=== PATIENT | male | born 1945 | race American Indian/Alaskan Native ===

== ENCOUNTER 2016-09-25 18:08 | Inpatient (IN) | payer MEDICARE, OTHER ==
[2016-09-25] MEDS ORDERED: SODIUM BICARBONATE IV ONE (18:19)
[2016-09-25 22:41] LABS: Hematocrit 42.5 % (35.5-45.6); Hemoglobin 14.2 gm/dl (11.8-15.2); Mean Corpuscular HGB Conc 34 % (32-34); Mean Corpuscular Hemoglobin 28 pg (28-32); Mean Corpuscular Volume 85 fl (84-94); Platelet Count 517 K/mm3 (140-440); Red Cell Distribution Width 17.4 % (13.2-15.2); White Blood Count 19.8 K/mm3 (4.5-11.0)
[2016-09-25 23:01] LABS: Anion Gap 25 mmol/L; BUN/Creatinine Ratio 11.11; Blood Urea Nitrogen 10 mg/dL (9-20); Calcium 9.6 mg/dL (8.4-10.2); Carbon Dioxide 21 mmol/L (22-30); Chloride 91.1 mmol/L (98-107); Glucose 113 mg/dL (75-100); Sodium 133 mmol/L (137-145); Uric Acid 5.4 mg/dL (3.5-7.6)
[2016-09-26 00:20] LABS: Bacteria,Urine 1+ /HPF (Negative); Bilirubin,Urine NEG (Negative); Blood,Urine SM (Negative); Ketones,Urine 20 mg/dL (Negative); Leukocyte Esterase,Urine LG (Negative); Mucus,Urine FEW /HPF; Nitrite,Urine NEG (Negative); Protein,Urine <15 mg/dL mg/dL (Negative)
[2016-09-26] MEDS ORDERED: ZOSYN/NS 4.5GM/100ML 100 ML IV ONE (06:16)
[2016-09-26] MEDS ORDERED: NACL 0.9% 500 ML IV ONE (06:16)
[2016-09-26] MEDS ORDERED: ZOFRAN IV ONE (06:20)
[2016-09-26] MEDS ORDERED: MORPHINE IV ONE (06:20)
--- NOTE | 2016-09-26 06:25 | Emergency Department Report ---
HPI - General Chief Complaint: Extremity Injury, Lower Time Seen by Provider: 09/26/16 06:08 - HPI HPI: Chief complaint: Right foot pain, cold, blistered, smelling HPI: Patient is a 71-year-old male denies hypertension or diabetes states for days ago he had acute onset of right foot pain is severe and has since worsened and now has discoloration, sloughing and malodorous. Patient denies any other symptoms. Mode of arrival: private car Source: Patient Began: 4-5 days ago Duration: Continuous Context: Patient denies prior medical history Quality: Sharp Severity: 10 out of 10 Improved with: Nothing Worsened with: Nothing Associated signs and symptoms: no fever, nausea, vomiting or diarrhea. ED Past Medical Hx - Past Medical History Additional medical history: gout - Surgical History Past Surgical History?: Yes Additional Surgical History: GI blockage - Social History Smoking Status: Current Every Day Smoker Substance Use Type: Alcohol ED Review of Systems ROS: Stated complaint: RT FOOT SWOLLEN/PAIN Other details as noted in HPI ROS Constitutional: No fever ENT: No uri symptoms Cardiovascular: No chest pain Respiratory: No sob or cough GI: No nausea vomiting or diarrhea : No dysuria frequency or urgency, Skin: See HPI Neuro: No focal weakness or numbness Psych: No depression Haresh/lymph: No edema Physical Exam - Physical Exam Vital Signs: Vital Signs 09/25/16 09/26/16 20:44 05:50 Temperature 98 F 98.2 F Pulse Rate 109 H 111 H Respiratory 18 16 Rate Blood Pressure 131/93 134/85 [Left] O2 Sat by Pulse 100 100 Oximetry Physical Exam: GENERAL: The patient is well-developed well-nourished . HEENT: Normocephalic. Atraumatic. Extraocular motions are intact. Patient has moist mucous membranes. NECK: Supple. No meningitic signs are noted. There is no adenopathy noted. CHEST/LUNGS: Clear to auscultation. There is no respiratory distress noted. HEART/CARDIOVASCULAR: Regular. There is no tachycardia. There is no gallop rub or murmur. ABDOMEN: Abdomen is soft, nontender. Patient has normal bowel sounds. There is no abdominal distention. SKIN: There is no edema. There is no diaphoresis. NEURO: The patient is awake, alert, and oriented. The patient is cooperative. The patient has normal speech. MUSCULOSKELETAL: Right foot and ankle cold to touch. Hyperpigmented, sloughing skin and malodorous. No palpable pulses. ED Course Vital Signs 09/25/16 09/26/16 20:44 05:50 Temperature 98 F 98.2 F Pulse Rate 109 H 111 H Respiratory 18 16 Rate Blood Pressure 131/93 134/85 [Left] O2 Sat by Pulse 100 100 Oximetry - Reevaluation(s) Reevaluation #1: 09/26/16 06:[address] Mccall. Requested CTA with lower extremity runoff and asked that the hospitalist admit the patient. Patient was cultured and given vancomycin and Zosyn and pain medication. ED Medical Decision Making - Lab Data Result diagrams: 09/25/16 22:29 09/25/16 22:29 Laboratory Tests 09/26/16 00:03 Ur Leukocyte Esterase Lg Urine WBC (Auto) 11.0 H Urine RBC (Auto) 2.0 U Epithel Cells (Auto) 4.0 Urine Bacteria (Auto) 1+ - Radiology Data Radiology results: report reviewed (radiology states swelling to the right foot but no subcutaneous gas.) Critical care attestation.: If time is entered above; I have spent that time in minutes in the direct care of this critically ill patient, excluding procedure time. ED Disposition Clinical Impression: Arterial occlusion Disposition: OP ADMITTED IP TO THIS HOSP Is pt being admited?: Yes Does the pt Need Aspirin: Yes Condition: Fair Time of Disposition: 06:27 (admit to the hospitalist)
[2016-09-26] MEDS ORDERED: NACL 0.9% 1000 ML 1,000 ML ONE (06:31)
[2016-09-26] MEDS ORDERED: NACL 0.9% 50 ML ONE ×2 (06:44→07:10)
--- NOTE | 2016-09-26 07:52 | History and Physical Report ---
History of Present Illness Chief complaint: My foot hurts History of present illness: 71 YO Male with HTN, gout, NIcotine Dependence presents to ED for evaluation. Pt states that he began having foot pain 4 days ago. Pain has worsened in past 8 hours. Pt foot is now malodorous, ischemic, cold, blistered, and foul smelling. Pt skin is sloughing off his foot. PT denies fever, chills, CP, Palpitations, Syncope, Trauma, Prolonged travel/immobility, malignancy, individual/family history of DVT/PE, or PAD. Pt states that pain in currently 10 /10 and localized to his foot. Past History Past Medical History: hypertension Past Surgical History: No surgical history, Other (reviewed) Social history: single, Lives alone, smoking. denies: alcohol abuse, prescription drug abuse Family history: no significant family history, other (reviewed) Medications and Allergies Allergies Allergy/AdvReac Type Severity Reaction Status Date / Time No Known Allergies Allergy Unverified 09/25/16 20:45 Home Medications Medication Instructions Recorded Confirmed Last Taken Type Unobtainable 09/26/16 09/26/16 Unknown History Review of Systems All systems: negative Musculoskeletal: other (foot pain) Exam - Constitutional Vitals: Temp Pulse Resp BP Pulse Ox 98.2 F 111 H 16 134/85 100 09/26/16 05:50 09/26/16 05:50 09/26/16 05:50 09/26/16 05:50 09/26/16 05:50 General appearance: Present: no acute distress, well-nourished - EENT Eyes: Present: PERRL ENT: hearing intact, clear oral mucosa - Neck Neck: Present: supple, normal ROM - Respiratory Respiratory effort: normal Respiratory: bilateral: CTA - Cardiovascular Heart Sounds: Present: S1 & S2. Absent: rub, click - Extremities Extremities: No edema Extremity abnormal: cyanosis, ulceration, black, cold, pulses diminished, tenderness Peripheral Pulses: abnormal - Abdominal General gastrointestinal: Present: soft, non-tender, non-distended, normal bowel sounds Male genitourinary: Present: normal - Integumentary Integumentary: Present: clear, warm, dry - Musculoskeletal Musculoskeletal: gait normal, strength equal bilaterally - Psychiatric Psychiatric: appropriate mood/affect, intact judgment & insight - Neurologic Neurologic: CNII-XII intact, moves all extremities Results - Labs CBC & Chem 7: 09/27/16 04:25 09/25/16 22:29 Labs: Abnormal lab results 09/25/16 09/25/16 09/26/16 Range/Units 22:29 22:29 00:03 WBC 19.8 H (4.5-11.0) K/mm3 RDW 17.4 H (13.2-15.2) % Plt Count 517 H (140-440) K/mm3 Sodium 133 L (137-145) mmol/L Chloride 91.1 L (98-107) mmol/L Carbon Dioxide 21 L (22-30) mmol/L Glucose 113 H (75-100) mg/dL Urine WBC (Auto) 11.0 H (0.0-6.0) /HPF Assessment and Plan - Patient Problems (1) Sepsis Current Visit: Yes Status: Acute Plan to address problem: Sepsis protocol: IV abx, ivf, supportive care, serial lactate levels, blood culture, wound culture (2) Arterial occlusion Current Visit: Yes Status: Acute Plan to address problem: Vascular service consulted, Angiogram with runoffs, supportive care. pain control (3) Gangrene of foot Current Visit: Yes Status: Removed Plan to address problem: wound care, (4) HTN (hypertension) Current Visit: Yes Status: Acute (5) Cellulitis and abscess of foot Current Visit: Yes Status: Acute Plan to address problem: IV abx, supportive care, vascular consult for possible amputation. (6) DVT prophylaxis Current Visit: Yes Status: Acute
[2016-09-26] MEDS ORDERED: DUONEB 0.5 MG-3 MG/3 ML SOLN IH PRN (07:53)
--- NOTE | 2016-09-26 08:02 | XRay Report ---
CHEST ONE VIEW INDICATION: Right foot gangrene. COMPARISON: None similar. FINDINGS: Portable, single, frontal chest radiograph demonstrates normal cardiomediastinal silhouette. Clear lungs. Advanced bilateral shoulder/rotator cuff degenerative changes. Demineralized bones. CONCLUSION: No acute disease in the chest. Thank you for the opportunity to participate in this patient's care.
--- NOTE | 2016-09-26 08:22 | Admit Criteria Form ---
Admission Criteria Documentation: VASCULAR DISEASE GRG Clinical Indications for Admission to Inpatient Care (Place 'X' for any and all applicable criteria): Hospital admission is needed for appropriate care of the patient because of ANY ONE of the following (1)(2)(3)(4): [ ]I. Life-threatening or limb-threatening skin ulcer as indicated by ANY ONE of the following(5): [ ]a) Surrounding cellulitis unresponsive to outpatient treatment [ ]b) Wet gangrene [ ]c) Lymphangitis [ ]d) Bacteremia [ ]II. Gangrene requiring intensity and frequency of care not manageable to outpatient, emergency, or observation level of care(5) [X ]III. Severe pain requiring acute inpatient management [ ]IV. Interventional revascularization (eg, surgery, thrombolysis) needed (eg , critical limb ischemia)(21) [ ]V. Urgent inpatient IV anticoagulation needed due to ALL of the following: [ ]a) Temporary subtherapeutic anticoagulation unacceptable because of high risk of short-term venous or arterial thromboembolism due to ANY ONE of the following(7)(8)(9): [ ]i) Venous thromboembolism within the past 12 months [ ]ii) Underlying malignancy [ ]iii) Patient with mechanical cardiac valve(10)(11) [ ]iv) Underlying hypercoagulable state (eg, protein C or protein S deficiency, antithrombin deficiency, antiphospholipid antibodies) [ ]v) Patient at high risk of thromboembolism (eg, status post orthopedic surgery, history of recurrent venous thromboembolism) [ ]vi) Atrial fibrillation with rheumatic valvular heart disease [ ]vii) Atrial fibrillation with 3 or MORE of the following : [ ]1) Congestive heart failure [ ]2) Hypertension [ ]3) Age 65 years or older [ ]4) Diabetes mellitus [ ]5) History of thromboembolism (eg, stroke, TIA , or systemic embolization) more than 3 months ago [ ]6) Female gender [ ]b) Contraindications to outpatient use of "bridging" agent or alternative oral anticoagulant as indicated by ALL of the following: [ ]i) Contraindication to outpatient use of low-molecular -weight heparin as "bridging" agent as indicated by ANY ONE of the following(8) : [ ]1) Documented current or history of heparin- induced thrombocytopenia(12) [ ]2) Severe thrombocytopenia (eg, platelet count less than 50,000/mm3 (50 x109/L)) [ ]3) Documented allergy to heparin, low- molecular-weight heparin, or pork products [ ]4) Renal failure (creatinine clearance < 30 mL /min/1.73m2 (0.50 mL/sec/1.73m2) or on dialysis) [ ]5) Inability to manage self-injection (eg, by patient, caregiver, or visiting nurse) [ ]ii) Contraindication to outpatient use of fondaparinux as "bridging" agent as indicated by ANY ONE of the following(13)(14)(15)(16): [ ]1) Severe thrombocytopenia (eg, platelet count less than 50,000/mm3 (50 x109/L)) [ ]2) Hypersensitivity to fondaparinux, related drugs, or product components [ ]3) Renal failure (creatinine clearance less than 30 mL/min/1.73m2 (0.50 mL/sec/1.73m2) or on dialysis) [ ]4) Inability to manage self-injection (eg, by patient, caregiver, or visiting nurse) [ ]iii) Oral direct thrombin inhibitor (eg, dabigatran) or oral coagulation factor Xa inhibitor (eg, rivaroxaban) not appropriate as oral anticoagulation (eg, indication not appropriate) or contraindicated (eg, hypersensitivity, renal failure)(13)(16)(17)(18)(19)(20) [ ]. Suspected severe acute ischemia due to peripheral vascular disease as indicated by ANY ONE of the following(5)(6): [ ]a) Tissue necrosis [ ]b) Severe pain [ ]c) Acute pulselessness [ ]d) Other evidence of acute severe ischemia (eg, lactic acidosis , motor dysfunction) [ ]VII. Acute or newly diagnosed major vessel (eg, aorta) dissection, rupture, or leakage(5)(6)(22)(23) [ ]VIII.Vascular Disease and ALL of the following: [ ]a) Symptom or finding for which emergency and observation care have failed or are not considered appropriate (Use General Criteria: Observation Care as appropriate) [ ]b) Presence of ANY ONE of the following: [ ]i) A General Admission Criteria [ ]ii) A Pediatric General Admission Criteria The original [facility] content created by John Olvera has been revised. The portions of the content which have been revised are identified through the use of italic text or in bold, and [facility] has neither reviewed nor approved the modified material. All other unmodified content is copyright [facility]. Please see references footnoted in the original [facility] edition 2016 Admission Criteria Met: Yes
--- NOTE | 2016-09-26 08:24 | XRay Report ---
RIGHT FOOT THREE VIEWS: 09/25/16 CLINICAL: Soft tissue swelling and no pulse in the right foot. FINDINGS: Moderate diffuse osteopenia. Hallux valgus deformity and arthritis at the first MTP joint. Small erosions of the first metatarsal head. No fracture or dislocation. Moderate diffuse soft tissue edema. No soft tissue air or foreign body. IMPRESSION: Soft tissue edema but no soft tissue air. Arthritis at the first MTP joint.
--- NOTE | 2016-09-26 10:57 | Cat Scan Report ---
CTA OF THE ABDOMEN, PELVIS, LOWER EXTREMITIES: HISTORY: Ischemic right leg. Transverse images are obtained from the low chest to the ischium with coronal and sagittal 2-D reformatted images as well as 3-D images. The visualized lungs are clear. There are a few gallstones. The abdominal and retroperitoneal solid organs appear generally unremarkable. The unopacified bowel and mesentery is grossly normal. The supra-renal aorta is unremarkable. The celiac and mesenteric arteries are patent. There may be a duplicated right renal supply. There is a single left renal artery. The infrarenal abdominal aorta is unremarkable and there is a patent aortic bifurcation. The iliofemoral arteries are unremarkable. There is a normal common femoral bifurcation. LEFT LOWER EXTREMITY: The SFA is patent as is the popliteal artery although the popliteal may be slightly narrowed. The common peroneal is patent. There appears to be blockage at the trifurcation with reconstitution of the peroneal artery as well as the posterior tibial artery which is the main supply of the foot. RIGHT LOWER EXTREMITY: The proximal and mid SFA are patent; however, there is an abrupt occlusion in the distal third. There are a few small collateral vessels distally with interrupted reconstitution of the mid and distal anterior tibial artery. No other significant supply identified below the knee. The soft tissues of the right leg demonstrate a right knee effusion. The circumference of the right calf and distal leg is generally larger than the left and there appears to be soft tissue edema in various compartments of the right foot. There is no identified gas; however, there is evidence of ulcerations in both medial and lateral aspects of the foot. IMPRESSIONS: 1. Right SFA occlusion with poor distal runoff. 2. Soft tissue changes of edema, fluid accumulations, and ulcerations at various locations in the right leg as detailed above. 3. Significant compromise of distal left leg runoff below the knee. 4. Cholelithiasis.
[2016-09-26] MEDS ORDERED: NACL 0.45% 1000 ML 1,000 ML IV SCH (11:00)
[2016-09-26] MEDS ORDERED: NACL 0.9% 1000 ML 1,000 ML IV ONE (11:00)
[2016-09-26] MEDS ORDERED: VANCOMYCIN VIAL 2,000 MG in NACL 0.9% 500 ML 500 ML IV ONE (12:00)
[2016-09-26] MEDS ORDERED: VANCOMYCIN PHARMACY TO DOSE IV SCH (12:00)
[2016-09-26] MEDS ORDERED: PROVENTIL IH PRN (12:00)
[2016-09-26] MEDS: LEVAQUIN 750MG/150ML 150 ML IV SCH (12:33)
--- NOTE | 2016-09-26 15:33 | Consultation ---
History of Present Illness - Reason for Consult Consult date: 09/26/16 gangrenous foot - History of Present Illness This patient is a 71-year-old gentleman who presented with an acutely ischemic right foot. Patient started having severe foot pain about 4 days ago. Since then it became discolored, started to smell with increased pain. Patient presented to the ER for evaluation. Patient has walked with cane in the past. Patient denies any previous history of claudication or rest pain. Past History Past Medical History: other (gout). denies: diabetes, DVT, hypertension Past Surgical History: bowel surgery Social history: denies: smoking (quit many years ago), alcohol abuse, IV drug use Family history: other (noncontributory) Medications and Allergies Allergies Allergy/AdvReac Type Severity Reaction Status Date / Time No Known Allergies Allergy Unverified 09/25/16 20:45 Home Medications Medication Instructions Recorded Confirmed Last Taken Type Unobtainable 09/26/16 09/26/16 Unknown History Active Meds: Active Medications Acetaminophen (Tylenol) 650 mg PO Q4H PRN PRN Reason: Pain MILD(1-3)/Fever >100.5/CAZARES Albuterol (Proventil) 2.5 mg IH Q4HRT PRN PRN Reason: wheezing Sodium Chloride (Nacl 0.45% 1000 Ml) 1,000 mls @ 125 mls/hr IV DIRECT [facility] Last Admin: 09/26/16 14:07 Dose: 125 mls/hr Levofloxacin/Dextrose (Levaquin 750mg/150ml) 150 mls @ 100 mls/hr IV Q24HR SUPRIYA PRN Reason: Protocol Last Admin: 09/26/16 12:33 Dose: 100 mls/hr Piperacillin Sod/Tazobactam Sod (Zosyn/Ns 4.5gm/100ml) 100 mls @ 100 mls/30 min IV Q8H SUPRIYA PRN Reason: Protocol Vancomycin HCl 1,500 mg/ (Sodium Chloride) 500 mls @ 333.333 mls/hr IV Q12H SUPRIYA Morphine Sulfate (Morphine) 2 mg IV Q4H PRN PRN Reason: Pain , Severe (7-10) Vancomycin HCl (Vancomycin Pharmacy To Dose) 1 each IV PKCONSULT SUPRIYA PRN Reason: Protocol Review of Systems Constitutional: no weight loss, no weight gain Ears, nose, mouth and throat: deferred Cardiovascular: no chest pain, no orthopnea, no palpitations Respiratory: no cough, no cough with sputum, no excessive sputum Gastrointestinal: no abdominal pain, no nausea, no vomiting Genitourinary Male: no dysuria, no hematuria Rectal: no pain Musculoskeletal: gait dysfunction (walks with cane), no neck stiffness, no neck pain Integumentary: blisters (right foot) Neurological: no paralysis, no weakness Psychiatric: no anxiety, no memory loss Endocrine: no cold intolerance, no heat intolerance Hematologic/Lymphatic: no easy bruising Exam - Constitutional Vitals: Temp Pulse Resp BP Pulse Ox 98.2 F 98 H 18 163/94 98 09/26/16 08:34 09/26/16 08:34 09/26/16 08:34 09/26/16 08:34 09/26/16 08:34 General appearance: Present: no acute distress, well-nourished - EENT Eyes: Present: PERRL ENT: hearing intact - Neck Neck: Present: supple - Respiratory Respiratory effort: normal Respiratory: bilateral: CTA - Cardiovascular Rhythm: regular - Extremities Extremity abnormal: black (right foot gangrenous with blisters up to ankle. Nonpalpable pulses. Nonpalpable right popliteal pulse) Peripheral Pulses: abnormal (nonpalpable popliteal or pedal pulses on the right) - Abdominal General gastrointestinal: Present: deferred Male genitourinary: Present: deferred - Rectal Rectal Exam: deferred - Psychiatric Psychiatric: appropriate mood/affect - Neurologic Neurologic: CNII-XII intact, no focal deficits Results - Labs CBC & Chem 7: 09/25/16 22:29 09/25/16 22:29 Labs: Abnormal lab results 09/26/16 09/26/16 Range/Units 08:05 10:48 Lactic Acid 2.8 H* 2.6 H* (0.7-2.0) mmol/L - Imaging and Cardiology EKG: image reviewed (CT angiogram shows right popliteal artery occlusion) Assessment and Plan Severe peripheral vascular disease with gangrenous nonsalvageable, possibly infected right foot. Patient is stable and not diabetic. Therefore no urgent intervention is necessary. However, patient will require at least a below-knee amputation in order to create a functional extremity with the possibility of prosthesis. Plan: For guillotine amputation in a.m. The next day patient will undergo an arteriogram of the right lower extremity was an attempt to revascularize it well enough to heal below-knee amputation. After couple of days of drainage patient will undergo a completion of right below-knee amputation. This plan has been discussed with the patient and his daughter and they all agree. Patient signed consent for all the procedures
[2016-09-26] MEDS: ZOSYN/NS 4.5GM/100ML 100 ML IV SCH (17:30)
[2016-09-26] MEDS: MORPHINE IV PRN (20:35)
[2016-09-26] MEDS: NYSTOP TP SCH (22:30)
[2016-09-27] MEDS: MORPHINE IV PRN ×2 (00:30→06:15)
[2016-09-27] MEDS ORDERED: VANCOMYCIN VIAL 1,500 MG in NACL 0.9% 500 ML 500 ML IV SCH (01:00)
[2016-09-27] MEDS: ZOSYN/NS 4.5GM/100ML 100 ML IV SCH ×3 (02:00→20:16)
[2016-09-27 04:59] LABS: Hematocrit 41.5 % (35.5-45.6); Hemoglobin 13.7 gm/dl (11.8-15.2); Mean Corpuscular HGB Conc 33 % (32-34); Mean Corpuscular Hemoglobin 28 pg (28-32); Mean Corpuscular Volume 86 fl (84-94); Red Blood Count 4.81 M/mm3 (3.65-5.03); Red Cell Distribution Width 17.2 % (13.2-15.2)
[2016-09-27 05:02] LABS: Platelet Count 430 K/mm3 (140-440); White Blood Count 18.7 K/mm3 (4.5-11.0)
[2016-09-27 05:46] LABS: Anisocytosis 1+; Basophils % (Manual) 0 % (0.0-1.8); Blastocytes % (Manual) 0 %; Eosinophils % (Manual) 0 % (0.0-4.3)
[2016-09-27 05:47] LABS: Diff Status Complete; Giant Platelets Few
--- NOTE | 2016-09-27 09:23 | Anesthesia Day of Surgery ---
Anesthesia Day of Surgery - Day of Surgery Patient Examined: Yes Patient H&P Reviewed: Yes Patient is NPO: Yes
--- NOTE | 2016-09-27 09:23 | Anesthesia Consultation ---
Anesthesia Consult and Med Hx Date of service: 09/27/16 - Airway Anesthetic Teeth Evaluation: Poor ROM Head & Neck: Adequate Mental/Hyoid Distance: Adequate Mallampati Class: Class II Intubation Access Assessment: Probably Good - Pulmonary Exam CTA: Yes - Cardiac Exam Cardiac Exam: RRR - Pre-Operative Health Status ASA Pre-Surgery Classification: ASA3 Proposed Anesthetic Plan: General - Pulmonary Hx Smoking: Yes - Cardiovascular System Hx Hypertension: Yes Hx Peripheral Vascular Disease: Yes
[2016-09-27] MEDS ORDERED: LEVAQUIN 750MG/150ML 150 ML IV ONE (09:25)
[2016-09-27] MEDS ORDERED: NACL 0.9% 1000 ML 1,000 ML ONE (09:28)
[2016-09-27] MEDS: NACL 0.9% 1000 ML 1,000 ML IV SCH (09:45)
[2016-09-27] MEDS ORDERED: MORPHINE IV ONE (10:00)
[2016-09-27] MEDS: LEVAQUIN 750MG/150ML 150 ML IV SCH (10:01)
[2016-09-27] MEDS ORDERED: DIPRIVAN 10 MG/ML IV ONE (10:06)
[2016-09-27] MEDS ORDERED: DILAUDID ONE (10:06)
[2016-09-27] MEDS ORDERED: XYLOCAINE MPF 2% ONE (10:10)
[2016-09-27] MEDS ORDERED: DECADRON ONE (10:10)
[2016-09-27] MEDS ORDERED: ZOFRAN ONE (10:10)
--- NOTE | 2016-09-27 11:06 | Anesthesia Day of Surgery ---
Anesthesia Day of Surgery - Day of Surgery Patient Examined: Yes Patient H&P Reviewed: Yes Patient is NPO: Yes
[2016-09-27] MEDS ORDERED: NACL 0.9% IR ONE (11:39)
[2016-09-27] MEDS ORDERED: NACL 0.9% 100 ML ONE (11:42)
[2016-09-27] MEDS ORDERED: NEO SYNEPHRINE ONE (11:42)
--- NOTE | 2016-09-27 12:15 | Operative Report ---
Operative Report Operative Report: Date of Procedure: 09/27/2016 Pre-operative Diagnosis: Peripheral Vascular Disease with Right Foot Wet Gangrene Post-operative Diagnosis: Same Procedure(s): 1. Right above the Ankle Open Guillotine Amputation Surgeon: Jesus Stacy M.D. Snack Bar Cashier: None Anesthesia: Gen. endotracheal anesthesia EBL: Minimal Counts: Correct Complications: None Condition: Stable Findings: Leg amputated above the ankle all tissue appeared viable without any signs of infection. Specimen: Right foot sent to pathology Indication: The patient is a 71-year-old male with a history of peripheral vascular disease and wet gangrene of his right foot. He is in need of open amputation to clear his infection with the plan to close the amputation formerly once his infection is clear. He was given the risks, benefits, and alternatives using a symmetry procedure. Description of Procedure: The patient was brought to the operating room and laid in supine position. After general endotracheal anesthesia was achieved his right foot and leg were prepped and draped in normal sterile fashion. After inflating the tourniquet to 350 mmHg a circumferential incision was created just above the ankle and carried down to the bone using a template. Cautery was used to divide the remaining muscle and soft tissue. An oscillating saw was then used to transect the tibia slightly above the incision and a double action bone cutter was used to transect the fibula approximately a centimeter above the tibia. Cautery was used to achieve hemostasis. The tourniquet was released and additional cautery was used to achieve hemostasis. The wound was copiously irrigated and then dressed using Xeroform gauze, Betadine soaked fluffs, Kerlix, and a 4 inch Wilian bandage. The patient tolerated the procedure well. All sponge, needle, and instrument counts were correct. The patient was taken to the recovery area stable condition.
--- NOTE | 2016-09-27 12:35 | Post Anesthesia Evaluation ---
- Post Anesthesia Evaluation Patient Participated: Yes Airway Patent: Yes Stable Respiratory Function: Yes Nausea/Vomiting: No Temp > 96.8F: Yes Pain Manageable: Yes Adequeate Hydration: Yes Anesthesia Complications: No Block Receding Appropriately: Not Applicable Patient on Ventilator: No
[2016-09-27] MEDS: VANCOMYCIN VIAL 1,500 MG in NACL 0.9% 500 ML 500 ML IV SCH (16:00)
[2016-09-27] MEDS: NYSTOP TP SCH ×2 (22:49→23:00)
[2016-09-28] MEDS: NACL 0.9% 1000 ML 1,000 ML IV SCH ×2 (00:22→15:30)
[2016-09-28] MEDS: ZOSYN/NS 4.5GM/100ML 100 ML IV SCH ×3 (03:00→10:00)
[2016-09-28] MEDS: MORPHINE IV PRN ×2 (04:39→10:45)
[2016-09-28] MEDS: VANCOMYCIN VIAL 1,500 MG in NACL 0.9% 500 ML 500 ML IV SCH ×2 (04:40→20:00)
--- NOTE | 2016-09-28 06:11 | Progress Note ---
Assessment and Plan - Patient Problems (1) Sepsis Current Visit: Yes Status: Resolved Plan to address problem: Sepsis protocol: IV abx, ivf, supportive care, serial lactate levels, blood culture, wound culture (2) Arterial occlusion Current Visit: Yes Status: Acute Plan to address problem: s/p rle bka (3) Gangrene of foot Current Visit: Yes Status: Removed Plan to address problem: s/p rle bka (4) HTN (hypertension) Current Visit: Yes Status: Acute Plan to address problem: monitor bp q shift, cont current care (5) Cellulitis and abscess of foot Current Visit: Yes Status: Acute Plan to address problem: IV abx, supportive care, vascular consult for possible amputation. (6) DVT prophylaxis Current Visit: Yes Status: Acute History Interval history: Pt resting, sitting on side of bed. No reported nursing events. Pt denies pain. Hospitalist Physical - Constitutional Vitals: Temp Pulse Resp BP Pulse Ox 98.3 F 100 H 22 133/76 99 09/28/16 05:04 09/28/16 05:04 09/28/16 05:04 09/28/16 05:04 09/28/16 05:04 General appearance: Present: no acute distress, well-nourished - EENT Eyes: Present: PERRL ENT: hearing intact - Neck Neck: Present: supple - Respiratory Respiratory effort: normal Respiratory: bilateral: CTA - Cardiovascular Rhythm: regular Heart Sounds: Present: S1 & S2 Peripheral Pulses: within normal limits - Abdominal General gastrointestinal: soft, non-tender, non-distended - Integumentary Integumentary: Present: clear, dry - Psychiatric Psychiatric: appropriate mood/affect, cooperative - Neurologic Neurologic: CNII-XII intact Results - Labs CBC & Chem 7: 09/27/16 04:25 09/25/16 22:29 Labs: Laboratory Last Values WBC 18.7 K/mm3 (4.5-11.0) H 09/27/16 04:25 RBC 4.81 M/mm3 (3.65-5.03) 09/27/16 04:25 Hgb 13.7 gm/dl (11.8-15.2) 09/27/16 04:25 Hct 41.5 % (35.5-45.6) 09/27/16 04:25 MCV 86 fl (84-94) 09/27/16 04:25 MCH 28 pg (28-32) 09/27/16 04:25 MCHC 33 % (32-34) 09/27/16 04:25 RDW 17.2 % (13.2-15.2) H 09/27/16 04:25 Plt Count 430 K/mm3 (140-440) 09/27/16 04:25 Add Manual Diff Complete 09/27/16 04:25 Total Counted 100 09/27/16 04:25 Seg Neuts % (Manual) 82.0 % (40.0-70.0) H 09/27/16 04:25 Band Neutrophils % 6.0 % 09/27/16 04:25 Lymphocytes % (Manual) 8.0 % (13.4-35.0) L 09/27/16 04:25 Reactive Lymphs % (Man) 0 % 09/27/16 04:25 Monocytes % (Manual) 3.0 % (0.0-7.3) 09/27/16 04:25 Eosinophils % (Manual) 0 % (0.0-4.3) 09/27/16 04:25 Basophils % (Manual) 0 % (0.0-1.8) 09/27/16 04:25 Metamyelocytes % 1.0 % 09/27/16 04:25 Myelocytes % 0 % 09/27/16 04:25 Promyelocytes % 0 % 09/27/16 04:25 Blast Cells % 0 % 09/27/16 04:25 Nucleated RBC % Not Reportable 09/27/16 04:25 Seg Neutrophils # Man 15.3 K/mm3 (1.8-7.7) H 09/27/16 04:25 Band Neutrophils # 1.1 K/mm3 09/27/16 04:25 Lymphocytes # (Manual) 1.5 K/mm3 (1.2-5.4) 09/27/16 04:25 Abs React Lymphs (Man) 0.0 K/mm3 09/27/16 04:25 Monocytes # (Manual) 0.6 K/mm3 (0.0-0.8) 09/27/16 04:25 Eosinophils # (Manual) 0.0 K/mm3 (0.0-0.4) 09/27/16 04:25 Basophils # (Manual) 0.0 K/mm3 (0.0-0.1) 09/27/16 04:25 Metamyelocytes # 0.2 K/mm3 09/27/16 04:25 Myelocytes # 0.0 K/mm3 09/27/16 04:25 Promyelocytes # 0.0 K/mm3 09/27/16 04:25 Blast Cells # 0.0 K/mm3 09/27/16 04:25 WBC Morphology Not Reportable 09/27/16 04:25 Hypersegmented Neuts Not Reportable 09/27/16 04:25 Hyposegmented Neuts Not Reportable 09/27/16 04:25 Hypogranular Neuts Not Reportable 09/27/16 04:25 Smudge Cells Not Reportable 09/27/16 04:25 Toxic Granulation Not Reportable 09/27/16 04:25 Toxic Vacuolation Not Reportable 09/27/16 04:25 Dohle Bodies Not Reportable 09/27/16 04:25 Pelger-Huet Anomaly Not Reportable 09/27/16 04:25 Renita Rods Not Reportable 09/27/16 04:25 Platelet Estimate Not Reportable 09/27/16 04:25 Clumped Platelets Not Reportable 09/27/16 04:25 Plt Clumps, EDTA Not Reportable 09/27/16 04:25 Large Platelets Not Reportable 09/27/16 04:25 Giant Platelets Few 09/27/16 04:25 Platelet Satelliting Not Reportable 09/27/16 04:25 Plt Morphology Comment Not Reportable 09/27/16 04:25 RBC Morphology Not Reportable 09/27/16 04:25 Dimorphic RBCs Not Reportable 09/27/16 04:25 Polychromasia Not Reportable 09/27/16 04:25 Hypochromasia Not Reportable 09/27/16 04:25 Poikilocytosis Not Reportable 09/27/16 04:25 Anisocytosis 1+ 09/27/16 04:25 Microcytosis Not Reportable 09/27/16 04:25 Macrocytosis Not Reportable 09/27/16 04:25 Spherocytes Not Reportable 09/27/16 04:25 Pappenheimer Bodies Not Reportable 09/27/16 04:25 Sickle Cells Not Reportable 09/27/16 04:25 Target Cells Not Reportable 09/27/16 04:25 Tear Drop Cells Not Reportable 09/27/16 04:25 Ovalocytes Not Reportable 09/27/16 04:25 Helmet Cells Not Reportable 09/27/16 04:25 Iraheta-Dyess Bodies Not Reportable 09/27/16 04:25 [place] Rings Not Reportable 09/27/16 04:25 Abhilash Cells Not Reportable 09/27/16 04:25 Bite Cells Not Reportable 09/27/16 04:25 Crenated Cell Not Reportable 09/27/16 04:25 Elliptocytes Not Reportable 09/27/16 04:25 Acanthocytes (Spur) Not Reportable 09/27/16 04:25 Rouleaux Not Reportable 09/27/16 04:25 Hemoglobin C Crystals Not Reportable 09/27/16 04:25 Schistocytes Not Reportable 09/27/16 04:25 Malaria parasites Not Reportable 09/27/16 04:25 Azael Bodies Not Reportable 09/27/16 04:25 Hem Pathologist Commnt No 09/27/16 04:25 Sodium 133 mmol/L (137-145) L 09/25/16 22:29 Potassium 4.0 mmol/L (3.6-5.0) 09/25/16 22:29 Chloride 91.1 mmol/L (98-107) L 09/25/16 22:29 Carbon Dioxide 21 mmol/L (22-30) L 09/25/16 22:29 Anion Gap 25 mmol/L 09/25/16 22:29 BUN 10 mg/dL (9-20) 09/25/16 22:29 Creatinine 0.9 mg/dL (0.8-1.5) 09/25/16 22:29 Estimated GFR > 60 ml/min 09/25/16 22:29 BUN/Creatinine Ratio 11.11 % 09/25/16 22:29 Glucose 113 mg/dL (75-100) H 09/25/16 22:29 Lactic Acid 2.6 mmol/L (0.7-2.0) H* 09/26/16 10:48 Uric Acid 5.4 mg/dL (3.5-7.6) 09/25/16 22:29 Calcium 9.6 mg/dL (8.4-10.2) 09/25/16 22:29 Urine Color Yellow (Yellow) 09/26/16 00:03 Urine Turbidity Clear (Clear) 09/26/16 00:03 Urine pH 5.0 (5.0-7.0) 09/26/16 00:03 Ur Specific [place] 1.011 (1.003-1.030) 09/26/16 00:03 Urine Protein <15 mg/dl mg/dL (Negative) 09/26/16 00:03 Urine Glucose (UA) Neg mg/dL (Negative) 09/26/16 00:03 Urine Ketones 20 mg/dL (Negative) 09/26/16 00:03 Urine Blood Sm (Negative) 09/26/16 00:03 Urine Nitrite Neg (Negative) 09/26/16 00:03 Urine Bilirubin Neg (Negative) 09/26/16 00:03 Urine Urobilinogen 2.0 mg/dL (<2.0) 09/26/16 00:03 Ur Leukocyte Esterase Lg (Negative) 09/26/16 00:03 Urine WBC (Auto) 11.0 /HPF (0.0-6.0) H 09/26/16 00:03 Urine RBC (Auto) 2.0 /HPF (0.0-6.0) 09/26/16 00:03 U Epithel Cells (Auto) 4.0 /HPF (0-13.0) 09/26/16 00:03 Urine Bacteria (Auto) 1+ /HPF (Negative) 09/26/16 00:03 Urine Mucus Few /HPF 09/26/16 00:03
[2016-09-28] MEDS ORDERED: ANCEF/STERILE WATER 2 GM/20 ML IV NR (08:00)
[2016-09-28] MEDS: LEVAQUIN 750MG/150ML 150 ML IV SCH (11:00)
[2016-09-28] MEDS: PERCOCET 5/325 PO PRN (12:00)
[2016-09-28] MEDS ORDERED: HEPARIN/NS 5000 UNIT/500ML(CATH LAB) 1,000 ML IR ONE (13:58)
[2016-09-28] MEDS ORDERED: DILAUDID ONE (13:58)
[2016-09-28] MEDS ORDERED: SUBLIMAZE ONE ×3 (13:58→16:02)
[2016-09-28] MEDS: SUBLIMAZE ONE ×3 (14:19→15:30)
[2016-09-28] MEDS: XYLOCAINE 1%/ EPI 1:100,000 INFILTRATI ONE (14:20)
[2016-09-28] MEDS: VERSED ONE ×5 (14:20→16:05)
[2016-09-28] MEDS: HEPARIN 10,000 UNITS/10 ML ONE ×2 (14:46→16:05)
[2016-09-28] MEDS ORDERED: NACL 0.9% 1000 ML 1,000 ML ONE (14:47)
[2016-09-28] MEDS ORDERED: CATHFLO ONE (14:50)
[2016-09-28] MEDS ORDERED: NACL 0.9% 100 ML ONE (14:50)
[2016-09-28] MEDS ORDERED: HEPARIN/NS 5000 UNIT/500ML(CATH LAB) 500 ML IR ONE (14:50)
[2016-09-28] MEDS ORDERED: WATER FOR INJ (PF) 10 ML ONE (14:51)
[2016-09-28] MEDS ORDERED: BENADRYL ONE (15:20)
[2016-09-28] MEDS ORDERED: VERSED ONE ×2 (15:29→16:01)
--- NOTE | 2016-09-28 17:31 | Operative Report ---
Operative Report Operative Report: EXAM: 1. Ultrasound-guided access of the left common femoral artery 2. Angiography of the left lower extremity 3. Selection of the abdominal aorta and angiography 4. Selection of the right external iliac artery, popliteal artery, and posterior tibial artery with angiography of the right lower extremity 5. 10 mg TPA pulse spray infusion throughout the right distal superficial femoral artery, popliteal artery, tibioperoneal trunk, and posterior tibial artery 6. Mechanical thrombectomy with 6 [place] AngioJet device of the right distal superficial femoral artery, popliteal artery, tibioperoneal trunk, and posterior tibial artery 7. 5 Malian penumbra mechanical thrombectomy of the right distal superficial femoral artery, popliteal artery, tibioperoneal trunk, and posterior tibial artery 8. Angioplasty of the right posterior tibial artery and tibioperoneal trunk with a 2.5 mm angioplasty balloon 9. Angioplasty of the right tibioperoneal trunk and popliteal artery with a 4 mm angioplasty balloon 10. Angioplasty of the popliteal artery, and distal superficial femoral artery at the 5 mm angioplasty balloon 11. Balloon occlusion of the posterior tibial artery with a 2.5 mm angioplasty balloon with ligation of the posterior tibial artery (assistance by Dr. Stacy) 12. Angio-Seal 6 Malian closure of the left common femoral artery with near immediate hemostasis DATE: 09/28/16 DERRICK BARGE OPERATOR: ANGEL HWANG MD TOOL REPAIRER: ALIREZA STACY MD INDICATION: Right lower extremity infection and gangrene requiring open below- knee amputation with popliteal and distal SFA occlusion requiring revascularization prior to definitive below-knee amputation. MEDICATIONS: Please see nursing report for full details. DEVICES: 6 [place] AngioJet 2.5 mm angioplasty balloon 4 mm angioplasty balloon 5 mm angioplasty balloon CONTRAST: Please see geotechnical laboratory technician report for full details. PROCEDURE: The risks, benefits, and alternatives were discussed with the patient; written informed consent was obtained. Groins were prepped and draped in a sterile fashion. The left common femoral artery was assessed with ultrasound was patent. Under direct ultrasound guidance, the left common femoral artery was accessed with a 21-gauge micropuncture needle. 0.018 inch wire was passed into the aorta. Needle was exchanged for transitional dilator. 0.035 inch wire was passed into the aorta. Transitional dilator was changed for 5 Malian sheath. Digital subtraction angiography was performed to the sheath demonstrating an appropriate puncture, above the bifurcation below the inferior epigastric artery. The left common femoral artery, external iliac artery, proximal superficial femoral artery and proximal profunda femoral artery were patent. Catheter was positioned in infrarenal Mj aorta and digital subtraction angiography was performed demonstrating a patent distal abdominal aorta, patent bilateral common iliac arteries, patent bilateral external iliac arteries and patent right common femoral artery. 0.035 inch Glidewire advantage and catheter were advanced into the right external iliac artery. Digital subtraction angiography was performed demonstrating a patent right common femoral artery, profunda femoral artery, proximal superficial femoral artery. The midportion of the right superficial femoral artery was patent. Digital subtraction angiography was repeated demonstrating occlusion of the right distal superficial femoral artery. Due to the tortuosity of the right iliac artery, I decided to exchange my sheath and passed the sheath into the right mid superficial femoral artery. Patient was heparinized. Sheath was exchanged for a 6 cm Malian 90 cm [place] destination which was passed into the right mid superficial femoral artery. Digital subtraction angiography was repeated demonstrating that there was an occlusion in the right popliteal artery, right distal superficial femoral artery , with delayed reconstitution of the posterior tibial artery. There was also thrombus in the posterior tibial artery. Multiple different wires were used in combination with a vertebral catheter and were used to cannulate the right posterior tibial artery. The right posterior tibial artery was selected. Digital subtraction angiography was performed demonstrating thrombus in the right posterior tibial artery. V18 was passed into the right posterior tibial artery. 6 [place] AngioJet was advanced over the wire and 10 mg TPA pulse spray was infused in the right distal superficial femoral artery, popliteal artery, tibioperoneal trunk, and proximal posterior tibial artery. 25 minute dwell time was allowed. Mechanical thrombectomy was then performed in the right distal superficial femoral artery, popliteal artery, tibioperoneal trunk, and proximal posterior tibial artery. Digital subtraction angiography was repeated demonstrating residual thrombus. Mechanical thrombectomy with the AngioJet was repeated. Digital subtraction angiography was performed demonstrating residual thrombus. 5 Malian penumbra was advanced over the wire into the posterior tibial artery and with the use of the separator, mechanical thrombectomy was performed in the posterior tibial artery, tibioperoneal trunk, popliteal artery, and distal superficial femoral artery. After thrombectomy, V18 was passed back into the posterior tibial artery. Digital subtraction angiography demonstrated minimal residual thrombus. 2.5 mm angioplasty balloon was passed into the posterior tibial artery angioplasty was performed throughout the length of the posterior tibial artery through the tibioperoneal trunk and distal popliteal artery. 4 mm angioplasty balloon was then used to perform angioplasty of the tibioperoneal trunk into the popliteal artery and distal superficial femoral artery. 5 mm angioplasty balloon was used to perform angioplasty in the popliteal artery and distal superficial femoral artery. Digital subtraction angiography was performed demonstrating brisk flow into the distal superficial femoral artery and popliteal artery. There is a mild residual narrowing in the tibioperoneal trunk. There was brisk flow into the posterior tibial artery which then extravasated at the open below-knee amputation site. 2.5 mm angioplasty balloon was advanced over the wire was used to balloon occluded the distal posterior tibial artery. I contacted Dr. Stacy, one of the vascular surgeons in [facility]. He prepped the below-knee amputation site and I passed the wire out of the artery through the occlusion balloon. He passed multiple 3-0 Vicryl stitches at the exit site and used a [id number] stitch to occlude the vessel. The balloon was deflated and no further bleeding was noted. At this point, I determine that the intervention was complete. Wires and catheters were removed. Sheath was retracted into the left external iliac artery. Amplatz wire was passed centrally. The sheath and groin was reprepped with ChloraPrep. Gloves were changed. Sheath was exchanged for a new 6 Malian sheath. Area was cleaned again with ChloraPrep. Sheath was removed and 6 Malian Angio-Seal was advanced over the wire and successfully deployed with near immediate hemostasis. Site was closed with 4-0 Vicryl and Dermabond. Patient tolerated procedure well. No immediate postprocedural complication. The below the knee amputation site was then dressed appropriately. FINDINGS: Please see procedure note above. IMPRESSION: 1. Successful mechanical thrombectomy of the right distal superficial femoral artery, popliteal artery, tibioperoneal trunk, and posterior tibial artery with 6 Malian AngioJet and 5 Malian indigo penumbra device. 2. Successful revascularization of the right distal superficial femoral artery , popliteal artery, tibioperoneal trunk, and posterior tibial artery. 3. Successful distal ligation of the posterior tibial artery as it exited the right below knee open amputation by Dr. Stacy.
--- NOTE | 2016-09-28 18:41 | Post Operative Note ---
Date of procedure: 09/28/16 Pre-op diagnosis: PVD with open BKA Post-op diagnosis: same Findings: Estimated blood loss approximately 300 mL's in aspiration devices Procedure: 1. Ultrasound-guided access of the left common femoral artery 2. Angiography of the left lower extremity 3. Selection of the abdominal aorta and angiography 4. Selection of the right external iliac artery, popliteal artery, and posterior tibial artery with angiography of the right lower extremity 5. 10 mg TPA pulse spray infusion throughout the right distal superficial femoral artery, popliteal artery, tibioperoneal trunk, and posterior tibial artery 6. Mechanical thrombectomy with 6 Wallisian AngioJet device of the right distal superficial femoral artery, popliteal artery, tibioperoneal trunk, and posterior tibial artery 7. 5 Wallisian penumbra mechanical thrombectomy of the right distal superficial femoral artery, popliteal artery, tibioperoneal trunk, and posterior tibial artery 8. Angioplasty of the right posterior tibial artery and tibioperoneal trunk with a 2.5 mm angioplasty balloon 9. Angioplasty of the right tibioperoneal trunk and popliteal artery with a 4 mm angioplasty balloon 10. Angioplasty of the popliteal artery, and distal superficial femoral artery at the 5 mm angioplasty balloon 11. Balloon occlusion of the posterior tibial artery with a 2.5 mm angioplasty balloon with ligation of the posterior tibial artery (assistance by Dr. Verde) 12. Angio-Seal 6 Wallisian closure of the left common femoral artery with near immediate hemostasis Anesthesia: local Surgeon: ANGEL HWANG Estimated blood loss: other (300 mL) Condition: stable Disposition: floor
--- NOTE | 2016-09-28 18:54 | Consultation ---
History of Present Illness - Reason for Consult Consult date: 09/28/16 Evaluate for Acute IRU - History of Present Illness 71 y.o. male who reports worsening foot pain with foul smell. After Vascular surgery consult, pt was recommended for amputation. Guillotine amputation was completed on 09/27; arteriogram completed on today. Pt will require formal BKA in a few days per Vascular. On today, pt reports intermittent phantom pain, rated 4-5/10. PT consulted, however, unable to be completed due to procedure. Consult placed for post-acute placement recommendations. Past History Past Medical History: hypertension Past Surgical History: Other (ex lap) Social history: single, lives with family, smoking, alcohol abuse Family history: hypertension Medications and Allergies Allergies Allergy/AdvReac Type Severity Reaction Status Date / Time No Known Allergies Allergy Unverified 09/25/16 20:45 Home Medications Medication Instructions Recorded Confirmed Last Taken Type Unobtainable 09/26/16 09/26/16 Unknown History Active Meds: Active Medications Acetaminophen (Tylenol) 650 mg PO Q4H PRN PRN Reason: Pain MILD(1-3)/Fever >100.5/CAZARES Albuterol (Proventil) 2.5 mg IH Q4HRT PRN PRN Reason: wheezing Cefazolin Sodium (Ancef/Sterile Water 2 Gm/20 Ml) 2 gm IV PREOP NR Stop: 09/30/16 07:59 Levofloxacin/Dextrose (Levaquin 750mg/150ml) 150 mls @ 100 mls/hr IV Q24HR SUPRIYA PRN Reason: Protocol Last Admin: 09/28/16 11:00 Dose: 100 mls/hr Vancomycin HCl 1,500 mg/ (Sodium Chloride) 500 mls @ 333.333 mls/hr IV Q12H [facility] Last Admin: 09/28/16 04:40 Dose: 333.333 mls/hr Piperacillin Sod/Tazobactam Sod (Zosyn/Ns 4.5gm/100ml) 100 mls @ 100 mls/30 min IV Q8H SUPRIYA PRN Reason: Protocol Last Admin: 09/28/16 10:00 Dose: 100 mls/30 min Sodium Chloride (Nacl 0.9% 1000 Ml) 1,000 mls @ 100 mls/hr IV DIRECT [facility] Last Admin: 09/28/16 15:30 Dose: 1,000 mls Morphine Sulfate (Morphine) 2 mg IV Q4H PRN PRN Reason: Pain , Severe (7-10) Last Admin: 09/28/16 10:45 Dose: 2 mg Nystatin (Nystop) 1 applic TP BID [facility] Last Admin: 09/27/16 23:00 Dose: 1 applic Oxycodone/Acetaminophen (Percocet 5/325) 2 tab PO Q6H PRN PRN Reason: Pain, Moderate (4-6) Last Admin: 09/28/16 12:00 Dose: 2 tab Vancomycin HCl (Vancomycin Pharmacy To Dose) 1 each IV PKCONSULT SUPRIYA PRN Reason: Protocol Review of Systems All systems: negative Ears, nose, mouth and throat: no headache Cardiovascular: no chest pain, no lightheadedness Respiratory: no cough, no shortness of breath Gastrointestinal: no nausea, no vomiting, no constipation Genitourinary Male: no dysuria Neurological: parathesias (phantom pain at Right residual limb) Exam - Constitutional Vitals: Vital Signs - 12hr 09/28/16 09/28/16 09/28/16 07:00 10:00 18:00 Temperature 97.5 F L 98.4 F Pulse Rate [ 94 H 87 Left Brachial] Respiratory 18 Rate Blood Pressure 141/76 170/96 [Left Arm] O2 Sat by Pulse 98 Oximetry General appearance: no acute distress, obese - EENT Eyes: EOM intact ENT: hearing intact - Neck Neck: supple, normal ROM - Respiratory Respiratory effort: normal Respiratory: bilateral: CTA - Cardiovascular Rhythm: regular Heart Sounds: Present: S1 & S2 - Extremities Extremity abnormal: other (post-op dressing to RLE ) - Gastrointestinal General gastrointestinal: Present: soft, non-tender, non-distended, normal bowel sounds - Neurologic Neurologic: CNII-XII intact, moves all extremities (good ROM at RLE at knee and hip ) - Psychiatric Psychiatric: appropriate mood/affect, intact judgment & insight, memory intact, cooperative - Labs CBC & Chem 7: 09/28/16 19:04 09/25/16 22:29 Labs: Laboratory Results - last 72 hr 09/26/16 09/26/16 09/27/16 08:05 10:48 04:25 WBC 18.7 H RBC 4.81 Hgb 13.7 Hct 41.5 MCV 86 MCH 28 MCHC 33 RDW 17.2 H Plt Count 430 Add Manual Diff Complete Total Counted 100 Seg Neuts % (Manual) 82.0 H Band Neutrophils % 6.0 Lymphocytes % (Manual) 8.0 L Reactive Lymphs % (Man) 0 Monocytes % (Manual) 3.0 Eosinophils % (Manual) 0 Basophils % (Manual) 0 Metamyelocytes % 1.0 Myelocytes % 0 Promyelocytes % 0 Blast Cells % 0 Nucleated RBC % Not Reportable Seg Neutrophils # Man 15.3 H Band Neutrophils # 1.1 Lymphocytes # (Manual) 1.5 Abs React Lymphs (Man) 0.0 Monocytes # (Manual) 0.6 Eosinophils # (Manual) 0.0 Basophils # (Manual) 0.0 Metamyelocytes # 0.2 Myelocytes # 0.0 Promyelocytes # 0.0 Blast Cells # 0.0 WBC Morphology Not Reportable Hypersegmented Neuts Not Reportable Hyposegmented Neuts Not Reportable Hypogranular Neuts Not Reportable Smudge Cells Not Reportable Toxic Granulation Not Reportable Toxic Vacuolation Not Reportable Dohle Bodies Not Reportable Pelger-Huet Anomaly Not Reportable Renita Rods Not Reportable Platelet Estimate Not Reportable Clumped Platelets Not Reportable Plt Clumps, EDTA Not Reportable Large Platelets Not Reportable Giant Platelets Few Platelet Satelliting Not Reportable Plt Morphology Comment Not Reportable RBC Morphology Not Reportable Dimorphic RBCs Not Reportable Polychromasia Not Reportable Hypochromasia Not Reportable Poikilocytosis Not Reportable Anisocytosis 1+ Microcytosis Not Reportable Macrocytosis Not Reportable Spherocytes Not Reportable Pappenheimer Bodies Not Reportable Sickle Cells Not Reportable Target Cells Not Reportable Tear Drop Cells Not Reportable Ovalocytes Not Reportable Helmet Cells Not Reportable [place] Bodies Not Reportable [place] Rings Not Reportable [place] Cells Not Reportable Bite Cells Not Reportable Crenated Cell Not Reportable Elliptocytes Not Reportable Acanthocytes (Spur) Not Reportable Rouleaux Not Reportable Hemoglobin C Crystals Not Reportable Schistocytes Not Reportable Malaria parasites Not Reportable Azael Bodies Not Reportable Hem Pathologist Commnt No Lactic Acid 2.8 H* 2.6 H* Assessment and Plan Patient was assessed and evaluated for Acute Inpatient Rehab Unit. 71 y.o. male s/p right LE amputation secondary to PVD with wet gangrene; pending RT residual limb revision. Rehab options discussed with patient. PT evaluation is pending. Post-acute care recommendations to follow after therapy evaluation had been completed. Pt is motivation to get stronger and become independent post-operatively; expressed desire to obtain prosthetic when appropriate. Ongoing medical management per IM and Vascular; pain control; ABX ; HTN. Will continue to follow. Thank you for consultation. - Patient Problems (1) Gangrene of foot Current Visit: Yes Status: Acute (2) Amputation of right lower extremity below knee Current Visit: Yes Status: Acute (3) HTN (hypertension) Current Visit: Yes Status: Acute Qualifiers: Hypertension type: essential hypertension Qualified Code(s): I10 - Essential (primary) hypertension
[2016-09-28 19:41] LABS: Basophils % (Auto) 0.3 % (0.0-1.8); Eosinophils % (Auto) 0.2 % (0.0-4.3); Hematocrit 35.8 % (35.5-45.6); Hemoglobin 11.8 gm/dl (11.8-15.2); Mean Corpuscular HGB Conc 33 % (32-34); Mean Corpuscular Hemoglobin 29 pg (28-32); Mean Corpuscular Volume 87 fl (84-94); Platelet Count 436 K/mm3 (140-440); Red Blood Count 4.12 M/mm3 (3.65-5.03); Red Cell Distribution Width 17.5 % (13.2-15.2); White Blood Count 15.8 K/mm3 (4.5-11.0)
[2016-09-28] MEDS: NYSTOP TP SCH (23:00)
[2016-09-29] MEDS: ZOSYN/NS 4.5GM/100ML 100 ML IV SCH ×4 (02:00→18:31)
[2016-09-29] MEDS: MORPHINE IV PRN ×2 (02:10→06:15)
[2016-09-29] MEDS: NYSTOP TP SCH ×3 (04:59→22:21)
[2016-09-29] MEDS: VANCOMYCIN VIAL 1,500 MG in NACL 0.9% 500 ML 500 ML IV SCH ×3 (05:02→23:23)
[2016-09-29] MEDS: VERSED ONE (05:06)
[2016-09-29] MEDS: XYLOCAINE 1%/ EPI 1:100,000 INFILTRATI ONE (05:08)
--- NOTE | 2016-09-29 07:10 | Progress Note ---
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 (6) DVT prophylaxis Current Visit: Yes Status: Acute History Interval history: Pt resting, sitting on side of bed. No reported nursing events. Pt denies pain. Hospitalist Physical - Constitutional Vitals: Temp Pulse Resp BP Pulse Ox 97.5 F L 91 H 20 144/71 100 09/29/16 04:00 09/29/16 04:00 09/29/16 06:15 09/29/16 04:00 09/29/16 04:00 General appearance: Present: no acute distress, obese - EENT Eyes: Present: PERRL, EOM intact ENT: hearing intact - Neck Neck: Present: supple - Respiratory Respiratory effort: normal Respiratory: bilateral: CTA - Cardiovascular Rhythm: regular Heart Sounds: Present: S1 & S2 - Extremities Extremities: no ischemia Peripheral Pulses: within normal limits - Abdominal General gastrointestinal: soft, non-tender, non-distended - Integumentary Integumentary: Present: clear, dry, erythema (erythematous rash to pannus) - Psychiatric Psychiatric: appropriate mood/affect, cooperative - Neurologic Neurologic: CNII-XII intact Results - Labs CBC & Chem 7: 09/28/16 19:04 09/25/16 22:29 Labs: Laboratory Last Values WBC 15.8 K/mm3 (4.5-11.0) H 09/28/16 19:04 RBC 4.12 M/mm3 (3.65-5.03) 09/28/16 19:04 Hgb 11.8 gm/dl (11.8-15.2) 09/28/16 19:04 Hct 35.8 % (35.5-45.6) 09/28/16 19:04 MCV 87 fl (84-94) 09/28/16 19:04 MCH 29 pg (28-32) 09/28/16 19:04 MCHC 33 % (32-34) 09/28/16 19:04 RDW 17.5 % (13.2-15.2) H 09/28/16 19:04 Plt Count 436 K/mm3 (140-440) 09/28/16 19:04 Lymph % (Auto) 8.9 % (13.4-35.0) L 09/28/16 19:04 [place] % (Auto) 7.6 % (0.0-7.3) H 09/28/16 19:04 Eos % (Auto) 0.2 % (0.0-4.3) 09/28/16 19:04 Baso % (Auto) 0.3 % (0.0-1.8) 09/28/16 19:04 Lymph # 1.4 K/mm3 (1.2-5.4) 09/28/16 19:04 [place] # 1.2 K/mm3 (0.0-0.8) H 09/28/16 19:04 Eos # 0.0 K/mm3 (0.0-0.4) 09/28/16 19:04 Baso # 0.0 K/mm3 (0.0-0.1) 09/28/16 19:04 Add Manual Diff Complete 09/27/16 04:25 Total Counted 100 09/27/16 04:25 Seg Neutrophils % 83.0 % (40.0-70.0) H 09/28/16 19:04 Seg Neuts % (Manual) 82.0 % (40.0-70.0) H 09/27/16 04:25 Band Neutrophils % 6.0 % 09/27/16 04:25 Lymphocytes % (Manual) 8.0 % (13.4-35.0) L 09/27/16 04:25 Reactive Lymphs % (Man) 0 % 09/27/16 04:25 Monocytes % (Manual) 3.0 % (0.0-7.3) 09/27/16 04:25 Eosinophils % (Manual) 0 % (0.0-4.3) 09/27/16 04:25 Basophils % (Manual) 0 % (0.0-1.8) 09/27/16 04:25 Metamyelocytes % 1.0 % 09/27/16 04:25 Myelocytes % 0 % 09/27/16 04:25 Promyelocytes % 0 % 09/27/16 04:25 Blast Cells % 0 % 09/27/16 04:25 Nucleated RBC % Not Reportable 09/27/16 04:25 Seg Neutrophils # 13.1 K/mm3 (1.8-7.7) H 09/28/16 19:04 Seg Neutrophils # Man 15.3 K/mm3 (1.8-7.7) H 09/27/16 04:25 Band Neutrophils # 1.1 K/mm3 09/27/16 04:25 Lymphocytes # (Manual) 1.5 K/mm3 (1.2-5.4) 09/27/16 04:25 Abs React Lymphs (Man) 0.0 K/mm3 09/27/16 04:25 Monocytes # (Manual) 0.6 K/mm3 (0.0-0.8) 09/27/16 04:25 Eosinophils # (Manual) 0.0 K/mm3 (0.0-0.4) 09/27/16 04:25 Basophils # (Manual) 0.0 K/mm3 (0.0-0.1) 09/27/16 04:25 Metamyelocytes # 0.2 K/mm3 09/27/16 04:25 Myelocytes # 0.0 K/mm3 09/27/16 04:25 Promyelocytes # 0.0 K/mm3 09/27/16 04:25 Blast Cells # 0.0 K/mm3 09/27/16 04:25 WBC Morphology Not Reportable 09/27/16 04:25 Hypersegmented Neuts Not Reportable 09/27/16 04:25 Hyposegmented Neuts Not Reportable 09/27/16 04:25 Hypogranular Neuts Not Reportable 09/27/16 04:25 Smudge Cells Not Reportable 09/27/16 04:25 Toxic Granulation Not Reportable 09/27/16 04:25 Toxic Vacuolation Not Reportable 09/27/16 04:25 Dohle Bodies Not Reportable 09/27/16 04:25 Pelger-Huet Anomaly Not Reportable 09/27/16 04:25 Renita Rods Not Reportable 09/27/16 04:25 Platelet Estimate Not Reportable 09/27/16 04:25 Clumped Platelets Not Reportable 09/27/16 04:25 Plt Clumps, EDTA Not Reportable 09/27/16 04:25 Large Platelets Not Reportable 09/27/16 04:25 Giant Platelets Few 09/27/16 04:25 Platelet Satelliting Not Reportable 09/27/16 04:25 Plt Morphology Comment Not Reportable 09/27/16 04:25 RBC Morphology Not Reportable 09/27/16 04:25 Dimorphic RBCs Not Reportable 09/27/16 04:25 Polychromasia Not Reportable 09/27/16 04:25 Hypochromasia Not Reportable 09/27/16 04:25 Poikilocytosis Not Reportable 09/27/16 04:25 Anisocytosis 1+ 09/27/16 04:25 Microcytosis Not Reportable 09/27/16 04:25 Macrocytosis Not Reportable 09/27/16 04:25 Spherocytes Not Reportable 09/27/16 04:25 Pappenheimer Bodies Not Reportable 09/27/16 04:25 Sickle Cells Not Reportable 09/27/16 04:25 Target Cells Not Reportable 09/27/16 04:25 Tear Drop Cells Not Reportable 09/27/16 04:25 Ovalocytes Not Reportable 09/27/16 04:25 Helmet Cells Not Reportable 09/27/16 04:25 Iraheta-Sargent Bodies Not Reportable 09/27/16 04:25 [place] Rings Not Reportable 09/27/16 04:25 Abhilash Cells Not Reportable 09/27/16 04:25 Bite Cells Not Reportable 09/27/16 04:25 Crenated Cell Not Reportable 09/27/16 04:25 Elliptocytes Not Reportable 09/27/16 04:25 Acanthocytes (Spur) Not Reportable 09/27/16 04:25 Rouleaux Not Reportable 09/27/16 04:25 Hemoglobin C Crystals Not Reportable 09/27/16 04:25 Schistocytes Not Reportable 09/27/16 04:25 Malaria parasites Not Reportable 09/27/16 04:25 Azael Bodies Not Reportable 09/27/16 04:25 Hem Pathologist Commnt No 09/27/16 04:25 Sodium 133 mmol/L (137-145) L 09/25/16 22:29 Potassium 4.0 mmol/L (3.6-5.0) 09/25/16 22:29 Chloride 91.1 mmol/L (98-107) L 09/25/16 22:29 Carbon Dioxide 21 mmol/L (22-30) L 09/25/16 22:29 Anion Gap 25 mmol/L 09/25/16 22:29 BUN 10 mg/dL (9-20) 09/25/16 22:29 Creatinine 0.9 mg/dL (0.8-1.5) 09/25/16 22:29 Estimated GFR > 60 ml/min 09/25/16 22:29 BUN/Creatinine Ratio 11.11 % 09/25/16 22:29 Glucose 113 mg/dL (75-100) H 09/25/16 22:29 Lactic Acid 2.6 mmol/L (0.7-2.0) H* 09/26/16 10:48 Uric Acid 5.4 mg/dL (3.5-7.6) 09/25/16 22:29 Calcium 9.6 mg/dL (8.4-10.2) 09/25/16 22:29 Urine Color Yellow (Yellow) 09/26/16 00:03 Urine Turbidity Clear (Clear) 09/26/16 00:03 Urine pH 5.0 (5.0-7.0) 09/26/16 00:03 Ur Specific [place] 1.011 (1.003-1.030) 09/26/16 00:03 Urine Protein <15 mg/dl mg/dL (Negative) 09/26/16 00:03 Urine Glucose (UA) Neg mg/dL (Negative) 09/26/16 00:03 Urine Ketones 20 mg/dL (Negative) 09/26/16 00:03 Urine Blood Sm (Negative) 09/26/16 00:03 Urine Nitrite Neg (Negative) 09/26/16 00:03 Urine Bilirubin Neg (Negative) 09/26/16 00:03 Urine Urobilinogen 2.0 mg/dL (<2.0) 09/26/16 00:03 Ur Leukocyte Esterase Lg (Negative) 09/26/16 00:03 Urine WBC (Auto) 11.0 /HPF (0.0-6.0) H 09/26/16 00:03 Urine RBC (Auto) 2.0 /HPF (0.0-6.0) 09/26/16 00:03 U Epithel Cells (Auto) 4.0 /HPF (0-13.0) 09/26/16 00:03 Urine Bacteria (Auto) 1+ /HPF (Negative) 09/26/16 00:03 Urine Mucus Few /HPF 09/26/16 00:03 Vancomycin Trough 28.8 ug/mL (5.0-20.0) H 09/29/16 03:22
[2016-09-29] MEDS: PERCOCET 5/325 PO PRN ×2 (08:13→15:03)
[2016-09-29] MEDS ORDERED: HEPARIN 10,000 UNITS/10 ML IV ONE (09:00)
[2016-09-29 09:51] LABS: Hemoglobin 11.5 gm/dl (11.8-15.2)
[2016-09-29 10:05] LABS: INR 1.07 (0.87-1.13)
[2016-09-29 10:06] LABS: Partial Thromboplastin Time 34.6 Sec. (24.2-36.6)
[2016-09-29] MEDS: LEVAQUIN 750MG/150ML 150 ML IV SCH (11:24)
--- NOTE | 2016-09-29 13:18 | Progress Note ---
Assessment and Plan Patient's white count has trended down. We'll plan to formally close the BKA once all signs of infection are clear. Subjective Date of service: 09/29/16 Interval history: The patient is without complaints at this time. His pain is well-controlled. Objective - Constitutional Vitals: Vital Signs - 12hr 09/29/16 09/29/16 09/29/16 02:10 02:40 04:00 Temperature 97.5 F L Pulse Rate [ From Monitor] Pulse Rate [ 91 H Left Brachial] Respiratory 20 20 20 Rate Blood Pressure 144/71 [Left Arm] O2 Sat by Pulse 100 Oximetry 09/29/16 09/29/16 06:15 07:25 Temperature 97.6 F Pulse Rate [ 94 H From Monitor] Pulse Rate [ Left Brachial] Respiratory 20 20 Rate Blood Pressure 129/61 [Left Arm] O2 Sat by Pulse 100 Oximetry General appearance: Present: no acute distress - Cardiovascular Rhythm: regular Extremities: abnormal (right stump dressing is clean dry and intact without any evidence of bleeding) - Labs CBC & Chem 7: 09/29/16 09:17 09/25/16 22:29 Labs: Abnormal lab results 09/28/16 09/29/16 09/29/16 Range/Units 19:04 03:22 09:17 WBC 15.8 H (4.5-11.0) K/mm3 Hgb 11.5 L (11.8-15.2) gm/dl Hct 33.0 L (35.5-45.6) % RDW 17.5 H (13.2-15.2) % Lymph % (Auto) 8.9 L (13.4-35.0) % [place] % (Auto) 7.6 H (0.0-7.3) % [place] # 1.2 H (0.0-0.8) K/mm3 Seg Neutrophils % 83.0 H (40.0-70.0) % Seg Neutrophils # 13.1 H (1.8-7.7) K/mm3 Vancomycin Trough 28.8 H (5.0-20.0) ug/mL
[2016-09-29] MEDS: HALFPRIN EC PO SCH (13:55)
[2016-09-30] MEDS: PERCOCET 5/325 PO PRN ×3 (01:22→23:38)
[2016-09-30] MEDS: ZOSYN/NS 4.5GM/100ML 100 ML IV SCH ×3 (06:21→17:47)
--- NOTE | 2016-09-30 09:03 | Progress Note ---
Assessment and Plan The patient has had no fevers for the past 24 hours. We will check his CBC for evidence of leukocytosis. If he has had normalization of his white count proceeded with closure of his below-knee amputation tomorrow. I have discussed this plan with the patient and he agrees. Subjective Date of service: 09/30/16 Interval history: The patient has no complaints. Objective - Constitutional Vitals: Vital Signs - 12hr 09/29/16 09/29/16 09/30/16 21:40 22:00 08:00 Temperature 98.7 F 98.7 F Pulse Rate [ 88 Apical] Pulse Rate [ 97 H Left Brachial] Respiratory 20 20 20 Rate Blood Pressure 161/68 [Left Arm] O2 Sat by Pulse 98 98 Oximetry General appearance: Present: no acute distress - Respiratory Respiratory effort: normal Extremities: abnormal (right stump dressing clean dry and intact without evidence of bleeding) - Labs CBC & Chem 7: 09/29/16 09:17 09/25/16 22:29 Labs: Abnormal lab results 09/29/16 Range/Units 09:17 Hgb 11.5 L (11.8-15.2) gm/dl Hct 33.0 L (35.5-45.6) %
[2016-09-30] MEDS: HALFPRIN EC PO SCH (09:35)
[2016-09-30] MEDS: LEVAQUIN 750MG/150ML 150 ML IV SCH (09:35)
[2016-09-30] MEDS: NYSTOP TP SCH ×2 (09:37→21:21)
[2016-09-30 09:47] LABS: Basophils % (Auto) 1.4 % (0.0-1.8); Eosinophils % (Auto) 4.3 % (0.0-4.3); Hematocrit 31.4 % (35.5-45.6); Hemoglobin 10.3 gm/dl (11.8-15.2); Mean Corpuscular HGB Conc 33 % (32-34); Mean Corpuscular Hemoglobin 28 pg (28-32); Mean Corpuscular Volume 86 fl (84-94); Platelet Count 410 K/mm3 (140-440); Red Blood Count 3.67 M/mm3 (3.65-5.03); Red Cell Distribution Width 17.4 % (13.2-15.2); White Blood Count 12.1 K/mm3 (4.5-11.0)
[2016-09-30] MEDS: VANCOMYCIN VIAL 1,500 MG in NACL 0.9% 500 ML 500 ML IV SCH ×2 (09:50→23:42)
--- NOTE | 2016-09-30 10:30 | Progress Note ---
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 (6) DVT prophylaxis Current Visit: Yes Status: Acute History Interval history: Pt resting, sitting on side of bed. No reported nursing events. Pt denies pain. Pt eating lunch. Pt participating with therapy. Pending Rehab placement Hospitalist Physical - Constitutional Vitals: Temp Pulse Resp BP Pulse Ox 98.7 F 88 20 161/68 98 09/30/16 08:00 09/30/16 08:00 09/30/16 08:00 09/30/16 08:00 09/30/16 08:00 General appearance: Present: no acute distress - EENT Eyes: Present: PERRL, EOM intact ENT: hearing intact - Neck Neck: Present: supple - Respiratory Respiratory: bilateral: CTA - Cardiovascular Rhythm: regular Heart Sounds: Present: S1 & S2 - Extremities Extremities: no ischemia Peripheral Pulses: within normal limits - Abdominal General gastrointestinal: soft, non-tender, non-distended - Integumentary Integumentary: Present: clear, dry - Psychiatric Psychiatric: appropriate mood/affect, cooperative - Neurologic Neurologic: CNII-XII intact Results - Labs CBC & Chem 7: 09/30/16 09:09 09/25/16 22:29 Labs: Laboratory Last Values WBC 12.1 K/mm3 (4.5-11.0) H 09/30/16 09:09 RBC 3.67 M/mm3 (3.65-5.03) 09/30/16 09:09 Hgb 10.3 gm/dl (11.8-15.2) L 09/30/16 09:09 Hct 31.4 % (35.5-45.6) L 09/30/16 09:09 MCV 86 fl (84-94) 09/30/16 09:09 MCH 28 pg (28-32) 09/30/16 09:09 MCHC 33 % (32-34) 09/30/16 09:09 RDW 17.4 % (13.2-15.2) H 09/30/16 09:09 Plt Count 410 K/mm3 (140-440) 09/30/16 09:09 Lymph % (Auto) 18.1 % (13.4-35.0) 09/30/16 09:09 [place] % (Auto) 9.4 % (0.0-7.3) H 09/30/16 09:09 Eos % (Auto) 4.3 % (0.0-4.3) 09/30/16 09:09 Baso % (Auto) 1.4 % (0.0-1.8) 09/30/16 09:09 Lymph # 2.2 K/mm3 (1.2-5.4) 09/30/16 09:09 [place] # 1.1 K/mm3 (0.0-0.8) H 09/30/16 09:09 Eos # 0.5 K/mm3 (0.0-0.4) H 09/30/16 09:09 Baso # 0.2 K/mm3 (0.0-0.1) H 09/30/16 09:09 Add Manual Diff Complete 09/27/16 04:25 Total Counted 100 09/27/16 04:25 Seg Neutrophils % 66.8 % (40.0-70.0) 09/30/16 09:09 Seg Neuts % (Manual) 82.0 % (40.0-70.0) H 09/27/16 04:25 Band Neutrophils % 6.0 % 09/27/16 04:25 Lymphocytes % (Manual) 8.0 % (13.4-35.0) L 09/27/16 04:25 Reactive Lymphs % (Man) 0 % 09/27/16 04:25 Monocytes % (Manual) 3.0 % (0.0-7.3) 09/27/16 04:25 Eosinophils % (Manual) 0 % (0.0-4.3) 09/27/16 04:25 Basophils % (Manual) 0 % (0.0-1.8) 09/27/16 04:25 Metamyelocytes % 1.0 % 09/27/16 04:25 Myelocytes % 0 % 09/27/16 04:25 Promyelocytes % 0 % 09/27/16 04:25 Blast Cells % 0 % 09/27/16 04:25 Nucleated RBC % Not Reportable 09/27/16 04:25 Seg Neutrophils # 8.1 K/mm3 (1.8-7.7) H 09/30/16 09:09 Seg Neutrophils # Man 15.3 K/mm3 (1.8-7.7) H 09/27/16 04:25 Band Neutrophils # 1.1 K/mm3 09/27/16 04:25 Lymphocytes # (Manual) 1.5 K/mm3 (1.2-5.4) 09/27/16 04:25 Abs React Lymphs (Man) 0.0 K/mm3 09/27/16 04:25 Monocytes # (Manual) 0.6 K/mm3 (0.0-0.8) 09/27/16 04:25 Eosinophils # (Manual) 0.0 K/mm3 (0.0-0.4) 09/27/16 04:25 Basophils # (Manual) 0.0 K/mm3 (0.0-0.1) 09/27/16 04:25 Metamyelocytes # 0.2 K/mm3 09/27/16 04:25 Myelocytes # 0.0 K/mm3 09/27/16 04:25 Promyelocytes # 0.0 K/mm3 09/27/16 04:25 Blast Cells # 0.0 K/mm3 09/27/16 04:25 WBC Morphology Not Reportable 09/27/16 04:25 Hypersegmented Neuts Not Reportable 09/27/16 04:25 Hyposegmented Neuts Not Reportable 09/27/16 04:25 Hypogranular Neuts Not Reportable 09/27/16 04:25 Smudge Cells Not Reportable 09/27/16 04:25 Toxic Granulation Not Reportable 09/27/16 04:25 Toxic Vacuolation Not Reportable 09/27/16 04:25 Dohle Bodies Not Reportable 09/27/16 04:25 Pelger-Huet Anomaly Not Reportable 09/27/16 04:25 Renita Rods Not Reportable 09/27/16 04:25 Platelet Estimate Not Reportable 09/27/16 04:25 Clumped Platelets Not Reportable 09/27/16 04:25 Plt Clumps, EDTA Not Reportable 09/27/16 04:25 Large Platelets Not Reportable 09/27/16 04:25 Giant Platelets Few 09/27/16 04:25 Platelet Satelliting Not Reportable 09/27/16 04:25 Plt Morphology Comment Not Reportable 09/27/16 04:25 RBC Morphology Not Reportable 09/27/16 04:25 Dimorphic RBCs Not Reportable 09/27/16 04:25 Polychromasia Not Reportable 09/27/16 04:25 Hypochromasia Not Reportable 09/27/16 04:25 Poikilocytosis Not Reportable 09/27/16 04:25 Anisocytosis 1+ 09/27/16 04:25 Microcytosis Not Reportable 09/27/16 04:25 Macrocytosis Not Reportable 09/27/16 04:25 Spherocytes Not Reportable 09/27/16 04:25 Pappenheimer Bodies Not Reportable 09/27/16 04:25 Sickle Cells Not Reportable 09/27/16 04:25 Target Cells Not Reportable 09/27/16 04:25 Tear Drop Cells Not Reportable 09/27/16 04:25 Ovalocytes Not Reportable 09/27/16 04:25 Helmet Cells Not Reportable 09/27/16 04:25 Iraheta-Sever[place] Bodies Not Reportable 09/27/16 04:25 [place] Rings Not Reportable 09/27/16 04:25 [place] Cells Not Reportable 09/27/16 04:25 Bite Cells Not Reportable 09/27/16 04:25 Crenated Cell Not Reportable 09/27/16 04:25 Elliptocytes Not Reportable 09/27/16 04:25 Acanthocytes (Spur) Not Reportable 09/27/16 04:25 Rouleaux Not Reportable 09/27/16 04:25 Hemoglobin C Crystals Not Reportable 09/27/16 04:25 Schistocytes Not Reportable 09/27/16 04:25 Malaria parasites Not Reportable 09/27/16 04:25 Azael Bodies Not Reportable 09/27/16 04:25 Hem Pathologist Commnt No 09/27/16 04:25 PT 13.8 Sec. (12.2-14.9) 09/29/16 09:17 INR 1.07 (0.87-1.13) 09/29/16 09:17 APTT 34.6 Sec. (24.2-36.6) 09/29/16 09:17 Heparin Anti-Xa Level 0.45 U.I./ml (0.3-0.7) 09/29/16 18:28 Sodium 133 mmol/L (137-145) L 09/25/16 22:29 Potassium 4.0 mmol/L (3.6-5.0) 09/25/16 22:29 Chloride 91.1 mmol/L (98-107) L 09/25/16 22:29 Carbon Dioxide 21 mmol/L (22-30) L 09/25/16 22:29 Anion Gap 25 mmol/L 09/25/16 22:29 BUN 10 mg/dL (9-20) 09/25/16 22:29 Creatinine 0.9 mg/dL (0.8-1.5) 09/25/16 22:29 Estimated GFR > 60 ml/min 09/25/16 22:29 BUN/Creatinine Ratio 11.11 % 09/25/16 22:29 Glucose 113 mg/dL (75-100) H 09/25/16 22:29 Lactic Acid 2.6 mmol/L (0.7-2.0) H* 09/26/16 10:48 Uric Acid 5.4 mg/dL (3.5-7.6) 09/25/16 22:29 Calcium 9.6 mg/dL (8.4-10.2) 09/25/16 22:29 Urine Color Yellow (Yellow) 09/26/16 00:03 Urine Turbidity Clear (Clear) 09/26/16 00:03 Urine pH 5.0 (5.0-7.0) 09/26/16 00:03 Ur Specific [place] 1.011 (1.003-1.030) 09/26/16 00:03 Urine Protein <15 mg/dl mg/dL (Negative) 09/26/16 00:03 Urine Glucose (UA) Neg mg/dL (Negative) 09/26/16 00:03 Urine Ketones 20 mg/dL (Negative) 09/26/16 00:03 Urine Blood Sm (Negative) 09/26/16 00:03 Urine Nitrite Neg (Negative) 09/26/16 00:03 Urine Bilirubin Neg (Negative) 09/26/16 00:03 Urine Urobilinogen 2.0 mg/dL (<2.0) 09/26/16 00:03 Ur Leukocyte Esterase Lg (Negative) 09/26/16 00:03 Urine WBC (Auto) 11.0 /HPF (0.0-6.0) H 09/26/16 00:03 Urine RBC (Auto) 2.0 /HPF (0.0-6.0) 09/26/16 00:03 U Epithel Cells (Auto) 4.0 /HPF (0-13.0) 09/26/16 00:03 Urine Bacteria (Auto) 1+ /HPF (Negative) 09/26/16 00:03 Urine Mucus Few /HPF 09/26/16 00:03 Vancomycin Trough 28.8 ug/mL (5.0-20.0) H 09/29/16 03:22
[2016-10-01] MEDS: HEPARIN/ 0.45% NACL-25,000 UNIT/500 ML 500 ML IV SCH ×2 (01:32→21:29)
[2016-10-01] MEDS: ZOSYN/NS 4.5GM/100ML 100 ML IV SCH ×3 (02:00→17:42)
[2016-10-01 05:19] LABS: Hematocrit 28.9 % (35.5-45.6); Hemoglobin 9.7 gm/dl (11.8-15.2); Mean Corpuscular HGB Conc 34 % (32-34); Mean Corpuscular Hemoglobin 29 pg (28-32); Mean Corpuscular Volume 85 fl (84-94); Platelet Count 400 K/mm3 (140-440); White Blood Count 11.5 K/mm3 (4.5-11.0)
--- NOTE | 2016-10-01 05:30 | Progress Note ---
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 (6) Debility Current Visit: Yes Status: Acute Plan to address problem: PT consulted, pending rehab placement (7) DVT prophylaxis Current Visit: Yes Status: Acute History Interval history: Pt resting, sitting on side of bed. No reported nursing events. Pt denies pain. Pt eating lunch. Pt participating with therapy. Pending Rehab placement Hospitalist Physical - Constitutional Vitals: Temp Pulse Resp BP Pulse Ox 98.8 F 91 H 18 152/81 98 10/01/16 00:00 10/01/16 00:00 10/01/16 00:00 10/01/16 00:00 10/01/16 00:00 General appearance: Present: no acute distress - EENT Eyes: Present: PERRL, EOM intact ENT: hearing intact - Neck Neck: Present: supple - Respiratory Respiratory effort: normal Respiratory: bilateral: CTA - Cardiovascular Rhythm: regular Heart Sounds: Present: S1 & S2 Peripheral Pulses: abnormal - Abdominal General gastrointestinal: soft, non-tender, non-distended - Integumentary Integumentary: Present: clear, dry - Psychiatric Psychiatric: appropriate mood/affect, cooperative - Neurologic Neurologic: CNII-XII intact Results - Labs CBC & Chem 7: 10/01/16 04:08 09/25/16 22:29 Labs: Laboratory Last Values WBC 11.5 K/mm3 (4.5-11.0) H 10/01/16 04:08 RBC 3.40 M/mm3 (3.65-5.03) L 10/01/16 04:08 Hgb 9.7 gm/dl (11.8-15.2) L 10/01/16 04:08 Hct 28.9 % (35.5-45.6) L 10/01/16 04:08 MCV 85 fl (84-94) 10/01/16 04:08 MCH 29 pg (28-32) 10/01/16 04:08 MCHC 34 % (32-34) 10/01/16 04:08 RDW 17.0 % (13.2-15.2) H 10/01/16 04:08 Plt Count 400 K/mm3 (140-440) 10/01/16 04:08 Lymph % (Auto) 18.1 % (13.4-35.0) 09/30/16 09:09 [place] % (Auto) 9.4 % (0.0-7.3) H 09/30/16 09:09 Eos % (Auto) 4.3 % (0.0-4.3) 09/30/16 09:09 Baso % (Auto) 1.4 % (0.0-1.8) 09/30/16 09:09 Lymph # 2.2 K/mm3 (1.2-5.4) 09/30/16 09:09 [place] # 1.1 K/mm3 (0.0-0.8) H 09/30/16 09:09 Eos # 0.5 K/mm3 (0.0-0.4) H 09/30/16 09:09 Baso # 0.2 K/mm3 (0.0-0.1) H 09/30/16 09:09 Add Manual Diff Complete 09/27/16 04:25 Total Counted 100 09/27/16 04:25 Seg Neutrophils % 66.8 % (40.0-70.0) 09/30/16 09:09 Seg Neuts % (Manual) 82.0 % (40.0-70.0) H 09/27/16 04:25 Band Neutrophils % 6.0 % 09/27/16 04:25 Lymphocytes % (Manual) 8.0 % (13.4-35.0) L 09/27/16 04:25 Reactive Lymphs % (Man) 0 % 09/27/16 04:25 Monocytes % (Manual) 3.0 % (0.0-7.3) 09/27/16 04:25 Eosinophils % (Manual) 0 % (0.0-4.3) 09/27/16 04:25 Basophils % (Manual) 0 % (0.0-1.8) 09/27/16 04:25 Metamyelocytes % 1.0 % 09/27/16 04:25 Myelocytes % 0 % 09/27/16 04:25 Promyelocytes % 0 % 09/27/16 04:25 Blast Cells % 0 % 09/27/16 04:25 Nucleated RBC % Not Reportable 09/27/16 04:25 Seg Neutrophils # 8.1 K/mm3 (1.8-7.7) H 09/30/16 09:09 Seg Neutrophils # Man 15.3 K/mm3 (1.8-7.7) H 09/27/16 04:25 Band Neutrophils # 1.1 K/mm3 09/27/16 04:25 Lymphocytes # (Manual) 1.5 K/mm3 (1.2-5.4) 09/27/16 04:25 Abs React Lymphs (Man) 0.0 K/mm3 09/27/16 04:25 Monocytes # (Manual) 0.6 K/mm3 (0.0-0.8) 09/27/16 04:25 Eosinophils # (Manual) 0.0 K/mm3 (0.0-0.4) 09/27/16 04:25 Basophils # (Manual) 0.0 K/mm3 (0.0-0.1) 09/27/16 04:25 Metamyelocytes # 0.2 K/mm3 09/27/16 04:25 Myelocytes # 0.0 K/mm3 09/27/16 04:25 Promyelocytes # 0.0 K/mm3 09/27/16 04:25 Blast Cells # 0.0 K/mm3 09/27/16 04:25 WBC Morphology Not Reportable 09/27/16 04:25 Hypersegmented Neuts Not Reportable 09/27/16 04:25 Hyposegmented Neuts Not Reportable 09/27/16 04:25 Hypogranular Neuts Not Reportable 09/27/16 04:25 Smudge Cells Not Reportable 09/27/16 04:25 Toxic Granulation Not Reportable 09/27/16 04:25 Toxic Vacuolation Not Reportable 09/27/16 04:25 Dohle Bodies Not Reportable 09/27/16 04:25 Pelger-Huet Anomaly Not Reportable 09/27/16 04:25 Renita Rods Not Reportable 09/27/16 04:25 Platelet Estimate Not Reportable 09/27/16 04:25 Clumped Platelets Not Reportable 09/27/16 04:25 Plt Clumps, EDTA Not Reportable 09/27/16 04:25 Large Platelets Not Reportable 09/27/16 04:25 Giant Platelets Few 09/27/16 04:25 Platelet Satelliting Not Reportable 09/27/16 04:25 Plt Morphology Comment Not Reportable 09/27/16 04:25 RBC Morphology Not Reportable 09/27/16 04:25 Dimorphic RBCs Not Reportable 09/27/16 04:25 Polychromasia Not Reportable 09/27/16 04:25 Hypochromasia Not Reportable 09/27/16 04:25 Poikilocytosis Not Reportable 09/27/16 04:25 Anisocytosis 1+ 09/27/16 04:25 Microcytosis Not Reportable 09/27/16 04:25 Macrocytosis Not Reportable 09/27/16 04:25 Spherocytes Not Reportable 09/27/16 04:25 Pappenheimer Bodies Not Reportable 09/27/16 04:25 Sickle Cells Not Reportable 09/27/16 04:25 Target Cells Not Reportable 09/27/16 04:25 Tear Drop Cells Not Reportable 09/27/16 04:25 Ovalocytes Not Reportable 09/27/16 04:25 Helmet Cells Not Reportable 09/27/16 04:25 Iraheta-Millry Bodies Not Reportable 09/27/16 04:25 [place] Rings Not Reportable 09/27/16 04:25 Abhilash Cells Not Reportable 09/27/16 04:25 Bite Cells Not Reportable 09/27/16 04:25 Crenated Cell Not Reportable 09/27/16 04:25 Elliptocytes Not Reportable 09/27/16 04:25 Acanthocytes (Spur) Not Reportable 09/27/16 04:25 Rouleaux Not Reportable 09/27/16 04:25 Hemoglobin C Crystals Not Reportable 09/27/16 04:25 Schistocytes Not Reportable 09/27/16 04:25 Malaria parasites Not Reportable 09/27/16 04:25 Azael Bodies Not Reportable 09/27/16 04:25 Hem Pathologist Commnt No 09/27/16 04:25 PT 13.8 Sec. (12.2-14.9) 09/29/16 09:17 INR 1.07 (0.87-1.13) 09/29/16 09:17 APTT 34.6 Sec. (24.2-36.6) 09/29/16 09:17 Heparin Anti-Xa Level 0.56 U.I./ml (0.3-0.7) 09/30/16 19:10 Sodium 133 mmol/L (137-145) L 09/25/16 22:29 Potassium 4.0 mmol/L (3.6-5.0) 09/25/16 22:29 Chloride 91.1 mmol/L (98-107) L 09/25/16 22:29 Carbon Dioxide 21 mmol/L (22-30) L 09/25/16 22:29 Anion Gap 25 mmol/L 09/25/16 22:29 BUN 10 mg/dL (9-20) 09/25/16 22:29 Creatinine 0.9 mg/dL (0.8-1.5) 09/25/16 22:29 Estimated GFR > 60 ml/min 09/25/16 22:29 BUN/Creatinine Ratio 11.11 % 09/25/16 22:29 Glucose 113 mg/dL (75-100) H 09/25/16 22:29 Lactic Acid 2.6 mmol/L (0.7-2.0) H* 09/26/16 10:48 Uric Acid 5.4 mg/dL (3.5-7.6) 09/25/16 22:29 Calcium 9.6 mg/dL (8.4-10.2) 09/25/16 22:29 Urine Color Yellow (Yellow) 09/26/16 00:03 Urine Turbidity Clear (Clear) 09/26/16 00:03 Urine pH 5.0 (5.0-7.0) 09/26/16 00:03 Ur Specific [place] 1.011 (1.003-1.030) 09/26/16 00:03 Urine Protein <15 mg/dl mg/dL (Negative) 09/26/16 00:03 Urine Glucose (UA) Neg mg/dL (Negative) 09/26/16 00:03 Urine Ketones 20 mg/dL (Negative) 09/26/16 00:03 Urine Blood Sm (Negative) 09/26/16 00:03 Urine Nitrite Neg (Negative) 09/26/16 00:03 Urine Bilirubin Neg (Negative) 09/26/16 00:03 Urine Urobilinogen 2.0 mg/dL (<2.0) 09/26/16 00:03 Ur Leukocyte Esterase Lg (Negative) 09/26/16 00:03 Urine WBC (Auto) 11.0 /HPF (0.0-6.0) H 09/26/16 00:03 Urine RBC (Auto) 2.0 /HPF (0.0-6.0) 09/26/16 00:03 U Epithel Cells (Auto) 4.0 /HPF (0-13.0) 09/26/16 00:03 Urine Bacteria (Auto) 1+ /HPF (Negative) 09/26/16 00:03 Urine Mucus Few /HPF 09/26/16 00:03 Vancomycin Trough 28.8 ug/mL (5.0-20.0) H 09/29/16 03:22
--- NOTE | 2016-10-01 08:25 | Vascular Lab Report ---
MISCELLANEOUS VESSEL IDENTIFICATION: COMMENTS ON THE SCAN: The left common femoral artery was identified and under real-time ultrasound guidance was cannulated. IMPRESSION: Successful ultrasound guided arterial cannulation.
[2016-10-01] MEDS ORDERED: SODIUM BICARBONATE ONE (08:45)
[2016-10-01] MEDS: HALFPRIN EC PO SCH (09:09)
[2016-10-01] MEDS: PERCOCET 5/325 PO PRN (09:10)
[2016-10-01] MEDS: LEVAQUIN 750MG/150ML 150 ML IV SCH (09:10)
--- NOTE | 2016-10-01 09:47 | Progress Note ---
Assessment and Plan - Patient Problems (1) Sepsis Current Visit: Yes Status: Resolved (2) Arterial occlusion Current Visit: Yes Status: Resolved (3) Gangrene of foot Current Visit: Yes Status: Acute (4) HTN (hypertension) Current Visit: Yes Status: Acute Qualifiers: Hypertension type: essential hypertension Qualified Code(s): I10 - Essential (primary) hypertension (5) Cellulitis and abscess of foot Current Visit: Yes Status: Acute (6) Debility Current Visit: Yes Status: Acute (7) DVT prophylaxis Current Visit: Yes Status: Acute History Interval history: 71 YO male admitted for RLE Gangrene/Cellulitis. Pt S/P BKA pending closure today. Pt resting, sitting on side of bed. No reported nursing events. Pt denies pain. Pending Rehab placement. Hospitalist Physical - Constitutional Vitals: Temp Pulse Resp BP Pulse Ox 97.5 F L 86 18 133/73 100 10/01/16 08:00 10/01/16 08:00 10/01/16 09:10 10/01/16 08:00 10/01/16 08:00 General appearance: Present: no acute distress - EENT Eyes: Present: PERRL, EOM intact ENT: hearing intact - Neck Neck: Present: supple - Respiratory Respiratory: bilateral: CTA - Cardiovascular Rhythm: regular Heart Sounds: Present: S1 & S2 Peripheral Pulses: within normal limits - Abdominal General gastrointestinal: soft, non-tender, non-distended - Integumentary Integumentary: Present: clear, dry - Psychiatric Psychiatric: appropriate mood/affect, cooperative - Neurologic Neurologic: CNII-XII intact Results - Labs CBC & Chem 7: 10/01/16 04:08 09/25/16 22:29 Labs: Laboratory Last Values WBC 11.5 K/mm3 (4.5-11.0) H 10/01/16 04:08 RBC 3.40 M/mm3 (3.65-5.03) L 10/01/16 04:08 Hgb 9.7 gm/dl (11.8-15.2) L 10/01/16 04:08 Hct 28.9 % (35.5-45.6) L 10/01/16 04:08 MCV 85 fl (84-94) 10/01/16 04:08 MCH 29 pg (28-32) 10/01/16 04:08 MCHC 34 % (32-34) 10/01/16 04:08 RDW 17.0 % (13.2-15.2) H 10/01/16 04:08 Plt Count 400 K/mm3 (140-440) 10/01/16 04:08 Lymph % (Auto) 18.1 % (13.4-35.0) 09/30/16 09:09 [place] % (Auto) 9.4 % (0.0-7.3) H 09/30/16 09:09 Eos % (Auto) 4.3 % (0.0-4.3) 09/30/16 09:09 Baso % (Auto) 1.4 % (0.0-1.8) 09/30/16 09:09 Lymph # 2.2 K/mm3 (1.2-5.4) 09/30/16 09:09 [place] # 1.1 K/mm3 (0.0-0.8) H 09/30/16 09:09 Eos # 0.5 K/mm3 (0.0-0.4) H 09/30/16 09:09 Baso # 0.2 K/mm3 (0.0-0.1) H 09/30/16 09:09 Add Manual Diff Complete 09/27/16 04:25 Total Counted 100 09/27/16 04:25 Seg Neutrophils % 66.8 % (40.0-70.0) 09/30/16 09:09 Seg Neuts % (Manual) 82.0 % (40.0-70.0) H 09/27/16 04:25 Band Neutrophils % 6.0 % 09/27/16 04:25 Lymphocytes % (Manual) 8.0 % (13.4-35.0) L 09/27/16 04:25 Reactive Lymphs % (Man) 0 % 09/27/16 04:25 Monocytes % (Manual) 3.0 % (0.0-7.3) 09/27/16 04:25 Eosinophils % (Manual) 0 % (0.0-4.3) 09/27/16 04:25 Basophils % (Manual) 0 % (0.0-1.8) 09/27/16 04:25 Metamyelocytes % 1.0 % 09/27/16 04:25 Myelocytes % 0 % 09/27/16 04:25 Promyelocytes % 0 % 09/27/16 04:25 Blast Cells % 0 % 09/27/16 04:25 Nucleated RBC % Not Reportable 09/27/16 04:25 Seg Neutrophils # 8.1 K/mm3 (1.8-7.7) H 09/30/16 09:09 Seg Neutrophils # Man 15.3 K/mm3 (1.8-7.7) H 09/27/16 04:25 Band Neutrophils # 1.1 K/mm3 09/27/16 04:25 Lymphocytes # (Manual) 1.5 K/mm3 (1.2-5.4) 09/27/16 04:25 Abs React Lymphs (Man) 0.0 K/mm3 09/27/16 04:25 Monocytes # (Manual) 0.6 K/mm3 (0.0-0.8) 09/27/16 04:25 Eosinophils # (Manual) 0.0 K/mm3 (0.0-0.4) 09/27/16 04:25 Basophils # (Manual) 0.0 K/mm3 (0.0-0.1) 09/27/16 04:25 Metamyelocytes # 0.2 K/mm3 09/27/16 04:25 Myelocytes # 0.0 K/mm3 09/27/16 04:25 Promyelocytes # 0.0 K/mm3 09/27/16 04:25 Blast Cells # 0.0 K/mm3 09/27/16 04:25 WBC Morphology Not Reportable 09/27/16 04:25 Hypersegmented Neuts Not Reportable 09/27/16 04:25 Hyposegmented Neuts Not Reportable 09/27/16 04:25 Hypogranular Neuts Not Reportable 09/27/16 04:25 Smudge Cells Not Reportable 09/27/16 04:25 Toxic Granulation Not Reportable 09/27/16 04:25 Toxic Vacuolation Not Reportable 09/27/16 04:25 Dohle Bodies Not Reportable 09/27/16 04:25 Pelger-Huet Anomaly Not Reportable 09/27/16 04:25 Renita Rods Not Reportable 09/27/16 04:25 Platelet Estimate Not Reportable 09/27/16 04:25 Clumped Platelets Not Reportable 09/27/16 04:25 Plt Clumps, EDTA Not Reportable 09/27/16 04:25 Large Platelets Not Reportable 09/27/16 04:25 Giant Platelets Few 09/27/16 04:25 Platelet Satelliting Not Reportable 09/27/16 04:25 Plt Morphology Comment Not Reportable 09/27/16 04:25 RBC Morphology Not Reportable 09/27/16 04:25 Dimorphic RBCs Not Reportable 09/27/16 04:25 Polychromasia Not Reportable 09/27/16 04:25 Hypochromasia Not Reportable 09/27/16 04:25 Poikilocytosis Not Reportable 09/27/16 04:25 Anisocytosis 1+ 09/27/16 04:25 Microcytosis Not Reportable 09/27/16 04:25 Macrocytosis Not Reportable 09/27/16 04:25 Spherocytes Not Reportable 09/27/16 04:25 Pappenheimer Bodies Not Reportable 09/27/16 04:25 Sickle Cells Not Reportable 09/27/16 04:25 Target Cells Not Reportable 09/27/16 04:25 Tear Drop Cells Not Reportable 09/27/16 04:25 Ovalocytes Not Reportable 09/27/16 04:25 Helmet Cells Not Reportable 09/27/16 04:25 Iraheta-Wynne Bodies Not Reportable 09/27/16 04:25 [place] Rings Not Reportable 09/27/16 04:25 Abhilash Cells Not Reportable 09/27/16 04:25 Bite Cells Not Reportable 09/27/16 04:25 Crenated Cell Not Reportable 09/27/16 04:25 Elliptocytes Not Reportable 09/27/16 04:25 Acanthocytes (Spur) Not Reportable 09/27/16 04:25 Rouleaux Not Reportable 09/27/16 04:25 Hemoglobin C Crystals Not Reportable 09/27/16 04:25 Schistocytes Not Reportable 09/27/16 04:25 Malaria parasites Not Reportable 09/27/16 04:25 Azael Bodies Not Reportable 09/27/16 04:25 Hem Pathologist Commnt No 09/27/16 04:25 PT 13.8 Sec. (12.2-14.9) 09/29/16 09:17 INR 1.07 (0.87-1.13) 09/29/16 09:17 APTT 34.6 Sec. (24.2-36.6) 09/29/16 09:17 Heparin Anti-Xa Level 0.56 U.I./ml (0.3-0.7) 09/30/16 19:10 Sodium 133 mmol/L (137-145) L 09/25/16 22:29 Potassium 4.0 mmol/L (3.6-5.0) 09/25/16 22:29 Chloride 91.1 mmol/L (98-107) L 09/25/16 22:29 Carbon Dioxide 21 mmol/L (22-30) L 09/25/16 22:29 Anion Gap 25 mmol/L 09/25/16 22:29 BUN 10 mg/dL (9-20) 09/25/16 22:29 Creatinine 0.9 mg/dL (0.8-1.5) 09/25/16 22:29 Estimated GFR > 60 ml/min 09/25/16 22:29 BUN/Creatinine Ratio 11.11 % 09/25/16 22:29 Glucose 113 mg/dL (75-100) H 09/25/16 22:29 Lactic Acid 2.6 mmol/L (0.7-2.0) H* 09/26/16 10:48 Uric Acid 5.4 mg/dL (3.5-7.6) 09/25/16 22:29 Calcium 9.6 mg/dL (8.4-10.2) 09/25/16 22:29 Urine Color Yellow (Yellow) 09/26/16 00:03 Urine Turbidity Clear (Clear) 09/26/16 00:03 Urine pH 5.0 (5.0-7.0) 09/26/16 00:03 Ur Specific [place] 1.011 (1.003-1.030) 09/26/16 00:03 Urine Protein <15 mg/dl mg/dL (Negative) 09/26/16 00:03 Urine Glucose (UA) Neg mg/dL (Negative) 09/26/16 00:03 Urine Ketones 20 mg/dL (Negative) 09/26/16 00:03 Urine Blood Sm (Negative) 09/26/16 00:03 Urine Nitrite Neg (Negative) 09/26/16 00:03 Urine Bilirubin Neg (Negative) 09/26/16 00:03 Urine Urobilinogen 2.0 mg/dL (<2.0) 09/26/16 00:03 Ur Leukocyte Esterase Lg (Negative) 09/26/16 00:03 Urine WBC (Auto) 11.0 /HPF (0.0-6.0) H 09/26/16 00:03 Urine RBC (Auto) 2.0 /HPF (0.0-6.0) 09/26/16 00:03 U Epithel Cells (Auto) 4.0 /HPF (0-13.0) 09/26/16 00:03 Urine Bacteria (Auto) 1+ /HPF (Negative) 09/26/16 00:03 Urine Mucus Few /HPF 09/26/16 00:03 Vancomycin Trough 28.8 ug/mL (5.0-20.0) H 09/29/16 03:22
[2016-10-01] MEDS: NYSTOP TP SCH ×2 (10:00→22:53)
[2016-10-01] MEDS ORDERED: DIPRIVAN 10 MG/ML IV ONE (10:44)
[2016-10-01] MEDS ORDERED: DILAUDID ONE ×2 (10:44→11:58)
--- NOTE | 2016-10-01 10:45 | Anesthesia Consultation ---
Anesthesia Consult and Med Hx Date of service: 10/01/16 - Airway Anesthetic Teeth Evaluation: Poor ROM Head & Neck: Adequate Mental/Hyoid Distance: Adequate Mallampati Class: Class II Intubation Access Assessment: Probably Good - Pulmonary Exam CTA: Yes - Cardiac Exam Cardiac Exam: RRR - Pre-Operative Health Status ASA Pre-Surgery Classification: ASA3 Proposed Anesthetic Plan: General - Pulmonary Hx Smoking: Yes - Cardiovascular System Hx Hypertension: Yes Hx Peripheral Vascular Disease: Yes
[2016-10-01] MEDS ORDERED: NACL 0.9% 1000 ML 1,000 ML ONE (10:46)
[2016-10-01] MEDS: VANCOMYCIN VIAL 1,500 MG in NACL 0.9% 500 ML 500 ML IV SCH (11:13)
[2016-10-01] MEDS ORDERED: NEO SYNEPHRINE ONE (11:16)
[2016-10-01] MEDS ORDERED: DECADRON ONE (11:43)
[2016-10-01] MEDS ORDERED: XYLOCAINE MPF 2% ONE (11:43)
[2016-10-01] MEDS ORDERED: ZOFRAN ONE (11:43)
[2016-10-01] MEDS ORDERED: DILAUDID IV PRN (12:01)
--- NOTE | 2016-10-01 12:03 | Operative Report ---
Operative Report Operative Report: Date of procedure: 10/01/2016 Pre-operative diagnosis: PVD with Gangrene Status Post Open Amputation Post-operative diagnosis: Same Procedure(s): Right Below Knee Amputation Surgeon: Jesus Stacy MD Clerk Of Scales: Venkatesh Castro PA-C Anesthesia: Gen. endotracheal anesthesia EBL: 200 mL Counts: Correct Complications: None Condition: Stable Findings: All muscle was viable with healthy bleeding tissue and no evidence of infection. Specimen: Right Leg Sent to Pathology Indication: The patient is a 71-year-old male who presented to the emergency department with complaints of fever and wet gangrene of his right foot. He was taken to the operating room for guillotine amputation and treated with antibiotics for several days. He has been afebrile and has resolution of his leukocytosis and is now in need of closure of his amputation site. He was given the risk, benefits, and alternative procedures and consented to the procedure. Description of Procedure: The patient was brought to the operating room and laid in supine position after general endotracheal anesthesia the patient's right leg was prepped and draped in normal sterile fashion. A transverse incision was then created approximately 3 fingerbreadths below the tibial tuberosity and carried the incision down distally to create a posterior flap, using a 10 blade. Electrocautery was then used to divide the muscle down to the tibia and then down to the fibula. I then used a periosteal elevator to elevate the periosteum on the tibia approximately 2 cm above the incision and then I used an oscillating saw to divide the tibia. I then used a double-action bone cutter to divide the fibula approximately 2 cm above the tibia. I divided the remainder of the soft tissue using electrocautery and passed the specimen off. I identified the neurovascular bundle and ligated both the vein and artery using 0 silk stick ties. I then used 0 silk to perform high ligation of the nerve. I achieved hemostasis using electrocautery and direct pressure. Once hemostasis was achieved I used a rasps to smooth the tibia and then copiously irrigated the wound with saline. I anesthetized the wound using Exparel. I then closed the wound in 2 layers using 0 Vicryl to reapproximate the fascia and anastasia to close the skin. I dressed the wound with Xeroform gauze, fluffs , ABDs, Kerlix, and an Wilian bandage. I placed an appropriately sized knee immobilizer. The patient tolerated the procedure well all sponge needle and instrument counts were the patient was taken to recovery in stable condition.
[2016-10-01] MEDS: DILAUDID IV PRN ×4 (12:25→13:00)
[2016-10-01] MEDS: TORADOL IV SCH ×2 (12:30→22:50)
--- NOTE | 2016-10-01 13:32 | Anesthesia Day of Surgery ---
Anesthesia Day of Surgery - Day of Surgery Patient Examined: Yes Patient H&P Reviewed: Yes Patient is NPO: Yes
--- NOTE | 2016-10-01 13:34 | Post Anesthesia Evaluation ---
- Post Anesthesia Evaluation Patient Participated: Yes Airway Patent: Yes Stable Respiratory Function: Yes Temp > 96.8F: Yes Pain Manageable: Yes Adequeate Hydration: Yes Anesthesia Complications: No Block Receding Appropriately: Not Applicable
[2016-10-01] MEDS: MORPHINE IV PRN (22:51)
[2016-10-02] MEDS: TORADOL IV SCH ×4 (01:17→20:14)
[2016-10-02] MEDS: PERCOCET 5/325 PO PRN ×3 (01:18→21:48)
[2016-10-02] MEDS: ZOSYN/NS 4.5GM/100ML 100 ML IV SCH (01:35)
[2016-10-02 06:02] LABS: BUN/Creatinine Ratio 5.92; Chloride 104.5 mmol/L (98-107); Potassium 4.1 mmol/L (3.6-5.0)
[2016-10-02] MEDS: HEPARIN/ 0.45% NACL-25,000 UNIT/500 ML 500 ML IV SCH (07:16)
[2016-10-02] MEDS: HALFPRIN EC PO SCH (10:30)
--- NOTE | 2016-10-02 11:08 | Progress Note ---
Assessment and Plan Patient appears to be doing well from a surgical standpoint. We'll check his wounds in the next 24-48 hours. His postoperative lab work showed that his creatinine has increased with a decrease in his estimated GFR. Consider repeating BMP (to evaluate for possible lab error) vs. nephrology consult. We'll defer to hospitalist. Rehabilitation evaluation in progress. - Patient Problems (1) Atherosclerosis of [place] arteries of the extremities with gangrene Current Visit: Yes Status: Acute (2) Acute renal failure (ARF) Current Visit: Yes Status: Acute Subjective Date of service: 10/02/16 Interval history: It is awake and alert. Pain is manageable with oral analgesics. Patient is without other specific complaint at present. Objective - Constitutional Vitals: Vital Signs - 12hr 10/02/16 10/02/16 10/02/16 00:00 04:00 07:00 Temperature 97.8 F 98.5 F 98.2 F Pulse Rate [ 89 From Monitor] Pulse Rate [ 86 74 Left Brachial] Respiratory 20 20 18 Rate Blood Pressure 122/76 120/69 121/64 [Left Arm] O2 Sat by Pulse 100 100 100 Oximetry 10/02/16 09:25 Temperature Pulse Rate [ From Monitor] Pulse Rate [ Left Brachial] Respiratory Rate Blood Pressure [Left Arm] O2 Sat by Pulse 99 Oximetry General appearance: Present: no acute distress - EENT Eyes: EOM intact ENT: hearing intact - Neck Neck: supple - Respiratory Respiratory effort: normal Extremities: abnormal (BKA: Knee immobilizer bandages intact) - Neurologic Neurologic: no focal deficits - Psychiatric Psychiatric: appropriate mood/affect, intact judgment & insight, cooperative - Labs CBC & Chem 7: 10/01/16 04:08 10/02/16 05:00 Labs: Abnormal lab results 10/01/16 10/02/16 10/02/16 Range/Units 09:07 05:00 05:00 Creatinine 2.7 H (0.8-1.5) mg/dL Glucose 116 H (75-100) mg/dL Calcium 8.0 L (8.4-10.2) mg/dL Vancomycin Trough 39.5 H (5.0-20.0) ug/mL Random Vancomycin 43.7 H (0-40.0) ug/mL
[2016-10-02] MEDS: ZOSYN/NS 2.25 GM/50ML 50 ML IV SCH ×2 (13:12→20:13)
[2016-10-02] MEDS: NYSTOP TP SCH ×2 (13:16→21:47)
--- NOTE | 2016-10-02 15:22 | Progress Note ---
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 Pt S/P BKA on 10/01/16. Pt resting, sitting on side of bed. No reported nursing events. Pt denies pain. Pending Rehab placement. Creatinine level increased today. Hospitalist Physical - Constitutional Vitals: Temp Pulse Resp BP Pulse Ox 98.3 F 66 18 122/64 99 10/02/16 11:10 10/02/16 11:30 10/02/16 11:30 10/02/16 11:10 10/02/16 11:30 General appearance: Present: no acute distress - EENT Eyes: Present: PERRL, EOM intact ENT: hearing intact, clear oral mucosa - Neck Neck: Present: supple, normal ROM - Respiratory Respiratory: bilateral: CTA - Cardiovascular Rhythm: regular Heart Sounds: Present: S1 & S2 - Extremities Extremity abnormal: other (s/p right BKA with surgical dressing) - Abdominal General gastrointestinal: soft, non-tender - Integumentary Integumentary: Present: warm - Psychiatric Psychiatric: appropriate mood/affect - Neurologic Neurologic: no focal deficits, moves all extremities Results - Labs CBC & Chem 7: 10/03/16 05:03 10/02/16 15:39 Labs: Laboratory Last Values WBC 11.5 K/mm3 (4.5-11.0) H 10/01/16 04:08 RBC 3.40 M/mm3 (3.65-5.03) L 10/01/16 04:08 Hgb 9.7 gm/dl (11.8-15.2) L 10/01/16 04:08 Hct 28.9 % (35.5-45.6) L 10/01/16 04:08 MCV 85 fl (84-94) 10/01/16 04:08 MCH 29 pg (28-32) 10/01/16 04:08 MCHC 34 % (32-34) 10/01/16 04:08 RDW 17.0 % (13.2-15.2) H 10/01/16 04:08 Plt Count 400 K/mm3 (140-440) 10/01/16 04:08 Lymph % (Auto) 18.1 % (13.4-35.0) 09/30/16 09:09 [place] % (Auto) 9.4 % (0.0-7.3) H 09/30/16 09:09 Eos % (Auto) 4.3 % (0.0-4.3) 09/30/16 09:09 Baso % (Auto) 1.4 % (0.0-1.8) 09/30/16 09:09 Lymph # 2.2 K/mm3 (1.2-5.4) 09/30/16 09:09 [place] # 1.1 K/mm3 (0.0-0.8) H 09/30/16 09:09 Eos # 0.5 K/mm3 (0.0-0.4) H 09/30/16 09:09 Baso # 0.2 K/mm3 (0.0-0.1) H 09/30/16 09:09 Add Manual Diff Complete 09/27/16 04:25 Total Counted 100 09/27/16 04:25 Seg Neutrophils % 66.8 % (40.0-70.0) 09/30/16 09:09 Seg Neuts % (Manual) 82.0 % (40.0-70.0) H 09/27/16 04:25 Band Neutrophils % 6.0 % 09/27/16 04:25 Lymphocytes % (Manual) 8.0 % (13.4-35.0) L 09/27/16 04:25 Reactive Lymphs % (Man) 0 % 09/27/16 04:25 Monocytes % (Manual) 3.0 % (0.0-7.3) 09/27/16 04:25 Eosinophils % (Manual) 0 % (0.0-4.3) 09/27/16 04:25 Basophils % (Manual) 0 % (0.0-1.8) 09/27/16 04:25 Metamyelocytes % 1.0 % 09/27/16 04:25 Myelocytes % 0 % 09/27/16 04:25 Promyelocytes % 0 % 09/27/16 04:25 Blast Cells % 0 % 09/27/16 04:25 Nucleated RBC % Not Reportable 09/27/16 04:25 Seg Neutrophils # 8.1 K/mm3 (1.8-7.7) H 09/30/16 09:09 Seg Neutrophils # Man 15.3 K/mm3 (1.8-7.7) H 09/27/16 04:25 Band Neutrophils # 1.1 K/mm3 09/27/16 04:25 Lymphocytes # (Manual) 1.5 K/mm3 (1.2-5.4) 09/27/16 04:25 Abs React Lymphs (Man) 0.0 K/mm3 09/27/16 04:25 Monocytes # (Manual) 0.6 K/mm3 (0.0-0.8) 09/27/16 04:25 Eosinophils # (Manual) 0.0 K/mm3 (0.0-0.4) 09/27/16 04:25 Basophils # (Manual) 0.0 K/mm3 (0.0-0.1) 09/27/16 04:25 Metamyelocytes # 0.2 K/mm3 09/27/16 04:25 Myelocytes # 0.0 K/mm3 09/27/16 04:25 Promyelocytes # 0.0 K/mm3 09/27/16 04:25 Blast Cells # 0.0 K/mm3 09/27/16 04:25 WBC Morphology Not Reportable 09/27/16 04:25 Hypersegmented Neuts Not Reportable 09/27/16 04:25 Hyposegmented Neuts Not Reportable 09/27/16 04:25 Hypogranular Neuts Not Reportable 09/27/16 04:25 Smudge Cells Not Reportable 09/27/16 04:25 Toxic Granulation Not Reportable 09/27/16 04:25 Toxic Vacuolation Not Reportable 09/27/16 04:25 Dohle Bodies Not Reportable 09/27/16 04:25 Pelger-Huet Anomaly Not Reportable 09/27/16 04:25 Renita Rods Not Reportable 09/27/16 04:25 Platelet Estimate Not Reportable 09/27/16 04:25 Clumped Platelets Not Reportable 09/27/16 04:25 Plt Clumps, EDTA Not Reportable 09/27/16 04:25 Large Platelets Not Reportable 09/27/16 04:25 Giant Platelets Few 09/27/16 04:25 Platelet Satelliting Not Reportable 09/27/16 04:25 Plt Morphology Comment Not Reportable 09/27/16 04:25 RBC Morphology Not Reportable 09/27/16 04:25 Dimorphic RBCs Not Reportable 09/27/16 04:25 Polychromasia Not Reportable 09/27/16 04:25 Hypochromasia Not Reportable 09/27/16 04:25 Poikilocytosis Not Reportable 09/27/16 04:25 Anisocytosis 1+ 09/27/16 04:25 Microcytosis Not Reportable 09/27/16 04:25 Macrocytosis Not Reportable 09/27/16 04:25 Spherocytes Not Reportable 09/27/16 04:25 Pappenheimer Bodies Not Reportable 09/27/16 04:25 Sickle Cells Not Reportable 09/27/16 04:25 Target Cells Not Reportable 09/27/16 04:25 Tear Drop Cells Not Reportable 09/27/16 04:25 Ovalocytes Not Reportable 09/27/16 04:25 Helmet Cells Not Reportable 09/27/16 04:25 [place] Bodies Not Reportable 09/27/16 04:25 [place] Rings Not Reportable 09/27/16 04:25 [place] Cells Not Reportable 09/27/16 04:25 Bite Cells Not Reportable 09/27/16 04:25 Crenated Cell Not Reportable 09/27/16 04:25 Elliptocytes Not Reportable 09/27/16 04:25 Acanthocytes (Spur) Not Reportable 09/27/16 04:25 Rouleaux Not Reportable 09/27/16 04:25 Hemoglobin C Crystals Not Reportable 09/27/16 04:25 Schistocytes Not Reportable 09/27/16 04:25 Malaria parasites Not Reportable 09/27/16 04:25 Azael Bodies Not Reportable 09/27/16 04:25 Hem Pathologist Commnt No 09/27/16 04:25 PT 13.8 Sec. (12.2-14.9) 09/29/16 09:17 INR 1.07 (0.87-1.13) 09/29/16 09:17 APTT 34.6 Sec. (24.2-36.6) 09/29/16 09:17 Heparin Anti-Xa Level 0.43 U.I./ml (0.3-0.7) 10/01/16 17:50 Sodium 138 mmol/L (137-145) 10/02/16 05:00 Potassium 4.1 mmol/L (3.6-5.0) 10/02/16 05:00 Chloride 104.5 mmol/L (98-107) 10/02/16 05:00 Carbon Dioxide 21 mmol/L (22-30) L 09/25/16 22:29 Anion Gap 25 mmol/L 09/25/16 22:29 BUN 10 mg/dL (9-20) 09/25/16 22:29 Creatinine 2.7 mg/dL (0.8-1.5) H 10/02/16 05:00 Estimated GFR 28 ml/min 10/02/16 05:00 BUN/Creatinine Ratio 5.92 % 10/02/16 05:00 Glucose 116 mg/dL (75-100) H 10/02/16 05:00 Lactic Acid 2.6 mmol/L (0.7-2.0) H* 09/26/16 10:48 Uric Acid 5.4 mg/dL (3.5-7.6) 09/25/16 22:29 Calcium 8.0 mg/dL (8.4-10.2) L 10/02/16 05:00 Urine Color Yellow (Yellow) 09/26/16 00:03 Urine Turbidity Clear (Clear) 09/26/16 00:03 Urine pH 5.0 (5.0-7.0) 09/26/16 00:03 Ur Specific [place] 1.011 (1.003-1.030) 09/26/16 00:03 Urine Protein <15 mg/dl mg/dL (Negative) 09/26/16 00:03 Urine Glucose (UA) Neg mg/dL (Negative) 09/26/16 00:03 Urine Ketones 20 mg/dL (Negative) 09/26/16 00:03 Urine Blood Sm (Negative) 09/26/16 00:03 Urine Nitrite Neg (Negative) 09/26/16 00:03 Urine Bilirubin Neg (Negative) 09/26/16 00:03 Urine Urobilinogen 2.0 mg/dL (<2.0) 09/26/16 00:03 Ur Leukocyte Esterase Lg (Negative) 09/26/16 00:03 Urine WBC (Auto) 11.0 /HPF (0.0-6.0) H 09/26/16 00:03 Urine RBC (Auto) 2.0 /HPF (0.0-6.0) 09/26/16 00:03 U Epithel Cells (Auto) 4.0 /HPF (0-13.0) 09/26/16 00:03 Urine Bacteria (Auto) 1+ /HPF (Negative) 09/26/16 00:03 Urine Mucus Few /HPF 09/26/16 00:03 Vancomycin Trough 39.5 ug/mL (5.0-20.0) H 10/01/16 09:07 Random Vancomycin 43.7 ug/mL (0-40.0) H 10/02/16 05:00
[2016-10-02 16:14] LABS: BUN/Creatinine Ratio 5.62; Calcium 7.9 mg/dL (8.4-10.2); Chloride 104.5 mmol/L (98-107); Potassium 3.6 mmol/L (3.6-5.0)
--- NOTE | 2016-10-02 16:54 | Event Note ---
Date: 10/02/16 [facility] F/U, s/p right BKA. Pt is POD#1 from formal closure of right BKA. Pt is pending post- op PT F/U and OT evaluation. Pt has been denied IRU admission, however, will complete [id number] when updated evaluations are available.
[2016-10-02] MEDS: NACL 0.9% 1000 ML 1,000 ML IV SCH (21:49)
[2016-10-03] MEDS: ZOSYN/NS 2.25 GM/50ML 50 ML IV SCH ×2 (00:20→05:04)
[2016-10-03] MEDS: TORADOL IV SCH ×2 (00:55→07:09)
[2016-10-03] MEDS: HEPARIN/ 0.45% NACL-25,000 UNIT/500 ML 500 ML IV SCH ×2 (04:29→23:13)
[2016-10-03 05:43] LABS: Hemoglobin 8.6 gm/dl (11.8-15.2)
[2016-10-03] MEDS: NACL 0.9% 1000 ML 1,000 ML IV SCH (07:10)
[2016-10-03] MEDS ORDERED: LEVAQUIN PO SCH (10:00)
[2016-10-03] MEDS ORDERED: LEVAQUIN 750MG/150ML 150 ML IV SCH (10:00)
--- NOTE | 2016-10-03 10:33 | Ultrasound Report ---
Renal ultrasound: The right renal length is 11.5 cm and the left renal length is 10.6 cm. Both kidneys are echogenically unremarkable with normal echo pattern. No hydronephrosis or renal mass identified. Imaging of the urinary bladder is grossly unremarkable. Impression: No abnormality identified.
[2016-10-03 11:05] LABS: BUN/Creatinine Ratio 5.4; Calcium 7.7 mg/dL (8.4-10.2); Chloride 105.5 mmol/L (98-107); Potassium 3.9 mmol/L (3.6-5.0)
[2016-10-03] MEDS: HALFPRIN EC PO SCH (12:04)
[2016-10-03] MEDS: NYSTOP TP SCH ×2 (12:08→23:16)
--- NOTE | 2016-10-03 12:51 | Consultation ---
History of Present Illness - History of Present Illness Thank you for the consultation,stefanie was evaluated around 1:45 in the afternoon Patient was evaluated today Currently established with Dr. Joel Baker who is his primary care physician According to patient he does not have any prior history of chronic kidney disease Patient in my opinion however has multiple risk factors for underlying chronic kidney disease Assessment and plan Acute kidney injury in a patient was admitted with relatively normal creatinine currently. From amputation. Etiology of renal failure appears to unclear to me at this time patient will need labs as well as renal imaging currently he has been nonoliguric by history has been started on IV fluid No acute emergent indication for renal replacement therapy avoid any form of nephrotoxic medication TOSHA inhibitor's angiotensin receptor lissette or nonsteroidal drugs Metabolic acidosis patient will benefit from bicarbonate containing fluid Worsening anemia in the setting of postop state from 11.5 currently 8.6 no obvious blood loss noted of that surgery Hypertension edema appears to be well controlled We'll continue to follow and make recommendations from renal standpoint Past History Past Medical History: hypertension Past Surgical History: Other (ex lap) Social history: single, lives with family, smoking, alcohol abuse Family history: hypertension Medications and Allergies Allergies Allergy/AdvReac Type Severity Reaction Status Date / Time No Known Allergies Allergy Unverified 09/25/16 20:45 Home Medications Medication Instructions Recorded Confirmed Last Taken Type Clindamycin [Clindamycin CAP] 600 mg PO BID #10 capsule 10/19/16 Unknown Rx Nystatin [Nystop Powder] 1 applic TP BID 5 Days 10/19/16 Unknown Rx Pantoprazole [Protonix TAB] 40 mg PO QDAY #30 tablet 10/19/16 Unknown Rx Sucralfate [Carafate] 1 gm PO Q6HR 10 Days 10/19/16 Unknown Rx oxyCODONE /ACETAMINOPHEN [Percocet 2 tab PO Q6H PRN 10 Days 10/19/16 Unknown Rx 5/325 mg] Apixaban [Eliquis] 2.5 mg PO Q12HR #60 tablet 10/23/16 Unknown Rx Active Meds: Active Medications Acetaminophen (Tylenol) 650 mg PO Q4H PRN PRN Reason: Pain MILD(1-3)/Fever >100.5/CAZARES Albuterol (Proventil) 2.5 mg IH Q4HRT PRN PRN Reason: wheezing Aspirin (Halfprin Ec) 81 mg PO QDAY SUPRIYA Last Admin: 10/03/16 12:04 Dose: 81 mg Heparin Sodium (Porcine) (Heparin) 5,000 unit SUB-Q Q8HR SUPRIYA Hydromorphone HCl (Dilaudid) 0.5 mg IV Q3H PRN PRN Reason: Pain , Severe (7-10) Hydromorphone HCl (Dilaudid) 0.5 mg IV Q5MIN PRN PRN Reason: Chest Pain Last Admin: 10/01/16 13:00 Dose: 0.5 mg Sodium Chloride (Nacl 0.9% 1000 Ml) 1,000 mls @ 100 mls/hr IV DIRECT SUPRIYA Last Admin: 10/03/16 07:10 Dose: 100 mls/hr Heparin Sodium/Sodium Chloride (Heparin/ 0.45% Nacl-25,000 Unit/500 Ml) 500 mls @ 30 mls/hr IV TITR SUPRIYA; 1,500 UNITS/HR PRN Reason: Protocol Last Admin: 10/03/16 04:29 Dose: 26 mls/hr Morphine Sulfate (Morphine) 2 mg IV Q4H PRN PRN Reason: Pain , Severe (7-10) Last Admin: 10/01/16 22:51 Dose: 2 mg Nystatin (Nystop) 1 applic TP BID [facility] Last Admin: 10/03/16 12:08 Dose: 1 applic Oxycodone/Acetaminophen (Percocet 5/325) 2 tab PO Q6H PRN PRN Reason: Pain, Moderate (4-6) Last Admin: 10/02/16 21:48 Dose: 2 tab Exam - Vital Signs Vital signs: Vital Signs Temp Pulse Resp BP Pulse Ox 98 F 109 H 18 131/93 100 09/25/16 20:44 09/25/16 20:44 09/25/16 20:44 09/25/16 20:44 09/25/16 20:44 Results - Lab Results 10/24/16 05:07 10/24/16 05:07 Most recent lab results Calcium 7.7 mg/dL (8.4-10.2) L 10/03/16 09:16
[2016-10-03] MEDS ORDERED: HEPARIN SUB-Q SCH (14:00)
[2016-10-03 15:10] LABS: Uric Acid 5.4 mg/dL (3.5-7.6)
--- NOTE | 2016-10-03 15:16 | Event Note ---
Date: 10/03/16 [facility] F/U. [id number] completed with [facility] Pastry Assistant; Insurance willing to approve once renal function has stabilized; Nephrology is following and recommendations are pending. Will update insurance in AM as requested.
--- NOTE | 2016-10-03 15:37 | Progress Note ---
Assessment and Plan Pt appears to be doing well from a surgical stand point. However, his kidney function appears to have continued to deteriorate. Nephrology consulted. Rehab eval in progress. Change bandages daily. Keep knee immobilizer in place except during pt or bandage changes. - Patient Problems (1) Atherosclerosis of [place] arteries of the extremities with gangrene Current Visit: Yes Status: Acute (2) Acute renal failure (ARF) Current Visit: Yes Status: Acute Subjective Date of service: 10/03/16 Interval history: Pt awake without specific complaint at present. His pain appears to be adequately controlled. Objective - Constitutional Vitals: Vital Signs - 12hr 10/03/16 10/03/16 10/03/16 04:53 08:00 10:00 Temperature 98.0 F 97.7 F Pulse Rate [ 75 82 Apical] Respiratory 20 18 Rate Respiratory 18 Rate [Right Leg ] Blood Pressure 135/69 132/74 [Left Arm] O2 Sat by Pulse 97 98 Oximetry General appearance: Present: no acute distress - EENT Eyes: EOM intact ENT: hearing intact - Neck Neck: supple - Respiratory Respiratory effort: normal Extremities: normal temperature, abnormal (Bandages removed. Incision intact without erythema or active drainage.) Extremity abnormal: other (Knee without apparent contracture.) - Neurologic Neurologic: no focal deficits - Psychiatric Psychiatric: appropriate mood/affect, intact judgment & insight, cooperative - Labs CBC & Chem 7: 10/03/16 05:03 10/03/16 09:16 Labs: Abnormal lab results 10/02/16 10/02/16 10/03/16 Range/Units 15:39 17:18 05:03 Hgb 8.6 L (11.8-15.2) gm/dl Hct 26.0 L (35.5-45.6) % Heparin Anti-Xa Level 1.21 H (0.3-0.7) U.I./ml Carbon Dioxide 15 L (22-30) mmol/L Creatinine 3.2 H (0.8-1.5) mg/dL Glucose 118 H (75-100) mg/dL Calcium 7.9 L (8.4-10.2) mg/dL Total Creatine Kinase (55-170) units/L 10/03/16 10/03/16 Range/Units 09:16 09:16 Hgb (11.8-15.2) gm/dl Hct (35.5-45.6) % Heparin Anti-Xa Level (0.3-0.7) U.I./ml Carbon Dioxide 15 L (22-30) mmol/L Creatinine 3.7 H (0.8-1.5) mg/dL Glucose 71 L (75-100) mg/dL Calcium 7.7 L (8.4-10.2) mg/dL Total Creatine Kinase 288 H (55-170) units/L
[2016-10-03] MEDS: SODIUM BICARBONATE 150 MEQ in STERILE WATER 1,000 ML IV SCH (17:05)
[2016-10-03 17:42] LABS: Bilirubin,Urine NEG (Negative); Blood,Urine NEG (Negative); Ketones,Urine NEG (Negative); Leukocyte Esterase,Urine NEG (Negative); Mucus,Urine FEW /HPF; Nitrite,Urine NEG (Negative); Protein,Urine <15 mg/dL mg/dL (Negative); Urobilinogen,Urine < 2.0 mg/dL (<2.0)
--- NOTE | 2016-10-03 20:48 | Progress Note ---
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 Pt S/P BKA on 10/01/16. Pt is resting on bed. No reported nursing events. Pt denies pain. Pending Rehab placement. Creatinine level continue to increase. Hospitalist Physical - Physical exam Narrative exam: General appearance: Present: no acute distress - EENT Eyes: Present: PERRL, EOM intact ENT: hearing intact, clear oral mucosa - Neck Neck: Present: supple, normal ROM - Respiratory Respiratory: bilateral: CTA - Cardiovascular Rhythm: regular Heart Sounds: Present: S1 & S2 - Extremities Extremity abnormal: other (s/p right BKA with surgical dressing) - Abdominal General gastrointestinal: soft, non-tender - Integumentary Integumentary: Present: warm - Psychiatric Psychiatric: appropriate mood/affect - Neurologic Neurologic: no focal deficits, moves all extremities - Constitutional Vitals: Temp Pulse Resp BP Pulse Ox 97.6 F 90 18 127/60 98 10/03/16 16:00 10/03/16 16:00 10/03/16 16:00 10/03/16 16:00 10/03/16 08:00 General appearance: Present: no acute distress Results - Labs CBC & Chem 7: 10/03/16 05:03 10/03/16 09:16 Labs: Laboratory Last Values WBC 11.5 K/mm3 (4.5-11.0) H 10/01/16 04:08 RBC 3.40 M/mm3 (3.65-5.03) L 10/01/16 04:08 Hgb 8.6 gm/dl (11.8-15.2) L 10/03/16 05:03 Hct 26.0 % (35.5-45.6) L 10/03/16 05:03 MCV 85 fl (84-94) 10/01/16 04:08 MCH 29 pg (28-32) 10/01/16 04:08 MCHC 34 % (32-34) 10/01/16 04:08 RDW 17.0 % (13.2-15.2) H 10/01/16 04:08 Plt Count 388 K/mm3 (140-440) 10/03/16 05:03 Lymph % (Auto) 18.1 % (13.4-35.0) 09/30/16 09:09 [place] % (Auto) 9.4 % (0.0-7.3) H 09/30/16 09:09 Eos % (Auto) 4.3 % (0.0-4.3) 09/30/16 09:09 Baso % (Auto) 1.4 % (0.0-1.8) 09/30/16 09:09 Lymph # 2.2 K/mm3 (1.2-5.4) 09/30/16 09:09 [place] # 1.1 K/mm3 (0.0-0.8) H 09/30/16 09:09 Eos # 0.5 K/mm3 (0.0-0.4) H 09/30/16 09:09 Baso # 0.2 K/mm3 (0.0-0.1) H 09/30/16 09:09 Add Manual Diff Complete 09/27/16 04:25 Total Counted 100 09/27/16 04:25 Seg Neutrophils % 66.8 % (40.0-70.0) 09/30/16 09:09 Seg Neuts % (Manual) 82.0 % (40.0-70.0) H 09/27/16 04:25 Band Neutrophils % 6.0 % 09/27/16 04:25 Lymphocytes % (Manual) 8.0 % (13.4-35.0) L 09/27/16 04:25 Reactive Lymphs % (Man) 0 % 09/27/16 04:25 Monocytes % (Manual) 3.0 % (0.0-7.3) 09/27/16 04:25 Eosinophils % (Manual) 0 % (0.0-4.3) 09/27/16 04:25 Basophils % (Manual) 0 % (0.0-1.8) 09/27/16 04:25 Metamyelocytes % 1.0 % 09/27/16 04:25 Myelocytes % 0 % 09/27/16 04:25 Promyelocytes % 0 % 09/27/16 04:25 Blast Cells % 0 % 09/27/16 04:25 Nucleated RBC % Not Reportable 09/27/16 04:25 Seg Neutrophils # 8.1 K/mm3 (1.8-7.7) H 09/30/16 09:09 Seg Neutrophils # Man 15.3 K/mm3 (1.8-7.7) H 09/27/16 04:25 Band Neutrophils # 1.1 K/mm3 09/27/16 04:25 Lymphocytes # (Manual) 1.5 K/mm3 (1.2-5.4) 09/27/16 04:25 Abs React Lymphs (Man) 0.0 K/mm3 09/27/16 04:25 Monocytes # (Manual) 0.6 K/mm3 (0.0-0.8) 09/27/16 04:25 Eosinophils # (Manual) 0.0 K/mm3 (0.0-0.4) 09/27/16 04:25 Basophils # (Manual) 0.0 K/mm3 (0.0-0.1) 09/27/16 04:25 Metamyelocytes # 0.2 K/mm3 09/27/16 04:25 Myelocytes # 0.0 K/mm3 09/27/16 04:25 Promyelocytes # 0.0 K/mm3 09/27/16 04:25 Blast Cells # 0.0 K/mm3 09/27/16 04:25 WBC Morphology Not Reportable 09/27/16 04:25 Hypersegmented Neuts Not Reportable 09/27/16 04:25 Hyposegmented Neuts Not Reportable 09/27/16 04:25 Hypogranular Neuts Not Reportable 09/27/16 04:25 Smudge Cells Not Reportable 09/27/16 04:25 Toxic Granulation Not Reportable 09/27/16 04:25 Toxic Vacuolation Not Reportable 09/27/16 04:25 Dohle Bodies Not Reportable 09/27/16 04:25 Pelger-[place]uet Anomaly Not Reportable 09/27/16 04:25 Renita Rods Not Reportable 09/27/16 04:25 Platelet Estimate Not Reportable 09/27/16 04:25 Clumped Platelets Not Reportable 09/27/16 04:25 Plt Clumps, EDTA Not Reportable 09/27/16 04:25 Large Platelets Not Reportable 09/27/16 04:25 Giant Platelets Few 09/27/16 04:25 Platelet Satelliting Not Reportable 09/27/16 04:25 Plt Morphology Comment Not Reportable 09/27/16 04:25 RBC Morphology Not Reportable 09/27/16 04:25 Dimorphic RBCs Not Reportable 09/27/16 04:25 Polychromasia Not Reportable 09/27/16 04:25 Hypochromasia Not Reportable 09/27/16 04:25 Poikilocytosis Not Reportable 09/27/16 04:25 Anisocytosis 1+ 09/27/16 04:25 Microcytosis Not Reportable 09/27/16 04:25 Macrocytosis Not Reportable 09/27/16 04:25 Spherocytes Not Reportable 09/27/16 04:25 Pappenheimer Bodies Not Reportable 09/27/16 04:25 Sickle Cells Not Reportable 09/27/16 04:25 Target Cells Not Reportable 09/27/16 04:25 Tear Drop Cells Not Reportable 09/27/16 04:25 Ovalocytes Not Reportable 09/27/16 04:25 Helmet Cells Not Reportable 09/27/16 04:25 [place] Bodies Not Reportable 09/27/16 04:25 [place] Rings Not Reportable 09/27/16 04:25 [place] Cells Not Reportable 09/27/16 04:25 Bite Cells Not Reportable 09/27/16 04:25 Crenated Cell Not Reportable 09/27/16 04:25 Elliptocytes Not Reportable 09/27/16 04:25 Acanthocytes (Spur) Not Reportable 09/27/16 04:25 Rouleaux Not Reportable 09/27/16 04:25 Hemoglobin C Crystals Not Reportable 09/27/16 04:25 Schistocytes Not Reportable 09/27/16 04:25 Malaria parasites Not Reportable 09/27/16 04:25 Azael Bodies Not Reportable 09/27/16 04:25 Hem Pathologist Commnt No 09/27/16 04:25 PT 13.8 Sec. (12.2-14.9) 09/29/16 09:17 INR 1.07 (0.87-1.13) 09/29/16 09:17 APTT 34.6 Sec. (24.2-36.6) 09/29/16 09:17 Heparin Anti-Xa Level 0.56 U.I./ml (0.3-0.7) 10/03/16 07:05 Sodium 138 mmol/L (137-145) 10/03/16 09:16 Potassium 3.9 mmol/L (3.6-5.0) 10/03/16 09:16 Chloride 105.5 mmol/L (98-107) 10/03/16 09:16 Carbon Dioxide 15 mmol/L (22-30) L 10/03/16 09:16 Anion Gap 21 mmol/L 10/03/16 09:16 BUN 20 mg/dL (9-20) 10/03/16 09:16 Creatinine 3.7 mg/dL (0.8-1.5) H 10/03/16 09:16 Estimated GFR 20 ml/min 10/03/16 09:16 BUN/Creatinine Ratio 5.40 % 10/03/16 09:16 Glucose 71 mg/dL (75-100) L 10/03/16 09:16 Osmolality 293 Mosm/kg 10/03/16 14:03 Lactic Acid 2.6 mmol/L (0.7-2.0) H* 09/26/16 10:48 Uric Acid 5.4 mg/dL (3.5-7.6) 10/03/16 09:16 Calcium 7.7 mg/dL (8.4-10.2) L 10/03/16 09:16 Total Creatine Kinase 288 units/L (55-170) H 10/03/16 09:16 Urine Color Yellow (Yellow) 10/03/16 17:00 Urine Turbidity Clear (Clear) 10/03/16 17:00 Urine pH 5.0 (5.0-7.0) 10/03/16 17:00 Ur Specific [place] 1.011 (1.003-1.030) 10/03/16 17:00 Urine Protein <15 mg/dl mg/dL (Negative) 10/03/16 17:00 Urine Glucose (UA) Neg mg/dL (Negative) 10/03/16 17:00 Urine Ketones Neg mg/dL (Negative) 10/03/16 17:00 Urine Blood Neg (Negative) 10/03/16 17:00 Urine Nitrite Neg (Negative) 10/03/16 17:00 Urine Bilirubin Neg (Negative) 10/03/16 17:00 Urine Urobilinogen < 2.0 mg/dL (<2.0) 10/03/16 17:00 Ur Leukocyte Esterase Neg (Negative) 10/03/16 17:00 Urine WBC (Auto) 1.0 /HPF (0.0-6.0) 10/03/16 17:00 Urine RBC (Auto) 1.0 /HPF (0.0-6.0) 10/03/16 17:00 U Epithel Cells (Auto) 5.0 /HPF (0-13.0) 10/03/16 17:00 Urine Bacteria (Auto) 1+ /HPF (Negative) 09/26/16 00:03 Urine Mucus Few /HPF 10/03/16 17:00 Urine Creatinine 100.1 mg/dL (0.1-20.0) H 10/03/16 17:00 Urine Sodium 33 mEq/L 10/03/16 17:00 Urine Total Protein 23 mg/dL (5-11.8) H 10/03/16 17:00 Vancomycin Trough 39.5 ug/mL (5.0-20.0) H 10/01/16 09:07 Random Vancomycin 43.7 ug/mL (0-40.0) H 10/02/16 05:00
[2016-10-04 05:45] LABS: BUN/Creatinine Ratio 5.22; Calcium 7.6 mg/dL (8.4-10.2); Chloride 105.2 mmol/L (98-107); Potassium 3.6 mmol/L (3.6-5.0)
[2016-10-04] MEDS: NYSTOP TP SCH ×2 (10:15→21:00)
[2016-10-04] MEDS: HALFPRIN EC PO SCH (10:15)
[2016-10-04] MEDS: HEPARIN/ 0.45% NACL-25,000 UNIT/500 ML 500 ML IV SCH (10:50)
--- NOTE | 2016-10-04 10:59 | Progress Note ---
Assessment and Plan Patient status post right below the knee amputation. He appears to be doing well from a surgical standpoint. His bandages should be changed daily. Occupational and physical therapies are in progress, patient has been tentatively accepted to rehabilitation once his kidney issues have resolved. Nephrology following the pt. Pt was noted to have a DVT intra-operatively. He is currently on a heparin gtt. Discussed with the Hospitalist about conversion to an oral agent. - Patient Problems (1) Atherosclerosis of [place] arteries of the extremities with gangrene Current Visit: Yes Status: Acute (2) Acute renal failure (ARF) Current Visit: Yes Status: Acute Subjective Date of service: 10/04/16 Interval history: Patient is awake and alert without specific complaint at present. Objective - Constitutional Vitals: Vital Signs - 12hr 10/04/16 07:59 Temperature 98 F Pulse Rate [ 89 Apical] Respiratory 18 Rate Blood Pressure 151/70 [Left Arm] O2 Sat by Pulse 100 Oximetry General appearance: Present: no acute distress - EENT Eyes: EOM intact ENT: hearing intact - Respiratory Respiratory effort: normal Extremities: abnormal (right BKA, his knee immobilizer was not in place when I entered the room. His bandages were clean dry and intact. I replaced the immobilizer in proper position.) - Neurologic Neurologic: no focal deficits - Psychiatric Psychiatric: appropriate mood/affect, intact judgment & insight, cooperative - Labs CBC & Chem 7: 10/03/16 05:03 10/04/16 05:10 Labs: Abnormal lab results 10/03/16 10/03/16 10/03/16 Range/Units 09:16 09:16 17:00 Carbon Dioxide 15 L (22-30) mmol/L BUN (9-20) mg/dL Creatinine 3.7 H (0.8-1.5) mg/dL Glucose 71 L (75-100) mg/dL Calcium 7.7 L (8.4-10.2) mg/dL Total Creatine Kinase 288 H (55-170) units/L Urine Creatinine 100.1 H (0.1-20.0) mg/dL Urine Total Protein 23 H (5-11.8) mg/dL 10/04/16 Range/Units 05:10 Carbon Dioxide 17 L (22-30) mmol/L BUN 23 H (9-20) mg/dL Creatinine 4.4 H (0.8-1.5) mg/dL Glucose (75-100) mg/dL Calcium 7.6 L (8.4-10.2) mg/dL Total Creatine Kinase (55-170) units/L Urine Creatinine (0.1-20.0) mg/dL Urine Total Protein (5-11.8) mg/dL
--- NOTE | 2016-10-04 11:34 | Progress Note ---
Assessment and Plan Acute kidney injury multifactorial in his case patient also did receive Toradol has also been on antibiotic high suspicion for drug-induced renal failure and his case currently nonoliguric at this time continue to monitor renal function patiently. Even single dose of Toradol can cause acute renal failure at times . Follow pending labs His kidney ultrasound appears to be unremarkable with non-distended bladder No acute emergent indication for renal placement therapy at this time Patient's baseline creatinine is 0.9 as of 09/25/2016 Patient's vitals have been currently stable Hemoglobin has dropped down to 8.6 please consider further workup Metabolic acidosis currently better We'll continue to follow and make recommendation from renal standpoint Subjective Interval history: Patient was seen today for follow-up events of 24 hours noted Is currently nonoliguric denies a complaints of nausea vomiting Interdisciplinary Notes were also reviewed Objective - Vital Signs Vital signs: Vital Signs - 12hr 10/04/16 07:59 Temperature 98 F Pulse Rate [ 89 Apical] Respiratory 18 Rate Blood Pressure 151/70 [Left Arm] O2 Sat by Pulse 100 Oximetry - General Appearance General appearance: appears stated age EENT: mucous membranes moist Neck: no JVD Respiratory: Present: Clear to Ascultation Cardiology: regular Gastrointestinal: normal Integumentary: no rash - Lab 10/05/16 05:16 10/06/16 04:49 Most recent lab results Calcium 7.6 mg/dL (8.4-10.2) L 10/04/16 05:10 Urine Creatinine 100.1 mg/dL (0.1-20.0) H 10/03/16 17:00 Urine Sodium 33 mEq/L 10/03/16 17:00 Urine Total Protein 23 mg/dL (5-11.8) H 10/03/16 17:00
--- NOTE | 2016-10-04 14:55 | Progress Note ---
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 Pt S/P BKA on 10/01/16. Pt is resting on bed. No reported nursing events. Pt denies pain. Pending Rehab placement. Creatinine level continue to increase. Cr level 4.4 today. discussed with vascular patient will be placed on eliquis for DVT. Hospitalist Physical - Physical exam Narrative exam: General appearance: Present: no acute distress - EENT Eyes: Present: PERRL, EOM intact ENT: hearing intact, clear oral mucosa - Neck Neck: Present: supple, normal ROM - Respiratory Respiratory: bilateral: CTA - Cardiovascular Rhythm: regular Heart Sounds: Present: S1 & S2 - Extremities Extremity abnormal: other (s/p right BKA with surgical dressing) - Abdominal General gastrointestinal: soft, non-tender - Integumentary Integumentary: Present: warm - Psychiatric Psychiatric: appropriate mood/affect - Neurologic Neurologic: no focal deficits, moves all extremities - Constitutional Vitals: Temp Pulse Resp BP Pulse Ox 97.6 F 98 H 18 153/73 98 10/04/16 12:35 10/04/16 12:35 10/04/16 12:35 10/04/16 12:35 10/04/16 12:35 General appearance: Present: no acute distress Results - Labs CBC & Chem 7: 10/05/16 05:16 10/05/16 05:16 Labs: Laboratory Last Values WBC 11.5 K/mm3 (4.5-11.0) H 10/01/16 04:08 RBC 3.40 M/mm3 (3.65-5.03) L 10/01/16 04:08 Hgb 8.6 gm/dl (11.8-15.2) L 10/03/16 05:03 Hct 26.0 % (35.5-45.6) L 10/03/16 05:03 MCV 85 fl (84-94) 10/01/16 04:08 MCH 29 pg (28-32) 10/01/16 04:08 MCHC 34 % (32-34) 10/01/16 04:08 RDW 17.0 % (13.2-15.2) H 10/01/16 04:08 Plt Count 388 K/mm3 (140-440) 10/03/16 05:03 Lymph % (Auto) 18.1 % (13.4-35.0) 09/30/16 09:09 [place] % (Auto) 9.4 % (0.0-7.3) H 09/30/16 09:09 Eos % (Auto) 4.3 % (0.0-4.3) 09/30/16 09:09 Baso % (Auto) 1.4 % (0.0-1.8) 09/30/16 09:09 Lymph # 2.2 K/mm3 (1.2-5.4) 09/30/16 09:09 [place] # 1.1 K/mm3 (0.0-0.8) H 09/30/16 09:09 Eos # 0.5 K/mm3 (0.0-0.4) H 09/30/16 09:09 Baso # 0.2 K/mm3 (0.0-0.1) H 09/30/16 09:09 Add Manual Diff Complete 09/27/16 04:25 Total Counted 100 09/27/16 04:25 Seg Neutrophils % 66.8 % (40.0-70.0) 09/30/16 09:09 Seg Neuts % (Manual) 82.0 % (40.0-70.0) H 09/27/16 04:25 Band Neutrophils % 6.0 % 09/27/16 04:25 Lymphocytes % (Manual) 8.0 % (13.4-35.0) L 09/27/16 04:25 Reactive Lymphs % (Man) 0 % 09/27/16 04:25 Monocytes % (Manual) 3.0 % (0.0-7.3) 09/27/16 04:25 Eosinophils % (Manual) 0 % (0.0-4.3) 09/27/16 04:25 Basophils % (Manual) 0 % (0.0-1.8) 09/27/16 04:25 Metamyelocytes % 1.0 % 09/27/16 04:25 Myelocytes % 0 % 09/27/16 04:25 Promyelocytes % 0 % 09/27/16 04:25 Blast Cells % 0 % 09/27/16 04:25 Nucleated RBC % Not Reportable 09/27/16 04:25 Seg Neutrophils # 8.1 K/mm3 (1.8-7.7) H 09/30/16 09:09 Seg Neutrophils # Man 15.3 K/mm3 (1.8-7.7) H 09/27/16 04:25 Band Neutrophils # 1.1 K/mm3 09/27/16 04:25 Lymphocytes # (Manual) 1.5 K/mm3 (1.2-5.4) 09/27/16 04:25 Abs React Lymphs (Man) 0.0 K/mm3 09/27/16 04:25 Monocytes # (Manual) 0.6 K/mm3 (0.0-0.8) 09/27/16 04:25 Eosinophils # (Manual) 0.0 K/mm3 (0.0-0.4) 09/27/16 04:25 Basophils # (Manual) 0.0 K/mm3 (0.0-0.1) 09/27/16 04:25 Metamyelocytes # 0.2 K/mm3 09/27/16 04:25 Myelocytes # 0.0 K/mm3 09/27/16 04:25 Promyelocytes # 0.0 K/mm3 09/27/16 04:25 Blast Cells # 0.0 K/mm3 09/27/16 04:25 WBC Morphology Not Reportable 09/27/16 04:25 Hypersegmented Neuts Not Reportable 09/27/16 04:25 Hyposegmented Neuts Not Reportable 09/27/16 04:25 Hypogranular Neuts Not Reportable 09/27/16 04:25 Smudge Cells Not Reportable 09/27/16 04:25 Toxic Granulation Not Reportable 09/27/16 04:25 Toxic Vacuolation Not Reportable 09/27/16 04:25 Dohle Bodies Not Reportable 09/27/16 04:25 Pelger-Huet Anomaly Not Reportable 09/27/16 04:25 Renita Rods Not Reportable 09/27/16 04:25 Platelet Estimate Not Reportable 09/27/16 04:25 Clumped Platelets Not Reportable 09/27/16 04:25 Plt Clumps, EDTA Not Reportable 09/27/16 04:25 Large Platelets Not Reportable 09/27/16 04:25 Giant Platelets Few 09/27/16 04:25 Platelet Satelliting Not Reportable 09/27/16 04:25 Plt Morphology Comment Not Reportable 09/27/16 04:25 RBC Morphology Not Reportable 09/27/16 04:25 Dimorphic RBCs Not Reportable 09/27/16 04:25 Polychromasia Not Reportable 09/27/16 04:25 Hypochromasia Not Reportable 09/27/16 04:25 Poikilocytosis Not Reportable 09/27/16 04:25 Anisocytosis 1+ 09/27/16 04:25 Microcytosis Not Reportable 09/27/16 04:25 Macrocytosis Not Reportable 09/27/16 04:25 Spherocytes Not Reportable 09/27/16 04:25 Pappenheimer Bodies Not Reportable 09/27/16 04:25 Sickle Cells Not Reportable 09/27/16 04:25 Target Cells Not Reportable 09/27/16 04:25 Tear Drop Cells Not Reportable 09/27/16 04:25 Ovalocytes Not Reportable 09/27/16 04:25 Helmet Cells Not Reportable 09/27/16 04:25 [place] Bodies Not Reportable 09/27/16 04:25 [place] Rings Not Reportable 09/27/16 04:25 Abhilash Cells Not Reportable 09/27/16 04:25 Bite Cells Not Reportable 09/27/16 04:25 Crenated Cell Not Reportable 09/27/16 04:25 Elliptocytes Not Reportable 09/27/16 04:25 Acanthocytes (Spur) Not Reportable 09/27/16 04:25 Rouleaux Not Reportable 09/27/16 04:25 Hemoglobin C Crystals Not Reportable 09/27/16 04:25 Schistocytes Not Reportable 09/27/16 04:25 Malaria parasites Not Reportable 09/27/16 04:25 Azael Bodies Not Reportable 09/27/16 04:25 Hem Pathologist Commnt No 09/27/16 04:25 PT 13.8 Sec. (12.2-14.9) 09/29/16 09:17 INR 1.07 (0.87-1.13) 09/29/16 09:17 APTT 34.6 Sec. (24.2-36.6) 09/29/16 09:17 Heparin Anti-Xa Level 0.33 U.I./ml (0.3-0.7) 10/04/16 07:51 Sodium 139 mmol/L (137-145) 10/04/16 05:10 Potassium 3.6 mmol/L (3.6-5.0) 10/04/16 05:10 Chloride 105.2 mmol/L (98-107) 10/04/16 05:10 Carbon Dioxide 17 mmol/L (22-30) L 10/04/16 05:10 Anion Gap 20 mmol/L 10/04/16 05:10 BUN 23 mg/dL (9-20) H 10/04/16 05:10 Creatinine 4.4 mg/dL (0.8-1.5) H 10/04/16 05:10 Estimated GFR 16 ml/min 10/04/16 05:10 BUN/Creatinine Ratio 5.22 % 10/04/16 05:10 Glucose 80 mg/dL (75-100) 10/04/16 05:10 Osmolality 293 Mosm/kg 10/03/16 14:03 Lactic Acid 2.6 mmol/L (0.7-2.0) H* 09/26/16 10:48 Uric Acid 5.4 mg/dL (3.5-7.6) 10/03/16 09:16 Calcium 7.6 mg/dL (8.4-10.2) L 10/04/16 05:10 Total Creatine Kinase 288 units/L (55-170) H 10/03/16 09:16 Urine Color Yellow (Yellow) 10/03/16 17:00 Urine Turbidity Clear (Clear) 10/03/16 17:00 Urine pH 5.0 (5.0-7.0) 10/03/16 17:00 Ur Specific [place] 1.011 (1.003-1.030) 10/03/16 17:00 Urine Protein <15 mg/dl mg/dL (Negative) 10/03/16 17:00 Urine Glucose (UA) Neg mg/dL (Negative) 10/03/16 17:00 Urine Ketones Neg mg/dL (Negative) 10/03/16 17:00 Urine Blood Neg (Negative) 10/03/16 17:00 Urine Nitrite Neg (Negative) 10/03/16 17:00 Urine Bilirubin Neg (Negative) 10/03/16 17:00 Urine Urobilinogen < 2.0 mg/dL (<2.0) 10/03/16 17:00 Ur Leukocyte Esterase Neg (Negative) 10/03/16 17:00 Urine WBC (Auto) 1.0 /HPF (0.0-6.0) 10/03/16 17:00 Urine RBC (Auto) 1.0 /HPF (0.0-6.0) 10/03/16 17:00 U Epithel Cells (Auto) 5.0 /HPF (0-13.0) 10/03/16 17:00 Urine Bacteria (Auto) 1+ /HPF (Negative) 09/26/16 00:03 Urine Mucus Few /HPF 10/03/16 17:00 Urine Creatinine 100.1 mg/dL (0.1-20.0) H 10/03/16 17:00 Urine Sodium 33 mEq/L 10/03/16 17:00 Urine Total Protein 23 mg/dL (5-11.8) H 10/03/16 17:00 Vancomycin Trough 39.5 ug/mL (5.0-20.0) H 10/01/16 09:07 Random Vancomycin 43.7 ug/mL (0-40.0) H 10/02/16 05:00
[2016-10-04] MEDS: SODIUM BICARBONATE 150 MEQ in STERILE WATER 1,000 ML IV SCH (15:00)
--- NOTE | 2016-10-04 16:29 | Event Note ---
Date: 10/04/16 IPR F/U, s/p right BKA. Pt seen in room on today. Updated on pre- certification process; renal function noted to be worsening. Pt initiated on heparin drip for DVT; transitioning to Eliquis. Will plan for transfer to IRU once renal function has stabilized. Will continue to follow.
[2016-10-04] MEDS: ELIQUIS PO SCH ×2 (17:30→22:37)
[2016-10-05 05:52] LABS: Basophils % (Auto) 0.8 % (0.0-1.8); Eosinophils % (Auto) 6.1 % (0.0-4.3); Hematocrit 21.1 % (35.5-45.6); Hemoglobin 7.1 gm/dl (11.8-15.2); Mean Corpuscular HGB Conc 34 % (32-34); Mean Corpuscular Hemoglobin 28 pg (28-32); Mean Corpuscular Volume 82 fl (84-94); Platelet Count 372 K/mm3 (140-440); Red Blood Count 2.57 M/mm3 (3.65-5.03); Red Cell Distribution Width 17.6 % (13.2-15.2); White Blood Count 12.4 K/mm3 (4.5-11.0)
[2016-10-05 05:57] LABS: BUN/Creatinine Ratio 5.18; Calcium 7.4 mg/dL (8.4-10.2); Chloride 101.9 mmol/L (98-107); Potassium 3.3 mmol/L (3.6-5.0)
[2016-10-05] MEDS: ELIQUIS PO SCH ×2 (10:30→23:13)
[2016-10-05] MEDS: HALFPRIN EC PO SCH (10:30)
[2016-10-05] MEDS: NYSTOP TP SCH ×2 (10:30→23:13)
--- NOTE | 2016-10-05 13:06 | Progress Note ---
Assessment and Plan Acute kidney injury in a patient who has had a normal creatinine upon admission patient's renal function appears to be getting worse he is somewhat symptomatic with renal failure will consider early initiation of renal placement therapy in his case, patient however is very hesitant to start renal replacement therapy at this time Patient has been adequately counseled and educated about the nature and severity of her renal issues in need for renal replacement therapy today, he does not want to start dialysis today and wants to wait till tomorrow Patient may require packed red blood cell transfusion to keep his hemoglobin over 8-1/2 at this time Anemia declining hemoglobin needs further workup please consider GI evaluation Hypokalemia replace and follow to keep it over 4 Monitor for renal function recovery she needs daily labs Renal ultrasonogram essentially unremarkabable We'll continue to follow and make recommendation from renal standpoint Subjective Interval history: Patient was seen today for follow-up he seems to be doing about the same no compressive any chest pain pressure or shortness of breath Drinking enough fluid nonoliguric by history records were reviewed Intake output vitals medications were reviewed events of 24 hours were noted Creatinine continues to worsen patient's appetite is somewhat poor Objective - Vital Signs Vital signs: Vital Signs - 12hr 10/05/16 10/05/16 08:00 11:55 Temperature 98.2 F 97.9 F Pulse Rate [ 86 89 Apical] Respiratory 20 18 Rate Blood Pressure 145/70 158/74 [Left Arm] O2 Sat by Pulse 100 Oximetry - General Appearance General appearance: well-developed EENT: mucous membranes moist Neck: no JVD Respiratory: Present: Clear to Ascultation Cardiology: regular Gastrointestinal: normal Integumentary: no rash - Lab 10/05/16 05:16 10/06/16 04:49 Most recent lab results Calcium 7.4 mg/dL (8.4-10.2) L 10/05/16 05:16 Urine Creatinine 100.1 mg/dL (0.1-20.0) H 10/03/16 17:00 Urine Sodium 33 mEq/L 10/03/16 17:00 Urine Total Protein 23 mg/dL (5-11.8) H 10/03/16 17:00
--- NOTE | 2016-10-05 15:06 | Progress Note ---
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 Pt S/P BKA on 10/01/16. Pt is resting on bed. No reported nursing events. Pt denies pain. Pending Rehab placement. Creatinine level continue to increase. Cr level 5.2 today. H and H dropping. Hospitalist Physical - Physical exam Narrative exam: General appearance: Present: no acute distress - EENT Eyes: Present: PERRL, EOM intact ENT: hearing intact, clear oral mucosa - Neck Neck: Present: supple, normal ROM - Respiratory Respiratory: bilateral: CTA - Cardiovascular Rhythm: regular Heart Sounds: Present: S1 & S2 - Extremities Extremity abnormal: other (s/p right BKA with surgical dressing) - Abdominal General gastrointestinal: soft, non-tender - Integumentary Integumentary: Present: warm - Psychiatric Psychiatric: appropriate mood/affect - Neurologic Neurologic: no focal deficits, moves all extremities - Constitutional Vitals: Temp Pulse Resp BP Pulse Ox 97.9 F 89 18 158/74 100 10/05/16 11:55 10/05/16 11:55 10/05/16 11:55 10/05/16 11:55 10/05/16 08:00 General appearance: Present: no acute distress Results - Labs CBC & Chem 7: 10/05/16 05:16 10/06/16 04:49 Labs: Laboratory Last Values WBC 12.4 K/mm3 (4.5-11.0) H 10/05/16 05:16 RBC 2.57 M/mm3 (3.65-5.03) L 10/05/16 05:16 Hgb 7.1 gm/dl (11.8-15.2) L 10/05/16 05:16 Hct 21.1 % (35.5-45.6) L 10/05/16 05:16 MCV 82 fl (84-94) L 10/05/16 05:16 MCH 28 pg (28-32) 10/05/16 05:16 MCHC 34 % (32-34) 10/05/16 05:16 RDW 17.6 % (13.2-15.2) H 10/05/16 05:16 Plt Count 372 K/mm3 (140-440) 10/05/16 05:16 Lymph % (Auto) 11.6 % (13.4-35.0) L 10/05/16 05:16 [place] % (Auto) 8.9 % (0.0-7.3) H 10/05/16 05:16 Eos % (Auto) 6.1 % (0.0-4.3) H 10/05/16 05:16 Baso % (Auto) 0.8 % (0.0-1.8) 10/05/16 05:16 Lymph # 1.4 K/mm3 (1.2-5.4) 10/05/16 05:16 [place] # 1.1 K/mm3 (0.0-0.8) H 10/05/16 05:16 Eos # 0.8 K/mm3 (0.0-0.4) H 10/05/16 05:16 Baso # 0.1 K/mm3 (0.0-0.1) 10/05/16 05:16 Add Manual Diff Complete 09/27/16 04:25 Total Counted 100 09/27/16 04:25 Seg Neutrophils % 72.6 % (40.0-70.0) H 10/05/16 05:16 Seg Neuts % (Manual) 82.0 % (40.0-70.0) H 09/27/16 04:25 Band Neutrophils % 6.0 % 09/27/16 04:25 Lymphocytes % (Manual) 8.0 % (13.4-35.0) L 09/27/16 04:25 Reactive Lymphs % (Man) 0 % 09/27/16 04:25 Monocytes % (Manual) 3.0 % (0.0-7.3) 09/27/16 04:25 Eosinophils % (Manual) 0 % (0.0-4.3) 09/27/16 04:25 Basophils % (Manual) 0 % (0.0-1.8) 09/27/16 04:25 Metamyelocytes % 1.0 % 09/27/16 04:25 Myelocytes % 0 % 09/27/16 04:25 Promyelocytes % 0 % 09/27/16 04:25 Blast Cells % 0 % 09/27/16 04:25 Nucleated RBC % Not Reportable 09/27/16 04:25 Seg Neutrophils # 9.0 K/mm3 (1.8-7.7) H 10/05/16 05:16 Seg Neutrophils # Man 15.3 K/mm3 (1.8-7.7) H 09/27/16 04:25 Band Neutrophils # 1.1 K/mm3 09/27/16 04:25 Lymphocytes # (Manual) 1.5 K/mm3 (1.2-5.4) 09/27/16 04:25 Abs React Lymphs (Man) 0.0 K/mm3 09/27/16 04:25 Monocytes # (Manual) 0.6 K/mm3 (0.0-0.8) 09/27/16 04:25 Eosinophils # (Manual) 0.0 K/mm3 (0.0-0.4) 09/27/16 04:25 Basophils # (Manual) 0.0 K/mm3 (0.0-0.1) 09/27/16 04:25 Metamyelocytes # 0.2 K/mm3 09/27/16 04:25 Myelocytes # 0.0 K/mm3 09/27/16 04:25 Promyelocytes # 0.0 K/mm3 09/27/16 04:25 Blast Cells # 0.0 K/mm3 09/27/16 04:25 WBC Morphology Not Reportable 09/27/16 04:25 Hypersegmented Neuts Not Reportable 09/27/16 04:25 Hyposegmented Neuts Not Reportable 09/27/16 04:25 Hypogranular Neuts Not Reportable 09/27/16 04:25 Smudge Cells Not Reportable 09/27/16 04:25 Toxic Granulation Not Reportable 09/27/16 04:25 Toxic Vacuolation Not Reportable 09/27/16 04:25 Dohle Bodies Not Reportable 09/27/16 04:25 Pelger-Huet Anomaly Not Reportable 09/27/16 04:25 Renita Rods Not Reportable 09/27/16 04:25 Platelet Estimate Not Reportable 09/27/16 04:25 Clumped Platelets Not Reportable 09/27/16 04:25 Plt Clumps, EDTA Not Reportable 09/27/16 04:25 Large Platelets Not Reportable 09/27/16 04:25 Giant Platelets Few 09/27/16 04:25 Platelet Satelliting Not Reportable 09/27/16 04:25 Plt Morphology Comment Not Reportable 09/27/16 04:25 RBC Morphology Not Reportable 09/27/16 04:25 Dimorphic RBCs Not Reportable 09/27/16 04:25 Polychromasia Not Reportable 09/27/16 04:25 Hypochromasia Not Reportable 09/27/16 04:25 Poikilocytosis Not Reportable 09/27/16 04:25 Anisocytosis 1+ 09/27/16 04:25 Microcytosis Not Reportable 09/27/16 04:25 Macrocytosis Not Reportable 09/27/16 04:25 Spherocytes Not Reportable 09/27/16 04:25 Pappenheimer Bodies Not Reportable 09/27/16 04:25 Sickle Cells Not Reportable 09/27/16 04:25 Target Cells Not Reportable 09/27/16 04:25 Tear Drop Cells Not Reportable 09/27/16 04:25 Ovalocytes Not Reportable 09/27/16 04:25 Helmet Cells Not Reportable 09/27/16 04:25 [place] Bodies Not Reportable 09/27/16 04:25 [place] Rings Not Reportable 09/27/16 04:25 Abhilash Cells Not Reportable 09/27/16 04:25 Bite Cells Not Reportable 09/27/16 04:25 Crenated Cell Not Reportable 09/27/16 04:25 Elliptocytes Not Reportable 09/27/16 04:25 Acanthocytes (Spur) Not Reportable 09/27/16 04:25 Rouleaux Not Reportable 09/27/16 04:25 Hemoglobin C Crystals Not Reportable 09/27/16 04:25 Schistocytes Not Reportable 09/27/16 04:25 Malaria parasites Not Reportable 09/27/16 04:25 Azael Bodies Not Reportable 09/27/16 04:25 Hem Pathologist Commnt No 09/27/16 04:25 PT 13.8 Sec. (12.2-14.9) 09/29/16 09:17 INR 1.07 (0.87-1.13) 09/29/16 09:17 APTT 34.6 Sec. (24.2-36.6) 09/29/16 09:17 Heparin Anti-Xa Level 0.33 U.I./ml (0.3-0.7) 10/04/16 07:51 Sodium 138 mmol/L (137-145) 10/05/16 05:16 Potassium 3.3 mmol/L (3.6-5.0) L 10/05/16 05:16 Chloride 101.9 mmol/L (98-107) 10/05/16 05:16 Carbon Dioxide 22 mmol/L (22-30) 10/05/16 05:16 Anion Gap 17 mmol/L 10/05/16 05:16 BUN 28 mg/dL (9-20) H 10/05/16 05:16 Creatinine 5.4 mg/dL (0.8-1.5) H 10/05/16 05:16 Estimated GFR 13 ml/min 10/05/16 05:16 BUN/Creatinine Ratio 5.18 % 10/05/16 05:16 Glucose 85 mg/dL (75-100) 10/05/16 05:16 Osmolality 293 Mosm/kg 10/03/16 14:03 Lactic Acid 2.6 mmol/L (0.7-2.0) H* 09/26/16 10:48 Uric Acid 5.4 mg/dL (3.5-7.6) 10/03/16 09:16 Calcium 7.4 mg/dL (8.4-10.2) L 10/05/16 05:16 Total Creatine Kinase 288 units/L (55-170) H 10/03/16 09:16 Urine Color Yellow (Yellow) 10/03/16 17:00 Urine Turbidity Clear (Clear) 10/03/16 17:00 Urine pH 5.0 (5.0-7.0) 10/03/16 17:00 Ur Specific [place] 1.011 (1.003-1.030) 10/03/16 17:00 Urine Protein <15 mg/dl mg/dL (Negative) 10/03/16 17:00 Urine Glucose (UA) Neg mg/dL (Negative) 10/03/16 17:00 Urine Ketones Neg mg/dL (Negative) 10/03/16 17:00 Urine Blood Neg (Negative) 10/03/16 17:00 Urine Nitrite Neg (Negative) 10/03/16 17:00 Urine Bilirubin Neg (Negative) 10/03/16 17:00 Urine Urobilinogen < 2.0 mg/dL (<2.0) 10/03/16 17:00 Ur Leukocyte Esterase Neg (Negative) 10/03/16 17:00 Urine WBC (Auto) 1.0 /HPF (0.0-6.0) 10/03/16 17:00 Urine RBC (Auto) 1.0 /HPF (0.0-6.0) 10/03/16 17:00 U Epithel Cells (Auto) 5.0 /HPF (0-13.0) 10/03/16 17:00 Urine Bacteria (Auto) 1+ /HPF (Negative) 09/26/16 00:03 Urine Mucus Few /HPF 10/03/16 17:00 Urine Creatinine 100.1 mg/dL (0.1-20.0) H 10/03/16 17:00 Urine Sodium 33 mEq/L 10/03/16 17:00 Urine Total Protein 23 mg/dL (5-11.8) H 10/03/16 17:00 Vancomycin Trough 39.5 ug/mL (5.0-20.0) H 10/01/16 09:07 Random Vancomycin 43.7 ug/mL (0-40.0) H 10/02/16 05:00
[2016-10-05] MEDS: PERCOCET 5/325 PO PRN (23:11)
[2016-10-06 05:55] LABS: BUN/Creatinine Ratio 5.55; Calcium 7.6 mg/dL (8.4-10.2); Chloride 99.8 mmol/L (98-107); Potassium 3.3 mmol/L (3.6-5.0)
--- NOTE | 2016-10-06 09:33 | Progress Note ---
Assessment and Plan Acute kidney injury in a patient who has had a normal creatinine upon admission Patient renal function appears to have stabilized at this time we'll continue to monitor his renal function Maintain oral as well as IV hydration Patient does complain of mild nausea today Likely he will not require renal replacement therapy He is very hesitant to start renal replacement therapy and in fact is very afraid Will keep dialysis as a backup plan He needs monitoring of his daily labs As far as his anemia is concerned please keep his hemoglobin around 8.5 or over Renal ultrasonogram essentially unremarkabable We'll continue to follow and make recommendation from renal standpoint Subjective Interval history: Patient was seen today for follow-up he seems to be doing about the same No complaints of any nausea vomiting essentially nonoliguric at this time creatinine currently holding at 5.4 Events of 24 hours vitals labs intake output medications were reviewed Objective - Vital Signs Vital signs: Vital Signs - 12hr 10/06/16 10/06/16 10/06/16 00:48 04:00 07:30 Temperature 97.9 F 98.1 F 98.9 F Pulse Rate [ 86 84 85 Left Brachial] Respiratory 20 20 18 Rate Blood Pressure 143/68 125/73 127/65 [Left Arm] O2 Sat by Pulse 100 99 100 Oximetry - General Appearance General appearance: well-developed EENT: mucous membranes moist Neck: no JVD Respiratory: Present: Clear to Ascultation Cardiology: regular Gastrointestinal: normal - Lab 10/05/16 05:16 10/06/16 04:49 Most recent lab results Calcium 7.6 mg/dL (8.4-10.2) L 10/06/16 04:49 Urine Creatinine 100.1 mg/dL (0.1-20.0) H 10/03/16 17:00 Urine Sodium 33 mEq/L 10/03/16 17:00 Urine Total Protein 23 mg/dL (5-11.8) H 10/03/16 17:00
[2016-10-06] MEDS ORDERED: NACL 0.9% 1000 ML 1,000 ML IV SCH (11:00)
[2016-10-06] MEDS ORDERED: NACL 0.9% 500 ML 500 ML IV SCH (14:49)
[2016-10-06 17:44] LABS: Basophils % (Auto) 0.9 % (0.0-1.8); Eosinophils % (Auto) 4.1 % (0.0-4.3); Hematocrit 21.5 % (35.5-45.6); Hemoglobin 7.2 gm/dl (11.8-15.2); Mean Corpuscular HGB Conc 34 % (32-34); Mean Corpuscular Hemoglobin 28 pg (28-32); Mean Corpuscular Volume 83 fl (84-94); Platelet Count 406 K/mm3 (140-440); Red Blood Count 2.58 M/mm3 (3.65-5.03); Red Cell Distribution Width 17.7 % (13.2-15.2); White Blood Count 15.1 K/mm3 (4.5-11.0)
--- NOTE | 2016-10-06 17:48 | Progress Note ---
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 Pt S/P BKA on 10/01/16. Pt is resting on bed. No reported nursing events. Pt denies pain. Pending Rehab placement. Creatinine level continue to increase. Cr level 5.4 today. H and H dropping but did not drop further than yesterday . Hospitalist Physical - Physical exam Narrative exam: General appearance: Present: no acute distress - EENT Eyes: Present: PERRL, EOM intact ENT: hearing intact, clear oral mucosa - Neck Neck: Present: supple, normal ROM - Respiratory Respiratory: bilateral: CTA - Cardiovascular Rhythm: regular Heart Sounds: Present: S1 & S2 - Extremities Extremity abnormal: other (s/p right BKA with surgical dressing) - Abdominal General gastrointestinal: soft, non-tender - Integumentary Integumentary: Present: warm - Psychiatric Psychiatric: appropriate mood/affect - Neurologic Neurologic: no focal deficits, moves all extremities - Constitutional Vitals: Temp Pulse Resp BP Pulse Ox 97.6 F 85 16 140/78 100 10/06/16 15:00 10/06/16 15:00 10/06/16 15:00 10/06/16 15:00 10/06/16 07:30 General appearance: Present: no acute distress Results - Labs CBC & Chem 7: 10/06/16 17:16 10/06/16 04:49 Labs: Laboratory Last Values WBC 15.1 K/mm3 (4.5-11.0) H 10/06/16 17:16 RBC 2.58 M/mm3 (3.65-5.03) L 10/06/16 17:16 Hgb 7.2 gm/dl (11.8-15.2) L 16 17:16 Hct 21.5 % (35.5-45.6) L 16 17:16 MCV 83 fl (84-94) L 16 17:16 MCH 28 pg (28-32) 16 17:16 MCHC 34 % (32-34) 16 17:16 RDW 17.7 % (13.2-15.2) H 16 17:16 Plt Count 406 K/mm3 (140-440) 16 17:16 Lymph % (Auto) 7.7 % (13.4-35.0) L 16 17:16 [place] % (Auto) 5.5 % (0.0-7.3) 10/06/16 17:16 Eos % (Auto) 4.1 % (0.0-4.3) 10/06/16 17:16 Baso % (Auto) 0.9 % (0.0-1.8) 16 17:16 Lymph # 1.2 K/mm3 (1.2-5.4) 10/06/16 17:16 [place] # 0.8 K/mm3 (0.0-0.8) 16 17:16 Eos # 0.6 K/mm3 (0.0-0.4) H 16 17:16 Baso # 0.1 K/mm3 (0.0-0.1) 16 17:16 Add Manual Diff Complete 09/27/16 04:25 Total Counted 100 09/27/16 04:25 Seg Neutrophils % 81.8 % (40.0-70.0) H 16 17:16 Seg Neuts % (Manual) 82.0 % (40.0-70.0) H 09/27/16 04:25 Band Neutrophils % 6.0 % 09/27/16 04:25 Lymphocytes % (Manual) 8.0 % (13.4-35.0) L 09/27/16 04:25 Reactive Lymphs % (Man) 0 % 09/27/16 04:25 Monocytes % (Manual) 3.0 % (0.0-7.3) 09/27/16 04:25 Eosinophils % (Manual) 0 % (0.0-4.3) 09/27/16 04:25 Basophils % (Manual) 0 % (0.0-1.8) 09/27/16 04:25 Metamyelocytes % 1.0 % 09/27/16 04:25 Myelocytes % 0 % 09/27/16 04:25 Promyelocytes % 0 % 09/27/16 04:25 Blast Cells % 0 % 09/27/16 04:25 Nucleated RBC % Not Reportable 09/27/16 04:25 Seg Neutrophils # 12.3 K/mm3 (1.8-7.7) H 10/06/16 17:16 Seg Neutrophils # Man 15.3 K/mm3 (1.8-7.7) H 09/27/16 04:25 Band Neutrophils # 1.1 K/mm3 09/27/16 04:25 Lymphocytes # (Manual) 1.5 K/mm3 (1.2-5.4) 09/27/16 04:25 Abs React Lymphs (Man) 0.0 K/mm3 09/27/16 04:25 Monocytes # (Manual) 0.6 K/mm3 (0.0-0.8) 09/27/16 04:25 Eosinophils # (Manual) 0.0 K/mm3 (0.0-0.4) 09/27/16 04:25 Basophils # (Manual) 0.0 K/mm3 (0.0-0.1) 09/27/16 04:25 Metamyelocytes # 0.2 K/mm3 09/27/16 04:25 Myelocytes # 0.0 K/mm3 09/27/16 04:25 Promyelocytes # 0.0 K/mm3 09/27/16 04:25 Blast Cells # 0.0 K/mm3 09/27/16 04:25 WBC Morphology Not Reportable 09/27/16 04:25 Hypersegmented Neuts Not Reportable 09/27/16 04:25 Hyposegmented Neuts Not Reportable 09/27/16 04:25 Hypogranular Neuts Not Reportable 09/27/16 04:25 Smudge Cells Not Reportable 09/27/16 04:25 Toxic Granulation Not Reportable 09/27/16 04:25 Toxic Vacuolation Not Reportable 09/27/16 04:25 Dohle Bodies Not Reportable 09/27/16 04:25 Pelger-Huet Anomaly Not Reportable 09/27/16 04:25 Renita Rods Not Reportable 09/27/16 04:25 Platelet Estimate Not Reportable 09/27/16 04:25 Clumped Platelets Not Reportable 09/27/16 04:25 Plt Clumps, EDTA Not Reportable 09/27/16 04:25 Large Platelets Not Reportable 09/27/16 04:25 Giant Platelets Few 09/27/16 04:25 Platelet Satelliting Not Reportable 09/27/16 04:25 Plt Morphology Comment Not Reportable 09/27/16 04:25 RBC Morphology Not Reportable 09/27/16 04:25 Dimorphic RBCs Not Reportable 09/27/16 04:25 Polychromasia Not Reportable 09/27/16 04:25 Hypochromasia Not Reportable 09/27/16 04:25 Poikilocytosis Not Reportable 09/27/16 04:25 Anisocytosis 1+ 09/27/16 04:25 Microcytosis Not Reportable 09/27/16 04:25 Macrocytosis Not Reportable 09/27/16 04:25 Spherocytes Not Reportable 09/27/16 04:25 Pappenheimer Bodies Not Reportable 09/27/16 04:25 Sickle Cells Not Reportable 09/27/16 04:25 Target Cells Not Reportable 09/27/16 04:25 Tear Drop Cells Not Reportable 09/27/16 04:25 Ovalocytes Not Reportable 09/27/16 04:25 Helmet Cells Not Reportable 09/27/16 04:25 Iraheta-Zebulon Bodies Not Reportable 09/27/16 04:25 [place] Rings Not Reportable 09/27/16 04:25 [place] Cells Not Reportable 09/27/16 04:25 Bite Cells Not Reportable 09/27/16 04:25 Crenated Cell Not Reportable 09/27/16 04:25 Elliptocytes Not Reportable 09/27/16 04:25 Acanthocytes (Spur) Not Reportable 09/27/16 04:25 Rouleaux Not Reportable 09/27/16 04:25 Hemoglobin C Crystals Not Reportable 09/27/16 04:25 Schistocytes Not Reportable 09/27/16 04:25 Malaria parasites Not Reportable 09/27/16 04:25 Azael Bodies Not Reportable 09/27/16 04:25 Hem Pathologist Commnt No 09/27/16 04:25 PT 13.8 Sec. (12.2-14.9) 09/29/16 09:17 INR 1.07 (0.87-1.13) 09/29/16 09:17 APTT 34.6 Sec. (24.2-36.6) 09/29/16 09:17 Heparin Anti-Xa Level 0.33 U.I./ml (0.3-0.7) 10/04/16 07:51 Sodium 135 mmol/L (137-145) L 10/06/16 04:49 Potassium 3.3 mmol/L (3.6-5.0) L 10/06/16 04:49 Chloride 99.8 mmol/L (98-107) 10/06/16 04:49 Carbon Dioxide 22 mmol/L (22-30) 10/06/16 04:49 Anion Gap 17 mmol/L 10/06/16 04:49 BUN 30 mg/dL (9-20) H 10/06/16 04:49 Creatinine 5.4 mg/dL (0.8-1.5) H 10/06/16 04:49 Estimated GFR 13 ml/min 10/06/16 04:49 BUN/Creatinine Ratio 5.55 % 10/06/16 04:49 Glucose 100 mg/dL (75-100) 10/06/16 04:49 Osmolality 293 Mosm/kg 10/03/16 14:03 Lactic Acid 2.6 mmol/L (0.7-2.0) H* 09/26/16 10:48 Uric Acid 5.4 mg/dL (3.5-7.6) 10/03/16 09:16 Calcium 7.6 mg/dL (8.4-10.2) L 10/06/16 04:49 Total Creatine Kinase 288 units/L (55-170) H 10/03/16 09:16 Urine Color Yellow (Yellow) 10/03/16 17:00 Urine Turbidity Clear (Clear) 10/03/16 17:00 Urine pH 5.0 (5.0-7.0) 10/03/16 17:00 Ur Specific [place] 1.011 (1.003-1.030) 10/03/16 17:00 Urine Protein <15 mg/dl mg/dL (Negative) 10/03/16 17:00 Urine Glucose (UA) Neg mg/dL (Negative) 10/03/16 17:00 Urine Ketones Neg mg/dL (Negative) 10/03/16 17:00 Urine Blood Neg (Negative) 10/03/16 17:00 Urine Nitrite Neg (Negative) 10/03/16 17:00 Urine Bilirubin Neg (Negative) 10/03/16 17:00 Urine Urobilinogen < 2.0 mg/dL (<2.0) 10/03/16 17:00 Ur Leukocyte Esterase Neg (Negative) 10/03/16 17:00 Urine WBC (Auto) 1.0 /HPF (0.0-6.0) 10/03/16 17:00 Urine RBC (Auto) 1.0 /HPF (0.0-6.0) 10/03/16 17:00 U Epithel Cells (Auto) 5.0 /HPF (0-13.0) 10/03/16 17:00 Urine Bacteria (Auto) 1+ /HPF (Negative) 09/26/16 00:03 Urine Mucus Few /HPF 10/03/16 17:00 Urine Creatinine 100.1 mg/dL (0.1-20.0) H 10/03/16 17:00 Urine Sodium 33 mEq/L 10/03/16 17:00 Urine Total Protein 23 mg/dL (5-11.8) H 10/03/16 17:00 Vancomycin Trough 39.5 ug/mL (5.0-20.0) H 10/01/16 09:07 Random Vancomycin 43.7 ug/mL (0-40.0) H 10/02/16 05:00
[2016-10-06] MEDS ORDERED: HEPARIN/ 0.45% NACL-25,000 UNIT/500 ML 500 ML IV SCH (19:00)
[2016-10-06 21:52] LABS: Hemoglobin 6.5 gm/dl (11.8-15.2)
[2016-10-06] MEDS: PROTONIX IV SCH (22:00)
[2016-10-06] MEDS: NYSTOP TP SCH (22:00)
[2016-10-06 22:03] LABS: INR 1.41 (0.87-1.13)
[2016-10-06 22:04] LABS: Partial Thromboplastin Time 49.7 Sec. (24.2-36.6)
[2016-10-06] MEDS ORDERED: NACL 0.9% 250ML 250 ML ONE (23:17)
[2016-10-06] MEDS: TYLENOL PO PRN (23:30)
[2016-10-06] MEDS ORDERED: NACL 0.9% 250ML 250 ML IV ONE (23:38)
[2016-10-07 04:53] LABS: BUN/Creatinine Ratio 5.24; Calcium 7.7 mg/dL (8.4-10.2); Chloride 98.7 mmol/L (98-107); Potassium 3.4 mmol/L (3.6-5.0)
[2016-10-07 04:54] LABS: Basophils % (Auto) 1.2 % (0.0-1.8); Eosinophils % (Auto) 5.1 % (0.0-4.3); Hematocrit 21.7 % (35.5-45.6); Hemoglobin 7.4 gm/dl (11.8-15.2); Mean Corpuscular HGB Conc 34 % (32-34); Mean Corpuscular Hemoglobin 28 pg (28-32); Mean Corpuscular Volume 83 fl (84-94); Platelet Count 355 K/mm3 (140-440); Red Blood Count 2.61 M/mm3 (3.65-5.03); Red Cell Distribution Width 17.6 % (13.2-15.2)
--- NOTE | 2016-10-07 09:27 | Progress Note ---
Assessment and Plan Acute kidney injury multifactorial in his case Patient is symptomatic with renal failure and related initiation of renal replacement therapy has been already educated about central venous catheter placement as well as hemodialysis process Monitor for renal function recovery Likely etiology of renal failure appears to be due to drug-induced mostly Monitor labs on a daily basis Potassium needs to be replaced Given the degree and severity of anemia I would recommend a GI as well as a hematology consultation currently is being managed by the primary team Patient will need to units of packed red blood cell transfusion with hemodialysis today please order We'll continue to follow and make recommendation from renal standpoint Subjective Interval history: Patient was seen today for follow-up multiple renal related issues Currently his creatinine has gone up to 6.1 with potassium of 3.4 patient has been having complaints of nausea, his hemoglobin has dropped to as low as 6.5 current hemoglobin around 7.4 Events of 24 hours vitals labs intake output medications were reviewed Objective - Vital Signs Vital signs: Vital Signs - 12hr 10/06/16 10/06/16 10/07/16 22:00 23:30 00:00 Temperature 98.7 F Pulse Rate [ Apical] Pulse Rate [ 85 Left Brachial] Respiratory 18 18 20 Rate Blood Pressure 140/78 [Left Arm] O2 Sat by Pulse 100 Oximetry 10/07/16 10/07/16 04:00 07:30 Temperature 98.1 F 98.2 F Pulse Rate [ 84 Apical] Pulse Rate [ 82 Left Brachial] Respiratory 20 20 Rate Blood Pressure 133/64 154/85 [Left Arm] O2 Sat by Pulse 100 98 Oximetry - General Appearance General appearance: appears stated age EENT: mucous membranes moist (uremic odor noted) Neck: no JVD Respiratory: Present: Rales (few crackles posteriorly) Cardiology: regular (S1-S2 heard no S3-S4) Gastrointestinal: normal (soft nontender) Neurologic: other (mild asterixis) - Lab 10/07/16 04:07 10/07/16 04:07 Most recent lab results Calcium 7.7 mg/dL (8.4-10.2) L 10/07/16 04:07 Urine Creatinine 100.1 mg/dL (0.1-20.0) H 10/03/16 17:00 Urine Sodium 33 mEq/L 10/03/16 17:00 Urine Total Protein 23 mg/dL (5-11.8) H 10/03/16 17:00
[2016-10-07] MEDS: PROTONIX IV SCH ×2 (10:00→22:00)
[2016-10-07] MEDS ORDERED: K-DUR PO ONE (10:30)
[2016-10-07] MEDS ORDERED: HEPARIN/NS 5000 UNIT/500ML(CATH LAB) 500 ML IR ONE (10:53)
[2016-10-07] MEDS ORDERED: SUBLIMAZE ONE (10:54)
[2016-10-07] MEDS ORDERED: XYLOCAINE 1%/ EPI 1:100,000 INFILTRATI ONE (10:54)
[2016-10-07] MEDS ORDERED: ANCEF/STERILE WATER 2 GM/20 ML 20 ML IV ONE (11:04)
[2016-10-07] MEDS ORDERED: NACL 0.9% 250ML 250 ML ONE (11:09)
[2016-10-07] MEDS: HEPARIN 10,000 UNITS/10 ML ONE ×2 (11:27→11:28)
--- NOTE | 2016-10-07 11:57 | Operative Report ---
Operative Report Operative Report: EXAM: ULTRASOUND AND FLUOROSCOPIC GUIDED PLACEMENT OF VAS-CATH CLINICAL INDICATION: PATIENT WITH ACUTE RENAL FAILURE REQUIRING DIALYSIS ACCESS DATE: 10/07/2016 PROCEDURE: Following an explanation of the risks, benefits and alternatives; written informed consent was obtained. The patient was brought to the angiographic suite and placed in supine position on the examination table. Initial ultrasound evaluation of his right neck demonstrated a patent right internal jugular vein. The right neck was prepped and draped in the usual sterile fashion. 1% lidocaine was used for anesthesia. Under ultrasound guidance, the right internal jugular vein was cannulated with a 7 cm 18-gauge needle. A 0.035 guidewire was advanced centrally under fluoroscopy. The guidewire was advanced into the IVC to document intravenous positioning. The needle was removed. Following serial dilation, a 16 cm 11.5 [place] Vas-Cath was placed over the guidewire and positioned with the tip in the proximal right atrium. The guidewire was removed. Both ports flushed and aspirated easily and were then locked with appropriate volumes of heparin. The catheter was securely fastened of the skin surface using 2-0 Ethilon suture and a sterile dressing applied. The patient tolerated the procedure well. There were no immediate post procedure complications. Fentanyl was used for analgesia, no conscious sedation was utilized secondary to patient's non-nothing by mouth status. Continuous cardiopulmonary monitoring was utilized. IMPRESSION: 1) Ultrasound and fluoroscopic guided placement of Vas-Cath.
[2016-10-07] MEDS ORDERED: NACL 0.9% 500 ML 500 ML IV ONE (12:21)
[2016-10-07] MEDS: NYSTOP TP SCH (13:00)
[2016-10-07] MEDS ORDERED: NACL 0.9% 500 ML 500 ML IV SCH (15:50)
[2016-10-07] MEDS ORDERED: NACL 0.9% 1000 ML 100 ML IV PRN (16:20)
[2016-10-07] MEDS: TYLENOL PO PRN (17:50)
--- NOTE | 2016-10-07 18:07 | Progress Note ---
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 Pt S/P BKA on 10/01/16. Pt is resting on bed. No reported nursing events. Pt denies pain. Pending Rehab placement. Creatinine level continue to increase. Cr level 6.1 today. H and H still low despite of 1 unit of PRBC. Discussed with Dr. Grimm today and plan for her to start hemodialysis. He'll be transfused additional 2 units of packed RBC. Vascular surgeon notified for Vas-Cath/PermCath placement. We'll continue to hold aspirin and follow up with vascular surgeon for possible IVC filter placement. Hospitalist Physical - Physical exam Narrative exam: General appearance: Present: no acute distress - EENT Eyes: Present: PERRL, EOM intact ENT: hearing intact, clear oral mucosa - Neck Neck: Present: supple, normal ROM - Respiratory Respiratory: bilateral: CTA - Cardiovascular Rhythm: regular Heart Sounds: Present: S1 & S2 - Extremities Extremity abnormal: other (s/p right BKA with surgical dressing) - Abdominal General gastrointestinal: soft, non-tender - Integumentary Integumentary: Present: warm - Psychiatric Psychiatric: appropriate mood/affect - Neurologic Neurologic: no focal deficits, moves all extremities - Constitutional Vitals: Temp Pulse Resp BP Pulse Ox 98.7 F 77 16 141/73 100 10/07/16 16:30 10/07/16 16:30 10/07/16 16:30 10/07/16 16:30 10/07/16 16:30 General appearance: Present: no acute distress Results - Labs CBC & Chem 7: 10/08/16 05:14 10/08/16 05:14 Labs: Laboratory Last Values WBC 13.0 K/mm3 (4.5-11.0) H 10/07/16 04:07 RBC 2.61 M/mm3 (3.65-5.03) L 10/07/16 04:07 Hgb 7.4 gm/dl (11.8-15.2) L 10/07/16 04:07 Hct 21.7 % (35.5-45.6) L 10/07/16 04:07 MCV 83 fl (84-94) L 10/07/16 04:07 MCH 28 pg (28-32) 10/07/16 04:07 MCHC 34 % (32-34) 10/07/16 04:07 RDW 17.6 % (13.2-15.2) H 10/07/16 04:07 Plt Count 355 K/mm3 (140-440) 10/07/16 04:07 Lymph % (Auto) 10.2 % (13.4-35.0) L 10/07/16 04:07 [place] % (Auto) 8.5 % (0.0-7.3) H 10/07/16 04:07 Eos % (Auto) 5.1 % (0.0-4.3) H 10/07/16 04:07 Baso % (Auto) 1.2 % (0.0-1.8) 10/07/16 04:07 Lymph # 1.3 K/mm3 (1.2-5.4) 10/07/16 04:07 [place] # 1.1 K/mm3 (0.0-0.8) H 10/07/16 04:07 Eos # 0.7 K/mm3 (0.0-0.4) H 10/07/16 04:07 Baso # 0.2 K/mm3 (0.0-0.1) H 10/07/16 04:07 Add Manual Diff Complete 09/27/16 04:25 Total Counted 100 09/27/16 04:25 Seg Neutrophils % 75.0 % (40.0-70.0) H 10/07/16 04:07 Seg Neuts % (Manual) 82.0 % (40.0-70.0) H 09/27/16 04:25 Band Neutrophils % 6.0 % 09/27/16 04:25 Lymphocytes % (Manual) 8.0 % (13.4-35.0) L 09/27/16 04:25 Reactive Lymphs % (Man) 0 % 09/27/16 04:25 Monocytes % (Manual) 3.0 % (0.0-7.3) 09/27/16 04:25 Eosinophils % (Manual) 0 % (0.0-4.3) 09/27/16 04:25 Basophils % (Manual) 0 % (0.0-1.8) 09/27/16 04:25 Metamyelocytes % 1.0 % 09/27/16 04:25 Myelocytes % 0 % 09/27/16 04:25 Promyelocytes % 0 % 09/27/16 04:25 Blast Cells % 0 % 09/27/16 04:25 Nucleated RBC % Not Reportable 09/27/16 04:25 Seg Neutrophils # 9.8 K/mm3 (1.8-7.7) H 10/07/16 04:07 Seg Neutrophils # Man 15.3 K/mm3 (1.8-7.7) H 09/27/16 04:25 Band Neutrophils # 1.1 K/mm3 09/27/16 04:25 Lymphocytes # (Manual) 1.5 K/mm3 (1.2-5.4) 09/27/16 04:25 Abs React Lymphs (Man) 0.0 K/mm3 09/27/16 04:25 Monocytes # (Manual) 0.6 K/mm3 (0.0-0.8) 09/27/16 04:25 Eosinophils # (Manual) 0.0 K/mm3 (0.0-0.4) 09/27/16 04:25 Basophils # (Manual) 0.0 K/mm3 (0.0-0.1) 09/27/16 04:25 Metamyelocytes # 0.2 K/mm3 09/27/16 04:25 Myelocytes # 0.0 K/mm3 09/27/16 04:25 Promyelocytes # 0.0 K/mm3 09/27/16 04:25 Blast Cells # 0.0 K/mm3 09/27/16 04:25 WBC Morphology Not Reportable 09/27/16 04:25 Hypersegmented Neuts Not Reportable 09/27/16 04:25 Hyposegmented Neuts Not Reportable 09/27/16 04:25 Hypogranular Neuts Not Reportable 09/27/16 04:25 Smudge Cells Not Reportable 09/27/16 04:25 Toxic Granulation Not Reportable 09/27/16 04:25 Toxic Vacuolation Not Reportable 09/27/16 04:25 Dohle Bodies Not Reportable 09/27/16 04:25 Pelger-Huet Anomaly Not Reportable 09/27/16 04:25 Renita Rods Not Reportable 09/27/16 04:25 Platelet Estimate Not Reportable 09/27/16 04:25 Clumped Platelets Not Reportable 09/27/16 04:25 Plt Clumps, EDTA Not Reportable 09/27/16 04:25 Large Platelets Not Reportable 09/27/16 04:25 Giant Platelets Few 09/27/16 04:25 Platelet Satelliting Not Reportable 09/27/16 04:25 Plt Morphology Comment Not Reportable 09/27/16 04:25 RBC Morphology Not Reportable 09/27/16 04:25 Dimorphic RBCs Not Reportable 09/27/16 04:25 Polychromasia Not Reportable 09/27/16 04:25 Hypochromasia Not Reportable 09/27/16 04:25 Poikilocytosis Not Reportable 09/27/16 04:25 Anisocytosis 1+ 09/27/16 04:25 Microcytosis Not Reportable 09/27/16 04:25 Macrocytosis Not Reportable 09/27/16 04:25 Spherocytes Not Reportable 09/27/16 04:25 Pappenheimer Bodies Not Reportable 09/27/16 04:25 Sickle Cells Not Reportable 09/27/16 04:25 Target Cells Not Reportable 09/27/16 04:25 Tear Drop Cells Not Reportable 09/27/16 04:25 Ovalocytes Not Reportable 09/27/16 04:25 Helmet Cells Not Reportable 09/27/16 04:25 Iraheta-[place] Bodies Not Reportable 09/27/16 04:25 [place] Rings Not Reportable 09/27/16 04:25 [place] Cells Not Reportable 09/27/16 04:25 Bite Cells Not Reportable 09/27/16 04:25 Crenated Cell Not Reportable 09/27/16 04:25 Elliptocytes Not Reportable 09/27/16 04:25 Acanthocytes (Spur) Not Reportable 09/27/16 04:25 Rouleaux Not Reportable 09/27/16 04:25 Hemoglobin C Crystals Not Reportable 09/27/16 04:25 Schistocytes Not Reportable 09/27/16 04:25 Malaria parasites Not Reportable 09/27/16 04:25 Azael Bodies Not Reportable 09/27/16 04:25 Hem Pathologist Commnt No 09/27/16 04:25 PT 17.2 Sec. (12.2-14.9) H 10/06/16 20:41 INR 1.41 (0.87-1.13) H 10/06/16 20:41 APTT 49.7 Sec. (24.2-36.6) H 10/06/16 20:41 Heparin Anti-Xa Level 0.33 U.I./ml (0.3-0.7) 10/04/16 07:51 Sodium 136 mmol/L (137-145) L 10/07/16 04:07 Potassium 3.4 mmol/L (3.6-5.0) L 10/07/16 04:07 Chloride 98.7 mmol/L (98-107) 10/07/16 04:07 Carbon Dioxide 21 mmol/L (22-30) L 10/07/16 04:07 Anion Gap 20 mmol/L 10/07/16 04:07 BUN 32 mg/dL (9-20) H 10/07/16 04:07 Creatinine 6.1 mg/dL (0.8-1.5) H 10/07/16 04:07 Estimated GFR 11 ml/min 10/07/16 04:07 BUN/Creatinine Ratio 5.24 % 10/07/16 04:07 Glucose 88 mg/dL (75-100) 10/07/16 04:07 Osmolality 293 Mosm/kg 10/03/16 14:03 Lactic Acid 2.6 mmol/L (0.7-2.0) H* 09/26/16 10:48 Uric Acid 5.4 mg/dL (3.5-7.6) 10/03/16 09:16 Calcium 7.7 mg/dL (8.4-10.2) L 10/07/16 04:07 Iron 31 ug/dL (49-181) L 10/06/16 17:16 TIBC 168.00 mcg/dL (250-450) L 10/06/16 17:16 Transferrin 120 mg/dl (180-329) L 10/06/16 17:16 Ferritin 488.6 ng/mL (13.0-400.0) H 10/06/16 17:16 Total Creatine Kinase 288 units/L (55-170) H 10/03/16 09:16 Vitamin B12 1268 pg/mL (211-911) H 10/06/16 17:16 Folate 11.86 ng/mL (7.3-26.0) 10/06/16 17:16 Urine Color Yellow (Yellow) 10/03/16 17:00 Urine Turbidity Clear (Clear) 10/03/16 17:00 Urine pH 5.0 (5.0-7.0) 10/03/16 17:00 Ur Specific [place] 1.011 (1.003-1.030) 10/03/16 17:00 Urine Protein <15 mg/dl mg/dL (Negative) 10/03/16 17:00 Urine Glucose (UA) Neg mg/dL (Negative) 10/03/16 17:00 Urine Ketones Neg mg/dL (Negative) 10/03/16 17:00 Urine Blood Neg (Negative) 10/03/16 17:00 Urine Nitrite Neg (Negative) 10/03/16 17:00 Urine Bilirubin Neg (Negative) 10/03/16 17:00 Urine Urobilinogen < 2.0 mg/dL (<2.0) 10/03/16 17:00 Ur Leukocyte Esterase Neg (Negative) 10/03/16 17:00 Urine WBC (Auto) 1.0 /HPF (0.0-6.0) 10/03/16 17:00 Urine RBC (Auto) 1.0 /HPF (0.0-6.0) 10/03/16 17:00 U Epithel Cells (Auto) 5.0 /HPF (0-13.0) 10/03/16 17:00 Urine Bacteria (Auto) 1+ /HPF (Negative) 09/26/16 00:03 Urine Mucus Few /HPF 10/03/16 17:00 Urine Creatinine 100.1 mg/dL (0.1-20.0) H 10/03/16 17:00 Urine Sodium 33 mEq/L 10/03/16 17:00 Urine Total Protein 23 mg/dL (5-11.8) H 10/03/16 17:00 Vancomycin Trough 39.5 ug/mL (5.0-20.0) H 10/01/16 09:07 Random Vancomycin 43.7 ug/mL (0-40.0) H 10/02/16 05:00 Blood Type O NEGATIVE 10/06/16 17:16 Antibody Screen Negative 10/06/16 17:16 Crossmatch See Detail 10/06/16 17:16
[2016-10-07] MEDS: HEPARIN IV PRN (21:35)
[2016-10-08] MEDS: NYSTOP TP SCH ×4 (01:00→21:42)
[2016-10-08 06:15] LABS: Basophils % (Auto) 0.8 % (0.0-1.8); Eosinophils % (Auto) 3.8 % (0.0-4.3); Hemoglobin 10.1 gm/dl (11.8-15.2); Mean Corpuscular HGB Conc 35 % (32-34); Mean Corpuscular Hemoglobin 29 pg (28-32); Mean Corpuscular Volume 83 fl (84-94); Platelet Count 341 K/mm3 (140-440); Red Blood Count 3.48 M/mm3 (3.65-5.03); Red Cell Distribution Width 16.3 % (13.2-15.2); White Blood Count 15.8 K/mm3 (4.5-11.0)
[2016-10-08] MEDS: PERCOCET 5/325 PO PRN ×2 (06:45→21:45)
[2016-10-08 07:15] LABS: BUN/Creatinine Ratio 4.61; Calcium 7.7 mg/dL (8.4-10.2); Potassium 3.8 mmol/L (3.6-5.0)
--- NOTE | 2016-10-08 09:25 | Progress Note ---
Assessment and Plan Impression: * MARIA C/ATN * Recent vanco toxicity * S/p amputation * HTN * Anemia Plan: * maria c may be due to ATN from vancotoxicity * will check ck level following amputation * monitor for renal recovery * strict i/os * dialysis prn only * avoid nephrotoxins Subjective Date of service: 10/08/16 Principal diagnosis: maria c Interval history: resting in bed today Objective - Exam Narrative Exam: General appearance: appears stated age EENT: mucous membranes moist (uremic odor noted) Neck: no JVD Respiratory: Present: Rales (few crackles posteriorly) Cardiology: regular (S1-S2 heard no S3-S4) Gastrointestinal: normal (soft nontender) Neurologic: other (mild asterixis) - Vital Signs Vital signs: Vital Signs - 12hr 10/07/16 10/07/16 10/07/16 21:30 21:45 22:00 Temperature Pulse Rate 64 66 70 Pulse Rate [ Left Brachial] Respiratory Rate Blood Pressure 175/94 178/84 163/91 Blood Pressure [Left Arm] O2 Sat by Pulse Oximetry 10/07/16 10/07/16 10/07/16 22:15 22:32 22:45 Temperature Pulse Rate 74 73 78 Pulse Rate [ Left Brachial] Respiratory Rate Blood Pressure 178/93 179/92 182/98 Blood Pressure [Left Arm] O2 Sat by Pulse Oximetry 10/07/16 10/07/16 10/07/16 23:00 23:15 23:30 Temperature Pulse Rate 77 79 90 Pulse Rate [ Left Brachial] Respiratory Rate Blood Pressure 179/92 176/87 176/62 Blood Pressure [Left Arm] O2 Sat by Pulse Oximetry 10/07/16 10/08/16 10/08/16 23:46 00:30 01:00 Temperature 97.2 F L 97.8 F Pulse Rate 90 Pulse Rate [ 80 Left Brachial] Respiratory 16 20 20 Rate Blood Pressure 176/62 Blood Pressure 144/67 [Left Arm] O2 Sat by Pulse Oximetry 10/08/16 10/08/16 06:45 07:53 Temperature 98.1 F Pulse Rate Pulse Rate [ 84 Left Brachial] Respiratory 20 16 Rate Blood Pressure Blood Pressure 139/71 [Left Arm] O2 Sat by Pulse 97 Oximetry - Lab 10/08/16 05:14 10/08/16 05:14 Most recent lab results Calcium 7.7 mg/dL (8.4-10.2) L 10/08/16 05:14 Urine Creatinine 100.1 mg/dL (0.1-20.0) H 10/03/16 17:00 Urine Sodium 33 mEq/L 10/03/16 17:00 Urine Total Protein 23 mg/dL (5-11.8) H 10/03/16 17:00
[2016-10-08] MEDS: PROTONIX IV SCH (09:59)
--- NOTE | 2016-10-08 15:06 | Progress Note ---
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 Pt S/P BKA on 10/01/16. Pt is resting on bed. No reported nursing events. Pt denies pain. Pending Rehab placement due to worsening renal function. Patient was started on hemodialysis since yesterday due to deterioration of renal function. His creatinine level improved today postdialysis. His H&H also dropped and received so far 3 units of packed RBC. His stool is positive for occult blood. GI consult initiated. Following the amputation patient was placed on IV heparin followed by eliquis for right lower extremity DVT, which is now hold due to acute anemia. Hospitalist Physical - Physical exam Narrative exam: General appearance: Present: no acute distress - EENT Eyes: Present: PERRL, EOM intact ENT: hearing intact, clear oral mucosa - Neck Neck: Present: supple, normal ROM - Respiratory Respiratory: bilateral: CTA - Cardiovascular Rhythm: regular Heart Sounds: Present: S1 & S2 - Extremities Extremity abnormal: other (s/p right BKA with surgical dressing) - Abdominal General gastrointestinal: soft, non-tender - Integumentary Integumentary: Present: warm - Psychiatric Psychiatric: appropriate mood/affect - Neurologic Neurologic: no focal deficits, moves all extremities - Constitutional Vitals: Temp Pulse Resp BP Pulse Ox 97.4 F L 76 20 137/76 97 10/08/16 12:50 10/08/16 12:50 10/08/16 12:50 10/08/16 12:50 10/08/16 07:53 General appearance: Present: no acute distress Results - Labs CBC & Chem 7: 10/08/16 05:14 10/08/16 05:14 Labs: Laboratory Last Values WBC 15.8 K/mm3 (4.5-11.0) H 10/08/16 05:14 RBC 3.48 M/mm3 (3.65-5.03) L 10/08/16 05:14 Hgb 10.1 gm/dl (11.8-15.2) L 10/08/16 05:14 Hct 29.0 % (35.5-45.6) L D 10/08/16 05:14 MCV 83 fl (84-94) L 10/08/16 05:14 MCH 29 pg (28-32) 10/08/16 05:14 MCHC 35 % (32-34) H 10/08/16 05:14 RDW 16.3 % (13.2-15.2) H 10/08/16 05:14 Plt Count 341 K/mm3 (140-440) 10/08/16 05:14 Lymph % (Auto) 6.4 % (13.4-35.0) L 10/08/16 05:14 [place] % (Auto) 6.9 % (0.0-7.3) 10/08/16 05:14 Eos % (Auto) 3.8 % (0.0-4.3) 10/08/16 05:14 Baso % (Auto) 0.8 % (0.0-1.8) 10/08/16 05:14 Lymph # 1.0 K/mm3 (1.2-5.4) L 10/08/16 05:14 [place] # 1.1 K/mm3 (0.0-0.8) H 10/08/16 05:14 Eos # 0.6 K/mm3 (0.0-0.4) H 10/08/16 05:14 Baso # 0.1 K/mm3 (0.0-0.1) 10/08/16 05:14 Add Manual Diff Complete 09/27/16 04:25 Total Counted 100 09/27/16 04:25 Seg Neutrophils % 82.1 % (40.0-70.0) H 10/08/16 05:14 Seg Neuts % (Manual) 82.0 % (40.0-70.0) H 09/27/16 04:25 Band Neutrophils % 6.0 % 09/27/16 04:25 Lymphocytes % (Manual) 8.0 % (13.4-35.0) L 09/27/16 04:25 Reactive Lymphs % (Man) 0 % 09/27/16 04:25 Monocytes % (Manual) 3.0 % (0.0-7.3) 09/27/16 04:25 Eosinophils % (Manual) 0 % (0.0-4.3) 09/27/16 04:25 Basophils % (Manual) 0 % (0.0-1.8) 09/27/16 04:25 Metamyelocytes % 1.0 % 09/27/16 04:25 Myelocytes % 0 % 09/27/16 04:25 Promyelocytes % 0 % 09/27/16 04:25 Blast Cells % 0 % 09/27/16 04:25 Nucleated RBC % Not Reportable 09/27/16 04:25 Seg Neutrophils # 13.0 K/mm3 (1.8-7.7) H 10/08/16 05:14 Seg Neutrophils # Man 15.3 K/mm3 (1.8-7.7) H 09/27/16 04:25 Band Neutrophils # 1.1 K/mm3 09/27/16 04:25 Lymphocytes # (Manual) 1.5 K/mm3 (1.2-5.4) 09/27/16 04:25 Abs React Lymphs (Man) 0.0 K/mm3 09/27/16 04:25 Monocytes # (Manual) 0.6 K/mm3 (0.0-0.8) 09/27/16 04:25 Eosinophils # (Manual) 0.0 K/mm3 (0.0-0.4) 09/27/16 04:25 Basophils # (Manual) 0.0 K/mm3 (0.0-0.1) 09/27/16 04:25 Metamyelocytes # 0.2 K/mm3 09/27/16 04:25 Myelocytes # 0.0 K/mm3 09/27/16 04:25 Promyelocytes # 0.0 K/mm3 09/27/16 04:25 Blast Cells # 0.0 K/mm3 09/27/16 04:25 WBC Morphology Not Reportable 09/27/16 04:25 Hypersegmented Neuts Not Reportable 09/27/16 04:25 Hyposegmented Neuts Not Reportable 09/27/16 04:25 Hypogranular Neuts Not Reportable 09/27/16 04:25 Smudge Cells Not Reportable 09/27/16 04:25 Toxic Granulation Not Reportable 09/27/16 04:25 Toxic Vacuolation Not Reportable 09/27/16 04:25 Dohle Bodies Not Reportable 09/27/16 04:25 Pelger-Huet Anomaly Not Reportable 09/27/16 04:25 Renita Rods Not Reportable 09/27/16 04:25 Platelet Estimate Not Reportable 09/27/16 04:25 Clumped Platelets Not Reportable 09/27/16 04:25 Plt Clumps, EDTA Not Reportable 09/27/16 04:25 Large Platelets Not Reportable 09/27/16 04:25 Giant Platelets Few 09/27/16 04:25 Platelet Satelliting Not Reportable 09/27/16 04:25 Plt Morphology Comment Not Reportable 09/27/16 04:25 RBC Morphology Not Reportable 09/27/16 04:25 Dimorphic RBCs Not Reportable 09/27/16 04:25 Polychromasia Not Reportable 09/27/16 04:25 Hypochromasia Not Reportable 09/27/16 04:25 Poikilocytosis Not Reportable 09/27/16 04:25 Anisocytosis 1+ 09/27/16 04:25 Microcytosis Not Reportable 09/27/16 04:25 Macrocytosis Not Reportable 09/27/16 04:25 Spherocytes Not Reportable 09/27/16 04:25 Pappenheimer Bodies Not Reportable 09/27/16 04:25 Sickle Cells Not Reportable 09/27/16 04:25 Target Cells Not Reportable 09/27/16 04:25 Tear Drop Cells Not Reportable 09/27/16 04:25 Ovalocytes Not Reportable 09/27/16 04:25 Helmet Cells Not Reportable 09/27/16 04:25 Iraheta-[place] Bodies Not Reportable 09/27/16 04:25 [place] Rings Not Reportable 09/27/16 04:25 [place] Cells Not Reportable 09/27/16 04:25 Bite Cells Not Reportable 09/27/16 04:25 Crenated Cell Not Reportable 09/27/16 04:25 Elliptocytes Not Reportable 09/27/16 04:25 Acanthocytes (Spur) Not Reportable 09/27/16 04:25 Rouleaux Not Reportable 09/27/16 04:25 Hemoglobin C Crystals Not Reportable 09/27/16 04:25 Schistocytes Not Reportable 09/27/16 04:25 Malaria parasites Not Reportable 09/27/16 04:25 Azael Bodies Not Reportable 09/27/16 04:25 Hem Pathologist Commnt No 09/27/16 04:25 PT 17.2 Sec. (12.2-14.9) H 10/06/16 20:41 INR 1.41 (0.87-1.13) H 10/06/16 20:41 APTT 49.7 Sec. (24.2-36.6) H 10/06/16 20:41 Heparin Anti-Xa Level 0.33 U.I./ml (0.3-0.7) 10/04/16 07:51 Sodium 140 mmol/L (137-145) 10/08/16 05:14 Potassium 3.8 mmol/L (3.6-5.0) 10/08/16 05:14 Chloride 102.0 mmol/L (98-107) 10/08/16 05:14 Carbon Dioxide 27 mmol/L (22-30) 10/08/16 05:14 Anion Gap 15 mmol/L 10/08/16 05:14 BUN 18 mg/dL (9-20) 10/08/16 05:14 Creatinine 3.9 mg/dL (0.8-1.5) H 10/08/16 05:14 Estimated GFR 19 ml/min 10/08/16 05:14 BUN/Creatinine Ratio 4.61 % 10/08/16 05:14 Glucose 91 mg/dL (75-100) 10/08/16 05:14 Osmolality 293 Mosm/kg 10/03/16 14:03 Lactic Acid 2.6 mmol/L (0.7-2.0) H* 09/26/16 10:48 Uric Acid 5.4 mg/dL (3.5-7.6) 10/03/16 09:16 Calcium 7.7 mg/dL (8.4-10.2) L 10/08/16 05:14 Iron 31 ug/dL (49-181) L 10/06/16 17:16 TIBC 168.00 mcg/dL (250-450) L 10/06/16 17:16 Transferrin 120 mg/dl (180-329) L 10/06/16 17:16 Ferritin 488.6 ng/mL (13.0-400.0) H 10/06/16 17:16 Total Creatine Kinase 186 units/L (55-170) H 10/08/16 09:27 Vitamin B12 1268 pg/mL (211-911) H 10/06/16 17:16 Folate 11.86 ng/mL (7.3-26.0) 10/06/16 17:16 Urine Color Yellow (Yellow) 10/03/16 17:00 Urine Turbidity Clear (Clear) 10/03/16 17:00 Urine pH 5.0 (5.0-7.0) 10/03/16 17:00 Ur Specific [place] 1.011 (1.003-1.030) 10/03/16 17:00 Urine Protein <15 mg/dl mg/dL (Negative) 10/03/16 17:00 Urine Glucose (UA) Neg mg/dL (Negative) 10/03/16 17:00 Urine Ketones Neg mg/dL (Negative) 10/03/16 17:00 Urine Blood Neg (Negative) 10/03/16 17:00 Urine Nitrite Neg (Negative) 10/03/16 17:00 Urine Bilirubin Neg (Negative) 10/03/16 17:00 Urine Urobilinogen < 2.0 mg/dL (<2.0) 10/03/16 17:00 Ur Leukocyte Esterase Neg (Negative) 10/03/16 17:00 Urine WBC (Auto) 1.0 /HPF (0.0-6.0) 10/03/16 17:00 Urine RBC (Auto) 1.0 /HPF (0.0-6.0) 10/03/16 17:00 U Epithel Cells (Auto) 5.0 /HPF (0-13.0) 10/03/16 17:00 Urine Bacteria (Auto) 1+ /HPF (Negative) 09/26/16 00:03 Urine Mucus Few /HPF 10/03/16 17:00 Urine Creatinine 100.1 mg/dL (0.1-20.0) H 10/03/16 17:00 Urine Sodium 33 mEq/L 10/03/16 17:00 Urine Total Protein 23 mg/dL (5-11.8) H 10/03/16 17:00 Vancomycin Trough 39.5 ug/mL (5.0-20.0) H 10/01/16 09:07 Random Vancomycin 23 ug/mL (0-40.0) 10/08/16 09:27 Blood Type O NEGATIVE 10/06/16 17:16 Antibody Screen Negative 10/06/16 17:16 Crossmatch See Detail 10/06/16 17:16
--- NOTE | 2016-10-08 15:20 | Progress Note ---
Assessment and Plan The patient is status post right below-knee amputation. There was concern of bleeding however his drop in hemoglobin is most likely due to his previous vascular procedures as well as below-knee amputation. Review of the labs demonstrates that his hemoglobin dropped from 8-73 days after his operation however there was a significant amount of oozing from the stump after the operation. His hemoglobin remained stable at 7 after the bleeding ceased and his hemoglobin increased appropriately to 10 after 3 units of packed red blood cells were transfused. The patient was started on anticoagulation for thrombosis of his artery and secondarily noted to have a DVT during his below- knee amputation. The patient needs anticoagulation to prevent rethrombosis of his artery. If his artery were 2 thrombosed he will require an above-knee amputation was put the patient at risk of an additional operation as well as decrease the chances of the patient ambulating with a prosthesis. Would recommend restarting his anticoagulation at this time. Will discuss with the primary team. Subjective Date of service: 10/08/16 Principal diagnosis: rhonda Interval history: The patient has no complete this time. He states that his pain is well- controlled. There was concern of bleeding so his anticoagulation was held. No other concerns at this time. Objective - Constitutional Vitals: Vital Signs - 12hr 10/08/16 10/08/16 10/08/16 06:45 07:53 12:50 Temperature 98.1 F 97.4 F L Pulse Rate [ 84 76 Left Brachial] Respiratory 20 16 20 Rate Blood Pressure 139/71 137/76 [Left Arm] O2 Sat by Pulse 97 Oximetry General appearance: Present: no acute distress Extremities: no ischemia, abnormal (BKA stump is clean and dry and intact without evidence of bleeding or infection) - Labs CBC & Chem 7: 10/08/16 05:14 10/08/16 05:14 Labs: Abnormal lab results 10/06/16 10/08/16 10/08/16 Range/Units 17:16 05:14 05:14 WBC 15.8 H (4.5-11.0) K/mm3 RBC 3.48 L (3.65-5.03) M/mm3 Hgb 10.1 L (11.8-15.2) gm/dl Hct 29.0 L D (35.5-45.6) % MCV 83 L (84-94) fl MCHC 35 H (32-34) % RDW 16.3 H (13.2-15.2) % Lymph % (Auto) 6.4 L (13.4-35.0) % Lymph # 1.0 L (1.2-5.4) K/mm3 [place] # 1.1 H (0.0-0.8) K/mm3 Eos # 0.6 H (0.0-0.4) K/mm3 Seg Neutrophils % 82.1 H (40.0-70.0) % Seg Neutrophils # 13.0 H (1.8-7.7) K/mm3 Creatinine 3.9 H (0.8-1.5) mg/dL Calcium 7.7 L (8.4-10.2) mg/dL Total Creatine Kinase (55-170) units/L Crossmatch See Detail 10/08/16 Range/Units 09:27 WBC (4.5-11.0) K/mm3 RBC (3.65-5.03) M/mm3 Hgb (11.8-15.2) gm/dl Hct (35.5-45.6) % MCV (84-94) fl MCHC (32-34) % RDW (13.2-15.2) % Lymph % (Auto) (13.4-35.0) % Lymph # (1.2-5.4) K/mm3 [place] # (0.0-0.8) K/mm3 Eos # (0.0-0.4) K/mm3 Seg Neutrophils % (40.0-70.0) % Seg Neutrophils # (1.8-7.7) K/mm3 Creatinine (0.8-1.5) mg/dL Calcium (8.4-10.2) mg/dL Total Creatine Kinase 186 H (55-170) units/L Crossmatch
--- NOTE | 2016-10-08 16:29 | Event Note ---
Date: 10/08/16 IPR F/U, s/p right BKA. Pt seen in room on today. Renal function improved on today; s/p 3U pRBCs over weekend. PT notes reviewed; pt requires maxA x2 for sit to stand transfer, mod-maxA for sliding board transfer, supervision for wheelchair mobility. Pt remains an appropriate candidate for IPR course; will need to resubmit for pre-certification once determination made on need for HD. Will continue to follow.
[2016-10-08 19:36] LABS: INR 1.3 (0.87-1.13)
[2016-10-08 19:37] LABS: Partial Thromboplastin Time 31.2 Sec. (24.2-36.6)
[2016-10-08] MEDS: PROTONIX PO SCH (21:42)
[2016-10-08] MEDS: HEPARIN/ 0.45% NACL-25,000 UNIT/500 ML 500 ML IV SCH (23:02)
[2016-10-09 05:23] LABS: Basophils % (Auto) 1.3 % (0.0-1.8); Eosinophils % (Auto) 5.9 % (0.0-4.3); Hematocrit 27.4 % (35.5-45.6); Hemoglobin 9.3 gm/dl (11.8-15.2); Mean Corpuscular HGB Conc 34 % (32-34); Mean Corpuscular Hemoglobin 29 pg (28-32); Mean Corpuscular Volume 85 fl (84-94); Platelet Count 312 K/mm3 (140-440); Red Blood Count 3.23 M/mm3 (3.65-5.03); Red Cell Distribution Width 16.9 % (13.2-15.2); White Blood Count 13.9 K/mm3 (4.5-11.0)
[2016-10-09 05:44] LABS: BUN/Creatinine Ratio 4.66; Calcium 7.7 mg/dL (8.4-10.2); Chloride 101.8 mmol/L (98-107); Potassium 4.3 mmol/L (3.6-5.0)
--- NOTE | 2016-10-09 07:25 | Progress Note ---
Assessment and Plan Impression: * MARIA C/ATN * Recent vanco toxicity * S/p amputation * HTN * Anemia Plan: * maria c may be due to ATN from vancotoxicity * random vanco level 23 despite being off, follow up daily * monitor for renal recovery * renal diet * follow up crcl * strict i/os * dialysis prn only * avoid nephrotoxins Subjective Date of service: 10/09/16 Principal diagnosis: maria c Interval history: resting in bed today Objective - Exam Narrative Exam: General appearance: appears stated age EENT: mucous membranes moist (uremic odor noted) Neck: no JVD Respiratory: Present: Rales (few crackles posteriorly) Cardiology: regular (S1-S2 heard no S3-S4) Gastrointestinal: normal (soft nontender) Neurologic: other (mild asterixis) - Vital Signs Vital signs: Vital Signs - 12hr 10/08/16 10/08/16 20:23 22:00 Temperature 97.7 F Pulse Rate [ 79 Left Brachial] Respiratory 18 18 Rate Blood Pressure 152/79 [Left Arm] - Lab 10/09/16 04:54 10/09/16 04:54 Most recent lab results Calcium 7.7 mg/dL (8.4-10.2) L 10/09/16 04:54 Urine Creatinine 100.1 mg/dL (0.1-20.0) H 10/03/16 17:00 Urine Sodium 33 mEq/L 10/03/16 17:00 Urine Total Protein 23 mg/dL (5-11.8) H 10/03/16 17:00
[2016-10-09] MEDS: PROTONIX PO SCH ×2 (09:00→22:20)
[2016-10-09] MEDS: NYSTOP TP SCH (10:00)
--- NOTE | 2016-10-09 12:03 | Progress Note ---
Assessment and Plan Assessment and plan: 1. Acute renal failure - most likely due to ATN from vancomycin toxicity- creatinine improving today. Follow-up with nephrology for further recommendations. Vancomycin level remains elevated although patient has been off of it. We'll continue to monitor levels 2. Gangrene to the right foot status post amputation due to arterial occlusion- status post right below-knee amputation, vascular follow-up appreciated. Patient was started on anticoagulation with heparin. Follow-up with wound care as per vascular 3.-Benign hypertension-currently not on any medications, continue to monitor. Stable 4. HTN (hypertension) 5. LE DVT-continue heparin. Patient was initially started on Elocon but this was discontinued due to falling hemoglobin and hematocrit. The fall was however thought to be related to his previous amputation procedure 6. Acute blood loss anemia from amputation -status post transfusion, hemoglobin and hematocrit improved. We'll continue to monitor, patient was restarted on heparin so will continue to monitor hemoglobin and hematocrit, in view of fecal occult blood positivity will follow up with GI for further evaluation 7. DVT prophylaxis DVT prophylaxis-at bedtime on heparin History Interval history: f/u acute renal failure; gangrene of RT lower extremity post amputation Patient seen at the bedside; no complaints today Hospitalist Physical - Constitutional Vitals: Temp Pulse Resp BP Pulse Ox 98.2 F 80 20 159/87 99 10/09/16 07:28 10/09/16 07:28 10/09/16 07:28 10/09/16 07:28 10/09/16 07:28 General appearance: Present: no acute distress - EENT Eyes: Present: PERRL, EOM intact. Absent: scleral icterus, conjunctival injection ENT: hearing intact, clear oral mucosa, no oropharyngeal erythema, no poor dentition - Neck Neck: Present: supple, normal ROM. Absent: enlarged thyroid, masses or JVD - Respiratory Respiratory effort: normal Respiratory: negative: diminished, rales, rhonchi, wheezing - Cardiovascular Rhythm: regular Heart Sounds: Present: S1 & S2. Absent: gallop - Extremities Extremities: abnormal (RT LT amputation; dressing in place) Peripheral Pulses: within normal limits - Abdominal General gastrointestinal: soft, non-tender, non-distended - Integumentary Integumentary: Present: clear - Psychiatric Psychiatric: appropriate mood/affect, intact judgment & insight - Neurologic Neurologic: CNII-XII intact Results - Labs CBC & Chem 7: 10/09/16 04:54 10/09/16 04:54 Labs: Laboratory Last Values WBC 13.9 K/mm3 (4.5-11.0) H 10/09/16 04:54 RBC 3.23 M/mm3 (3.65-5.03) L 10/09/16 04:54 Hgb 9.3 gm/dl (11.8-15.2) L 10/09/16 04:54 Hct 27.4 % (35.5-45.6) L 10/09/16 04:54 MCV 85 fl (84-94) 10/09/16 04:54 MCH 29 pg (28-32) 10/09/16 04:54 MCHC 34 % (32-34) 10/09/16 04:54 RDW 16.9 % (13.2-15.2) H 10/09/16 04:54 Plt Count 312 K/mm3 (140-440) 10/09/16 04:54 Lymph % (Auto) 10.3 % (13.4-35.0) L 10/09/16 04:54 [place] % (Auto) 10.2 % (0.0-7.3) H 10/09/16 04:54 Eos % (Auto) 5.9 % (0.0-4.3) H 10/09/16 04:54 Baso % (Auto) 1.3 % (0.0-1.8) 10/09/16 04:54 Lymph # 1.4 K/mm3 (1.2-5.4) 10/09/16 04:54 [place] # 1.4 K/mm3 (0.0-0.8) H 10/09/16 04:54 Eos # 0.8 K/mm3 (0.0-0.4) H 10/09/16 04:54 Baso # 0.2 K/mm3 (0.0-0.1) H 10/09/16 04:54 Add Manual Diff Complete 09/27/16 04:25 Total Counted 100 09/27/16 04:25 Seg Neutrophils % 72.3 % (40.0-70.0) H 10/09/16 04:54 Seg Neuts % (Manual) 82.0 % (40.0-70.0) H 09/27/16 04:25 Band Neutrophils % 6.0 % 09/27/16 04:25 Lymphocytes % (Manual) 8.0 % (13.4-35.0) L 09/27/16 04:25 Reactive Lymphs % (Man) 0 % 09/27/16 04:25 Monocytes % (Manual) 3.0 % (0.0-7.3) 09/27/16 04:25 Eosinophils % (Manual) 0 % (0.0-4.3) 09/27/16 04:25 Basophils % (Manual) 0 % (0.0-1.8) 09/27/16 04:25 Metamyelocytes % 1.0 % 09/27/16 04:25 Myelocytes % 0 % 09/27/16 04:25 Promyelocytes % 0 % 09/27/16 04:25 Blast Cells % 0 % 09/27/16 04:25 Nucleated RBC % Not Reportable 09/27/16 04:25 Seg Neutrophils # 10.0 K/mm3 (1.8-7.7) H 10/09/16 04:54 Seg Neutrophils # Man 15.3 K/mm3 (1.8-7.7) H 09/27/16 04:25 Band Neutrophils # 1.1 K/mm3 09/27/16 04:25 Lymphocytes # (Manual) 1.5 K/mm3 (1.2-5.4) 09/27/16 04:25 Abs React Lymphs (Man) 0.0 K/mm3 09/27/16 04:25 Monocytes # (Manual) 0.6 K/mm3 (0.0-0.8) 09/27/16 04:25 Eosinophils # (Manual) 0.0 K/mm3 (0.0-0.4) 09/27/16 04:25 Basophils # (Manual) 0.0 K/mm3 (0.0-0.1) 09/27/16 04:25 Metamyelocytes # 0.2 K/mm3 09/27/16 04:25 Myelocytes # 0.0 K/mm3 09/27/16 04:25 Promyelocytes # 0.0 K/mm3 09/27/16 04:25 Blast Cells # 0.0 K/mm3 09/27/16 04:25 WBC Morphology Not Reportable 09/27/16 04:25 Hypersegmented Neuts Not Reportable 09/27/16 04:25 Hyposegmented Neuts Not Reportable 09/27/16 04:25 Hypogranular Neuts Not Reportable 09/27/16 04:25 Smudge Cells Not Reportable 09/27/16 04:25 Toxic Granulation Not Reportable 09/27/16 04:25 Toxic Vacuolation Not Reportable 09/27/16 04:25 Dohle Bodies Not Reportable 09/27/16 04:25 Pelger-Huet Anomaly Not Reportable 09/27/16 04:25 Renita Rods Not Reportable 09/27/16 04:25 Platelet Estimate Not Reportable 09/27/16 04:25 Clumped Platelets Not Reportable 09/27/16 04:25 Plt Clumps, EDTA Not Reportable 09/27/16 04:25 Large Platelets Not Reportable 09/27/16 04:25 Giant Platelets Few 09/27/16 04:25 Platelet Satelliting Not Reportable 09/27/16 04:25 Plt Morphology Comment Not Reportable 09/27/16 04:25 RBC Morphology Not Reportable 09/27/16 04:25 Dimorphic RBCs Not Reportable 09/27/16 04:25 Polychromasia Not Reportable 09/27/16 04:25 Hypochromasia Not Reportable 09/27/16 04:25 Poikilocytosis Not Reportable 09/27/16 04:25 Anisocytosis 1+ 09/27/16 04:25 Microcytosis Not Reportable 09/27/16 04:25 Macrocytosis Not Reportable 09/27/16 04:25 Spherocytes Not Reportable 09/27/16 04:25 Pappenheimer Bodies Not Reportable 09/27/16 04:25 Sickle Cells Not Reportable 09/27/16 04:25 Target Cells Not Reportable 09/27/16 04:25 Tear Drop Cells Not Reportable 09/27/16 04:25 Ovalocytes Not Reportable 09/27/16 04:25 Helmet Cells Not Reportable 09/27/16 04:25 [place] Bodies Not Reportable 09/27/16 04:25 [place] Rings Not Reportable 09/27/16 04:25 [place] Cells Not Reportable 09/27/16 04:25 Bite Cells Not Reportable 09/27/16 04:25 Crenated Cell Not Reportable 09/27/16 04:25 Elliptocytes Not Reportable 09/27/16 04:25 Acanthocytes (Spur) Not Reportable 09/27/16 04:25 Rouleaux Not Reportable 09/27/16 04:25 Hemoglobin C Crystals Not Reportable 09/27/16 04:25 Schistocytes Not Reportable 09/27/16 04:25 Malaria parasites Not Reportable 09/27/16 04:25 Azael Bodies Not Reportable 09/27/16 04:25 Hem Pathologist Commnt No 09/27/16 04:25 PT 16.1 Sec. (12.2-14.9) H 10/08/16 Unknown INR 1.30 (0.87-1.13) H 10/08/16 Unknown APTT 31.2 Sec. (24.2-36.6) 10/08/16 Unknown Heparin Anti-Xa Level 1.12 U.I./ml (0.3-0.7) H 10/09/16 04:54 Sodium 139 mmol/L (137-145) 10/09/16 04:54 Potassium 4.3 mmol/L (3.6-5.0) 10/09/16 04:54 Chloride 101.8 mmol/L (98-107) 10/09/16 04:54 Carbon Dioxide 23 mmol/L (22-30) 10/09/16 04:54 Anion Gap 19 mmol/L 10/09/16 04:54 BUN 21 mg/dL (9-20) H 10/09/16 04:54 Creatinine 4.5 mg/dL (0.8-1.5) H 10/09/16 04:54 Estimated GFR 16 ml/min 10/09/16 04:54 BUN/Creatinine Ratio 4.66 % 10/09/16 04:54 Glucose 84 mg/dL (75-100) 10/09/16 04:54 Osmolality 293 Mosm/kg 10/03/16 14:03 Lactic Acid 2.6 mmol/L (0.7-2.0) H* 09/26/16 10:48 Uric Acid 5.4 mg/dL (3.5-7.6) 10/03/16 09:16 Calcium 7.7 mg/dL (8.4-10.2) L 10/09/16 04:54 Iron 31 ug/dL (49-181) L 10/06/16 17:16 TIBC 168.00 mcg/dL (250-450) L 10/06/16 17:16 Transferrin 120 mg/dl (180-329) L 10/06/16 17:16 Ferritin 488.6 ng/mL (13.0-400.0) H 10/06/16 17:16 Total Creatine Kinase 186 units/L (55-170) H 10/08/16 09:27 Vitamin B12 1268 pg/mL (211-911) H 10/06/16 17:16 Folate 11.86 ng/mL (7.3-26.0) 10/06/16 17:16 Urine Color Yellow (Yellow) 10/03/16 17:00 Urine Turbidity Clear (Clear) 10/03/16 17:00 Urine pH 5.0 (5.0-7.0) 10/03/16 17:00 Ur Specific [place] 1.011 (1.003-1.030) 10/03/16 17:00 Urine Protein <15 mg/dl mg/dL (Negative) 10/03/16 17:00 Urine Glucose (UA) Neg mg/dL (Negative) 10/03/16 17:00 Urine Ketones Neg mg/dL (Negative) 10/03/16 17:00 Urine Blood Neg (Negative) 10/03/16 17:00 Urine Nitrite Neg (Negative) 10/03/16 17:00 Urine Bilirubin Neg (Negative) 10/03/16 17:00 Urine Urobilinogen < 2.0 mg/dL (<2.0) 10/03/16 17:00 Ur Leukocyte Esterase Neg (Negative) 10/03/16 17:00 Urine WBC (Auto) 1.0 /HPF (0.0-6.0) 10/03/16 17:00 Urine RBC (Auto) 1.0 /HPF (0.0-6.0) 10/03/16 17:00 U Epithel Cells (Auto) 5.0 /HPF (0-13.0) 10/03/16 17:00 Urine Bacteria (Auto) 1+ /HPF (Negative) 09/26/16 00:03 Urine Mucus Few /HPF 10/03/16 17:00 Urine Creatinine 100.1 mg/dL (0.1-20.0) H 10/03/16 17:00 Urine Sodium 33 mEq/L 10/03/16 17:00 Urine Total Protein 23 mg/dL (5-11.8) H 10/03/16 17:00 Vancomycin Trough 39.5 ug/mL (5.0-20.0) H 10/01/16 09:07 Random Vancomycin 21.2 ug/mL (0-40.0) 10/09/16 10:19 Blood Type O NEGATIVE 10/06/16 17:16 Antibody Screen Negative 10/06/16 17:16 Crossmatch See Detail 10/06/16 17:16 Microbiology 10/08/16 11:37 Stool Stool Occult Blood (JAMES) - Final 10/06/16 Unknown Stool Stool Occult Blood (JAMES) - Final 09/26/16 06:40 Peripheral/Venous Blood Culture - Final NO GROWTH AFTER 5 DAYS 09/26/16 06:29 Peripheral/Venous Blood Culture - Final NO GROWTH AFTER 5 DAYS
--- NOTE | 2016-10-09 15:39 | Gastroenterology Consultation ---
Addendum entered and electronically signed by TRIXIE KERR MD 10/09/16 22:12: pt seen and examined, chart reviewed, consult above reviewed - pt w/ anemia ans signs possible GI bleed vss p.e.: nad abd: benign - plan egd in am - other rec as below Original Note: History of Present Illness - Reason for Consult Consult date: 10/09/16 anemia Requesting physician: SILVANA FLORENCE - History of Present Illness Mr. Ojeda is a 71 y/o male admitted with foot pain that was noted to be pale and ischemic. He was found to have gangrene in the right foot and went for amputation and was found to have arterial occlusion and underwent Right BKA. Of note, he was also found to have left lower ext DVT and is now on a Heparin gtt. His H/H has declined and he has received one unit of PRBC. He notes "some " bleeding from operative site but also notes he has had intermittent black stools. Prior to admission he was taking Aleve and Ibuprofen routinely. He denies blood per rectum or N/V. Last colonoscopy 3-4 years ago. We have been asked to see the patient in regards to decline in H/H with Heme positive stool. Past History Past Medical History: hypertension Past Surgical History: Other (ex lap) Social history: single, lives with family, smoking, alcohol abuse Family history: hypertension Medications and Allergies Allergies Allergy/AdvReac Type Severity Reaction Status Date / Time No Known Allergies Allergy Unverified 09/25/16 20:45 Home Medications Medication Instructions Recorded Confirmed Last Taken Type Unobtainable 09/26/16 09/26/16 Unknown History Active Meds: Active Medications Acetaminophen (Tylenol) 650 mg PO Q4H PRN PRN Reason: Pain MILD(1-3)/Fever >100.5/CAZARES Last Admin: 10/07/16 17:50 Dose: 650 mg Albuterol (Proventil) 2.5 mg IH Q4HRT PRN PRN Reason: wheezing Heparin Sodium (Porcine) (Heparin) 5,000 unit IV NOE PRN; Protocol PRN Reason: hemodialysis Last Admin: 10/07/16 21:35 Dose: 5,000 unit Hydromorphone HCl (Dilaudid) 0.5 mg IV Q3H PRN PRN Reason: Pain , Severe (7-10) Hydromorphone HCl (Dilaudid) 0.5 mg IV Q5MIN PRN PRN Reason: Chest Pain Last Admin: 10/01/16 13:00 Dose: 0.5 mg Sodium Chloride (Nacl 0.9% 1000 Ml) 100 mls @ 999 mls/hr IV NOE PRN PRN Reason: Hypotension Heparin Sodium/Sodium Chloride (Heparin/ 0.45% Nacl-25,000 Unit/500 Ml) 500 mls @ 30 mls/hr IV TITR SUPRIYA; 1,500 UNITS/HR PRN Reason: Protocol Last Titration: 10/09/16 07:26 Dose: 1,300 units/hr Morphine Sulfate (Morphine) 2 mg IV Q4H PRN PRN Reason: Pain , Severe (7-10) Last Admin: 10/01/16 22:51 Dose: 2 mg Nystatin (Nystop) 1 applic TP BID [facility] Last Admin: 10/09/16 10:00 Dose: 1 applic Oxycodone/Acetaminophen (Percocet 5/325) 2 tab PO Q6H PRN PRN Reason: Pain, Moderate (4-6) Last Admin: 10/08/16 21:45 Dose: 2 tab Pantoprazole Sodium (Protonix) 40 mg PO BID [facility] Last Admin: 10/09/16 09:00 Dose: 40 mg Review of Systems - Review of Systems All systems: negative Constitutional: fatigue, weakness Gastrointestinal: melena Exam - Constitutional Vital Signs: Temp Pulse Resp BP Pulse Ox 98.2 F 80 20 159/87 99 10/09/16 07:28 10/09/16 07:28 10/09/16 07:28 10/09/16 07:28 10/09/16 07:28 General appearance: no acute distress - EENT Eyes: EOM intact ENT: hearing intact - Neck Neck: supple - Respiratory Respiratory: bilateral: CTA - Cardiovascular Rhythm: regular Heart Sounds: Present: S1 & S2 Extremities: abnormal (right BKA) - Gastrointestinal General gastrointestinal: Present: soft, non-tender, non-distended, normal bowel sounds - Integumentary Integumentary: Present: warm, dry - Neurologic Neurological: alert and oriented x3 - Labs CBC & Chem 7: 10/09/16 04:54 10/09/16 04:54 Lab Results: Laboratory Results - last 24 hr 10/08/16 10/08/1610/09/16 19:00 Unknown 04:54 WBC 13.9 H RBC 3.23 L Hgb 9.3 L Hct 27.4 L MCV 85 MCH 29 MCHC 34 RDW 16.9 H Plt Count 308 312 Lymph % (Auto) 10.3 L Dunn % (Auto) 10.2 H Eos % (Auto) 5.9 H Baso % (Auto) 1.3 Lymph # 1.4 Dunn # 1.4 H Eos # 0.8 H Baso # 0.2 H Seg Neutrophils % 72.3 H Seg Neutrophils # 10.0 H PT 16.1 H INR 1.30 H APTT 31.2 Heparin Anti-Xa Level Sodium Potassium Chloride Carbon Dioxide Anion Gap BUN Creatinine Estimated GFR BUN/Creatinine Ratio Glucose Calcium Random Vancomycin 10/09/16 10/09/16 10/09/16 04:54 04:54 10:19 WBC RBC Hgb Hct MCV MCH MCHC RDW Plt Count Lymph % (Auto) Dunn % (Auto) Eos % (Auto) Baso % (Auto) Lymph # Dunn # Eos # Baso # Seg Neutrophils % Seg Neutrophils # PT INR APTT Heparin Anti-Xa Level 1.12 H Sodium 139 Potassium 4.3 Chloride 101.8 Carbon Dioxide 23 Anion Gap 19 BUN 21 H Creatinine 4.5 H Estimated GFR 16 BUN/Creatinine Ratio 4.66 Glucose 84 Calcium 7.7 L Random Vancomycin 21.2 Assessment and Plan 1. Anemia requiring transfusion -H/H now stable. ? 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 -NPO after MN. -Heparin gtt will need to be stopped 3 hours prior to procedure. -Continue protonix PO for now.
--- NOTE | 2016-10-09 17:47 | Progress Note ---
Assessment and Plan The patient is awake alert. He presented with significant right foot wounds which ultimately led to a below the knee amputation. When the patient was evaluated his bandages were not in place, and his knee immobilizer was off. He's currently on anticoagulation due to arterial thrombosis and formation of right lower extremity DVT. An anemia workup is in progress. Certainly some component of this will be acute blood loss from surgical interventions. A GI consultation was placed. The patient is for EGD tomorrow. His acute on chronic kidney disease. He is presently being followed by nephrology. He is being evaluated for acute rehabilitation once he is medically stabilized. 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 Complains of occasional discomfort , complaints of phantom limb sensation. Objective - Constitutional Vitals: Vital Signs - 12hr 10/09/16 10/09/16 07:28 16:30 Temperature 98.2 F 98 F Pulse Rate [ 80 86 Left Brachial] Respiratory 20 18 Rate Blood Pressure 159/87 156/81 [Left Arm] O2 Sat by Pulse 99 Oximetry General appearance: Present: no acute distress - EENT Eyes: EOM intact ENT: hearing intact - Respiratory Respiratory effort: normal Extremities: abnormal (right AKA) - Psychiatric Psychiatric: appropriate mood/affect, intact judgment & insight, cooperative - Labs CBC & Chem 7: 10/09/16 04:54 10/09/16 04:54 Labs: Abnormal lab results 10/08/16 10/09/16 10/09/16 Range/Units Unknown 04:54 04:54 WBC 13.9 H (4.5-11.0) K/mm3 RBC 3.23 L (3.65-5.03) M/mm3 Hgb 9.3 L (11.8-15.2) gm/dl Hct 27.4 L (35.5-45.6) % RDW 16.9 H (13.2-15.2) % Lymph % (Auto) 10.3 L (13.4-35.0) % Haakon % (Auto) 10.2 H (0.0-7.3) % Eos % (Auto) 5.9 H (0.0-4.3) % Haakon # 1.4 H (0.0-0.8) K/mm3 Eos # 0.8 H (0.0-0.4) K/mm3 Baso # 0.2 H (0.0-0.1) K/mm3 Seg Neutrophils % 72.3 H (40.0-70.0) % Seg Neutrophils # 10.0 H (1.8-7.7) K/mm3 PT 16.1 H (12.2-14.9) Sec. INR 1.30 H (0.87-1.13) Heparin Anti-Xa Level (0.3-0.7) U.I./ml BUN 21 H (9-20) mg/dL Creatinine 4.5 H (0.8-1.5) mg/dL Calcium 7.7 L (8.4-10.2) mg/dL 10/09/16 10/09/16 Range/Units 04:54 15:01 WBC (4.5-11.0) K/mm3 RBC (3.65-5.03) M/mm3 Hgb (11.8-15.2) gm/dl Hct (35.5-45.6) % RDW (13.2-15.2) % Lymph % (Auto) (13.4-35.0) % Haakon % (Auto) (0.0-7.3) % Eos % (Auto) (0.0-4.3) % Haakon # (0.0-0.8) K/mm3 Eos # (0.0-0.4) K/mm3 Baso # (0.0-0.1) K/mm3 Seg Neutrophils % (40.0-70.0) % Seg Neutrophils # (1.8-7.7) K/mm3 PT (12.2-14.9) Sec. INR (0.87-1.13) Heparin Anti-Xa Level 1.12 H 0.75 H (0.3-0.7) U.I./ml BUN (9-20) mg/dL Creatinine (0.8-1.5) mg/dL Calcium (8.4-10.2) mg/dL
[2016-10-09] MEDS: HEPARIN/ 0.45% NACL-25,000 UNIT/500 ML 500 ML IV SCH (18:02)
[2016-10-10] MEDS: NYSTOP TP SCH ×2 (03:55→11:37)
[2016-10-10 05:53] LABS: Basophils % (Auto) 1.4 % (0.0-1.8); Eosinophils % (Auto) 5.2 % (0.0-4.3); Hematocrit 28.2 % (35.5-45.6); Hemoglobin 9.5 gm/dl (11.8-15.2); Mean Corpuscular HGB Conc 34 % (32-34); Mean Corpuscular Hemoglobin 29 pg (28-32); Mean Corpuscular Volume 85 fl (84-94); Platelet Count 293 K/mm3 (140-440); Red Blood Count 3.31 M/mm3 (3.65-5.03); Red Cell Distribution Width 16.9 % (13.2-15.2); White Blood Count 13.6 K/mm3 (4.5-11.0)
[2016-10-10 06:03] LABS: BUN/Creatinine Ratio 4.69; Calcium 7.6 mg/dL (8.4-10.2); Chloride 98.7 mmol/L (98-107); Potassium 3.9 mmol/L (3.6-5.0)
--- NOTE | 2016-10-10 08:29 | Progress Note ---
Assessment and Plan Impression: * MARIA C/ATN * Recent vanco toxicity * S/p amputation * HTN * Anemia Plan: * maria c may be due to ATN from vancotoxicity * random vanco level 20 despite being off, follow up daily * monitor for renal recovery * renal diet * follow up crcl * strict i/os * dialysis today to assist in clearance of vancomycin * hopefully will recover * avoid nephrotoxins Subjective Date of service: 10/10/16 Principal diagnosis: maria c Interval history: resting in bed today Objective - Exam Narrative Exam: General appearance: appears stated age EENT: mucous membranes moist (uremic odor noted) Neck: no JVD Respiratory: Present: Rales (few crackles posteriorly) Cardiology: regular (S1-S2 heard no S3-S4) Gastrointestinal: normal (soft nontender) Neurologic: other (mild asterixis) - Vital Signs Vital signs: Vital Signs - 12hr 10/09/16 10/09/16 21:54 21:56 Temperature 98.5 F 98.9 F Pulse Rate [ 86 77 From Monitor] Respiratory 20 20 Rate Blood Pressure 118/77 [Left Arm] O2 Sat by Pulse 96 Oximetry - Lab 10/10/16 04:56 10/10/16 04:56 Most recent lab results Calcium 7.6 mg/dL (8.4-10.2) L 10/10/16 04:56 Urine Creatinine 100.1 mg/dL (0.1-20.0) H 10/03/16 17:00 Urine Sodium 33 mEq/L 10/03/16 17:00 Urine Total Protein 23 mg/dL (5-11.8) H 10/03/16 17:00
[2016-10-10] MEDS ORDERED: NACL 0.9% 1000 ML 100 ML IV PRN (09:00)
[2016-10-10] MEDS: PROTONIX PO SCH ×2 (10:37→23:45)
[2016-10-10] MEDS: MORPHINE IV PRN (10:38)
--- NOTE | 2016-10-10 11:49 | Progress Note ---
Assessment and Plan Assessment and plan: 1. Acute renal failure - most likely due to ATN from vancomycin toxicity- creatinine worsened today. Follow-up with nephrology for further recommendations appreciated. Vancomycin level remains elevated although patient has been off of it. We'll continue to monitor levels; For HD today as per renal to clear vanc 2. 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 Patient on anticoagulation with heparin. Follow-up with wound care as per vascular 3.-Benign hypertension-currently not on any medications, continue to monitor. Stable 4. HTN (hypertension) 5. LE DVT-continue heparin. Patient was initially started on Elocon but this was discontinued due to falling hemoglobin and hematocrit. The fall was however thought to be related to his previous amputation procedure 6. Acute blood loss anemia from amputation -status post transfusion, hemoglobin and hematocrit improved. We'll continue to monitor, patient for EGD today 7. DVT prophylaxis DVT prophylaxis- on heparin; to be held for EGD History Interval history: f/u acute renal failure; gangrene of RT lower extremity post amputation Patient seen at the bedside; no complaints today; in HD unit for HD today Hospitalist Physical - Constitutional Vitals: Temp Pulse Resp BP Pulse Ox 98.5 F 96 H 18 135/67 98 10/10/16 10:22 10/10/16 11:15 10/10/16 10:22 10/10/16 11:15 10/09/16 22:00 General appearance: Present: no acute distress, well-nourished - EENT Eyes: Present: PERRL, EOM intact. Absent: scleral icterus, conjunctival injection ENT: hearing intact, clear oral mucosa, no oropharyngeal erythema, no poor dentition - Neck Neck: Present: supple, normal ROM. Absent: enlarged thyroid, masses or JVD - Respiratory Respiratory effort: normal Respiratory: negative: diminished, rales, rhonchi, wheezing - Cardiovascular Rhythm: regular Heart Sounds: Present: S1 & S2. Absent: gallop - Extremities Extremities: no ischemia, pulses intact, pulses symmetrical, No edema, abnormal (RT BKA) Peripheral Pulses: within normal limits - Abdominal General gastrointestinal: soft, non-tender, non-distended - Integumentary Integumentary: Present: clear - Psychiatric Psychiatric: appropriate mood/affect, intact judgment & insight - Neurologic Neurologic: CNII-XII intact Results - Labs CBC & Chem 7: 10/10/16 04:56 10/10/16 04:56 Labs: Laboratory Last Values WBC 13.6 K/mm3 (4.5-11.0) H 10/10/16 04:56 RBC 3.31 M/mm3 (3.65-5.03) L 10/10/16 04:56 Hgb 9.5 gm/dl (11.8-15.2) L 10/10/16 04:56 Hct 28.2 % (35.5-45.6) L 10/10/16 04:56 MCV 85 fl (84-94) 10/10/16 04:56 MCH 29 pg (28-32) 10/10/16 04:56 MCHC 34 % (32-34) 10/10/16 04:56 RDW 16.9 % (13.2-15.2) H 10/10/16 04:56 Plt Count 293 K/mm3 (140-440) 10/10/16 04:56 Lymph % (Auto) 10.6 % (13.4-35.0) L 10/10/16 04:56 Mccormick % (Auto) 10.1 % (0.0-7.3) H 10/10/16 04:56 Eos % (Auto) 5.2 % (0.0-4.3) H 10/10/16 04:56 Baso % (Auto) 1.4 % (0.0-1.8) 10/10/16 04:56 Lymph # 1.4 K/mm3 (1.2-5.4) 10/10/16 04:56 Mccormick # 1.4 K/mm3 (0.0-0.8) H 10/10/16 04:56 Eos # 0.7 K/mm3 (0.0-0.4) H 10/10/16 04:56 Baso # 0.2 K/mm3 (0.0-0.1) H 10/10/16 04:56 Add Manual Diff Complete 09/27/16 04:25 Total Counted 100 09/27/16 04:25 Seg Neutrophils % 72.7 % (40.0-70.0) H 10/10/16 04:56 Seg Neuts % (Manual) 82.0 % (40.0-70.0) H 09/27/16 04:25 Band Neutrophils % 6.0 % 09/27/16 04:25 Lymphocytes % (Manual) 8.0 % (13.4-35.0) L 09/27/16 04:25 Reactive Lymphs % (Man) 0 % 09/27/16 04:25 Monocytes % (Manual) 3.0 % (0.0-7.3) 09/27/16 04:25 Eosinophils % (Manual) 0 % (0.0-4.3) 09/27/16 04:25 Basophils % (Manual) 0 % (0.0-1.8) 09/27/16 04:25 Metamyelocytes % 1.0 % 09/27/16 04:25 Myelocytes % 0 % 09/27/16 04:25 Promyelocytes % 0 % 09/27/16 04:25 Blast Cells % 0 % 09/27/16 04:25 Nucleated RBC % Not Reportable 09/27/16 04:25 Seg Neutrophils # 9.9 K/mm3 (1.8-7.7) H 10/10/16 04:56 Seg Neutrophils # Man 15.3 K/mm3 (1.8-7.7) H 09/27/16 04:25 Band Neutrophils # 1.1 K/mm3 09/27/16 04:25 Lymphocytes # (Manual) 1.5 K/mm3 (1.2-5.4) 09/27/16 04:25 Abs React Lymphs (Man) 0.0 K/mm3 09/27/16 04:25 Monocytes # (Manual) 0.6 K/mm3 (0.0-0.8) 09/27/16 04:25 Eosinophils # (Manual) 0.0 K/mm3 (0.0-0.4) 09/27/16 04:25 Basophils # (Manual) 0.0 K/mm3 (0.0-0.1) 09/27/16 04:25 Metamyelocytes # 0.2 K/mm3 09/27/16 04:25 Myelocytes # 0.0 K/mm3 09/27/16 04:25 Promyelocytes # 0.0 K/mm3 09/27/16 04:25 Blast Cells # 0.0 K/mm3 09/27/16 04:25 WBC Morphology Not Reportable 09/27/16 04:25 Hypersegmented Neuts Not Reportable 09/27/16 04:25 Hyposegmented Neuts Not Reportable 09/27/16 04:25 Hypogranular Neuts Not Reportable 09/27/16 04:25 Smudge Cells Not Reportable 09/27/16 04:25 Toxic Granulation Not Reportable 09/27/16 04:25 Toxic Vacuolation Not Reportable 09/27/16 04:25 Dohle Bodies Not Reportable 09/27/16 04:25 Pelger-Huet Anomaly Not Reportable 09/27/16 04:25 Renita Rods Not Reportable 09/27/16 04:25 Platelet Estimate Not Reportable 09/27/16 04:25 Clumped Platelets Not Reportable 09/27/16 04:25 Plt Clumps, EDTA Not Reportable 09/27/16 04:25 Large Platelets Not Reportable 09/27/16 04:25 Giant Platelets Few 09/27/16 04:25 Platelet Satelliting Not Reportable 09/27/16 04:25 Plt Morphology Comment Not Reportable 09/27/16 04:25 RBC Morphology Not Reportable 09/27/16 04:25 Dimorphic RBCs Not Reportable 09/27/16 04:25 Polychromasia Not Reportable 09/27/16 04:25 Hypochromasia Not Reportable 09/27/16 04:25 Poikilocytosis Not Reportable 09/27/16 04:25 Anisocytosis 1+ 09/27/16 04:25 Microcytosis Not Reportable 09/27/16 04:25 Macrocytosis Not Reportable 09/27/16 04:25 Spherocytes Not Reportable 09/27/16 04:25 Pappenheimer Bodies Not Reportable 09/27/16 04:25 Sickle Cells Not Reportable 09/27/16 04:25 Target Cells Not Reportable 09/27/16 04:25 Tear Drop Cells Not Reportable 09/27/16 04:25 Ovalocytes Not Reportable 09/27/16 04:25 Helmet Cells Not Reportable 09/27/16 04:25 [place] Bodies Not Reportable 09/27/16 04:25 [place] Rings Not Reportable 09/27/16 04:25 [place] Cells Not Reportable 09/27/16 04:25 Bite Cells Not Reportable 09/27/16 04:25 Crenated Cell Not Reportable 09/27/16 04:25 Elliptocytes Not Reportable 09/27/16 04:25 Acanthocytes (Spur) Not Reportable 09/27/16 04:25 Rouleaux Not Reportable 09/27/16 04:25 Hemoglobin C Crystals Not Reportable 09/27/16 04:25 Schistocytes Not Reportable 09/27/16 04:25 Malaria parasites Not Reportable 09/27/16 04:25 Azael Bodies Not Reportable 09/27/16 04:25 Hem Pathologist Commnt No 09/27/16 04:25 PT 16.1 Sec. (12.2-14.9) H 10/08/16 Unknown INR 1.30 (0.87-1.13) H 10/08/16 Unknown APTT 31.2 Sec. (24.2-36.6) 10/08/16 Unknown Heparin Anti-Xa Level 0.32 U.I./ml (0.3-0.7) 10/10/16 06:51 Sodium 135 mmol/L (137-145) L 10/10/16 04:56 Potassium 3.9 mmol/L (3.6-5.0) 10/10/16 04:56 Chloride 98.7 mmol/L (98-107) 10/10/16 04:56 Carbon Dioxide 20 mmol/L (22-30) L 10/10/16 04:56 Anion Gap 20 mmol/L 10/10/16 04:56 BUN 23 mg/dL (9-20) H 10/10/16 04:56 Creatinine 4.9 mg/dL (0.8-1.5) H 10/10/16 04:56 Estimated GFR 14 ml/min 10/10/16 04:56 BUN/Creatinine Ratio 4.69 % 10/10/16 04:56 Glucose 68 mg/dL (75-100) L 10/10/16 04:56 Osmolality 293 Mosm/kg 10/03/16 14:03 Lactic Acid 2.6 mmol/L (0.7-2.0) H* 09/26/16 10:48 Uric Acid 5.4 mg/dL (3.5-7.6) 10/03/16 09:16 Calcium 7.6 mg/dL (8.4-10.2) L 10/10/16 04:56 Iron 31 ug/dL (49-181) L 10/06/16 17:16 TIBC 168.00 mcg/dL (250-450) L 10/06/16 17:16 Transferrin 120 mg/dl (180-329) L 10/06/16 17:16 Ferritin 488.6 ng/mL (13.0-400.0) H 10/06/16 17:16 Total Creatine Kinase 186 units/L (55-170) H 10/08/16 09:27 Vitamin B12 1268 pg/mL (211-911) H 10/06/16 17:16 Folate 11.86 ng/mL (7.3-26.0) 10/06/16 17:16 Urine Color Yellow (Yellow) 10/03/16 17:00 Urine Turbidity Clear (Clear) 10/03/16 17:00 Urine pH 5.0 (5.0-7.0) 10/03/16 17:00 Ur Specific [place] 1.011 (1.003-1.030) 10/03/16 17:00 Urine Protein <15 mg/dl mg/dL (Negative) 10/03/16 17:00 Urine Glucose (UA) Neg mg/dL (Negative) 10/03/16 17:00 Urine Ketones Neg mg/dL (Negative) 10/03/16 17:00 Urine Blood Neg (Negative) 10/03/16 17:00 Urine Nitrite Neg (Negative) 10/03/16 17:00 Urine Bilirubin Neg (Negative) 10/03/16 17:00 Urine Urobilinogen < 2.0 mg/dL (<2.0) 10/03/16 17:00 Ur Leukocyte Esterase Neg (Negative) 10/03/16 17:00 Urine WBC (Auto) 1.0 /HPF (0.0-6.0) 10/03/16 17:00 Urine RBC (Auto) 1.0 /HPF (0.0-6.0) 10/03/16 17:00 U Epithel Cells (Auto) 5.0 /HPF (0-13.0) 10/03/16 17:00 Urine Bacteria (Auto) 1+ /HPF (Negative) 09/26/16 00:03 Urine Mucus Few /HPF 10/03/16 17:00 Urine Creatinine 100.1 mg/dL (0.1-20.0) H 10/03/16 17:00 Urine Sodium 33 mEq/L 10/03/16 17:00 Urine Total Protein 23 mg/dL (5-11.8) H 10/03/16 17:00 Vancomycin Trough 39.5 ug/mL (5.0-20.0) H 10/01/16 09:07 Random Vancomycin 20.2 ug/mL (0-40.0) 10/10/16 04:56 Blood Type O NEGATIVE 10/06/16 17:16 Antibody Screen Negative 10/06/16 17:16 Crossmatch See Detail 10/06/16 17:16
[2016-10-10] MEDS: HEPARIN IV PRN (13:49)
--- NOTE | 2016-10-10 13:58 | Anesthesia Consultation ---
Anesthesia Consult and Med Hx Date of service: 10/10/16 - Airway Anesthetic Teeth Evaluation: Poor ROM Head & Neck: Adequate Mental/Hyoid Distance: Adequate Mallampati Class: Class II Intubation Access Assessment: Probably Good - Pulmonary Exam CTA: Yes - Cardiac Exam Cardiac Exam: RRR - Pre-Operative Health Status ASA Pre-Surgery Classification: ASA4 Proposed Anesthetic Plan: MAC - Pulmonary Hx Smoking: Yes - Cardiovascular System Hx Hypertension: Yes Hx Peripheral Vascular Disease: Yes - Endocrine Hx End Stage Renal Disease: Yes (Dialysis MWF)
--- NOTE | 2016-10-10 13:59 | Anesthesia Day of Surgery ---
Anesthesia Day of Surgery - Day of Surgery Patient Examined: Yes Patient H&P Reviewed: Yes Patient is NPO: Yes
[2016-10-10] MEDS ORDERED: DIPRIVAN 10 MG/ML IV ONE ×2 (14:42)
[2016-10-10] MEDS ORDERED: NACL 0.9% 1000 ML 1,000 ML IV SCH (15:00)
[2016-10-10] MEDS ORDERED: XYLOCAINE MPF 2% ONE (15:24)
--- NOTE | 2016-10-10 15:46 | Post Operative Note ---
Pre-op diagnosis: gi bleed Post-op diagnosis: same Findings: EGD: medium hiatal hernia - 1- 1 1/cm white based ulcer antrum (bx's) - otherwise benign Procedure: EGD Anesthesia: MAC Surgeon: TRIXIE KERR Estimated blood loss: none Pathology: list Specimen disposition: to lab Condition: stable Disposition: floor
[2016-10-10] MEDS: PERCOCET 5/325 PO PRN (19:25)
--- NOTE | 2016-10-10 20:52 | Operative Report ---
ESOPHAGOGASTRODUODENOSCOPY INDICATION: 1. Anemia. 2. GI bleed. MEDICATIONS: Propofol per ENERGY TRADER. COMPLICATIONS: None. DESCRIPTION OF PROCEDURE: The patient was brought to procedure suite. The patient had the procedure discussed with him at length. All risks, complications, and benefits discussed after which the patient signed for the procedure to perform. The patient was placed in left lateral decubitus position. Mouth block was placed in the patient's oral cavity. After adequate sedation, medication as above, endoscope was placed into the mouth and brought to the level of the second portion of duodenum. Retroflexion view performed. The patient's vital signs remained stable throughout the procedure. FINDINGS: There was a medium to large hiatal hernia at GE junction. The esophagus otherwise grossly appeared normal. There was a 1 to 1.5 cm erythematous base and slightly cratered ulcer noted in the gastric antrum. There was moderate inflammation in and around the antral area of the ulcer. Biopsies were taken and sent to pathology. The remaining stomach otherwise appeared to be normal. The duodenum appeared to be normal. Retroflexion view performed in the stomach showed no other pathology other than noted above. The patient tolerated the procedure well. No complications during the procedure. IMPRESSION: 1. Hiatal hernia. 2. Otherwise, grossly normal esophagus. 3. Ulcer without significant bleeding stigmata along with gastritis noted in the antrum, with biopsies performed. 4. Otherwise normal stomach. 5. Normal duodenum. RECOMMENDATIONS: 1. Follow up biopsy results. 2. Stool for H. pylori, if positive, we will treat. 3. Antireflux diet. 4. PPI daily and start Carafate suspension q.i.d. 5. Okay to discharge from GI standpoint in a.m. if H and H stable. JOB# [id number] [facility]
[2016-10-10] MEDS: CARAFATE PO SCH (23:45)
[2016-10-11 05:25] LABS: Basophils % (Auto) 1.4 % (0.0-1.8); Eosinophils % (Auto) 2.9 % (0.0-4.3); Hematocrit 28.6 % (35.5-45.6); Hemoglobin 9.8 gm/dl (11.8-15.2); Mean Corpuscular HGB Conc 34 % (32-34); Mean Corpuscular Hemoglobin 29 pg (28-32); Mean Corpuscular Volume 84 fl (84-94); Platelet Count 280 K/mm3 (140-440); Red Blood Count 3.42 M/mm3 (3.65-5.03); Red Cell Distribution Width 16.4 % (13.2-15.2); White Blood Count 11.7 K/mm3 (4.5-11.0)
[2016-10-11 05:43] LABS: BUN/Creatinine Ratio 4.11; Calcium 7.5 mg/dL (8.4-10.2); Chloride 98.1 mmol/L (98-107); Potassium 3.8 mmol/L (3.6-5.0)
[2016-10-11] MEDS: HEPARIN/ 0.45% NACL-25,000 UNIT/500 ML 500 ML IV SCH (06:00)
[2016-10-11] MEDS: CARAFATE PO SCH ×3 (06:28→18:58)
[2016-10-11] MEDS: NYSTOP TP SCH (06:29)
--- NOTE | 2016-10-11 08:43 | Progress Note ---
Assessment and Plan Impression: * MARIA C/ATN * Recent vanco toxicity * S/p amputation * HTN * Anemia Plan: * maria c may be due to ATN from vancotoxicity * random vanco level 14 s/p HD today * monitor for renal recovery * renal diet * follow up crcl * strict i/os * dialysis prn * hopefully will recover * avoid nephrotoxins Subjective Date of service: 10/11/16 Principal diagnosis: maria c Interval history: resting in bed today Objective - Exam Narrative Exam: General appearance: appears stated age EENT: mucous membranes moist (uremic odor noted) Neck: no JVD Respiratory: Present: Rales (few crackles posteriorly) Cardiology: regular (S1-S2 heard no S3-S4) Gastrointestinal: normal (soft nontender) Neurologic: other (mild asterixis) - Vital Signs Vital signs: Vital Signs - 12hr 10/11/16 01:00 Temperature 99 F Pulse Rate [ 102 H Left Brachial] Respiratory 20 Rate Blood Pressure 135/68 [Left Arm] O2 Sat by Pulse 99 Oximetry - Lab 10/11/16 05:07 10/11/16 05:07 Most recent lab results Calcium 7.5 mg/dL (8.4-10.2) L 10/11/16 05:07 Urine Creatinine 100.1 mg/dL (0.1-20.0) H 10/03/16 17:00 Urine Sodium 33 mEq/L 10/03/16 17:00 Urine Total Protein 23 mg/dL (5-11.8) H 10/03/16 17:00
--- NOTE | 2016-10-11 09:10 | Progress Note ---
Assessment and Plan Assessment and plan: 1. Acute renal failure - most likely due to ATN from vancomycin toxicity-post HD yesterday; cR better today; Follow-up with nephrology for further recommendations appreciated. Vancomycin level better today after HD 2. 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 Patient on anticoagulation with heparin. Follow-up with wound care as per vascular 3.-Benign hypertension-currently not on any medications, continue to monitor. Stable 4. HTN (hypertension) 5. LE DVT-will d/c heparin and restart eliquis; d/sat with Dr. Agarwal- ensure recommended to continue PPI and carafate 6. Acute blood loss anemia from amputation -status post transfusion, stable We' ll continue to monitor, 7. Antral ulcer- s/p EGD and biopsy; cont PPI and carafate; f/u GI as outpatient for biopsy report 8. DVT prophylaxiss- on heparin which will be stopped and restarted on eliquis History Interval history: f/u acute renal failure; gangrene of RT lower extremity post amputation Patient seen at the bedside; no complaints today; had HD yesterday Hospitalist Physical - Constitutional Vitals: Temp Pulse Resp BP Pulse Ox 99 F 102 H 20 135/68 99 10/11/16 01:00 10/11/16 01:00 10/11/16 01:00 10/11/16 01:00 10/11/16 01:00 General appearance: Present: no acute distress, well-nourished - EENT Eyes: Present: PERRL, EOM intact. Absent: scleral icterus, conjunctival injection ENT: hearing intact, clear oral mucosa, no oropharyngeal erythema, no poor dentition - Neck Neck: Present: supple, normal ROM. Absent: enlarged thyroid, masses or JVD - Respiratory Respiratory effort: normal Respiratory: negative: diminished, rales, rhonchi, wheezing - Cardiovascular Rhythm: regular Heart Sounds: Present: S1 & S2. Absent: gallop - Extremities Extremities: no ischemia, pulses intact, pulses symmetrical, No edema Peripheral Pulses: within normal limits - Abdominal General gastrointestinal: soft, non-tender, non-distended - Integumentary Integumentary: Present: clear - Psychiatric Psychiatric: appropriate mood/affect, intact judgment & insight - Neurologic Neurologic: CNII-XII intact Results - Labs CBC & Chem 7: 10/11/16 05:07 10/11/16 05:07 Labs: Laboratory Last Values WBC 11.7 K/mm3 (4.5-11.0) H 10/11/16 05:07 RBC 3.42 M/mm3 (3.65-5.03) L 10/11/16 05:07 Hgb 9.8 gm/dl (11.8-15.2) L 10/11/16 05:07 Hct 28.6 % (35.5-45.6) L 10/11/16 05:07 MCV 84 fl (84-94) 10/11/16 05:07 MCH 29 pg (28-32) 10/11/16 05:07 MCHC 34 % (32-34) 10/11/16 05:07 RDW 16.4 % (13.2-15.2) H 10/11/16 05:07 Plt Count 280 K/mm3 (140-440) 10/11/16 05:07 Lymph % (Auto) 10.4 % (13.4-35.0) L 10/11/16 05:07 [place] % (Auto) 12.4 % (0.0-7.3) H 10/11/16 05:07 Eos % (Auto) 2.9 % (0.0-4.3) 10/11/16 05:07 Baso % (Auto) 1.4 % (0.0-1.8) 10/11/16 05:07 Lymph # 1.2 K/mm3 (1.2-5.4) 10/11/16 05:07 [place] # 1.4 K/mm3 (0.0-0.8) H 10/11/16 05:07 Eos # 0.3 K/mm3 (0.0-0.4) 10/11/16 05:07 Baso # 0.2 K/mm3 (0.0-0.1) H 10/11/16 05:07 Add Manual Diff Complete 09/27/16 04:25 Total Counted 100 09/27/16 04:25 Seg Neutrophils % 72.9 % (40.0-70.0) H 10/11/16 05:07 Seg Neuts % (Manual) 82.0 % (40.0-70.0) H 09/27/16 04:25 Band Neutrophils % 6.0 % 09/27/16 04:25 Lymphocytes % (Manual) 8.0 % (13.4-35.0) L 09/27/16 04:25 Reactive Lymphs % (Man) 0 % 09/27/16 04:25 Monocytes % (Manual) 3.0 % (0.0-7.3) 09/27/16 04:25 Eosinophils % (Manual) 0 % (0.0-4.3) 09/27/16 04:25 Basophils % (Manual) 0 % (0.0-1.8) 09/27/16 04:25 Metamyelocytes % 1.0 % 09/27/16 04:25 Myelocytes % 0 % 09/27/16 04:25 Promyelocytes % 0 % 09/27/16 04:25 Blast Cells % 0 % 09/27/16 04:25 Nucleated RBC % Not Reportable 09/27/16 04:25 Seg Neutrophils # 8.5 K/mm3 (1.8-7.7) H 10/11/16 05:07 Seg Neutrophils # Man 15.3 K/mm3 (1.8-7.7) H 09/27/16 04:25 Band Neutrophils # 1.1 K/mm3 09/27/16 04:25 Lymphocytes # (Manual) 1.5 K/mm3 (1.2-5.4) 09/27/16 04:25 Abs React Lymphs (Man) 0.0 K/mm3 09/27/16 04:25 Monocytes # (Manual) 0.6 K/mm3 (0.0-0.8) 09/27/16 04:25 Eosinophils # (Manual) 0.0 K/mm3 (0.0-0.4) 09/27/16 04:25 Basophils # (Manual) 0.0 K/mm3 (0.0-0.1) 09/27/16 04:25 Metamyelocytes # 0.2 K/mm3 09/27/16 04:25 Myelocytes # 0.0 K/mm3 09/27/16 04:25 Promyelocytes # 0.0 K/mm3 09/27/16 04:25 Blast Cells # 0.0 K/mm3 09/27/16 04:25 WBC Morphology Not Reportable 09/27/16 04:25 Hypersegmented Neuts Not Reportable 09/27/16 04:25 Hyposegmented Neuts Not Reportable 09/27/16 04:25 Hypogranular Neuts Not Reportable 09/27/16 04:25 Smudge Cells Not Reportable 09/27/16 04:25 Toxic Granulation Not Reportable 09/27/16 04:25 Toxic Vacuolation Not Reportable 09/27/16 04:25 Dohle Bodies Not Reportable 09/27/16 04:25 Pelger-Huet Anomaly Not Reportable 09/27/16 04:25 Renita Rods Not Reportable 09/27/16 04:25 Platelet Estimate Not Reportable 09/27/16 04:25 Clumped Platelets Not Reportable 09/27/16 04:25 Plt Clumps, EDTA Not Reportable 09/27/16 04:25 Large Platelets Not Reportable 09/27/16 04:25 Giant Platelets Few 09/27/16 04:25 Platelet Satelliting Not Reportable 09/27/16 04:25 Plt Morphology Comment Not Reportable 09/27/16 04:25 RBC Morphology Not Reportable 09/27/16 04:25 Dimorphic RBCs Not Reportable 09/27/16 04:25 Polychromasia Not Reportable 09/27/16 04:25 Hypochromasia Not Reportable 09/27/16 04:25 Poikilocytosis Not Reportable 09/27/16 04:25 Anisocytosis 1+ 09/27/16 04:25 Microcytosis Not Reportable 09/27/16 04:25 Macrocytosis Not Reportable 09/27/16 04:25 Spherocytes Not Reportable 09/27/16 04:25 Pappenheimer Bodies Not Reportable 09/27/16 04:25 Sickle Cells Not Reportable 09/27/16 04:25 Target Cells Not Reportable 09/27/16 04:25 Tear Drop Cells Not Reportable 09/27/16 04:25 Ovalocytes Not Reportable 09/27/16 04:25 Helmet Cells Not Reportable 09/27/16 04:25 [place] Bodies Not Reportable 09/27/16 04:25 [place] Rings Not Reportable 09/27/16 04:25 [place] Cells Not Reportable 09/27/16 04:25 Bite Cells Not Reportable 09/27/16 04:25 Crenated Cell Not Reportable 09/27/16 04:25 Elliptocytes Not Reportable 09/27/16 04:25 Acanthocytes (Spur) Not Reportable 09/27/16 04:25 Rouleaux Not Reportable 09/27/16 04:25 Hemoglobin C Crystals Not Reportable 09/27/16 04:25 Schistocytes Not Reportable 09/27/16 04:25 Malaria parasites Not Reportable 09/27/16 04:25 Azael Bodies Not Reportable 09/27/16 04:25 Hem Pathologist Commnt No 09/27/16 04:25 PT 16.1 Sec. (12.2-14.9) H 10/08/16 Unknown INR 1.30 (0.87-1.13) H 10/08/16 Unknown APTT 31.2 Sec. (24.2-36.6) 10/08/16 Unknown Heparin Anti-Xa Level 0.33 U.I./ml (0.3-0.7) 10/11/16 05:30 Sodium 137 mmol/L (137-145) 10/11/16 05:07 Potassium 3.8 mmol/L (3.6-5.0) 10/11/16 05:07 Chloride 98.1 mmol/L (98-107) 10/11/16 05:07 Carbon Dioxide 24 mmol/L (22-30) 10/11/16 05:07 Anion Gap 19 mmol/L 10/11/16 05:07 BUN 14 mg/dL (9-20) 10/11/16 05:07 Creatinine 3.4 mg/dL (0.8-1.5) H 10/11/16 05:07 Estimated GFR 22 ml/min 10/11/16 05:07 BUN/Creatinine Ratio 4.11 % 10/11/16 05:07 Glucose 82 mg/dL (75-100) 10/11/16 05:07 Osmolality 293 Mosm/kg 10/03/16 14:03 Lactic Acid 2.6 mmol/L (0.7-2.0) H* 09/26/16 10:48 Uric Acid 5.4 mg/dL (3.5-7.6) 10/03/16 09:16 Calcium 7.5 mg/dL (8.4-10.2) L 10/11/16 05:07 Iron 31 ug/dL (49-181) L 10/06/16 17:16 TIBC 168.00 mcg/dL (250-450) L 10/06/16 17:16 Transferrin 120 mg/dl (180-329) L 10/06/16 17:16 Ferritin 488.6 ng/mL (13.0-400.0) H 10/06/16 17:16 Total Creatine Kinase 186 units/L (55-170) H 10/08/16 09:27 Vitamin B12 1268 pg/mL (211-911) H 10/06/16 17:16 Folate 11.86 ng/mL (7.3-26.0) 10/06/16 17:16 Urine Color Yellow (Yellow) 10/03/16 17:00 Urine Turbidity Clear (Clear) 10/03/16 17:00 Urine pH 5.0 (5.0-7.0) 10/03/16 17:00 Ur Specific [place] 1.011 (1.003-1.030) 10/03/16 17:00 Urine Protein <15 mg/dl mg/dL (Negative) 10/03/16 17:00 Urine Glucose (UA) Neg mg/dL (Negative) 10/03/16 17:00 Urine Ketones Neg mg/dL (Negative) 10/03/16 17:00 Urine Blood Neg (Negative) 10/03/16 17:00 Urine Nitrite Neg (Negative) 10/03/16 17:00 Urine Bilirubin Neg (Negative) 10/03/16 17:00 Urine Urobilinogen < 2.0 mg/dL (<2.0) 10/03/16 17:00 Ur Leukocyte Esterase Neg (Negative) 10/03/16 17:00 Urine WBC (Auto) 1.0 /HPF (0.0-6.0) 10/03/16 17:00 Urine RBC (Auto) 1.0 /HPF (0.0-6.0) 10/03/16 17:00 U Epithel Cells (Auto) 5.0 /HPF (0-13.0) 10/03/16 17:00 Urine Bacteria (Auto) 1+ /HPF (Negative) 09/26/16 00:03 Urine Mucus Few /HPF 10/03/16 17:00 Urine Creatinine 100.1 mg/dL (0.1-20.0) H 10/03/16 17:00 Urine Sodium 33 mEq/L 10/03/16 17:00 Urine Total Protein 23 mg/dL (5-11.8) H 10/03/16 17:00 Vancomycin Trough 39.5 ug/mL (5.0-20.0) H 10/01/16 09:07 Random Vancomycin 14.3 ug/mL (0-40.0) 10/11/16 05:07 Blood Type O NEGATIVE 10/06/16 17:16 Antibody Screen Negative 10/06/16 17:16 Crossmatch See Detail 10/06/16 17:16
--- NOTE | 2016-10-11 09:28 | Event Note ---
Date: 10/11/16 Was planning to convert vas to perm or place permcath. Despite NPO order except meds, patient was fed full breakfast. Will plan for conversion, if no renal recovery, early next week.
[2016-10-11] MEDS: PROTONIX PO SCH (10:00)
--- NOTE | 2016-10-11 13:46 | Event Note ---
Date: 10/11/16 IPR F/U, s/p right BKA. Pt seen in room this AM. Renal function is noted to be improved; s/p EGD on yesterday. Case discussed with sales activity manager on today; if pt remains stable and off HD, possible for IRU admission on tomorrow pending medical clearance. PT to re-evaluate on today. Will continue to follow.
[2016-10-11] MEDS: PERCOCET 5/325 PO PRN (14:30)
[2016-10-11] MEDS ORDERED: ELIQUIS PO SCH (18:00)
[2016-10-12] MEDS: CARAFATE PO SCH ×5 (00:14→18:00)
[2016-10-12] MEDS: PROTONIX PO SCH ×3 (00:15→20:00)
[2016-10-12] MEDS: NYSTOP TP SCH ×5 (00:22→22:00)
[2016-10-12 05:23] LABS: Basophils % (Auto) 1.5 % (0.0-1.8); Eosinophils % (Auto) 6.7 % (0.0-4.3); Hematocrit 25.8 % (35.5-45.6); Hemoglobin 8.8 gm/dl (11.8-15.2); Mean Corpuscular HGB Conc 34 % (32-34); Mean Corpuscular Hemoglobin 29 pg (28-32); Mean Corpuscular Volume 84 fl (84-94); Platelet Count 283 K/mm3 (140-440); Red Blood Count 3.08 M/mm3 (3.65-5.03); Red Cell Distribution Width 16.4 % (13.2-15.2); White Blood Count 11.2 K/mm3 (4.5-11.0)
[2016-10-12 05:55] LABS: BUN/Creatinine Ratio 3.8; Calcium 7.8 mg/dL (8.4-10.2); Chloride 94.3 mmol/L (98-107); Potassium 3.5 mmol/L (3.6-5.0)
[2016-10-12] MEDS: PERCOCET 5/325 PO PRN (07:11)
--- NOTE | 2016-10-12 09:30 | Progress Note ---
Assessment and Plan Assessment and plan: 1. Acute renal failure - most likely due to ATN from vancomycin toxicity- CR trending back up; follow-up with nephrology for further recommendationsa 2. 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 COnt eliquis; Follow-up with wound care as per vascular 3.-Benign hypertension-currently not on any medications, continue to monitor. Stable 4. HTN (hypertension) 5. LE DVT-cotn eliquis; will need to held if perm cath is going to be placed 6. Acute blood loss anemia from amputation -status post transfusion, H/H trending down today; monitor- if continues will d/c eliquis; 7. Antral ulcer- s/p EGD and biopsy; cont PPI and carafate; f/u GI as outpatient for biopsy report 8. DVT prophylaxiss- on eliquis History Interval history: f/u acute renal failure; gangrene of RT lower extremity post amputation Patient seen at the bedside; no complaints today Hospitalist Physical - Constitutional Vitals: Temp Pulse Resp BP Pulse Ox 99.2 F 97 H 20 135/75 99 10/12/16 08:00 10/12/16 08:00 10/12/16 08:11 10/12/16 08:00 10/12/16 08:00 General appearance: Present: no acute distress, well-nourished - EENT Eyes: Present: PERRL, EOM intact. Absent: scleral icterus, conjunctival injection ENT: hearing intact, clear oral mucosa, no oropharyngeal erythema, no poor dentition - Neck Neck: Present: supple, normal ROM. Absent: enlarged thyroid, masses or JVD - Respiratory Respiratory effort: normal Respiratory: negative: diminished, rales, rhonchi, wheezing - Cardiovascular Rhythm: regular Heart Sounds: Present: S1 & S2. Absent: gallop - Extremities Extremities: no ischemia, pulses intact, pulses symmetrical, No edema, abnormal (RT BKA) Peripheral Pulses: within normal limits - Abdominal General gastrointestinal: soft, non-tender, non-distended, normal bowel sounds - Integumentary Integumentary: Present: clear - Psychiatric Psychiatric: appropriate mood/affect, intact judgment & insight, cooperative - Neurologic Neurologic: CNII-XII intact, moves all extremities Results - Labs CBC & Chem 7: 10/12/16 04:41 10/12/16 04:41 Labs: Laboratory Last Values WBC 11.2 K/mm3 (4.5-11.0) H 10/12/16 04:41 RBC 3.08 M/mm3 (3.65-5.03) L 10/12/16 04:41 Hgb 8.8 gm/dl (11.8-15.2) L 10/12/16 04:41 Hct 25.8 % (35.5-45.6) L 10/12/16 04:41 MCV 84 fl (84-94) 10/12/16 04:41 MCH 29 pg (28-32) 10/12/16 04:41 MCHC 34 % (32-34) 10/12/16 04:41 RDW 16.4 % (13.2-15.2) H 10/12/16 04:41 Plt Count 283 K/mm3 (140-440) 10/12/16 04:41 Lymph % (Auto) 8.5 % (13.4-35.0) L 10/12/16 04:41 [place] % (Auto) 9.6 % (0.0-7.3) H 10/12/16 04:41 Eos % (Auto) 6.7 % (0.0-4.3) H 10/12/16 04:41 Baso % (Auto) 1.5 % (0.0-1.8) 10/12/16 04:41 Lymph # 0.9 K/mm3 (1.2-5.4) L 10/12/16 04:41 [place] # 1.1 K/mm3 (0.0-0.8) H 10/12/16 04:41 Eos # 0.7 K/mm3 (0.0-0.4) H 10/12/16 04:41 Baso # 0.2 K/mm3 (0.0-0.1) H 10/12/16 04:41 Add Manual Diff Complete 09/27/16 04:25 Total Counted 100 09/27/16 04:25 Seg Neutrophils % 73.7 % (40.0-70.0) H 10/12/16 04:41 Seg Neuts % (Manual) 82.0 % (40.0-70.0) H 09/27/16 04:25 Band Neutrophils % 6.0 % 09/27/16 04:25 Lymphocytes % (Manual) 8.0 % (13.4-35.0) L 09/27/16 04:25 Reactive Lymphs % (Man) 0 % 09/27/16 04:25 Monocytes % (Manual) 3.0 % (0.0-7.3) 09/27/16 04:25 Eosinophils % (Manual) 0 % (0.0-4.3) 09/27/16 04:25 Basophils % (Manual) 0 % (0.0-1.8) 09/27/16 04:25 Metamyelocytes % 1.0 % 09/27/16 04:25 Myelocytes % 0 % 09/27/16 04:25 Promyelocytes % 0 % 09/27/16 04:25 Blast Cells % 0 % 09/27/16 04:25 Nucleated RBC % Not Reportable 09/27/16 04:25 Seg Neutrophils # 8.3 K/mm3 (1.8-7.7) H 10/12/16 04:41 Seg Neutrophils # Man 15.3 K/mm3 (1.8-7.7) H 09/27/16 04:25 Band Neutrophils # 1.1 K/mm3 09/27/16 04:25 Lymphocytes # (Manual) 1.5 K/mm3 (1.2-5.4) 09/27/16 04:25 Abs React Lymphs (Man) 0.0 K/mm3 09/27/16 04:25 Monocytes # (Manual) 0.6 K/mm3 (0.0-0.8) 09/27/16 04:25 Eosinophils # (Manual) 0.0 K/mm3 (0.0-0.4) 09/27/16 04:25 Basophils # (Manual) 0.0 K/mm3 (0.0-0.1) 09/27/16 04:25 Metamyelocytes # 0.2 K/mm3 09/27/16 04:25 Myelocytes # 0.0 K/mm3 09/27/16 04:25 Promyelocytes # 0.0 K/mm3 09/27/16 04:25 Blast Cells # 0.0 K/mm3 09/27/16 04:25 WBC Morphology Not Reportable 09/27/16 04:25 Hypersegmented Neuts Not Reportable 09/27/16 04:25 Hyposegmented Neuts Not Reportable 09/27/16 04:25 Hypogranular Neuts Not Reportable 09/27/16 04:25 Smudge Cells Not Reportable 09/27/16 04:25 Toxic Granulation Not Reportable 09/27/16 04:25 Toxic Vacuolation Not Reportable 09/27/16 04:25 Dohle Bodies Not Reportable 09/27/16 04:25 Pelger-Huet Anomaly Not Reportable 09/27/16 04:25 Renita Rods Not Reportable 09/27/16 04:25 Platelet Estimate Not Reportable 09/27/16 04:25 Clumped Platelets Not Reportable 09/27/16 04:25 Plt Clumps, EDTA Not Reportable 09/27/16 04:25 Large Platelets Not Reportable 09/27/16 04:25 Giant Platelets Few 09/27/16 04:25 Platelet Satelliting Not Reportable 09/27/16 04:25 Plt Morphology Comment Not Reportable 09/27/16 04:25 RBC Morphology Not Reportable 09/27/16 04:25 Dimorphic RBCs Not Reportable 09/27/16 04:25 Polychromasia Not Reportable 09/27/16 04:25 Hypochromasia Not Reportable 09/27/16 04:25 Poikilocytosis Not Reportable 09/27/16 04:25 Anisocytosis 1+ 09/27/16 04:25 Microcytosis Not Reportable 09/27/16 04:25 Macrocytosis Not Reportable 09/27/16 04:25 Spherocytes Not Reportable 09/27/16 04:25 Pappenheimer Bodies Not Reportable 09/27/16 04:25 Sickle Cells Not Reportable 09/27/16 04:25 Target Cells Not Reportable 09/27/16 04:25 Tear Drop Cells Not Reportable 09/27/16 04:25 Ovalocytes Not Reportable 09/27/16 04:25 Helmet Cells Not Reportable 09/27/16 04:25 [place] Bodies Not Reportable 09/27/16 04:25 [place] Rings Not Reportable 09/27/16 04:25 [place] Cells Not Reportable 09/27/16 04:25 Bite Cells Not Reportable 09/27/16 04:25 Crenated Cell Not Reportable 09/27/16 04:25 Elliptocytes Not Reportable 09/27/16 04:25 Acanthocytes (Spur) Not Reportable 09/27/16 04:25 Rouleaux Not Reportable 09/27/16 04:25 Hemoglobin C Crystals Not Reportable 09/27/16 04:25 Schistocytes Not Reportable 09/27/16 04:25 Malaria parasites Not Reportable 09/27/16 04:25 Azael Bodies Not Reportable 09/27/16 04:25 Hem Pathologist Commnt No 09/27/16 04:25 PT 16.1 Sec. (12.2-14.9) H 10/08/16 Unknown INR 1.30 (0.87-1.13) H 10/08/16 Unknown APTT 31.2 Sec. (24.2-36.6) 10/08/16 Unknown Heparin Anti-Xa Level 0.33 U.I./ml (0.3-0.7) 10/11/16 05:30 Sodium 133 mmol/L (137-145) L 10/12/16 04:41 Potassium 3.5 mmol/L (3.6-5.0) L 10/12/16 04:41 Chloride 94.3 mmol/L (98-107) L 10/12/16 04:41 Carbon Dioxide 25 mmol/L (22-30) 10/12/16 04:41 Anion Gap 17 mmol/L 10/12/16 04:41 BUN 16 mg/dL (9-20) 10/12/16 04:41 Creatinine 4.2 mg/dL (0.8-1.5) H 10/12/16 04:41 Estimated GFR 17 ml/min 10/12/16 04:41 BUN/Creatinine Ratio 3.80 % 10/12/16 04:41 Glucose 89 mg/dL (75-100) 10/12/16 04:41 Osmolality 293 Mosm/kg 10/03/16 14:03 Lactic Acid 2.6 mmol/L (0.7-2.0) H* 09/26/16 10:48 Uric Acid 5.4 mg/dL (3.5-7.6) 10/03/16 09:16 Calcium 7.8 mg/dL (8.4-10.2) L 10/12/16 04:41 Iron 31 ug/dL (49-181) L 10/06/16 17:16 TIBC 168.00 mcg/dL (250-450) L 10/06/16 17:16 Transferrin 120 mg/dl (180-329) L 10/06/16 17:16 Ferritin 488.6 ng/mL (13.0-400.0) H 10/06/16 17:16 Total Creatine Kinase 186 units/L (55-170) H 10/08/16 09:27 Vitamin B12 1268 pg/mL (211-911) H 10/06/16 17:16 Folate 11.86 ng/mL (7.3-26.0) 10/06/16 17:16 Urine Color Yellow (Yellow) 10/03/16 17:00 Urine Turbidity Clear (Clear) 10/03/16 17:00 Urine pH 5.0 (5.0-7.0) 10/03/16 17:00 Ur Specific [place] 1.011 (1.003-1.030) 10/03/16 17:00 Urine Protein <15 mg/dl mg/dL (Negative) 10/03/16 17:00 Urine Glucose (UA) Neg mg/dL (Negative) 10/03/16 17:00 Urine Ketones Neg mg/dL (Negative) 10/03/16 17:00 Urine Blood Neg (Negative) 10/03/16 17:00 Urine Nitrite Neg (Negative) 10/03/16 17:00 Urine Bilirubin Neg (Negative) 10/03/16 17:00 Urine Urobilinogen < 2.0 mg/dL (<2.0) 10/03/16 17:00 Ur Leukocyte Esterase Neg (Negative) 10/03/16 17:00 Urine WBC (Auto) 1.0 /HPF (0.0-6.0) 10/03/16 17:00 Urine RBC (Auto) 1.0 /HPF (0.0-6.0) 10/03/16 17:00 U Epithel Cells (Auto) 5.0 /HPF (0-13.0) 10/03/16 17:00 Urine Bacteria (Auto) 1+ /HPF (Negative) 09/26/16 00:03 Urine Mucus Few /HPF 10/03/16 17:00 Urine Creatinine 100.1 mg/dL (0.1-20.0) H 10/03/16 17:00 Urine Sodium 33 mEq/L 10/03/16 17:00 Urine Total Protein 23 mg/dL (5-11.8) H 10/03/16 17:00 Vancomycin Trough 39.5 ug/mL (5.0-20.0) H 10/01/16 09:07 Random Vancomycin 13.9 ug/mL (0-40.0) 10/12/16 04:41 Blood Type O NEGATIVE 10/06/16 17:16 Antibody Screen Negative 10/06/16 17:16 Crossmatch See Detail 10/06/16 17:16
[2016-10-12] MEDS: ELIQUIS PO SCH ×2 (10:00→22:00)
[2016-10-12] MEDS ORDERED: ELIQUIS PO SCH (10:00)
--- NOTE | 2016-10-12 18:00 | Progress Note ---
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 Objective - Vital Signs Vital signs: Vital Signs - 12hr 10/12/16 10/12/16 10/12/16 07:11 08:00 08:11 Temperature 99.2 F Pulse Rate Pulse Rate [ 97 H Apical] Respiratory 20 18 20 Rate Blood Pressure Blood Pressure 135/75 [Left Arm] O2 Sat by Pulse 99 Oximetry 10/12/16 10/12/16 10/12/16 12:00 14:30 14:43 Temperature 97.4 F L 98.3 F Pulse Rate 92 H 84 Pulse Rate [ 87 Apical] Respiratory 18 18 Rate Blood Pressure 140/76 146/80 Blood Pressure 142/65 [Left Arm] O2 Sat by Pulse 98 Oximetry 10/12/16 10/12/16 10/12/16 14:45 15:00 15:15 Temperature Pulse Rate 88 86 90 Pulse Rate [ Apical] Respiratory Rate Blood Pressure 144/78 138/78 130/80 Blood Pressure [Left Arm] O2 Sat by Pulse Oximetry 10/12/16 10/12/16 10/12/16 15:35 15:45 16:00 Temperature Pulse Rate 84 82 82 Pulse Rate [ Apical] Respiratory Rate Blood Pressure 122/74 136/84 136/84 Blood Pressure [Left Arm] O2 Sat by Pulse Oximetry 10/12/16 10/12/16 10/12/16 16:15 16:30 16:45 Temperature Pulse Rate 82 86 88 Pulse Rate [ Apical] Respiratory Rate Blood Pressure 136/84 136/82 142/84 Blood Pressure [Left Arm] O2 Sat by Pulse Oximetry 10/12/16 10/12/16 10/12/16 17:00 17:15 17:30 Temperature Pulse Rate 90 88 90 Pulse Rate [ Apical] Respiratory Rate Blood Pressure 136/84 156/86 160/88 Blood Pressure [Left Arm] O2 Sat by Pulse Oximetry 10/12/16 10/12/16 17:53 17:54 Temperature 98 F Pulse Rate 88 88 Pulse Rate [ Apical] Respiratory 22 Rate Blood Pressure 160/82 160/80 Blood Pressure [Left Arm] O2 Sat by Pulse Oximetry - General Appearance General appearance: well-developed, well-nourished EENT: ATNC Respiratory: Present: Clear to Ascultation Cardiology: regular, S1S2 Gastrointestinal: normal, no tenderness, no distended Integumentary: no rash Neurologic: alert and oriented x3 Musculoskeletal: other (no edema) Psychiatric: mood/affect appropriate, cooperative - Lab 10/13/16 05:12 10/13/16 05:12 Most recent lab results Calcium 7.8 mg/dL (8.4-10.2) L 10/12/16 04:41 Urine Creatinine 100.1 mg/dL (0.1-20.0) H 10/03/16 17:00 Urine Sodium 33 mEq/L 10/03/16 17:00 Urine Total Protein 23 mg/dL (5-11.8) H 10/03/16 17:00
[2016-10-12] MEDS: HEPARIN IV PRN (18:26)
[2016-10-13 05:38] LABS: Basophils % (Auto) 1.1 % (0.0-1.8); Hematocrit 25.9 % (35.5-45.6); Hemoglobin 8.8 gm/dl (11.8-15.2); Mean Corpuscular HGB Conc 34 % (32-34); Mean Corpuscular Hemoglobin 29 pg (28-32); Mean Corpuscular Volume 85 fl (84-94); Platelet Count 296 K/mm3 (140-440); Red Blood Count 3.07 M/mm3 (3.65-5.03); Red Cell Distribution Width 16.5 % (13.2-15.2); White Blood Count 10.8 K/mm3 (4.5-11.0)
[2016-10-13 06:00] LABS: BUN/Creatinine Ratio 2.85; Calcium 7.9 mg/dL (8.4-10.2); Chloride 98.7 mmol/L (98-107); Potassium 3.8 mmol/L (3.6-5.0)
[2016-10-13] MEDS: CARAFATE PO SCH ×5 (06:00→23:07)
[2016-10-13] MEDS: PERCOCET 5/325 PO PRN ×2 (06:39→19:23)
--- NOTE | 2016-10-13 09:31 | Progress Note ---
Assessment and Plan Assessment and plan: 1. Acute renal failure - most likely due to ATN from vancomycin toxicity- psot HD yesterday with improvement in CR today; follow-up with nephrology for further recommendations and monitor lytes with the hope of renal recovery 2. 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 COnt eliquis; Follow-up with wound care as per vascular 3.-Benign hypertension-currently not on any medications, continue to monitor. Stable 4. HTN (hypertension) 5. LE DVT-cotn eliquis; will need to held if perm cath is going to be placed 6. Acute blood loss anemia from amputation -status post transfusion, H/H stable today; monitor 7. Antral ulcer- s/p EGD and biopsy; cont PPI and carafate; f/u GI as outpatient for biopsy report 8. DVT prophylaxiss- on eliquis History Interval history: f/u acute renal failure; gangrene of RT lower extremity post amputation Patient seen at the bedside; no complaints today; had HD yesterday Hospitalist Physical - Constitutional Vitals: Temp Pulse Resp BP Pulse Ox 99.2 F 94 H 20 147/68 100 10/13/16 07:45 10/13/16 07:45 10/13/16 07:45 10/13/16 07:45 10/13/16 04:00 General appearance: Present: no acute distress, well-nourished - EENT Eyes: Present: PERRL, EOM intact. Absent: scleral icterus, conjunctival injection ENT: hearing intact, no oropharyngeal erythema, no poor dentition - Neck Neck: Present: supple, normal ROM. Absent: enlarged thyroid, masses or JVD - Respiratory Respiratory effort: normal Respiratory: negative: diminished, rales, rhonchi, wheezing - Cardiovascular Rhythm: regular Heart Sounds: Present: S1 & S2. Absent: gallop - Extremities Extremities: no ischemia, pulses intact, pulses symmetrical, No edema, abnormal (RT BKA) Peripheral Pulses: within normal limits - Abdominal General gastrointestinal: soft, non-tender, non-distended, normal bowel sounds - Integumentary Integumentary: Present: clear - Psychiatric Psychiatric: appropriate mood/affect, intact judgment & insight, cooperative - Neurologic Neurologic: CNII-XII intact, moves all extremities Results - Labs CBC & Chem 7: 10/13/16 05:12 10/13/16 05:12 Labs: Laboratory Last Values WBC 10.8 K/mm3 (4.5-11.0) 10/13/16 05:12 RBC 3.07 M/mm3 (3.65-5.03) L 10/13/16 05:12 Hgb 8.8 gm/dl (11.8-15.2) L 10/13/16 05:12 Hct 25.9 % (35.5-45.6) L 10/13/16 05:12 MCV 85 fl (84-94) 10/13/16 05:12 MCH 29 pg (28-32) 10/13/16 05:12 MCHC 34 % (32-34) 10/13/16 05:12 RDW 16.5 % (13.2-15.2) H 10/13/16 05:12 Plt Count 296 K/mm3 (140-440) 10/13/16 05:12 Lymph % (Auto) 9.9 % (13.4-35.0) L 10/13/16 05:12 [place] % (Auto) 10.5 % (0.0-7.3) H 10/13/16 05:12 Eos % (Auto) 7.0 % (0.0-4.3) H 10/13/16 05:12 Baso % (Auto) 1.1 % (0.0-1.8) 10/13/16 05:12 Lymph # 1.1 K/mm3 (1.2-5.4) L 10/13/16 05:12 [place] # 1.1 K/mm3 (0.0-0.8) H 10/13/16 05:12 Eos # 0.8 K/mm3 (0.0-0.4) H 10/13/16 05:12 Baso # 0.1 K/mm3 (0.0-0.1) 10/13/16 05:12 Add Manual Diff Complete 09/27/16 04:25 Total Counted 100 09/27/16 04:25 Seg Neutrophils % 71.5 % (40.0-70.0) H 10/13/16 05:12 Seg Neuts % (Manual) 82.0 % (40.0-70.0) H 09/27/16 04:25 Band Neutrophils % 6.0 % 09/27/16 04:25 Lymphocytes % (Manual) 8.0 % (13.4-35.0) L 09/27/16 04:25 Reactive Lymphs % (Man) 0 % 09/27/16 04:25 Monocytes % (Manual) 3.0 % (0.0-7.3) 09/27/16 04:25 Eosinophils % (Manual) 0 % (0.0-4.3) 09/27/16 04:25 Basophils % (Manual) 0 % (0.0-1.8) 09/27/16 04:25 Metamyelocytes % 1.0 % 09/27/16 04:25 Myelocytes % 0 % 09/27/16 04:25 Promyelocytes % 0 % 09/27/16 04:25 Blast Cells % 0 % 09/27/16 04:25 Nucleated RBC % Not Reportable 09/27/16 04:25 Seg Neutrophils # 7.7 K/mm3 (1.8-7.7) 10/13/16 05:12 Seg Neutrophils # Man 15.3 K/mm3 (1.8-7.7) H 09/27/16 04:25 Band Neutrophils # 1.1 K/mm3 09/27/16 04:25 Lymphocytes # (Manual) 1.5 K/mm3 (1.2-5.4) 09/27/16 04:25 Abs React Lymphs (Man) 0.0 K/mm3 09/27/16 04:25 Monocytes # (Manual) 0.6 K/mm3 (0.0-0.8) 09/27/16 04:25 Eosinophils # (Manual) 0.0 K/mm3 (0.0-0.4) 09/27/16 04:25 Basophils # (Manual) 0.0 K/mm3 (0.0-0.1) 09/27/16 04:25 Metamyelocytes # 0.2 K/mm3 09/27/16 04:25 Myelocytes # 0.0 K/mm3 09/27/16 04:25 Promyelocytes # 0.0 K/mm3 09/27/16 04:25 Blast Cells # 0.0 K/mm3 09/27/16 04:25 WBC Morphology Not Reportable 09/27/16 04:25 Hypersegmented Neuts Not Reportable 09/27/16 04:25 Hyposegmented Neuts Not Reportable 09/27/16 04:25 Hypogranular Neuts Not Reportable 09/27/16 04:25 Smudge Cells Not Reportable 09/27/16 04:25 Toxic Granulation Not Reportable 09/27/16 04:25 Toxic Vacuolation Not Reportable 09/27/16 04:25 Dohle Bodies Not Reportable 09/27/16 04:25 Pelger-Huet Anomaly Not Reportable 09/27/16 04:25 Renita Rods Not Reportable 09/27/16 04:25 Platelet Estimate Not Reportable 09/27/16 04:25 Clumped Platelets Not Reportable 09/27/16 04:25 Plt Clumps, EDTA Not Reportable 09/27/16 04:25 Large Platelets Not Reportable 09/27/16 04:25 Giant Platelets Few 09/27/16 04:25 Platelet Satelliting Not Reportable 09/27/16 04:25 Plt Morphology Comment Not Reportable 09/27/16 04:25 RBC Morphology Not Reportable 09/27/16 04:25 Dimorphic RBCs Not Reportable 09/27/16 04:25 Polychromasia Not Reportable 09/27/16 04:25 Hypochromasia Not Reportable 09/27/16 04:25 Poikilocytosis Not Reportable 09/27/16 04:25 Anisocytosis 1+ 09/27/16 04:25 Microcytosis Not Reportable 09/27/16 04:25 Macrocytosis Not Reportable 09/27/16 04:25 Spherocytes Not Reportable 09/27/16 04:25 Pappenheimer Bodies Not Reportable 09/27/16 04:25 Sickle Cells Not Reportable 09/27/16 04:25 Target Cells Not Reportable 09/27/16 04:25 Tear Drop Cells Not Reportable 09/27/16 04:25 Ovalocytes Not Reportable 09/27/16 04:25 Helmet Cells Not Reportable 09/27/16 04:25 [place] Bodies Not Reportable 09/27/16 04:25 [place] Rings Not Reportable 09/27/16 04:25 [place] Cells Not Reportable 09/27/16 04:25 Bite Cells Not Reportable 09/27/16 04:25 Crenated Cell Not Reportable 09/27/16 04:25 Elliptocytes Not Reportable 09/27/16 04:25 Acanthocytes (Spur) Not Reportable 09/27/16 04:25 Rouleaux Not Reportable 09/27/16 04:25 Hemoglobin C Crystals Not Reportable 09/27/16 04:25 Schistocytes Not Reportable 09/27/16 04:25 Malaria parasites Not Reportable 09/27/16 04:25 Azael Bodies Not Reportable 09/27/16 04:25 Hem Pathologist Commnt No 09/27/16 04:25 PT 16.1 Sec. (12.2-14.9) H 10/08/16 Unknown INR 1.30 (0.87-1.13) H 10/08/16 Unknown APTT 31.2 Sec. (24.2-36.6) 10/08/16 Unknown Heparin Anti-Xa Level 0.33 U.I./ml (0.3-0.7) 10/11/16 05:30 Sodium 138 mmol/L (137-145) 10/13/16 05:12 Potassium 3.8 mmol/L (3.6-5.0) 10/13/16 05:12 Chloride 98.7 mmol/L (98-107) 10/13/16 05:12 Carbon Dioxide 28 mmol/L (22-30) 10/13/16 05:12 Anion Gap 15 mmol/L 10/13/16 05:12 BUN 8 mg/dL (9-20) L 10/13/16 05:12 Creatinine 2.8 mg/dL (0.8-1.5) H 10/13/16 05:12 Estimated GFR 27 ml/min 10/13/16 05:12 BUN/Creatinine Ratio 2.85 % 10/13/16 05:12 Glucose 91 mg/dL (75-100) 10/13/16 05:12 Osmolality 293 Mosm/kg 10/03/16 14:03 Lactic Acid 2.6 mmol/L (0.7-2.0) H* 09/26/16 10:48 Uric Acid 5.4 mg/dL (3.5-7.6) 10/03/16 09:16 Calcium 7.9 mg/dL (8.4-10.2) L 10/13/16 05:12 Iron 31 ug/dL (49-181) L 10/06/16 17:16 TIBC 168.00 mcg/dL (250-450) L 10/06/16 17:16 Transferrin 120 mg/dl (180-329) L 10/06/16 17:16 Ferritin 488.6 ng/mL (13.0-400.0) H 10/06/16 17:16 Total Creatine Kinase 186 units/L (55-170) H 10/08/16 09:27 Vitamin B12 1268 pg/mL (211-911) H 10/06/16 17:16 Folate 11.86 ng/mL (7.3-26.0) 10/06/16 17:16 Urine Color Yellow (Yellow) 10/03/16 17:00 Urine Turbidity Clear (Clear) 10/03/16 17:00 Urine pH 5.0 (5.0-7.0) 10/03/16 17:00 Ur Specific [place] 1.011 (1.003-1.030) 10/03/16 17:00 Urine Protein <15 mg/dl mg/dL (Negative) 10/03/16 17:00 Urine Glucose (UA) Neg mg/dL (Negative) 10/03/16 17:00 Urine Ketones Neg mg/dL (Negative) 10/03/16 17:00 Urine Blood Neg (Negative) 10/03/16 17:00 Urine Nitrite Neg (Negative) 10/03/16 17:00 Urine Bilirubin Neg (Negative) 10/03/16 17:00 Urine Urobilinogen < 2.0 mg/dL (<2.0) 10/03/16 17:00 Ur Leukocyte Esterase Neg (Negative) 10/03/16 17:00 Urine WBC (Auto) 1.0 /HPF (0.0-6.0) 10/03/16 17:00 Urine RBC (Auto) 1.0 /HPF (0.0-6.0) 10/03/16 17:00 U Epithel Cells (Auto) 5.0 /HPF (0-13.0) 10/03/16 17:00 Urine Bacteria (Auto) 1+ /HPF (Negative) 09/26/16 00:03 Urine Mucus Few /HPF 10/03/16 17:00 Urine Creatinine 100.1 mg/dL (0.1-20.0) H 10/03/16 17:00 Urine Sodium 33 mEq/L 10/03/16 17:00 Urine Total Protein 23 mg/dL (5-11.8) H 10/03/16 17:00 Vancomycin Trough 39.5 ug/mL (5.0-20.0) H 10/01/16 09:07 Random Vancomycin 10.1 ug/mL (0-40.0) 10/13/16 05:12 Blood Type O NEGATIVE 10/06/16 17:16 Antibody Screen Negative 10/06/16 17:16 Crossmatch See Detail 10/06/16 17:16
[2016-10-13] MEDS: ELIQUIS PO SCH ×2 (10:57→23:06)
[2016-10-13] MEDS: PROTONIX PO SCH ×2 (10:57→23:07)
[2016-10-13] MEDS: NYSTOP TP SCH ×2 (10:57→23:07)
--- NOTE | 2016-10-13 13:12 | Progress Note ---
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 Objective - Vital Signs Vital signs: Vital Signs - 12hr 10/13/16 10/13/16 10/13/16 04:00 06:39 07:39 Temperature 99.6 F Pulse Rate [ From Monitor] Pulse Rate [ 95 H Left Brachial] Respiratory 20 20 18 Rate Blood Pressure 159/87 [Left Arm] O2 Sat by Pulse 100 Oximetry 10/13/16 10/13/16 07:45 11:00 Temperature 99.2 F 98.6 F Pulse Rate [ 94 H 89 From Monitor] Pulse Rate [ Left Brachial] Respiratory 20 16 Rate Blood Pressure 147/68 140/65 [Left Arm] O2 Sat by Pulse Oximetry - General Appearance General appearance: well-developed, well-nourished EENT: ATNC Respiratory: Present: Clear to Ascultation Cardiology: regular, S1S2 Gastrointestinal: normal, no tenderness, no distended Integumentary: no rash Neurologic: no focal deficit Psychiatric: mood/affect appropriate, cooperative - Lab 10/13/16 05:12 10/13/16 05:12 Most recent lab results Calcium 7.9 mg/dL (8.4-10.2) L 10/13/16 05:12 Urine Creatinine 100.1 mg/dL (0.1-20.0) H 10/03/16 17:00 Urine Sodium 33 mEq/L 10/03/16 17:00 Urine Total Protein 23 mg/dL (5-11.8) H 10/03/16 17:00
[2016-10-14] MEDS: CARAFATE PO SCH ×3 (05:22→18:51)
[2016-10-14 05:28] LABS: Basophils % (Auto) 1.1 % (0.0-1.8); Eosinophils % (Auto) 8.6 % (0.0-4.3); Hematocrit 26.7 % (35.5-45.6); Hemoglobin 9.1 gm/dl (11.8-15.2); Mean Corpuscular HGB Conc 34 % (32-34); Mean Corpuscular Hemoglobin 29 pg (28-32); Mean Corpuscular Volume 85 fl (84-94); Platelet Count 328 K/mm3 (140-440); Red Blood Count 3.16 M/mm3 (3.65-5.03); White Blood Count 9.7 K/mm3 (4.5-11.0)
[2016-10-14 05:52] LABS: BUN/Creatinine Ratio 2.97; Calcium 8.1 mg/dL (8.4-10.2); Chloride 99.3 mmol/L (98-107); Potassium 3.8 mmol/L (3.6-5.0)
--- NOTE | 2016-10-14 10:05 | Progress Note ---
Assessment and Plan Assessment and plan: 1. Acute renal failure - most likely due to ATN from vancomycin toxicity- follow -up with nephrology for further recommendations and monitor lytes with the hope of renal recovery; for 24 hr Cr CL as per renal to start today; cr increased today 2. 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 COnt eliquis; Follow-up with wound care as per vascular 3.-Benign hypertension-currently not on any medications, continue to monitor. Stable 4. HTN (hypertension) 5. LE DVT-cotn eliquis; will need to be held if perm cath is going to be placed 6. Acute blood loss anemia from amputation -status post transfusion, H/H stable today; monitor 7. Antral ulcer- s/p EGD and biopsy; cont PPI and carafate; f/u GI as outpatient for biopsy report 8. DVT prophylaxiss- on eliquis History Interval history: f/u acute renal failure; gangrene of RT lower extremity post amputation Patient seen at the bedside; no complaints today; Hospitalist Physical - Constitutional Vitals: Temp Pulse Resp BP Pulse Ox 99.6 F 94 H 18 161/86 100 10/14/16 08:31 10/14/16 08:31 10/14/16 08:31 10/14/16 08:31 10/14/16 08:31 General appearance: Present: no acute distress, well-nourished - EENT Eyes: Present: PERRL, EOM intact. Absent: scleral icterus, conjunctival injection ENT: hearing intact, clear oral mucosa, no oropharyngeal erythema, no poor dentition - Neck Neck: Present: supple, normal ROM. Absent: enlarged thyroid, masses or JVD - Respiratory Respiratory effort: normal Respiratory: negative: diminished, rales, rhonchi, wheezing - Cardiovascular Rhythm: regular Heart Sounds: Present: S1 & S2. Absent: gallop - Extremities Extremities: no ischemia, pulses intact, pulses symmetrical, abnormal (RT BKA) Peripheral Pulses: within normal limits - Abdominal General gastrointestinal: soft, non-tender, non-distended, normal bowel sounds - Integumentary Integumentary: Present: clear - Psychiatric Psychiatric: appropriate mood/affect, intact judgment & insight, cooperative - Neurologic Neurologic: CNII-XII intact, moves all extremities Results - Labs CBC & Chem 7: 10/14/16 04:57 10/14/16 04:57 Labs: Laboratory Last Values WBC 9.7 K/mm3 (4.5-11.0) 10/14/16 04:57 RBC 3.16 M/mm3 (3.65-5.03) L 10/14/16 04:57 Hgb 9.1 gm/dl (11.8-15.2) L 10/14/16 04:57 Hct 26.7 % (35.5-45.6) L 10/14/16 04:57 MCV 85 fl (84-94) 10/14/16 04:57 MCH 29 pg (28-32) 10/14/16 04:57 MCHC 34 % (32-34) 10/14/16 04:57 RDW 17.0 % (13.2-15.2) H 10/14/16 04:57 Plt Count 328 K/mm3 (140-440) 10/14/16 04:57 Lymph % (Auto) 10.7 % (13.4-35.0) L 10/14/16 04:57 [place] % (Auto) 9.5 % (0.0-7.3) H 10/14/16 04:57 Eos % (Auto) 8.6 % (0.0-4.3) H 10/14/16 04:57 Baso % (Auto) 1.1 % (0.0-1.8) 10/14/16 04:57 Lymph # 1.0 K/mm3 (1.2-5.4) L 10/14/16 04:57 [place] # 0.9 K/mm3 (0.0-0.8) H 10/14/16 04:57 Eos # 0.8 K/mm3 (0.0-0.4) H 10/14/16 04:57 Baso # 0.1 K/mm3 (0.0-0.1) 10/14/16 04:57 Add Manual Diff Complete 09/27/16 04:25 Total Counted 100 09/27/16 04:25 Seg Neutrophils % 70.1 % (40.0-70.0) H 10/14/16 04:57 Seg Neuts % (Manual) 82.0 % (40.0-70.0) H 09/27/16 04:25 Band Neutrophils % 6.0 % 09/27/16 04:25 Lymphocytes % (Manual) 8.0 % (13.4-35.0) L 09/27/16 04:25 Reactive Lymphs % (Man) 0 % 09/27/16 04:25 Monocytes % (Manual) 3.0 % (0.0-7.3) 09/27/16 04:25 Eosinophils % (Manual) 0 % (0.0-4.3) 09/27/16 04:25 Basophils % (Manual) 0 % (0.0-1.8) 09/27/16 04:25 Metamyelocytes % 1.0 % 09/27/16 04:25 Myelocytes % 0 % 09/27/16 04:25 Promyelocytes % 0 % 09/27/16 04:25 Blast Cells % 0 % 09/27/16 04:25 Nucleated RBC % Not Reportable 09/27/16 04:25 Seg Neutrophils # 6.8 K/mm3 (1.8-7.7) 10/14/16 04:57 Seg Neutrophils # Man 15.3 K/mm3 (1.8-7.7) H 09/27/16 04:25 Band Neutrophils # 1.1 K/mm3 09/27/16 04:25 Lymphocytes # (Manual) 1.5 K/mm3 (1.2-5.4) 09/27/16 04:25 Abs React Lymphs (Man) 0.0 K/mm3 09/27/16 04:25 Monocytes # (Manual) 0.6 K/mm3 (0.0-0.8) 09/27/16 04:25 Eosinophils # (Manual) 0.0 K/mm3 (0.0-0.4) 09/27/16 04:25 Basophils # (Manual) 0.0 K/mm3 (0.0-0.1) 09/27/16 04:25 Metamyelocytes # 0.2 K/mm3 09/27/16 04:25 Myelocytes # 0.0 K/mm3 09/27/16 04:25 Promyelocytes # 0.0 K/mm3 09/27/16 04:25 Blast Cells # 0.0 K/mm3 09/27/16 04:25 WBC Morphology Not Reportable 09/27/16 04:25 Hypersegmented Neuts Not Reportable 09/27/16 04:25 Hyposegmented Neuts Not Reportable 09/27/16 04:25 Hypogranular Neuts Not Reportable 09/27/16 04:25 Smudge Cells Not Reportable 09/27/16 04:25 Toxic Granulation Not Reportable 09/27/16 04:25 Toxic Vacuolation Not Reportable 09/27/16 04:25 Dohle Bodies Not Reportable 09/27/16 04:25 Pelger-Huet Anomaly Not Reportable 09/27/16 04:25 Renita Rods Not Reportable 09/27/16 04:25 Platelet Estimate Not Reportable 09/27/16 04:25 Clumped Platelets Not Reportable 09/27/16 04:25 Plt Clumps, EDTA Not Reportable 09/27/16 04:25 Large Platelets Not Reportable 09/27/16 04:25 Giant Platelets Few 09/27/16 04:25 Platelet Satelliting Not Reportable 09/27/16 04:25 Plt Morphology Comment Not Reportable 09/27/16 04:25 RBC Morphology Not Reportable 09/27/16 04:25 Dimorphic RBCs Not Reportable 09/27/16 04:25 Polychromasia Not Reportable 09/27/16 04:25 Hypochromasia Not Reportable 09/27/16 04:25 Poikilocytosis Not Reportable 09/27/16 04:25 Anisocytosis 1+ 09/27/16 04:25 Microcytosis Not Reportable 09/27/16 04:25 Macrocytosis Not Reportable 09/27/16 04:25 Spherocytes Not Reportable 09/27/16 04:25 Pappenheimer Bodies Not Reportable 09/27/16 04:25 Sickle Cells Not Reportable 09/27/16 04:25 Target Cells Not Reportable 09/27/16 04:25 Tear Drop Cells Not Reportable 09/27/16 04:25 Ovalocytes Not Reportable 09/27/16 04:25 Helmet Cells Not Reportable 09/27/16 04:25 [place] Bodies Not Reportable 09/27/16 04:25 [place] Rings Not Reportable 09/27/16 04:25 [place] Cells Not Reportable 09/27/16 04:25 Bite Cells Not Reportable 09/27/16 04:25 Crenated Cell Not Reportable 09/27/16 04:25 Elliptocytes Not Reportable 09/27/16 04:25 Acanthocytes (Spur) Not Reportable 09/27/16 04:25 Rouleaux Not Reportable 09/27/16 04:25 Hemoglobin C Crystals Not Reportable 09/27/16 04:25 Schistocytes Not Reportable 09/27/16 04:25 Malaria parasites Not Reportable 09/27/16 04:25 Azael Bodies Not Reportable 09/27/16 04:25 Hem Pathologist Commnt No 09/27/16 04:25 PT 16.1 Sec. (12.2-14.9) H 10/08/16 Unknown INR 1.30 (0.87-1.13) H 10/08/16 Unknown APTT 31.2 Sec. (24.2-36.6) 10/08/16 Unknown Heparin Anti-Xa Level 0.33 U.I./ml (0.3-0.7) 10/11/16 05:30 Sodium 139 mmol/L (137-145) 10/14/16 04:57 Potassium 3.8 mmol/L (3.6-5.0) 10/14/16 04:57 Chloride 99.3 mmol/L (98-107) 10/14/16 04:57 Carbon Dioxide 25 mmol/L (22-30) 10/14/16 04:57 Anion Gap 19 mmol/L 10/14/16 04:57 BUN 11 mg/dL (9-20) 10/14/16 04:57 Creatinine 3.7 mg/dL (0.8-1.5) H 10/14/16 04:57 Estimated GFR 20 ml/min 10/14/16 04:57 BUN/Creatinine Ratio 2.97 % 10/14/16 04:57 Glucose 73 mg/dL (75-100) L 10/14/16 04:57 Osmolality 293 Mosm/kg 10/03/16 14:03 Lactic Acid 2.6 mmol/L (0.7-2.0) H* 09/26/16 10:48 Uric Acid 5.4 mg/dL (3.5-7.6) 10/03/16 09:16 Calcium 8.1 mg/dL (8.4-10.2) L 10/14/16 04:57 Iron 31 ug/dL (49-181) L 10/06/16 17:16 TIBC 168.00 mcg/dL (250-450) L 10/06/16 17:16 Transferrin 120 mg/dl (180-329) L 10/06/16 17:16 Ferritin 488.6 ng/mL (13.0-400.0) H 10/06/16 17:16 Total Creatine Kinase 186 units/L (55-170) H 10/08/16 09:27 Vitamin B12 1268 pg/mL (211-911) H 10/06/16 17:16 Folate 11.86 ng/mL (7.3-26.0) 10/06/16 17:16 Urine Color Yellow (Yellow) 10/03/16 17:00 Urine Turbidity Clear (Clear) 10/03/16 17:00 Urine pH 5.0 (5.0-7.0) 10/03/16 17:00 Ur Specific [place] 1.011 (1.003-1.030) 10/03/16 17:00 Urine Protein <15 mg/dl mg/dL (Negative) 10/03/16 17:00 Urine Glucose (UA) Neg mg/dL (Negative) 10/03/16 17:00 Urine Ketones Neg mg/dL (Negative) 10/03/16 17:00 Urine Blood Neg (Negative) 10/03/16 17:00 Urine Nitrite Neg (Negative) 10/03/16 17:00 Urine Bilirubin Neg (Negative) 10/03/16 17:00 Urine Urobilinogen < 2.0 mg/dL (<2.0) 10/03/16 17:00 Ur Leukocyte Esterase Neg (Negative) 10/03/16 17:00 Urine WBC (Auto) 1.0 /HPF (0.0-6.0) 10/03/16 17:00 Urine RBC (Auto) 1.0 /HPF (0.0-6.0) 10/03/16 17:00 U Epithel Cells (Auto) 5.0 /HPF (0-13.0) 10/03/16 17:00 Urine Bacteria (Auto) 1+ /HPF (Negative) 09/26/16 00:03 Urine Mucus Few /HPF 10/03/16 17:00 Urine Creatinine 100.1 mg/dL (0.1-20.0) H 10/03/16 17:00 Urine Sodium 33 mEq/L 10/03/16 17:00 Urine Total Protein 23 mg/dL (5-11.8) H 10/03/16 17:00 Vancomycin Trough 39.5 ug/mL (5.0-20.0) H 10/01/16 09:07 Random Vancomycin 10.1 ug/mL (0-40.0) 10/13/16 05:12 Blood Type O NEGATIVE 10/06/16 17:16 Antibody Screen Negative 10/06/16 17:16 Crossmatch See Detail 10/06/16 17:16
[2016-10-14] MEDS: ELIQUIS PO SCH ×2 (10:30→22:51)
[2016-10-14] MEDS: PROTONIX PO SCH ×2 (10:30→22:52)
[2016-10-14] MEDS: NYSTOP TP SCH ×2 (10:30→22:52)
--- NOTE | 2016-10-14 11:24 | Progress Note ---
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 Objective - Vital Signs Vital signs: Vital Signs - 12hr 10/14/16 10/14/16 03:08 08:31 Temperature 98.4 F 99.6 F Pulse Rate [ 94 H Apical] Pulse Rate [ 76 From Monitor] Respiratory 20 18 Rate Blood Pressure 161/86 [Left Arm] O2 Sat by Pulse 100 100 Oximetry - General Appearance General appearance: well-developed, well-nourished EENT: ATNC Respiratory: Present: Clear to Ascultation Cardiology: regular, S1S2 Gastrointestinal: normal, no tenderness, no distended Integumentary: no rash Neurologic: alert and oriented x3 Musculoskeletal: other (right arm swelling) Psychiatric: cooperative - Lab 10/14/16 04:57 10/14/16 04:57 Most recent lab results Calcium 8.1 mg/dL (8.4-10.2) L 10/14/16 04:57 Urine Creatinine 100.1 mg/dL (0.1-20.0) H 10/03/16 17:00 Urine Sodium 33 mEq/L 10/03/16 17:00 Urine Total Protein 23 mg/dL (5-11.8) H 10/03/16 17:00
[2016-10-14] MEDS: PERCOCET 5/325 PO PRN (13:47)
[2016-10-15 05:42] LABS: Basophils % (Auto) 0.3 % (0.0-1.8); Eosinophils % (Auto) 7.2 % (0.0-4.3); Hematocrit 25.9 % (35.5-45.6); Hemoglobin 8.8 gm/dl (11.8-15.2); Mean Corpuscular HGB Conc 34 % (32-34); Mean Corpuscular Hemoglobin 29 pg (28-32); Mean Corpuscular Volume 84 fl (84-94); Platelet Count 337 K/mm3 (140-440); Red Blood Count 3.09 M/mm3 (3.65-5.03); Red Cell Distribution Width 16.7 % (13.2-15.2); White Blood Count 10.4 K/mm3 (4.5-11.0)
[2016-10-15 06:01] LABS: BUN/Creatinine Ratio 3.25; Calcium 7.8 mg/dL (8.4-10.2); Potassium 3.5 mmol/L (3.6-5.0)
[2016-10-15] MEDS: CARAFATE PO SCH ×5 (06:18→23:30)
--- NOTE | 2016-10-15 08:04 | Vascular Lab Report ---
RIGHT UPPER EXTREMITY VENOUS DUPLEX: REASON FOR EXAM: Right arm swelling COMMENTS ON THE RIGHT: All arm veins visualized are freely compressible without evidence of internal echogenicity. The subclavian and internal jugular veins are free of thrombus. Flow is spontaneous and phasic throughout. COMMENTS ON THE LEFT: The subclavian and internal jugular veins are free of thrombus. IMPRESSION: No evidence of acute or chronic deep venous thrombosis in the right upper extremity.
[2016-10-15] MEDS: ELIQUIS PO SCH ×2 (09:20→22:00)
[2016-10-15] MEDS: PROTONIX PO SCH ×2 (09:20→22:00)
--- NOTE | 2016-10-15 09:43 | Progress Note ---
Assessment and Plan Assessment and plan: 1. Acute renal failure - most likely due to ATN from vancomycin toxicity- follow -up with nephrology for further recommendations and monitor lytes; for 24 hr Cr CL as per renal; cr continues to increase today 2. Cellulitis of the RT hand and forearm- start clindamycin IV; elevate limb; get CT of the hand to r/o deep space infection and will consult sx if deep infection on CT 3. 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 COnt eliquis; Follow-up with wound care as per vascular 4.-Benign hypertension-currently not on any medications, continue to monitor. Stable 5. HTN (hypertension) 6. LE DVT-cotn eliquis; will need to be held if perm cath is going to be placed 7. Acute blood loss anemia from amputation -status post transfusion, H/H stable today; monitor 8. Antral ulcer- s/p EGD and biopsy; cont PPI and carafate; f/u GI as outpatient for biopsy report 9. DVT prophylaxiss- on eliquis History Interval history: f/u acute renal failure; gangrene of RT lower extremity post amputation Patient seen at the bedside; complained of pain and swelling og the RT hand and forearm Hospitalist Physical - Constitutional Vitals: Temp Pulse Resp BP Pulse Ox 99.5 F 96 H 20 156/76 99 10/15/16 07:25 10/15/16 07:25 10/15/16 07:25 10/15/16 07:25 10/15/16 02:16 General appearance: Present: no acute distress, well-nourished - EENT Eyes: Present: PERRL, EOM intact. Absent: scleral icterus, conjunctival injection ENT: hearing intact, clear oral mucosa, no oropharyngeal erythema, no poor dentition - Neck Neck: Present: supple, normal ROM. Absent: enlarged thyroid, masses or JVD - Respiratory Respiratory: negative: diminished, rales, rhonchi, wheezing - Cardiovascular Rhythm: regular Heart Sounds: Present: S1 & S2. Absent: gallop - Extremities Extremities: no ischemia, pulses intact, pulses symmetrical, abnormal (dorsum of the rt hand swollen extending up to the forearm; able to move fingers; warm to touch; no break in the skin ) Results - Labs CBC & Chem 7: 10/15/16 05:06 10/15/16 05:06 Labs: Laboratory Last Values WBC 10.4 K/mm3 (4.5-11.0) 10/15/16 05:06 RBC 3.09 M/mm3 (3.65-5.03) L 10/15/16 05:06 Hgb 8.8 gm/dl (11.8-15.2) L 10/15/16 05:06 Hct 25.9 % (35.5-45.6) L 10/15/16 05:06 MCV 84 fl (84-94) 10/15/16 05:06 MCH 29 pg (28-32) 10/15/16 05:06 MCHC 34 % (32-34) 10/15/16 05:06 RDW 16.7 % (13.2-15.2) H 10/15/16 05:06 Plt Count 337 K/mm3 (140-440) 10/15/16 05:06 Lymph % (Auto) 11.6 % (13.4-35.0) L 10/15/16 05:06 [place] % (Auto) 10.7 % (0.0-7.3) H 10/15/16 05:06 Eos % (Auto) 7.2 % (0.0-4.3) H 10/15/16 05:06 Baso % (Auto) 0.3 % (0.0-1.8) 10/15/16 05:06 Lymph # 1.2 K/mm3 (1.2-5.4) 10/15/16 05:06 Talbot # 1.1 K/mm3 (0.0-0.8) H 10/15/16 05:06 Eos # 0.7 K/mm3 (0.0-0.4) H 10/15/16 05:06 Baso # 0.0 K/mm3 (0.0-0.1) 10/15/16 05:06 Add Manual Diff Complete 09/27/16 04:25 Total Counted 100 09/27/16 04:25 Seg Neutrophils % 70.2 % (40.0-70.0) H 10/15/16 05:06 Seg Neuts % (Manual) 82.0 % (40.0-70.0) H 09/27/16 04:25 Band Neutrophils % 6.0 % 09/27/16 04:25 Lymphocytes % (Manual) 8.0 % (13.4-35.0) L 09/27/16 04:25 Reactive Lymphs % (Man) 0 % 09/27/16 04:25 Monocytes % (Manual) 3.0 % (0.0-7.3) 09/27/16 04:25 Eosinophils % (Manual) 0 % (0.0-4.3) 09/27/16 04:25 Basophils % (Manual) 0 % (0.0-1.8) 09/27/16 04:25 Metamyelocytes % 1.0 % 09/27/16 04:25 Myelocytes % 0 % 09/27/16 04:25 Promyelocytes % 0 % 09/27/16 04:25 Blast Cells % 0 % 09/27/16 04:25 Nucleated RBC % Not Reportable 09/27/16 04:25 Seg Neutrophils # 7.3 K/mm3 (1.8-7.7) 10/15/16 05:06 Seg Neutrophils # Man 15.3 K/mm3 (1.8-7.7) H 09/27/16 04:25 Band Neutrophils # 1.1 K/mm3 09/27/16 04:25 Lymphocytes # (Manual) 1.5 K/mm3 (1.2-5.4) 09/27/16 04:25 Abs React Lymphs (Man) 0.0 K/mm3 09/27/16 04:25 Monocytes # (Manual) 0.6 K/mm3 (0.0-0.8) 09/27/16 04:25 Eosinophils # (Manual) 0.0 K/mm3 (0.0-0.4) 09/27/16 04:25 Basophils # (Manual) 0.0 K/mm3 (0.0-0.1) 09/27/16 04:25 Metamyelocytes # 0.2 K/mm3 09/27/16 04:25 Myelocytes # 0.0 K/mm3 09/27/16 04:25 Promyelocytes # 0.0 K/mm3 09/27/16 04:25 Blast Cells # 0.0 K/mm3 09/27/16 04:25 WBC Morphology Not Reportable 09/27/16 04:25 Hypersegmented Neuts Not Reportable 09/27/16 04:25 Hyposegmented Neuts Not Reportable 09/27/16 04:25 Hypogranular Neuts Not Reportable 09/27/16 04:25 Smudge Cells Not Reportable 09/27/16 04:25 Toxic Granulation Not Reportable 09/27/16 04:25 Toxic Vacuolation Not Reportable 09/27/16 04:25 Dohle Bodies Not Reportable 09/27/16 04:25 Pelger-Huet Anomaly Not Reportable 09/27/16 04:25 Renita Rods Not Reportable 09/27/16 04:25 Platelet Estimate Not Reportable 09/27/16 04:25 Clumped Platelets Not Reportable 09/27/16 04:25 Plt Clumps, EDTA Not Reportable 09/27/16 04:25 Large Platelets Not Reportable 09/27/16 04:25 Giant Platelets Few 09/27/16 04:25 Platelet Satelliting Not Reportable 09/27/16 04:25 Plt Morphology Comment Not Reportable 09/27/16 04:25 RBC Morphology Not Reportable 09/27/16 04:25 Dimorphic RBCs Not Reportable 09/27/16 04:25 Polychromasia Not Reportable 09/27/16 04:25 Hypochromasia Not Reportable 09/27/16 04:25 Poikilocytosis Not Reportable 09/27/16 04:25 Anisocytosis 1+ 09/27/16 04:25 Microcytosis Not Reportable 09/27/16 04:25 Macrocytosis Not Reportable 09/27/16 04:25 Spherocytes Not Reportable 09/27/16 04:25 Pappenheimer Bodies Not Reportable 09/27/16 04:25 Sickle Cells Not Reportable 09/27/16 04:25 Target Cells Not Reportable 09/27/16 04:25 Tear Drop Cells Not Reportable 09/27/16 04:25 Ovalocytes Not Reportable 09/27/16 04:25 Helmet Cells Not Reportable 09/27/16 04:25 [place] Bodies Not Reportable 09/27/16 04:25 [place] Rings Not Reportable 09/27/16 04:25 Abhilash Cells Not Reportable 09/27/16 04:25 Bite Cells Not Reportable 09/27/16 04:25 Crenated Cell Not Reportable 09/27/16 04:25 Elliptocytes Not Reportable 09/27/16 04:25 Acanthocytes (Spur) Not Reportable 09/27/16 04:25 Rouleaux Not Reportable 09/27/16 04:25 Hemoglobin C Crystals Not Reportable 09/27/16 04:25 Schistocytes Not Reportable 09/27/16 04:25 Malaria parasites Not Reportable 09/27/16 04:25 Azael Bodies Not Reportable 09/27/16 04:25 Hem Pathologist Commnt No 09/27/16 04:25 PT 16.1 Sec. (12.2-14.9) H 10/08/16 Unknown INR 1.30 (0.87-1.13) H 10/08/16 Unknown APTT 31.2 Sec. (24.2-36.6) 10/08/16 Unknown Heparin Anti-Xa Level 0.33 U.I./ml (0.3-0.7) 10/11/16 05:30 Sodium 136 mmol/L (137-145) L 10/15/16 05:06 Potassium 3.5 mmol/L (3.6-5.0) L 10/15/16 05:06 Chloride 97.0 mmol/L (98-107) L 10/15/16 05:06 Carbon Dioxide 25 mmol/L (22-30) 10/15/16 05:06 Anion Gap 18 mmol/L 10/15/16 05:06 BUN 13 mg/dL (9-20) 10/15/16 05:06 Creatinine 4.0 mg/dL (0.8-1.5) H 10/15/16 05:06 Estimated GFR 18 ml/min 10/15/16 05:06 BUN/Creatinine Ratio 3.25 % 10/15/16 05:06 Glucose 89 mg/dL (75-100) 10/15/16 05:06 Osmolality 293 Mosm/kg 10/03/16 14:03 Lactic Acid 2.6 mmol/L (0.7-2.0) H* 09/26/16 10:48 Uric Acid 5.4 mg/dL (3.5-7.6) 10/03/16 09:16 Calcium 7.8 mg/dL (8.4-10.2) L 10/15/16 05:06 Iron 31 ug/dL (49-181) L 10/06/16 17:16 TIBC 168.00 mcg/dL (250-450) L 10/06/16 17:16 Transferrin 120 mg/dl (180-329) L 10/06/16 17:16 Ferritin 488.6 ng/mL (13.0-400.0) H 10/06/16 17:16 Total Creatine Kinase 186 units/L (55-170) H 10/08/16 09:27 Vitamin B12 1268 pg/mL (211-911) H 10/06/16 17:16 Folate 11.86 ng/mL (7.3-26.0) 10/06/16 17:16 Urine Color Yellow (Yellow) 10/03/16 17:00 Urine Turbidity Clear (Clear) 10/03/16 17:00 Urine pH 5.0 (5.0-7.0) 10/03/16 17:00 Ur Specific [place] 1.011 (1.003-1.030) 10/03/16 17:00 Urine Protein <15 mg/dl mg/dL (Negative) 10/03/16 17:00 Urine Glucose (UA) Neg mg/dL (Negative) 10/03/16 17:00 Urine Ketones Neg mg/dL (Negative) 10/03/16 17:00 Urine Blood Neg (Negative) 10/03/16 17:00 Urine Nitrite Neg (Negative) 10/03/16 17:00 Urine Bilirubin Neg (Negative) 10/03/16 17:00 Urine Urobilinogen < 2.0 mg/dL (<2.0) 10/03/16 17:00 Ur Leukocyte Esterase Neg (Negative) 10/03/16 17:00 Urine WBC (Auto) 1.0 /HPF (0.0-6.0) 10/03/16 17:00 Urine RBC (Auto) 1.0 /HPF (0.0-6.0) 10/03/16 17:00 U Epithel Cells (Auto) 5.0 /HPF (0-13.0) 10/03/16 17:00 Urine Bacteria (Auto) 1+ /HPF (Negative) 09/26/16 00:03 Urine Mucus Few /HPF 10/03/16 17:00 Urine Creatinine 100.1 mg/dL (0.1-20.0) H 10/03/16 17:00 Urine Sodium 33 mEq/L 10/03/16 17:00 Urine Total Protein 23 mg/dL (5-11.8) H 10/03/16 17:00 Vancomycin Trough 39.5 ug/mL (5.0-20.0) H 10/01/16 09:07 Random Vancomycin 10.1 ug/mL (0-40.0) 10/13/16 05:12 Blood Type O NEGATIVE 10/06/16 17:16 Antibody Screen Negative 10/06/16 17:16 Crossmatch See Detail 10/06/16 17:16 RUE VENOUS DUPLEX COMPLETED. VAS LAB PRELIMINARY REPORT; NO EVIDENCE OF DVT/SVT NOTED IN VESSELS/SEGMENTS EXAMINED. PHYSICIANS REPORT TO FOLLOW...(RSK
[2016-10-15] MEDS: CLEOCIN 900 MG/50 mL 50 ML IV SCH ×3 (11:00→22:00)
[2016-10-15] MEDS: NYSTOP TP SCH ×2 (11:05→22:00)
--- NOTE | 2016-10-15 14:14 | Consultation ---
History of Present Illness - HPI Consult date: 10/15/16 Consult reason: other History of present illness: Swelling right hand .Right-handed male, developed a swelling right hand, he does gives history of multiple needle punctures, placement of intravenous line or the dorsal right hand. No complaints of pain, he is afebrile. Past History Past Medical History: hypertension Past Surgical History: Other (ex lap) Social history: single, lives with family, smoking, alcohol abuse Family history: hypertension Medications and Allergies Allergies Allergy/AdvReac Type Severity Reaction Status Date / Time No Known Allergies Allergy Unverified 09/25/16 20:45 Home Medications Medication Instructions Recorded Confirmed Last Taken Type Unobtainable 09/26/16 09/26/16 Unknown History Active Meds: Active Medications Acetaminophen (Tylenol) 650 mg PO Q4H PRN PRN Reason: Pain MILD(1-3)/Fever >100.5/CAZARES Last Admin: 10/07/16 17:50 Dose: 650 mg Albuterol (Proventil) 2.5 mg IH Q4HRT PRN PRN Reason: wheezing Apixaban (Eliquis) 5 mg PO Q12HR SUPRIYA Last Admin: 10/15/16 09:20 Dose: 5 mg Heparin Sodium (Porcine) (Heparin) 5,000 unit IV NOE PRN; Protocol PRN Reason: hemodialysis Last Admin: 10/12/16 18:26 Dose: 5,000 unit Hydromorphone HCl (Dilaudid) 0.5 mg IV Q3H PRN PRN Reason: Pain , Severe (7-10) Hydromorphone HCl (Dilaudid) 0.5 mg IV Q5MIN PRN PRN Reason: Chest Pain Last Admin: 10/01/16 13:00 Dose: 0.5 mg Sodium Chloride (Nacl 0.9% 1000 Ml) 100 mls @ 999 mls/hr IV NOE PRN PRN Reason: Hypotension Sodium Chloride (Nacl 0.9% 1000 Ml) 1,000 mls @ 50 mls/hr IV DIRECT SUPRIYA Last Admin: 10/10/16 14:19 Dose: 50 mls/hr Clindamycin HCl (Cleocin 900 Mg/50 Ml) 50 mls @ 100 mls/hr IV Q8HR SUPRIYA PRN Reason: Protocol Last Admin: 10/15/16 11:00 Dose: 100 mls/hr Morphine Sulfate (Morphine) 2 mg IV Q4H PRN PRN Reason: Pain , Severe (7-10) Last Admin: 10/10/16 10:38 Dose: 2 mg Nystatin (Nystop) 1 applic TP BID [facility] Last Admin: 10/15/16 11:05 Dose: 1 applic Oxycodone/Acetaminophen (Percocet 5/325) 2 tab PO Q6H PRN PRN Reason: Pain, Moderate (4-6) Last Admin: 10/14/16 13:47 Dose: 2 tab Pantoprazole Sodium (Protonix) 40 mg PO BID [facility] Last Admin: 10/15/16 09:20 Dose: 40 mg Sucralfate (Carafate) 1 gm PO Q6HR [facility] Last Admin: 10/15/16 12:22 Dose: 1 gm Review of Systems All systems: negative Physical Examination - Wrist & Hand right Location of pain: other (Right hand with diffuse dorsal swelling, limited range of motion secondary to swelling. No neurovascular deficit, no redness, induration. Swelling extends to the wrist. No evidence of compartment syndrome , able to form a near full fist.) Assessment and Plan Swelling appear secondary to possible cellulitis, possible extravasation of intravenous fluids. His nails are compartment syndrome, abscessed formation. We'll treat this with elevation, local ice packs, splenial wrist and functional position. We'll closely watch. Do not see any surgical indications point.
[2016-10-15] MEDS: PERCOCET 5/325 PO PRN (18:49)
--- NOTE | 2016-10-15 18:56 | Cat Scan Report ---
FINAL REPORT PROCEDURE: CT right hand without contrast. TECHNIQUE: Computerized axial tomography was performed of the RIGHT hand. HISTORY: Swelling of right hand, rule out deep space infection. COMPARISON: No prior studies are available for comparison. FINDINGS: The bones appear intact without fracture. There is no evidence of osteomyelitis. 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 There is subcutaneous edema. There is no evidence of a focal fluid collection compatible with an abscess. IMPRESSION: Subcutaneous edema. No definite abscess identified.
--- NOTE | 2016-10-16 03:08 | Progress Note ---
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 * LE DVT * HTN * Anemia * RUE swelling - negative doppler u/s Plan: * No evidence of renal recovery. Resume HD TTS * RUE u/s negative; note ortho recs * Continue antiHTN medications * Anticoagulation per primary team * Strict I/O * Avoid nephrotoxins Subjective Date of service: 10/15/16 Principal diagnosis: rhonda Interval history: Patient has no complaints today. Objective - Vital Signs Vital signs: Vital Signs - 12hr 10/15/16 16:10 Temperature 99.5 F Pulse Rate [ 97 H From Monitor] Respiratory 22 Rate Blood Pressure 142/79 [Left Arm] - General Appearance General appearance: well-developed, well-nourished EENT: ATNC Respiratory: Present: Clear to Ascultation Cardiology: regular, S1S2 Gastrointestinal: normal Integumentary: no rash Neurologic: no focal deficit Musculoskeletal: other (no AFTAB; right hand/wrist wrapped in TOSHA bandage) Psychiatric: mood/affect appropriate - Lab 10/15/16 05:06 10/15/16 05:06 Most recent lab results Calcium 7.8 mg/dL (8.4-10.2) L 10/15/16 05:06 Urine Creatinine 61.1 mg/dL (0.1-20.0) H 10/15/16 12:30 Urine Sodium 33 mEq/L 10/03/16 17:00 Urine Total Protein 23 mg/dL (5-11.8) H 10/03/16 17:00
[2016-10-16] MEDS ORDERED: NACL 0.9% 1000 ML 100 ML IV PRN (03:11)
[2016-10-16 06:10] LABS: BUN/Creatinine Ratio 3.75; Calcium 7.8 mg/dL (8.4-10.2); Chloride 97.7 mmol/L (98-107); Potassium 3.7 mmol/L (3.6-5.0)
[2016-10-16] MEDS: CARAFATE PO SCH ×3 (06:30→18:00)
[2016-10-16] MEDS: CLEOCIN 900 MG/50 mL 50 ML IV SCH ×3 (06:30→22:00)
--- NOTE | 2016-10-16 08:37 | Progress Note ---
Assessment and Plan Impression: * MARIA C/ATN * Recent vanco toxicity * S/p amputation * HTN * Anemia Plan: * maria c may be due to ATN from vancotoxicity * monitor for renal recovery * renal diet * follow up crcl * strict i/os * dialysis tthsat * hopefully will recover * avoid nephrotoxins Subjective Date of service: 10/16/16 Principal diagnosis: maria c Interval history: resting in bed today Objective - Exam Narrative Exam: General appearance: appears stated age EENT: mucous membranes moist (uremic odor noted) Neck: no JVD Respiratory: Present: Rales (few crackles posteriorly) Cardiology: regular (S1-S2 heard no S3-S4) Gastrointestinal: normal (soft nontender) Neurologic: other (mild asterixis) - Vital Signs Vital signs: Vital Signs - 12hr 10/16/16 10/16/16 10/16/16 00:00 04:00 08:00 Temperature 98 F 99.1 F 98.3 F Pulse Rate [ 84 84 From Monitor] Pulse Rate [ 94 H Left Brachial] Respiratory 20 20 18 Rate Blood Pressure 139/78 143/69 156/75 [Left Arm] O2 Sat by Pulse 99 98 98 Oximetry - Lab 10/15/16 05:06 10/16/16 05:26 Most recent lab results Calcium 7.8 mg/dL (8.4-10.2) L 10/16/16 05:26 Urine Creatinine 61.1 mg/dL (0.1-20.0) H 10/15/16 12:30 Urine Sodium 33 mEq/L 10/03/16 17:00 Urine Total Protein 23 mg/dL (5-11.8) H 10/03/16 17:00
[2016-10-16] MEDS: NYSTOP TP SCH ×2 (10:00→22:07)
[2016-10-16] MEDS: ELIQUIS PO SCH (10:00)
[2016-10-16] MEDS ORDERED: NACL 0.9 (PRIMING MACHINE ONLY DIALYSIS) MC ONE (11:20)
[2016-10-16] MEDS: PROCRIT IV PRN (11:53)
[2016-10-16] MEDS: HEPARIN IV PRN (12:13)
[2016-10-16] MEDS: PROTONIX PO SCH ×2 (15:00→22:48)
[2016-10-16] MEDS: TYLENOL PO PRN (16:50)
--- NOTE | 2016-10-16 17:07 | Progress Note ---
Assessment and Plan Assessment and plan: 1. Acute renal failure - most likely due to ATN from vancomycin toxicity- continue on dialysis for now follow-up with nephrology for further recommendations and monitor lytes; for 24 hr Cr CL as per renal 2. Cellulitis of the RT hand and forearm- start clindamycin IV; elevate limb; Orthopedic input noted and no need for surgery at this point. We'll continue with elevation of her arm. 3. 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 Cont eliquis; monitor H&H. Follow-up with wound care as per vascular 4.-Benign hypertension-currently not on any medications, continue to monitor. Stable 5. HTN (hypertension) 6. LE DVT-cotn eliquis; will need to be held if perm cath is going to be placed 7. Acute blood loss anemia from amputation -status post transfusion, H/H stable today; monitor 8. Antral ulcer- s/p EGD and biopsy; cont PPI and carafate; f/u GI as outpatient for biopsy report 9. DVT prophylaxiss- on eliquis History Interval history: f/u acute renal failure; gangrene of RT lower extremity post amputation Patient seen and examined this morning in no acute distress, still with right wrist pain but improving. Swelling also decrease according to the patient. Denies any chest pain, nausea, vomiting, diarrhea No fever noted blood pressure controlled No adverse events reported to me by nursing staff Hospitalist Physical - Physical exam Narrative exam: VITAL SIGNS: Reviewed. GENERAL: The patient appeared well nourished and normally developed. Vital signs as documented. HEAD: No signs of head trauma. EYES: Pupils are equal. Extraocular motions intact. EARS: Hearing grossly intact. MOUTH: Oropharynx is normal. NECK: No adenopathy, no JVD. CHEST: Chest with clear breath sounds bilaterally. No wheezes, rales, or rhonchi. CARDIAC: Regular rate and rhythm. S1 and S2, without murmurs, gallops, or rubs. VASCULAR: No Edema. Peripheral pulses normal and equal in all extremities. ABDOMEN: Soft, without detectable tenderness. No sign of distention. No rebound or guarding, and no masses palpated. Bowel Sounds normal. MUSCULOSKELETAL: Right hand with diffuse dorsal swelling, limited range of motion secondary to swelling. No neurovascular deficit, no redness, induration. Swelling extends to the wrist. No evidence of compartment syndrome , able to form a near full fist. Right AKA, dressing in place not optimal drainage noted.. Extremities without clubbing, cyanosis or edema. NEUROLOGIC EXAM: Alert and oriented x 3. No focal sensory or strength deficits. Speech normal. Follows commands. PSYCHIATRIC: Mood normal. SKIN: No rash or lesions. - Constitutional Vitals: Temp Pulse Resp BP Pulse Ox 99.8 F H 101 H 16 156/80 98 10/16/16 13:31 10/16/16 13:31 10/16/16 13:31 10/16/16 13:31 10/16/16 08:00 General appearance: Present: no acute distress, well-nourished Results - Labs CBC & Chem 7: 10/15/16 05:06 10/16/16 05:26 Labs: Laboratory Last Values WBC 10.4 K/mm3 (4.5-11.0) 10/15/16 05:06 RBC 3.09 M/mm3 (3.65-5.03) L 10/15/16 05:06 Hgb 8.8 gm/dl (11.8-15.2) L 10/15/16 05:06 Hct 25.9 % (35.5-45.6) L 10/15/16 05:06 MCV 84 fl (84-94) 10/15/16 05:06 MCH 29 pg (28-32) 10/15/16 05:06 MCHC 34 % (32-34) 10/15/16 05:06 RDW 16.7 % (13.2-15.2) H 10/15/16 05:06 Plt Count 337 K/mm3 (140-440) 10/15/16 05:06 Lymph % (Auto) 11.6 % (13.4-35.0) L 10/15/16 05:06 [place] % (Auto) 10.7 % (0.0-7.3) H 10/15/16 05:06 Eos % (Auto) 7.2 % (0.0-4.3) H 10/15/16 05:06 Baso % (Auto) 0.3 % (0.0-1.8) 10/15/16 05:06 Lymph # 1.2 K/mm3 (1.2-5.4) 10/15/16 05:06 [place] # 1.1 K/mm3 (0.0-0.8) H 10/15/16 05:06 Eos # 0.7 K/mm3 (0.0-0.4) H 10/15/16 05:06 Baso # 0.0 K/mm3 (0.0-0.1) 10/15/16 05:06 Add Manual Diff Complete 09/27/16 04:25 Total Counted 100 09/27/16 04:25 Seg Neutrophils % 70.2 % (40.0-70.0) H 10/15/16 05:06 Seg Neuts % (Manual) 82.0 % (40.0-70.0) H 09/27/16 04:25 Band Neutrophils % 6.0 % 09/27/16 04:25 Lymphocytes % (Manual) 8.0 % (13.4-35.0) L 09/27/16 04:25 Reactive Lymphs % (Man) 0 % 09/27/16 04:25 Monocytes % (Manual) 3.0 % (0.0-7.3) 09/27/16 04:25 Eosinophils % (Manual) 0 % (0.0-4.3) 09/27/16 04:25 Basophils % (Manual) 0 % (0.0-1.8) 09/27/16 04:25 Metamyelocytes % 1.0 % 09/27/16 04:25 Myelocytes % 0 % 09/27/16 04:25 Promyelocytes % 0 % 09/27/16 04:25 Blast Cells % 0 % 09/27/16 04:25 Nucleated RBC % Not Reportable 09/27/16 04:25 Seg Neutrophils # 7.3 K/mm3 (1.8-7.7) 10/15/16 05:06 Seg Neutrophils # Man 15.3 K/mm3 (1.8-7.7) H 09/27/16 04:25 Band Neutrophils # 1.1 K/mm3 09/27/16 04:25 Lymphocytes # (Manual) 1.5 K/mm3 (1.2-5.4) 09/27/16 04:25 Abs React Lymphs (Man) 0.0 K/mm3 09/27/16 04:25 Monocytes # (Manual) 0.6 K/mm3 (0.0-0.8) 09/27/16 04:25 Eosinophils # (Manual) 0.0 K/mm3 (0.0-0.4) 09/27/16 04:25 Basophils # (Manual) 0.0 K/mm3 (0.0-0.1) 09/27/16 04:25 Metamyelocytes # 0.2 K/mm3 09/27/16 04:25 Myelocytes # 0.0 K/mm3 09/27/16 04:25 Promyelocytes # 0.0 K/mm3 09/27/16 04:25 Blast Cells # 0.0 K/mm3 09/27/16 04:25 WBC Morphology Not Reportable 09/27/16 04:25 Hypersegmented Neuts Not Reportable 09/27/16 04:25 Hyposegmented Neuts Not Reportable 09/27/16 04:25 Hypogranular Neuts Not Reportable 09/27/16 04:25 Smudge Cells Not Reportable 09/27/16 04:25 Toxic Granulation Not Reportable 09/27/16 04:25 Toxic Vacuolation Not Reportable 09/27/16 04:25 Dohle Bodies Not Reportable 09/27/16 04:25 Pelger-Huet Anomaly Not Reportable 09/27/16 04:25 Renita Rods Not Reportable 09/27/16 04:25 Platelet Estimate Not Reportable 09/27/16 04:25 Clumped Platelets Not Reportable 09/27/16 04:25 Plt Clumps, EDTA Not Reportable 09/27/16 04:25 Large Platelets Not Reportable 09/27/16 04:25 Giant Platelets Few 09/27/16 04:25 Platelet Satelliting Not Reportable 09/27/16 04:25 Plt Morphology Comment Not Reportable 09/27/16 04:25 RBC Morphology Not Reportable 09/27/16 04:25 Dimorphic RBCs Not Reportable 09/27/16 04:25 Polychromasia Not Reportable 09/27/16 04:25 Hypochromasia Not Reportable 09/27/16 04:25 Poikilocytosis Not Reportable 09/27/16 04:25 Anisocytosis 1+ 09/27/16 04:25 Microcytosis Not Reportable 09/27/16 04:25 Macrocytosis Not Reportable 09/27/16 04:25 Spherocytes Not Reportable 09/27/16 04:25 Pappenheimer Bodies Not Reportable 09/27/16 04:25 Sickle Cells Not Reportable 09/27/16 04:25 Target Cells Not Reportable 09/27/16 04:25 Tear Drop Cells Not Reportable 09/27/16 04:25 Ovalocytes Not Reportable 09/27/16 04:25 Helmet Cells Not Reportable 09/27/16 04:25 Iraheta-[place] Bodies Not Reportable 09/27/16 04:25 [place] Rings Not Reportable 09/27/16 04:25 [place] Cells Not Reportable 09/27/16 04:25 Bite Cells Not Reportable 09/27/16 04:25 Crenated Cell Not Reportable 09/27/16 04:25 Elliptocytes Not Reportable 09/27/16 04:25 Acanthocytes (Spur) Not Reportable 09/27/16 04:25 Rouleaux Not Reportable 09/27/16 04:25 Hemoglobin C Crystals Not Reportable 09/27/16 04:25 Schistocytes Not Reportable 09/27/16 04:25 Malaria parasites Not Reportable 09/27/16 04:25 Azael Bodies Not Reportable 09/27/16 04:25 Hem Pathologist Commnt No 09/27/16 04:25 PT 16.1 Sec. (12.2-14.9) H 10/08/16 Unknown INR 1.30 (0.87-1.13) H 10/08/16 Unknown APTT 31.2 Sec. (24.2-36.6) 10/08/16 Unknown Heparin Anti-Xa Level 0.33 U.I./ml (0.3-0.7) 10/11/16 05:30 Sodium 137 mmol/L (137-145) 10/16/16 05:26 Potassium 3.7 mmol/L (3.6-5.0) 10/16/16 05:26 Chloride 97.7 mmol/L (98-107) L 10/16/16 05:26 Carbon Dioxide 25 mmol/L (22-30) 10/16/16 05:26 Anion Gap 18 mmol/L 10/16/16 05:26 BUN 15 mg/dL (9-20) 10/16/16 05:26 Creatinine 4.0 mg/dL (0.8-1.5) H 10/16/16 05:26 Estimated GFR 18 ml/min 10/16/16 05:26 BUN/Creatinine Ratio 3.75 % 10/16/16 05:26 Glucose 85 mg/dL (75-100) 10/16/16 05:26 Osmolality 293 Mosm/kg 10/03/16 14:03 Lactic Acid 2.6 mmol/L (0.7-2.0) H* 09/26/16 10:48 Uric Acid 5.4 mg/dL (3.5-7.6) 10/03/16 09:16 Calcium 7.8 mg/dL (8.4-10.2) L 10/16/16 05:26 Iron 31 ug/dL (49-181) L 10/06/16 17:16 TIBC 168.00 mcg/dL (250-450) L 10/06/16 17:16 Transferrin 120 mg/dl (180-329) L 10/06/16 17:16 Ferritin 488.6 ng/mL (13.0-400.0) H 10/06/16 17:16 Total Creatine Kinase 186 units/L (55-170) H 10/08/16 09:27 Vitamin B12 1268 pg/mL (211-911) H 10/06/16 17:16 Folate 11.86 ng/mL (7.3-26.0) 10/06/16 17:16 Urine Color Yellow (Yellow) 10/03/16 17:00 Urine Turbidity Clear (Clear) 10/03/16 17:00 Urine pH 5.0 (5.0-7.0) 10/03/16 17:00 Ur Specific [place] 1.011 (1.003-1.030) 10/03/16 17:00 Urine Protein <15 mg/dl mg/dL (Negative) 10/03/16 17:00 Urine Glucose (UA) Neg mg/dL (Negative) 10/03/16 17:00 Urine Ketones Neg mg/dL (Negative) 10/03/16 17:00 Urine Blood Neg (Negative) 10/03/16 17:00 Urine Nitrite Neg (Negative) 10/03/16 17:00 Urine Bilirubin Neg (Negative) 10/03/16 17:00 Urine Urobilinogen < 2.0 mg/dL (<2.0) 10/03/16 17:00 Ur Leukocyte Esterase Neg (Negative) 10/03/16 17:00 Urine WBC (Auto) 1.0 /HPF (0.0-6.0) 10/03/16 17:00 Urine RBC (Auto) 1.0 /HPF (0.0-6.0) 10/03/16 17:00 U Epithel Cells (Auto) 5.0 /HPF (0-13.0) 10/03/16 17:00 Urine Bacteria (Auto) 1+ /HPF (Negative) 09/26/16 00:03 Urine Mucus Few /HPF 10/03/16 17:00 Urine Total Volume 800 10/15/16 12:30 Urine Creatinine 61.1 mg/dL (0.1-20.0) H 10/15/16 12:30 Ur Creatinine 24 Hour 0.5 (0.8-2.8) L 10/15/16 12:30 Height (in) 67.0 inches 10/14/16 13:49 Weight (lb) 230.0 lbs 10/14/16 13:49 Creatinine Clearance 7 10/14/16 13:49 Urine Sodium 33 mEq/L 10/03/16 17:00 Urine Total Protein 23 mg/dL (5-11.8) H 10/03/16 17:00 Vancomycin Trough 39.5 ug/mL (5.0-20.0) H 10/01/16 09:07 Random Vancomycin 10.1 ug/mL (0-40.0) 10/13/16 05:12 Blood Type O NEGATIVE 10/06/16 17:16 Antibody Screen Negative 10/06/16 17:16 Crossmatch See Detail 10/06/16 17:16
--- NOTE | 2016-10-16 20:33 | Event Note ---
Date: 10/16/16 Will need vascath to permcath or permcath placement. Started heparin drip. Discontinued oral anticoagulation. Will plan on permcath on .
[2016-10-16 21:57] LABS: Hematocrit 23.1 % (35.5-45.6)
[2016-10-16 22:08] LABS: INR 1.59 (0.87-1.13)
[2016-10-16 22:09] LABS: Partial Thromboplastin Time 55.3 Sec. (24.2-36.6)
[2016-10-16] MEDS: HEPARIN/ 0.45% NACL-25,000 UNIT/500 ML 500 ML IV SCH (23:40)
[2016-10-17] MEDS: CARAFATE PO SCH ×4 (00:45→18:00)
[2016-10-17 05:52] LABS: BUN/Creatinine Ratio 2.75; Calcium 7.4 mg/dL (8.4-10.2); Chloride 95.4 mmol/L (98-107); Potassium 3.1 mmol/L (3.6-5.0)
[2016-10-17 05:55] LABS: Hematocrit 23.6 % (35.5-45.6); Hemoglobin 8.2 gm/dl (11.8-15.2)
[2016-10-17] MEDS: CLEOCIN 900 MG/50 mL 50 ML IV SCH ×3 (06:00→23:53)
--- NOTE | 2016-10-17 06:29 | Progress Note ---
Assessment and Plan Impression: * MARIA C/ATN * Recent vanco toxicity * S/p amputation * HTN * Anemia Plan: * HD q tthsat until recovers * maria c may be due to ATN from vancotoxicity * plan for perm cath noted * renal diet * follow up crcl * strict i/os * dialysis tthsat * hopefully will recover * avoid nephrotoxins Subjective Date of service: 10/17/16 Principal diagnosis: maria c Interval history: resting in bed today Objective - Exam Narrative Exam: General appearance: appears stated age EENT: mucous membranes moist (uremic odor noted) Neck: no JVD Respiratory: Present: Rales (few crackles posteriorly) Cardiology: regular (S1-S2 heard no S3-S4) Gastrointestinal: normal (soft nontender) Neurologic: other (mild asterixis) - Vital Signs Vital signs: Vital Signs - 12hr 10/16/16 23:45 Temperature 99.1 F Pulse Rate [ 88 Left Brachial] Respiratory 20 Rate Blood Pressure 131/66 [Left Arm] O2 Sat by Pulse 99 Oximetry - Lab 10/17/16 05:04 10/17/16 05:04 Most recent lab results Calcium 7.4 mg/dL (8.4-10.2) L 10/17/16 05:04 Urine Creatinine 61.1 mg/dL (0.1-20.0) H 10/15/16 12:30 Urine Sodium 33 mEq/L 10/03/16 17:00 Urine Total Protein 23 mg/dL (5-11.8) H 10/03/16 17:00
[2016-10-17] MEDS ORDERED: K-DUR PO ONE (08:58)
[2016-10-17] MEDS: PROTONIX PO SCH ×2 (10:00→23:55)
--- NOTE | 2016-10-17 10:21 | Progress Note ---
Assessment and Plan - Patient Problems (1) Cellulitis Current Visit: Yes Status: Acute Plan to address problem: Continue with elevation, splinting, antibiotics. Subjective Date of service: 10/17/16 Interval history: Right hand swelling improved, no neurovascular deficit. No obvious infection, abscess formation. Objective Vital signs: Vital Signs - 12hr 10/16/16 10/17/16 10/17/16 23:45 04:15 08:00 Temperature 99.1 F 98.9 F 98.4 F Pulse Rate [ 84 Apical] Pulse Rate [ 88 88 Left Brachial] Respiratory 20 20 20 Rate Blood Pressure 131/66 148/82 134/61 [Left Arm] O2 Sat by Pulse 99 100 98 Oximetry - Labs CBC & BMP: 10/18/16 04:51 10/18/16 04:51 Labs: Abnormal lab results 10/16/16 10/16/16 10/17/16 Range/Units 21:47 21:47 05:04 Hgb 8.0 L (11.8-15.2) gm/dl Hct 23.1 L (35.5-45.6) % PT 18.9 H (12.2-14.9) Sec. INR 1.59 H (0.87-1.13) APTT 55.3 H (24.2-36.6) Sec. Heparin Anti-Xa Level (0.3-0.7) U.I./ml Sodium 134 L (137-145) mmol/L Potassium 3.1 L (3.6-5.0) mmol/L Chloride 95.4 L (98-107) mmol/L BUN 8 L (9-20) mg/dL Creatinine 2.9 H (0.8-1.5) mg/dL Calcium 7.4 L (8.4-10.2) mg/dL 10/17/16 10/17/16 Range/Units 05:04 05:04 Hgb 8.2 L (11.8-15.2) gm/dl Hct 23.6 L (35.5-45.6) % PT (12.2-14.9) Sec. INR (0.87-1.13) APTT (24.2-36.6) Sec. Heparin Anti-Xa Level 1.53 H (0.3-0.7) U.I./ml Sodium (137-145) mmol/L Potassium (3.6-5.0) mmol/L Chloride (98-107) mmol/L BUN (9-20) mg/dL Creatinine (0.8-1.5) mg/dL Calcium (8.4-10.2) mg/dL
--- NOTE | 2016-10-17 14:43 | Progress Note ---
Assessment and Plan Assessment and plan: 1. Acute renal failure - most likely due to ATN from vancomycin toxicity- continue on dialysis for now follow-up with nephrology for further recommendations and monitor lytes; for 24 hr Cr CL as per renal. Mild improvement in renal function noted with creatinine coming down to 2.4. 2. Cellulitis of the RT hand and forearm-continue clindamycin IV; elevate limb ; Orthopedic input noted and no need for surgery at this point. We'll continue with elevation of her arm. 3. 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 Cont eliquis; monitor H&H. Follow-up with wound care as per vascular 4.-Benign hypertension-currently not on any medications, continue to monitor. Stable 5. HTN (hypertension) 6. LE DVT-cont eliquis; 7. Acute blood loss anemia from amputation -status post transfusion, H/H stable today; monitor 8. Antral ulcer- s/p EGD and biopsy; cont PPI and carafate; f/u GI as outpatient for biopsy report 9. DVT prophylaxiss- on eliquis 10. Disposition-obtain evaluation by acute rehabilitation History Interval history: f/u acute renal failure; gangrene of RT lower extremity post amputation Patient seen and examined this morning in no acute distress, reports improvement in right wrist pain and swelling Denies any chest pain, nausea, vomiting, diarrhea No fever noted blood pressure controlled No adverse events reported to me by nursing staff Hospitalist Physical - Physical exam Narrative exam: VITAL SIGNS: Reviewed. GENERAL: The patient appeared well nourished and normally developed. Vital signs as documented. HEAD: No signs of head trauma. EYES: Pupils are equal. Extraocular motions intact. EARS: Hearing grossly intact. MOUTH: Oropharynx is normal. NECK: No adenopathy, no JVD. CHEST: Chest with clear breath sounds bilaterally. No wheezes, rales, or rhonchi. CARDIAC: Regular rate and rhythm. S1 and S2, without murmurs, gallops, or rubs. VASCULAR: No Edema. Peripheral pulses normal and equal in all extremities. ABDOMEN: Soft, without detectable tenderness. No sign of distention. No rebound or guarding, and no masses palpated. Bowel Sounds normal. MUSCULOSKELETAL: Right hand with diffuse dorsal swelling, limited range of motion secondary to swelling. No neurovascular deficit, no redness, induration. Swelling extends to the wrist. No evidence of compartment syndrome , able to form a near full fist. Right AKA, dressing in place not optimal drainage noted.. Extremities without clubbing, cyanosis or edema. NEUROLOGIC EXAM: Alert and oriented x 3. No focal sensory or strength deficits. Speech normal. Follows commands. PSYCHIATRIC: Mood normal. SKIN: Warm to the touch of right wrist area.. - Constitutional Vitals: Temp Pulse Resp BP Pulse Ox 98.9 F 84 18 128/69 99 10/17/16 12:22 10/17/16 12:22 10/17/16 12:22 10/17/16 12:22 10/17/16 12:22 General appearance: Present: no acute distress, well-nourished Results - Labs CBC & Chem 7: 10/18/16 04:51 10/18/16 04:51 Labs: Laboratory Last Values WBC 10.4 K/mm3 (4.5-11.0) 10/15/16 05:06 RBC 3.09 M/mm3 (3.65-5.03) L 10/15/16 05:06 Hgb 8.2 gm/dl (11.8-15.2) L 10/17/16 05:04 Hct 23.6 % (35.5-45.6) L 10/17/16 05:04 MCV 84 fl (84-94) 10/15/16 05:06 MCH 29 pg (28-32) 10/15/16 05:06 MCHC 34 % (32-34) 10/15/16 05:06 RDW 16.7 % (13.2-15.2) H 10/15/16 05:06 Plt Count 271 K/mm3 (140-440) 10/16/16 21:47 Lymph % (Auto) 11.6 % (13.4-35.0) L 10/15/16 05:06 [place] % (Auto) 10.7 % (0.0-7.3) H 10/15/16 05:06 Eos % (Auto) 7.2 % (0.0-4.3) H 10/15/16 05:06 Baso % (Auto) 0.3 % (0.0-1.8) 10/15/16 05:06 Lymph # 1.2 K/mm3 (1.2-5.4) 10/15/16 05:06 [place] # 1.1 K/mm3 (0.0-0.8) H 10/15/16 05:06 Eos # 0.7 K/mm3 (0.0-0.4) H 10/15/16 05:06 Baso # 0.0 K/mm3 (0.0-0.1) 10/15/16 05:06 Add Manual Diff Complete 09/27/16 04:25 Total Counted 100 09/27/16 04:25 Seg Neutrophils % 70.2 % (40.0-70.0) H 10/15/16 05:06 Seg Neuts % (Manual) 82.0 % (40.0-70.0) H 09/27/16 04:25 Band Neutrophils % 6.0 % 09/27/16 04:25 Lymphocytes % (Manual) 8.0 % (13.4-35.0) L 09/27/16 04:25 Reactive Lymphs % (Man) 0 % 09/27/16 04:25 Monocytes % (Manual) 3.0 % (0.0-7.3) 09/27/16 04:25 Eosinophils % (Manual) 0 % (0.0-4.3) 09/27/16 04:25 Basophils % (Manual) 0 % (0.0-1.8) 09/27/16 04:25 Metamyelocytes % 1.0 % 09/27/16 04:25 Myelocytes % 0 % 09/27/16 04:25 Promyelocytes % 0 % 09/27/16 04:25 Blast Cells % 0 % 09/27/16 04:25 Nucleated RBC % Not Reportable 09/27/16 04:25 Seg Neutrophils # 7.3 K/mm3 (1.8-7.7) 10/15/16 05:06 Seg Neutrophils # Man 15.3 K/mm3 (1.8-7.7) H 09/27/16 04:25 Band Neutrophils # 1.1 K/mm3 09/27/16 04:25 Lymphocytes # (Manual) 1.5 K/mm3 (1.2-5.4) 09/27/16 04:25 Abs React Lymphs (Man) 0.0 K/mm3 09/27/16 04:25 Monocytes # (Manual) 0.6 K/mm3 (0.0-0.8) 09/27/16 04:25 Eosinophils # (Manual) 0.0 K/mm3 (0.0-0.4) 09/27/16 04:25 Basophils # (Manual) 0.0 K/mm3 (0.0-0.1) 09/27/16 04:25 Metamyelocytes # 0.2 K/mm3 09/27/16 04:25 Myelocytes # 0.0 K/mm3 09/27/16 04:25 Promyelocytes # 0.0 K/mm3 09/27/16 04:25 Blast Cells # 0.0 K/mm3 09/27/16 04:25 WBC Morphology Not Reportable 09/27/16 04:25 Hypersegmented Neuts Not Reportable 09/27/16 04:25 Hyposegmented Neuts Not Reportable 09/27/16 04:25 Hypogranular Neuts Not Reportable 09/27/16 04:25 Smudge Cells Not Reportable 09/27/16 04:25 Toxic Granulation Not Reportable 09/27/16 04:25 Toxic Vacuolation Not Reportable 09/27/16 04:25 Dohle Bodies Not Reportable 09/27/16 04:25 Pelger-Huet Anomaly Not Reportable 09/27/16 04:25 Renita Rods Not Reportable 09/27/16 04:25 Platelet Estimate Not Reportable 09/27/16 04:25 Clumped Platelets Not Reportable 09/27/16 04:25 Plt Clumps, EDTA Not Reportable 09/27/16 04:25 Large Platelets Not Reportable 09/27/16 04:25 Giant Platelets Few 09/27/16 04:25 Platelet Satelliting Not Reportable 09/27/16 04:25 Plt Morphology Comment Not Reportable 09/27/16 04:25 RBC Morphology Not Reportable 09/27/16 04:25 Dimorphic RBCs Not Reportable 09/27/16 04:25 Polychromasia Not Reportable 09/27/16 04:25 Hypochromasia Not Reportable 09/27/16 04:25 Poikilocytosis Not Reportable 09/27/16 04:25 Anisocytosis 1+ 09/27/16 04:25 Microcytosis Not Reportable 09/27/16 04:25 Macrocytosis Not Reportable 09/27/16 04:25 Spherocytes Not Reportable 09/27/16 04:25 Pappenheimer Bodies Not Reportable 09/27/16 04:25 Sickle Cells Not Reportable 09/27/16 04:25 Target Cells Not Reportable 09/27/16 04:25 Tear Drop Cells Not Reportable 09/27/16 04:25 Ovalocytes Not Reportable 09/27/16 04:25 Helmet Cells Not Reportable 09/27/16 04:25 Iraheta-[place] Bodies Not Reportable 09/27/16 04:25 [place] Rings Not Reportable 09/27/16 04:25 [place]hil[place] Cells Not Reportable 09/27/16 04:25 Bite Cells Not Reportable 09/27/16 04:25 Crenated Cell Not Reportable 09/27/16 04:25 Elliptocytes Not Reportable 09/27/16 04:25 Acanthocytes (Spur) Not Reportable 09/27/16 04:25 Rouleaux Not Reportable 09/27/16 04:25 Hemoglobin C Crystals Not Reportable 09/27/16 04:25 Schistocytes Not Reportable 09/27/16 04:25 Malaria parasites Not Reportable 09/27/16 04:25 Azael Bodies Not Reportable 09/27/16 04:25 Hem Pathologist Commnt No 09/27/16 04:25 PT 18.9 Sec. (12.2-14.9) H 10/16/16 21:47 INR 1.59 (0.87-1.13) H 10/16/16 21:47 APTT 55.3 Sec. (24.2-36.6) H 10/16/16 21:47 Heparin Anti-Xa Level 1.53 U.I./ml (0.3-0.7) H 10/17/16 05:04 Sodium 134 mmol/L (137-145) L 10/17/16 05:04 Potassium 3.1 mmol/L (3.6-5.0) L 10/17/16 05:04 Chloride 95.4 mmol/L (98-107) L 10/17/16 05:04 Carbon Dioxide 26 mmol/L (22-30) 10/17/16 05:04 Anion Gap 16 mmol/L 10/17/16 05:04 BUN 8 mg/dL (9-20) L 10/17/16 05:04 Creatinine 2.9 mg/dL (0.8-1.5) H 10/17/16 05:04 Estimated GFR 26 ml/min 10/17/16 05:04 BUN/Creatinine Ratio 2.75 % 10/17/16 05:04 Glucose 94 mg/dL (75-100) 10/17/16 05:04 Osmolality 293 Mosm/kg 10/03/16 14:03 Lactic Acid 2.6 mmol/L (0.7-2.0) H* 09/26/16 10:48 Uric Acid 5.4 mg/dL (3.5-7.6) 10/03/16 09:16 Calcium 7.4 mg/dL (8.4-10.2) L 10/17/16 05:04 Iron 31 ug/dL (49-181) L 10/06/16 17:16 TIBC 168.00 mcg/dL (250-450) L 10/06/16 17:16 Transferrin 120 mg/dl (180-329) L 10/06/16 17:16 Ferritin 488.6 ng/mL (13.0-400.0) H 10/06/16 17:16 Total Creatine Kinase 186 units/L (55-170) H 10/08/16 09:27 Vitamin B12 1268 pg/mL (211-911) H 10/06/16 17:16 Folate 11.86 ng/mL (7.3-26.0) 10/06/16 17:16 Urine Color Yellow (Yellow) 10/03/16 17:00 Urine Turbidity Clear (Clear) 10/03/16 17:00 Urine pH 5.0 (5.0-7.0) 10/03/16 17:00 Ur Specific [place] 1.011 (1.003-1.030) 10/03/16 17:00 Urine Protein <15 mg/dl mg/dL (Negative) 10/03/16 17:00 Urine Glucose (UA) Neg mg/dL (Negative) 10/03/16 17:00 Urine Ketones Neg mg/dL (Negative) 10/03/16 17:00 Urine Blood Neg (Negative) 10/03/16 17:00 Urine Nitrite Neg (Negative) 10/03/16 17:00 Urine Bilirubin Neg (Negative) 10/03/16 17:00 Urine Urobilinogen < 2.0 mg/dL (<2.0) 10/03/16 17:00 Ur Leukocyte Esterase Neg (Negative) 10/03/16 17:00 Urine WBC (Auto) 1.0 /HPF (0.0-6.0) 10/03/16 17:00 Urine RBC (Auto) 1.0 /HPF (0.0-6.0) 10/03/16 17:00 U Epithel Cells (Auto) 5.0 /HPF (0-13.0) 10/03/16 17:00 Urine Bacteria (Auto) 1+ /HPF (Negative) 09/26/16 00:03 Urine Mucus Few /HPF 10/03/16 17:00 Urine Total Volume 800 10/15/16 12:30 Urine Creatinine 61.1 mg/dL (0.1-20.0) H 10/15/16 12:30 Ur Creatinine 24 Hour 0.5 (0.8-2.8) L 10/15/16 12:30 Height (in) 67.0 inches 10/14/16 13:49 Weight (lb) 230.0 lbs 10/14/16 13:49 Creatinine Clearance 7 10/14/16 13:49 Urine Sodium 33 mEq/L 10/03/16 17:00 Urine Total Protein 23 mg/dL (5-11.8) H 10/03/16 17:00 Vancomycin Trough 39.5 ug/mL (5.0-20.0) H 10/01/16 09:07 Random Vancomycin 10.1 ug/mL (0-40.0) 10/13/16 05:12 Blood Type O NEGATIVE 10/06/16 17:16 Antibody Screen Negative 10/06/16 17:16 Crossmatch See Detail 10/06/16 17:16
[2016-10-17] MEDS: NYSTOP TP SCH ×2 (20:05→23:54)
[2016-10-18] MEDS: CARAFATE PO SCH ×4 (00:11→18:40)
[2016-10-18] MEDS: HEPARIN IV PRN (00:18)
[2016-10-18] MEDS: HEPARIN/ 0.45% NACL-25,000 UNIT/500 ML 500 ML IV SCH (00:20)
[2016-10-18] MEDS: PERCOCET 5/325 PO PRN (00:23)
[2016-10-18 05:41] LABS: Hematocrit 25.1 % (35.5-45.6); Hemoglobin 8.4 gm/dl (11.8-15.2); Mean Corpuscular HGB Conc 34 % (32-34); Mean Corpuscular Hemoglobin 28 pg (28-32); Mean Corpuscular Volume 84 fl (84-94); Platelet Count 313 K/mm3 (140-440); Red Blood Count 2.99 M/mm3 (3.65-5.03); White Blood Count 6.9 K/mm3 (4.5-11.0)
[2016-10-18 05:59] LABS: BUN/Creatinine Ratio 3.22; Calcium 7.5 mg/dL (8.4-10.2); Chloride 97.8 mmol/L (98-107); Potassium 3.4 mmol/L (3.6-5.0)
[2016-10-18] MEDS: CLEOCIN 900 MG/50 mL 50 ML IV SCH ×2 (06:18→14:00)
[2016-10-18] MEDS: PROTONIX PO SCH (08:45)
[2016-10-18] MEDS: NYSTOP TP SCH ×2 (09:19→22:00)
[2016-10-18] MEDS ORDERED: ANCEF/STERILE WATER 2 GM/20 ML 20 ML IV ONE (13:02)
[2016-10-18] MEDS ORDERED: XYLOCAINE 1%/ EPI 1:100,000 INFILTRATI ONE (13:02)
[2016-10-18] MEDS ORDERED: HEPARIN/NS 5000 UNIT/500ML(CATH LAB) 500 ML IR ONE (13:02)
[2016-10-18] MEDS ORDERED: HEPARIN 10,000 UNITS/10 ML ONE (13:02)
--- NOTE | 2016-10-18 13:10 | Progress Note ---
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 * LE DVT * HTN * Anemia * RUE swelling - negative doppler u/s Plan: * Continue HD TTS * Continue antiHTN medications * Anticoagulation per primary team * Strict I/O * Avoid nephrotoxins * Permcath placement today Subjective Date of service: 10/18/16 Principal diagnosis: rhonda Interval history: Patient off floor at time of visit Objective - Vital Signs Vital signs: Vital Signs - 12hr 10/18/16 10/18/16 05:19 08:00 Temperature 97.8 F 97.7 F Pulse Rate [ 75 Apical] Pulse Rate [ 73 From Monitor] Respiratory 20 16 Rate Blood Pressure 135/66 139/66 [Left Arm] O2 Sat by Pulse 100 99 Oximetry - Lab 10/18/16 04:51 10/18/16 04:51 Most recent lab results Calcium 7.5 mg/dL (8.4-10.2) L 10/18/16 04:51 Urine Creatinine 61.1 mg/dL (0.1-20.0) H 10/15/16 12:30 Urine Sodium 33 mEq/L 10/03/16 17:00 Urine Total Protein 23 mg/dL (5-11.8) H 10/03/16 17:00
[2016-10-18] MEDS ORDERED: NACL 0.9% 250ML 250 ML ONE (13:24)
[2016-10-18] MEDS: VERSED ONE ×2 (13:41→14:00)
[2016-10-18] MEDS: SUBLIMAZE ONE ×2 (13:41→13:59)
--- NOTE | 2016-10-18 13:41 | Progress Note ---
Assessment and Plan Assessment and plan: 1. Acute renal failure - most likely due to ATN from vancomycin toxicity- continue on dialysis for now follow-up with nephrology for further recommendations and monitor lytes; for 24 hr Cr CL as per renal. Mild improvement in renal function noted with creatinine coming down to 2.9 yesterday but increased back today -perm cath placement today 2. Cellulitis of the RT hand and forearm-continue clindamycin IV; elevate limb ; Orthopedic input noted and no need for surgery at this point. We'll continue with elevation of her arm. 3. 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 Cont eliquis; monitor H&H. Follow-up with wound care as per vascular 4.-Benign hypertension-currently not on any medications, continue to monitor. Stable 5. HTN (hypertension) 6. LE DVT-cont eliquis; 7. Acute blood loss anemia from amputation -status post transfusion, H/H stable today; monitor 8. Antral ulcer- s/p EGD and biopsy; cont PPI and carafate; f/u GI as outpatient for biopsy report 9. DVT prophylaxiss- on eliquis 10. Disposition-obtain evaluation by acute rehabilitation History Interval history: f/u acute renal failure; gangrene of RT lower extremity post amputation Patient seen and examined this morning in no acute distress, reports improvement in right wrist pain and swelling, for perm cath today for dialysis access Denies any chest pain, nausea, vomiting, diarrhea No fever noted blood pressure controlled No adverse events reported to me by nursing staff Hospitalist Physical - Physical exam Narrative exam: VITAL SIGNS: Reviewed. GENERAL: The patient appeared well nourished and normally developed. Vital signs as documented. HEAD: No signs of head trauma. EYES: Pupils are equal. Extraocular motions intact. EARS: Hearing grossly intact. MOUTH: Oropharynx is normal. NECK: No adenopathy, no JVD. CHEST: Chest with clear breath sounds bilaterally. No wheezes, rales, or rhonchi. CARDIAC: Regular rate and rhythm. S1 and S2, without murmurs, gallops, or rubs. VASCULAR: No Edema. Peripheral pulses normal and equal in all extremities. ABDOMEN: Soft, without detectable tenderness. No sign of distention. No rebound or guarding, and no masses palpated. Bowel Sounds normal. MUSCULOSKELETAL: Right hand with diffuse dorsal swelling, limited range of motion secondary to swelling. No neurovascular deficit, no redness, induration. Swelling extends to the wrist. No evidence of compartment syndrome , able to form a near full fist. Right AKA, dressing in place not optimal drainage noted.. Extremities without clubbing, cyanosis or edema. NEUROLOGIC EXAM: Alert and oriented x 3. No focal sensory or strength deficits. Speech normal. Follows commands. PSYCHIATRIC: Mood normal. SKIN: Warm to the touch of right wrist area.. - Constitutional Vitals: Temp Pulse Resp BP Pulse Ox 97.7 F 75 16 139/66 99 10/18/16 08:00 10/18/16 08:00 10/18/16 08:00 10/18/16 08:00 10/18/16 08:00 General appearance: Present: no acute distress, well-nourished Results - Labs CBC & Chem 7: 10/18/16 04:51 10/18/16 04:51 Labs: Laboratory Last Values WBC 6.9 K/mm3 (4.5-11.0) 10/18/16 04:51 RBC 2.99 M/mm3 (3.65-5.03) L 10/18/16 04:51 Hgb 8.4 gm/dl (11.8-15.2) L 10/18/16 04:51 Hct 25.1 % (35.5-45.6) L 10/18/16 04:51 MCV 84 fl (84-94) 10/18/16 04:51 MCH 28 pg (28-32) 10/18/16 04:51 MCHC 34 % (32-34) 10/18/16 04:51 RDW 17.0 % (13.2-15.2) H 10/18/16 04:51 Plt Count 313 K/mm3 (140-440) 10/18/16 04:51 Lymph % (Auto) 11.6 % (13.4-35.0) L 10/15/16 05:06 Banks % (Auto) 10.7 % (0.0-7.3) H 10/15/16 05:06 Eos % (Auto) 7.2 % (0.0-4.3) H 10/15/16 05:06 Baso % (Auto) 0.3 % (0.0-1.8) 10/15/16 05:06 Lymph # 1.2 K/mm3 (1.2-5.4) 10/15/16 05:06 Banks # 1.1 K/mm3 (0.0-0.8) H 10/15/16 05:06 Eos # 0.7 K/mm3 (0.0-0.4) H 10/15/16 05:06 Baso # 0.0 K/mm3 (0.0-0.1) 10/15/16 05:06 Add Manual Diff Complete 09/27/16 04:25 Total Counted 100 09/27/16 04:25 Seg Neutrophils % 70.2 % (40.0-70.0) H 10/15/16 05:06 Seg Neuts % (Manual) 82.0 % (40.0-70.0) H 09/27/16 04:25 Band Neutrophils % 6.0 % 09/27/16 04:25 Lymphocytes % (Manual) 8.0 % (13.4-35.0) L 09/27/16 04:25 Reactive Lymphs % (Man) 0 % 09/27/16 04:25 Monocytes % (Manual) 3.0 % (0.0-7.3) 09/27/16 04:25 Eosinophils % (Manual) 0 % (0.0-4.3) 09/27/16 04:25 Basophils % (Manual) 0 % (0.0-1.8) 09/27/16 04:25 Metamyelocytes % 1.0 % 09/27/16 04:25 Myelocytes % 0 % 09/27/16 04:25 Promyelocytes % 0 % 09/27/16 04:25 Blast Cells % 0 % 09/27/16 04:25 Nucleated RBC % Not Reportable 09/27/16 04:25 Seg Neutrophils # 7.3 K/mm3 (1.8-7.7) 10/15/16 05:06 Seg Neutrophils # Man 15.3 K/mm3 (1.8-7.7) H 09/27/16 04:25 Band Neutrophils # 1.1 K/mm3 09/27/16 04:25 Lymphocytes # (Manual) 1.5 K/mm3 (1.2-5.4) 09/27/16 04:25 Abs React Lymphs (Man) 0.0 K/mm3 09/27/16 04:25 Monocytes # (Manual) 0.6 K/mm3 (0.0-0.8) 09/27/16 04:25 Eosinophils # (Manual) 0.0 K/mm3 (0.0-0.4) 09/27/16 04:25 Basophils # (Manual) 0.0 K/mm3 (0.0-0.1) 09/27/16 04:25 Metamyelocytes # 0.2 K/mm3 09/27/16 04:25 Myelocytes # 0.0 K/mm3 09/27/16 04:25 Promyelocytes # 0.0 K/mm3 09/27/16 04:25 Blast Cells # 0.0 K/mm3 09/27/16 04:25 WBC Morphology Not Reportable 09/27/16 04:25 Hypersegmented Neuts Not Reportable 09/27/16 04:25 Hyposegmented Neuts Not Reportable 09/27/16 04:25 Hypogranular Neuts Not Reportable 09/27/16 04:25 Smudge Cells Not Reportable 09/27/16 04:25 Toxic Granulation Not Reportable 09/27/16 04:25 Toxic Vacuolation Not Reportable 09/27/16 04:25 Dohle Bodies Not Reportable 09/27/16 04:25 Pelger-Huet Anomaly Not Reportable 09/27/16 04:25 Renita Rods Not Reportable 09/27/16 04:25 Platelet Estimate Not Reportable 09/27/16 04:25 Clumped Platelets Not Reportable 09/27/16 04:25 Plt Clumps, EDTA Not Reportable 09/27/16 04:25 Large Platelets Not Reportable 09/27/16 04:25 Giant Platelets Few 09/27/16 04:25 Platelet Satelliting Not Reportable 09/27/16 04:25 Plt Morphology Comment Not Reportable 09/27/16 04:25 RBC Morphology Not Reportable 09/27/16 04:25 Dimorphic RBCs Not Reportable 09/27/16 04:25 Polychromasia Not Reportable 09/27/16 04:25 Hypochromasia Not Reportable 09/27/16 04:25 Poikilocytosis Not Reportable 09/27/16 04:25 Anisocytosis 1+ 09/27/16 04:25 Microcytosis Not Reportable 09/27/16 04:25 Macrocytosis Not Reportable 09/27/16 04:25 Spherocytes Not Reportable 09/27/16 04:25 Pappenheimer Bodies Not Reportable 09/27/16 04:25 Sickle Cells Not Reportable 09/27/16 04:25 Target Cells Not Reportable 09/27/16 04:25 Tear Drop Cells Not Reportable 09/27/16 04:25 Ovalocytes Not Reportable 09/27/16 04:25 Helmet Cells Not Reportable 09/27/16 04:25 [place] Bodies Not Reportable 09/27/16 04:25 [place] Rings Not Reportable 09/27/16 04:25 [place] Cells Not Reportable 09/27/16 04:25 Bite Cells Not Reportable 09/27/16 04:25 Crenated Cell Not Reportable 09/27/16 04:25 Elliptocytes Not Reportable 09/27/16 04:25 Acanthocytes (Spur) Not Reportable 09/27/16 04:25 Rouleaux Not Reportable 09/27/16 04:25 Hemoglobin C Crystals Not Reportable 09/27/16 04:25 Schistocytes Not Reportable 09/27/16 04:25 Malaria parasites Not Reportable 09/27/16 04:25 Azael Bodies Not Reportable 09/27/16 04:25 Hem Pathologist Commnt No 09/27/16 04:25 PT 18.9 Sec. (12.2-14.9) H 10/16/16 21:47 INR 1.59 (0.87-1.13) H 10/16/16 21:47 APTT 55.3 Sec. (24.2-36.6) H 10/16/16 21:47 Heparin Anti-Xa Level 0.63 U.I./ml (0.3-0.7) 10/18/16 10:04 Sodium 135 mmol/L (137-145) L 10/18/16 04:51 Potassium 3.4 mmol/L (3.6-5.0) L 10/18/16 04:51 Chloride 97.8 mmol/L (98-107) L 10/18/16 04:51 Carbon Dioxide 25 mmol/L (22-30) 10/18/16 04:51 Anion Gap 16 mmol/L 10/18/16 04:51 BUN 10 mg/dL (9-20) 10/18/16 04:51 Creatinine 3.1 mg/dL (0.8-1.5) H 10/18/16 04:51 Estimated GFR 24 ml/min 10/18/16 04:51 BUN/Creatinine Ratio 3.22 % 10/18/16 04:51 Glucose 97 mg/dL (75-100) 10/18/16 04:51 Osmolality 293 Mosm/kg 10/03/16 14:03 Lactic Acid 1.1 mmol/L (0.7-2.0) 10/17/16 17:45 Uric Acid 5.4 mg/dL (3.5-7.6) 10/03/16 09:16 Calcium 7.5 mg/dL (8.4-10.2) L 10/18/16 04:51 Iron 31 ug/dL (49-181) L 10/06/16 17:16 TIBC 168.00 mcg/dL (250-450) L 10/06/16 17:16 Transferrin 120 mg/dl (180-329) L 10/06/16 17:16 Ferritin 488.6 ng/mL (13.0-400.0) H 10/06/16 17:16 Total Creatine Kinase 186 units/L (55-170) H 10/08/16 09:27 Vitamin B12 1268 pg/mL (211-911) H 10/06/16 17:16 Folate 11.86 ng/mL (7.3-26.0) 10/06/16 17:16 Urine Color Yellow (Yellow) 10/03/16 17:00 Urine Turbidity Clear (Clear) 10/03/16 17:00 Urine pH 5.0 (5.0-7.0) 10/03/16 17:00 Ur Specific [place] 1.011 (1.003-1.030) 10/03/16 17:00 Urine Protein <15 mg/dl mg/dL (Negative) 10/03/16 17:00 Urine Glucose (UA) Neg mg/dL (Negative) 10/03/16 17:00 Urine Ketones Neg mg/dL (Negative) 10/03/16 17:00 Urine Blood Neg (Negative) 10/03/16 17:00 Urine Nitrite Neg (Negative) 10/03/16 17:00 Urine Bilirubin Neg (Negative) 10/03/16 17:00 Urine Urobilinogen < 2.0 mg/dL (<2.0) 10/03/16 17:00 Ur Leukocyte Esterase Neg (Negative) 10/03/16 17:00 Urine WBC (Auto) 1.0 /HPF (0.0-6.0) 10/03/16 17:00 Urine RBC (Auto) 1.0 /HPF (0.0-6.0) 10/03/16 17:00 U Epithel Cells (Auto) 5.0 /HPF (0-13.0) 10/03/16 17:00 Urine Bacteria (Auto) 1+ /HPF (Negative) 09/26/16 00:03 Urine Mucus Few /HPF 10/03/16 17:00 Urine Total Volume 800 10/15/16 12:30 Urine Creatinine 61.1 mg/dL (0.1-20.0) H 10/15/16 12:30 Ur Creatinine 24 Hour 0.5 (0.8-2.8) L 10/15/16 12:30 Height (in) 67.0 inches 10/14/16 13:49 Weight (lb) 230.0 lbs 10/14/16 13:49 Creatinine Clearance 7 10/14/16 13:49 Urine Sodium 33 mEq/L 10/03/16 17:00 Urine Total Protein 23 mg/dL (5-11.8) H 10/03/16 17:00 Vancomycin Trough 39.5 ug/mL (5.0-20.0) H 10/01/16 09:07 Random Vancomycin 10.1 ug/mL (0-40.0) 10/13/16 05:12 Blood Type O NEGATIVE 10/06/16 17:16 Antibody Screen Negative 10/06/16 17:16 Crossmatch See Detail 10/06/16 17:16
--- NOTE | 2016-10-18 14:27 | Operative Report ---
Operative Report Operative Report: EXAM: 1. Fluoroscopic-guided conversion of a right internal jugular non-tunneled non- cuffed hemodialysis catheter to a tunneled cuffed hemodialysis catheter. DATE: 10/18/16 INDICATION: End-stage renal disease requiring hemodialysis access. MEDICATIONS: Please see nursing report for full details. DEVICES: 23 cm tip to cuff dual lumen hemodialysis catheter DOLL WIGS HACKLER: ANGEL HWANG MD CONTRAST: None PROCEDURE: The risks, benefits, and alternatives were discussed and informed consent was obtained. The patient was transported to the angiography suite in satisfactory/ stable condition and was transported onto the angiography table. The patient was prepped and draped in a sterile fashion. The existing vascath was prepped and draped in a sterile fashion. Suture was cut. 0.035 inch wire was advanced through the Vas-Cath into the IVC. Vas-Cath was removed. The wire was cleaned with ChloraPrep. Over the 0.035 inch wire, serial dilatation was performed with ultimate placement of a peel-away sheath. Reverse tunneled PermCath was inserted to the peel-away sheath and positioned in the right atrium. Peel-away sheath removed. A suitable exit site was identified on the patient's chest inferior and lateral to the venotomy. The site was anesthetized with local anesthetic and the track was anesthetized. Dermatotomy was made. Reverse tunneler was then tunneled from dermatotomy to the venotomy site/catheter. The PermCath was attached to the tunneling device and reverse tunneled between the dermatotomy to the venotomy. The catheter was reassembled. 4-0 Vicryl suture was used to close the venotomy and Dermabond was then applied. 2-0 Ethilon suture was used to secure the catheter at the dermatotomy. The catheter was charged with heparin 1000 units/mL space. The patient was transferred from the angiography suite back to the floor in stable condition. FINDINGS: 1. Excellent flow was obtained through the dialysis catheter with 20 mL syringes. 2. The catheter tip is in the right atrium. IMPRESSION: 1. Fluoroscopic-guided conversion of a right internal jugular non-tunneled non- cuffed hemodialysis catheter to a tunneled cuffed hemodialysis catheter.
--- NOTE | 2016-10-18 15:57 | Progress Note ---
Assessment and Plan Swelling appear secondary to possible cellulitis, possible extravasation of intravenous fluids. His nails are compartment syndrome, abscessed formation. We'll treat this with elevation, local ice packs, splenial wrist and functional position. We'll closely watch. Do not see any surgical indications point. - Patient Problems (1) Cellulitis Current Visit: Yes Status: Acute Plan to address problem: Continue with elevation, splinting, antibiotics. Subjective Date of service: 10/18/16 Principal diagnosis: rhonda Interval history: Right hand swelling improved, no neurovascular deficit. No obvious infection, abscess formation. Objective Vital signs: Vital Signs - 12hr 10/18/16 10/18/16 05:19 08:00 Temperature 97.8 F 97.7 F Pulse Rate [ 75 Apical] Pulse Rate [ 73 From Monitor] Respiratory 20 16 Rate Blood Pressure 135/66 139/66 [Left Arm] O2 Sat by Pulse 100 99 Oximetry - Labs CBC & BMP: 10/18/16 04:51 10/18/16 04:51 Labs: Abnormal lab results 10/18/16 10/18/16 10/18/16 Range/Units 01:50 04:51 04:51 RBC 2.99 L (3.65-5.03) M/mm3 Hgb 8.4 L (11.8-15.2) gm/dl Hct 25.1 L (35.5-45.6) % RDW 17.0 H (13.2-15.2) % Heparin Anti-Xa Level 0.73 H (0.3-0.7) U.I./ml Sodium 135 L (137-145) mmol/L Potassium 3.4 L (3.6-5.0) mmol/L Chloride 97.8 L (98-107) mmol/L Creatinine 3.1 H (0.8-1.5) mg/dL Calcium 7.5 L (8.4-10.2) mg/dL
[2016-10-18] MEDS: PROCRIT IV PRN (21:19)
[2016-10-19] MEDS: HEPARIN IV PRN (00:02)
[2016-10-19] MEDS: CARAFATE PO SCH ×4 (01:00→19:47)
[2016-10-19] MEDS: CLEOCIN 900 MG/50 mL 50 ML IV SCH ×4 (01:00→22:00)
[2016-10-19] MEDS: PROTONIX PO SCH ×3 (01:00→22:00)
[2016-10-19] MEDS: PERCOCET 5/325 PO PRN (01:44)
[2016-10-19 05:56] LABS: Hematocrit 25.6 % (35.5-45.6); Hemoglobin 8.5 gm/dl (11.8-15.2)
[2016-10-19 06:10] LABS: BUN/Creatinine Ratio 2.38; Calcium 7.7 mg/dL (8.4-10.2); Chloride 97.4 mmol/L (98-107); Potassium 3.5 mmol/L (3.6-5.0)
--- NOTE | 2016-10-19 07:34 | Progress Note ---
Assessment and Plan Impression: * MARIA C/ATN * Recent vanco toxicity * S/p amputation * HTN * Anemia Plan: * HD q tthsat until recovers * maria c may be due to ATN from vancotoxicity * renal diet * follow up crcl * strict i/os * dialysis tthsat * hopefully will recover * avoid nephrotoxins * ok for rehab Subjective Date of service: 10/19/16 Principal diagnosis: maria c Interval history: resting in bed today Objective - Exam Narrative Exam: General appearance: appears stated age EENT: mucous membranes moist (uremic odor noted) Neck: no JVD Respiratory: Present: Rales (few crackles posteriorly) Cardiology: regular (S1-S2 heard no S3-S4) Gastrointestinal: normal (soft nontender) Neurologic: other (mild asterixis) - Vital Signs Vital signs: Vital Signs - 12hr 10/18/16 10/18/16 10/18/16 20:00 20:15 20:30 Temperature 98.2 F Pulse Rate 100 H 94 H 103 H Pulse Rate [ From Monitor] Respiratory 20 Rate Blood Pressure 158/80 161/84 155/84 Blood Pressure [Left Arm] O2 Sat by Pulse Oximetry 10/18/16 10/18/16 10/18/16 20:45 21:00 21:15 Temperature Pulse Rate 100 H 98 H 99 H Pulse Rate [ From Monitor] Respiratory Rate Blood Pressure 149/80 165/90 148/83 Blood Pressure [Left Arm] O2 Sat by Pulse Oximetry 10/18/16 10/18/16 10/18/16 21:30 21:45 22:00 Temperature Pulse Rate 94 H 93 H 93 H Pulse Rate [ From Monitor] Respiratory Rate Blood Pressure 166/82 152/84 144/77 Blood Pressure [Left Arm] O2 Sat by Pulse Oximetry 10/18/16 10/18/16 10/18/16 22:15 22:30 22:45 Temperature Pulse Rate 92 H 97 H 90 Pulse Rate [ From Monitor] Respiratory Rate Blood Pressure 151/87 151/83 147/79 Blood Pressure [Left Arm] O2 Sat by Pulse Oximetry 10/18/16 10/18/16 10/18/16 22:59 23:00 23:20 Temperature 98.7 F Pulse Rate 92 H 98 H Pulse Rate [ 97 H From Monitor] Respiratory 20 Rate Blood Pressure 140/78 137/78 Blood Pressure 110/71 [Left Arm] O2 Sat by Pulse 100 Oximetry 10/18/16 10/19/16 10/19/16 23:30 01:44 02:10 Temperature 98.2 F 98.2 F Pulse Rate 96 H Pulse Rate [ 97 H From Monitor] Respiratory 20 20 20 Rate Blood Pressure 155/79 Blood Pressure 162/88 [Left Arm] O2 Sat by Pulse 100 Oximetry 10/19/16 10/19/16 02:44 06:53 Temperature 98.4 F Pulse Rate Pulse Rate [ 86 From Monitor] Respiratory 18 20 Rate Blood Pressure Blood Pressure 126/72 [Left Arm] O2 Sat by Pulse 100 Oximetry - Lab 10/19/16 05:01 10/19/16 05:01 Most recent lab results Calcium 7.7 mg/dL (8.4-10.2) L 10/19/16 05:01 Urine Creatinine 61.1 mg/dL (0.1-20.0) H 10/15/16 12:30 Urine Sodium 33 mEq/L 10/03/16 17:00 Urine Total Protein 23 mg/dL (5-11.8) H 10/03/16 17:00
--- NOTE | 2016-10-19 07:48 | Discharge Summary ---
Providers - Providers Date of Admission: 09/26/16 07:54 Date of discharge: 10/19/16 Attending physician: EARL HARPER MD 09/26/16 10:42 Consult to Wound/ET Nurse [CONS] Stat Reason For Exam: wound eval 09/27/16 15:22 Physical Therapy Evaluation and Treat [CONS] Stat Comment: Reason For Exam: ACUTE REHAB EVAL 09/28/16 12:23 Consult Acute Rehabilitation [CONS] Routine Consulting Provider: SERJIO CHRISTENSEN Reason For Exam: Deconditioned 10/01/16 Consult to Case Management [CONS] Routine Services Needed at Discharge: Other Notified:: cm notified Comment:: rehab eval Occupational Therapy Evaluate and Treat [CONS] Routine Comment: Reason For Exam: s/p amputation Physical Therapy Evaluation and Treat [CONS] Routine Comment: Reason For Exam: s/p amputation 10/01/16 12:02 Consult Acute Rehabilitation [CONS] Routine Consulting Provider: SERJIO CHRISTENSEN Reason For Exam: eval for acute rehab 10/03/16 08:48 Consult to Physician [CONS] Routine Consulting Provider: TU CHURCH Reason For Exam: MARIA C Place consult to:: infrastructure solutions architect nephrology Notified:: ANSWRING SERVICE Phone number called:: [phone] Was contact made?: Yes If yes, spoke with:: ANTOINE Time called:: 09:03 Comment:: CONSULT - LYRIC 10/08/16 15:06 Consult to Physician [CONS] Routine Consulting Provider: TRIXIE KERR Reason For Exam: GI bleed Place consult to:: infrastructure solutions architect GI Notified:: yes Phone number called:: [phone] Was contact made?: Yes If yes, spoke with:: Ryan(answering service) Time called:: 18:42 10/08/16 15:27 Consult to Fire Sprinkler Designer [CONS] Routine Reason For Exam: Hangar Prosthetic for [place] 10/15/16 09:45 Consult to Physician [CONS] Routine Consulting Provider: CLAIRE RODRIGUEZ V Reason For Exam: Rt hand cellulitis; ? deep space infection Place consult to:: Dr. Rodriguez Notified:: yes Phone number called:: [phone] Was contact made?: Yes If yes, spoke with:: [place] Time called:: 11:23 Comment:: 10/15/16 Primary care physician: SIGN ARTIST Hospitalization Reason for admission: cellilitis with gangrene Condition: Stable Hospital course: 1. Acute renal failure - most likely due to ATN from vancomycin toxicity- continue on dialysis for now follow-up with nephrology for further recommendations and monitor lytes; for 24 hr Cr CL as per renal. Mild improvement in renal function noted with creatinine coming down to 2.9 yesterday but increased back today -perm cath placement, creatinine down to 2.1 today on discharge. expect recovery 2. Cellulitis of the RT hand and forearm-continue clindamycin IV; elevate limb ; Orthopedic input noted and no need for surgery at this point. We'll continue with elevation of her arm. 3. 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 Cont eliquis; monitor H&H. Follow-up with wound care as per vascular 4.-Benign hypertension-currently not on any medications, continue to monitor. Stable 5. HTN (hypertension) 6. LE DVT-cont eliquis; 7. Acute blood loss anemia from amputation -status post transfusion, H/H stable today; monitor 8. Antral ulcer- s/p EGD and biopsy; cont PPI and carafate; f/u GI as outpatient for biopsy report 9. DVT prophylaxiss- on eliquis 10. Disposition-obtain evaluation by acute rehabilitation Disposition: DC/TX INPT REHAB FACILITY Time spent for discharge: 35 mins Core Measure Documentation - Palliative Care Palliative Care/ Comfort Measures: Not Applicable - Core Measures Any of the following diagnoses?: none - VTE Discharge Requirements Deep Vein Thrombosis/Pulmonary Embolism Present on Admission: No Exam - Physical Exam Narrative exam: VITAL SIGNS: Reviewed. GENERAL: The patient appeared well nourished and normally developed. Vital signs as documented. HEAD: No signs of head trauma. EYES: Pupils are equal. Extraocular motions intact. EARS: Hearing grossly intact. MOUTH: Oropharynx is normal. NECK: No adenopathy, no JVD. CHEST: Chest with diminshed breath sounds bilaterally. No wheezes, rales, or rhonchi. CARDIAC: Regular rate and rhythm. S1 and S2, without murmurs, gallops, or rubs. VASCULAR: No Edema. Peripheral pulses normal and equal in all extremities. ABDOMEN: Soft, without detectable tenderness. No sign of distention. No rebound or guarding, and no masses palpated. Bowel Sounds normal. MUSCULOSKELETAL: Right hand with diffuse dorsal swelling, limited range of motion secondary to swelling. No neurovascular deficit, no redness, induration. Swelling extends to the wrist. No evidence of compartment syndrome , able to form a near full fist. Right AKA, dressing in place not optimal drainage noted.. Extremities without clubbing, cyanosis or edema. NEUROLOGIC EXAM: Alert and oriented x 3. No focal sensory or strength deficits. Speech normal. Follows commands. PSYCHIATRIC: Mood normal. SKIN: Warm to the touch of right wrist area.. - Constitutional Vitals: Temp Pulse Resp BP Pulse Ox 98.4 F 86 20 126/72 100 10/19/16 06:53 10/19/16 06:53 10/19/16 06:53 10/19/16 06:53 10/19/16 06:53 Plan Activity: advance as tolerated, fall precautions Diet: low cholesterol Special Instructions: record daily BP diary Follow up with: PRIMARY CAREMD [Primary Care Provider] - 3-5 Days GLORIA RODRIGUEZ MD [Staff Physician] - 7 Days CLAIRE RODRIGUEZ MD [Staff Physician] - 7 Days Prescriptions: Sucralfate [Carafate] 1 gm PO Q6HR 10 Days Clindamycin [Clindamycin CAP] 600 mg PO BID #10 capsule Nystatin [Nystop Powder] 1 applic TP BID 5 Days oxyCODONE /ACETAMINOPHEN [Percocet 5/325 mg] 2 tab PO Q6H PRN 10 Days PRN Reason: Pain, Moderate (4-6) Pantoprazole [Protonix TAB] 40 mg PO QDAY #30 tablet
--- NOTE | 2016-10-19 11:58 | Event Note ---
Date: 10/19/16 Restarted Eliquis. Can discontinue heparin drip 1 hr after 1st dose of eliquis.
[2016-10-19] MEDS: NYSTOP TP SCH ×2 (12:11→22:00)
[2016-10-19] MEDS: ELIQUIS PO SCH ×2 (12:25→22:00)
[2016-10-19 12:54] LABS: Alanine Aminotransferase 9 units/L (7-56); Albumin 2.1 g/dL (3.9-5); Albumin/Globulin Ratio 0.6 %; Alkaline Phosphatase 66 units/L (35-129); Bilirubin,Total 0.3 mg/dL (0.1-1.2); Total Protein 5.7 g/dL (6.3-8.2)
[2016-10-19 12:55] LABS: Bilirubin,Direct < 0.2 mg/dL (0-0.2)
--- NOTE | 2016-10-19 13:43 | Progress Note ---
Assessment and Plan Swelling appear secondary to possible cellulitis, possible extravasation of intravenous fluids. His nails are compartment syndrome, abscessed formation. We'll treat this with elevation, local ice packs, splenial wrist and functional position. We'll closely watch. Do not see any surgical indications point. - Patient Problems (1) Cellulitis Current Visit: Yes Status: Acute Plan to address problem: Continue with elevation, splinting, antibiotics.We'll sign off, if any further help needed, please call us back. Followup in the office upon discharge. Subjective Date of service: 10/19/16 Principal diagnosis: rhonda Interval history: Right hand swelling improved, no neurovascular deficit. No obvious infection, abscess formation. Objective Vital signs: Vital Signs - 12hr 10/19/16 10/19/16 10/19/16 01:44 02:10 02:44 Temperature 98.2 F Pulse Rate [ Apical] Pulse Rate [ 97 H From Monitor] Respiratory 20 20 18 Rate Blood Pressure 162/88 [Left Arm] O2 Sat by Pulse 100 Oximetry 10/19/16 10/19/16 06:53 08:00 Temperature 98.4 F 97.6 F Pulse Rate [ 86 Apical] Pulse Rate [ 86 From Monitor] Respiratory 20 20 Rate Blood Pressure 126/72 127/69 [Left Arm] O2 Sat by Pulse 100 100 Oximetry - Labs CBC & BMP: 10/19/16 05:01 10/19/16 05:01 Labs: Abnormal lab results 10/19/16 10/19/16 10/19/16 Range/Units 05:01 05:01 11:52 Hgb 8.5 L (11.8-15.2) gm/dl Hct 25.6 L (35.5-45.6) % Potassium 3.5 L (3.6-5.0) mmol/L Chloride 97.4 L (98-107) mmol/L BUN 5 L (9-20) mg/dL Creatinine 2.1 H (0.8-1.5) mg/dL Calcium 7.7 L (8.4-10.2) mg/dL AST 46 H (5-40) units/L Total Protein 5.7 L (6.3-8.2) g/dL Albumin 2.1 L (3.9-5) g/dL
--- NOTE | 2016-10-19 15:13 | Progress Note ---
Assessment and Plan Assessment and plan: 1. Acute renal failure - most likely due to ATN from vancomycin toxicity- continue on dialysis for now follow-up with nephrology for further recommendations and monitor lytes; for 24 hr Cr CL as per renal. Mild improvement in renal function noted with creatinine coming down to 2.9 yesterday but increased back today -perm cath placed. Creatinine improved to 2.1 post dialysis. 2. Cellulitis of the RT hand and forearm-continue clindamycin IV; elevate limb ; Orthopedic input noted and no need for surgery at this point. We'll continue with elevation of her arm. 3. 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 Cont eliquis; monitor H&H. Follow-up with wound care as per vascular 4.-Benign hypertension-currently not on any medications, continue to monitor. Stable 5. HTN (hypertension) 6. LE DVT-cont eliquis; 7. Acute blood loss anemia from amputation -status post transfusion, H/H stable today; monitor 8. Antral ulcer- s/p EGD and biopsy; cont PPI and carafate; f/u GI as outpatient for biopsy report 9. DVT prophylaxiss- on eliquis 10. Disposition awaiting dialysis chair, and also SNF placement was declined inpatient rehabilitation by insurance . History Interval history: f/u acute renal failure; gangrene of RT lower extremity post amputation Patient seen and examined this morning in no acute distress, significant improvement in right wrist swelling and no more pain reported. Denies any chest pain, nausea, vomiting, diarrhea No fever noted blood pressure controlled No adverse events reported to me by nursing staff Hospitalist Physical - Physical exam Narrative exam: VITAL SIGNS: Reviewed. GENERAL: The patient appeared well nourished and normally developed. Vital signs as documented. HEAD: No signs of head trauma. EYES: Pupils are equal. Extraocular motions intact. EARS: Hearing grossly intact. MOUTH: Oropharynx is normal. NECK: No adenopathy, no JVD. CHEST: Chest with diminshed breath sounds bilaterally. No wheezes, rales, or rhonchi. CARDIAC: Regular rate and rhythm. S1 and S2, without murmurs, gallops, or rubs. VASCULAR: No Edema. Peripheral pulses normal and equal in all extremities. ABDOMEN: Soft, without detectable tenderness. No sign of distention. No rebound or guarding, and no masses palpated. Bowel Sounds normal. MUSCULOSKELETAL: Right hand with diffuse dorsal swelling, limited range of motion secondary to swelling. No neurovascular deficit, no redness, induration. Swelling extends to the wrist. No evidence of compartment syndrome , able to form a near full fist. Right AKA, dressing in place not optimal drainage noted.. Extremities without clubbing, cyanosis or edema. NEUROLOGIC EXAM: Alert and oriented x 3. No focal sensory or strength deficits. Speech normal. Follows commands. PSYCHIATRIC: Mood normal. SKIN: Warm to the touch of right wrist area.. - Constitutional Vitals: Temp Pulse Resp BP Pulse Ox 97.6 F 86 20 127/69 100 10/19/16 08:00 10/19/16 08:00 10/19/16 08:00 10/19/16 08:00 10/19/16 08:00 General appearance: Present: no acute distress, well-nourished Results - Labs CBC & Chem 7: 10/19/16 05:01 10/19/16 05:01 Labs: Laboratory Last Values WBC 6.9 K/mm3 (4.5-11.0) 10/18/16 04:51 RBC 2.99 M/mm3 (3.65-5.03) L 10/18/16 04:51 Hgb 8.5 gm/dl (11.8-15.2) L 10/19/16 05:01 Hct 25.6 % (35.5-45.6) L 10/19/16 05:01 MCV 84 fl (84-94) 10/18/16 04:51 MCH 28 pg (28-32) 10/18/16 04:51 MCHC 34 % (32-34) 10/18/16 04:51 RDW 17.0 % (13.2-15.2) H 10/18/16 04:51 Plt Count 313 K/mm3 (140-440) 10/18/16 04:51 Lymph % (Auto) 11.6 % (13.4-35.0) L 10/15/16 05:06 [place] % (Auto) 10.7 % (0.0-7.3) H 10/15/16 05:06 Eos % (Auto) 7.2 % (0.0-4.3) H 10/15/16 05:06 Baso % (Auto) 0.3 % (0.0-1.8) 10/15/16 05:06 Lymph # 1.2 K/mm3 (1.2-5.4) 10/15/16 05:06 [place] # 1.1 K/mm3 (0.0-0.8) H 10/15/16 05:06 Eos # 0.7 K/mm3 (0.0-0.4) H 10/15/16 05:06 Baso # 0.0 K/mm3 (0.0-0.1) 10/15/16 05:06 Add Manual Diff Complete 09/27/16 04:25 Total Counted 100 09/27/16 04:25 Seg Neutrophils % 70.2 % (40.0-70.0) H 10/15/16 05:06 Seg Neuts % (Manual) 82.0 % (40.0-70.0) H 09/27/16 04:25 Band Neutrophils % 6.0 % 09/27/16 04:25 Lymphocytes % (Manual) 8.0 % (13.4-35.0) L 09/27/16 04:25 Reactive Lymphs % (Man) 0 % 09/27/16 04:25 Monocytes % (Manual) 3.0 % (0.0-7.3) 09/27/16 04:25 Eosinophils % (Manual) 0 % (0.0-4.3) 09/27/16 04:25 Basophils % (Manual) 0 % (0.0-1.8) 09/27/16 04:25 Metamyelocytes % 1.0 % 09/27/16 04:25 Myelocytes % 0 % 09/27/16 04:25 Promyelocytes % 0 % 09/27/16 04:25 Blast Cells % 0 % 09/27/16 04:25 Nucleated RBC % Not Reportable 09/27/16 04:25 Seg Neutrophils # 7.3 K/mm3 (1.8-7.7) 10/15/16 05:06 Seg Neutrophils # Man 15.3 K/mm3 (1.8-7.7) H 09/27/16 04:25 Band Neutrophils # 1.1 K/mm3 09/27/16 04:25 Lymphocytes # (Manual) 1.5 K/mm3 (1.2-5.4) 09/27/16 04:25 Abs React Lymphs (Man) 0.0 K/mm3 09/27/16 04:25 Monocytes # (Manual) 0.6 K/mm3 (0.0-0.8) 09/27/16 04:25 Eosinophils # (Manual) 0.0 K/mm3 (0.0-0.4) 09/27/16 04:25 Basophils # (Manual) 0.0 K/mm3 (0.0-0.1) 09/27/16 04:25 Metamyelocytes # 0.2 K/mm3 09/27/16 04:25 Myelocytes # 0.0 K/mm3 09/27/16 04:25 Promyelocytes # 0.0 K/mm3 09/27/16 04:25 Blast Cells # 0.0 K/mm3 09/27/16 04:25 WBC Morphology Not Reportable 09/27/16 04:25 Hypersegmented Neuts Not Reportable 09/27/16 04:25 Hyposegmented Neuts Not Reportable 09/27/16 04:25 Hypogranular Neuts Not Reportable 09/27/16 04:25 Smudge Cells Not Reportable 09/27/16 04:25 Toxic Granulation Not Reportable 09/27/16 04:25 Toxic Vacuolation Not Reportable 09/27/16 04:25 Dohle Bodies Not Reportable 09/27/16 04:25 Pelger-Huet Anomaly Not Reportable 09/27/16 04:25 Renita Rods Not Reportable 09/27/16 04:25 Platelet Estimate Not Reportable 09/27/16 04:25 Clumped Platelets Not Reportable 09/27/16 04:25 Plt Clumps, EDTA Not Reportable 09/27/16 04:25 Large Platelets Not Reportable 09/27/16 04:25 Giant Platelets Few 09/27/16 04:25 Platelet Satelliting Not Reportable 09/27/16 04:25 Plt Morphology Comment Not Reportable 09/27/16 04:25 RBC Morphology Not Reportable 09/27/16 04:25 Dimorphic RBCs Not Reportable 09/27/16 04:25 Polychromasia Not Reportable 09/27/16 04:25 Hypochromasia Not Reportable 09/27/16 04:25 Poikilocytosis Not Reportable 09/27/16 04:25 Anisocytosis 1+ 09/27/16 04:25 Microcytosis Not Reportable 09/27/16 04:25 Macrocytosis Not Reportable 09/27/16 04:25 Spherocytes Not Reportable 09/27/16 04:25 Pappenheimer Bodies Not Reportable 09/27/16 04:25 Sickle Cells Not Reportable 09/27/16 04:25 Target Cells Not Reportable 09/27/16 04:25 Tear Drop Cells Not Reportable 09/27/16 04:25 Ovalocytes Not Reportable 09/27/16 04:25 Helmet Cells Not Reportable 09/27/16 04:25 Iraheta-[place] Bodies Not Reportable 09/27/16 04:25 [place] Rings Not Reportable 09/27/16 04:25 Abhilash Cells Not Reportable 09/27/16 04:25 Bite Cells Not Reportable 09/27/16 04:25 Crenated Cell Not Reportable 09/27/16 04:25 Elliptocytes Not Reportable 09/27/16 04:25 Acanthocytes (Spur) Not Reportable 09/27/16 04:25 Rouleaux Not Reportable 09/27/16 04:25 Hemoglobin C Crystals Not Reportable 09/27/16 04:25 Schistocytes Not Reportable 09/27/16 04:25 Malaria parasites Not Reportable 09/27/16 04:25 Azael Bodies Not Reportable 09/27/16 04:25 Hem Pathologist Commnt No 09/27/16 04:25 PT 18.9 Sec. (12.2-14.9) H 10/16/16 21:47 INR 1.59 (0.87-1.13) H 10/16/16 21:47 APTT 55.3 Sec. (24.2-36.6) H 10/16/16 21:47 Heparin Anti-Xa Level 0.63 U.I./ml (0.3-0.7) 10/18/16 10:04 Sodium 137 mmol/L (137-145) 10/19/16 05:01 Potassium 3.5 mmol/L (3.6-5.0) L 10/19/16 05:01 Chloride 97.4 mmol/L (98-107) L 10/19/16 05:01 Carbon Dioxide 27 mmol/L (22-30) 10/19/16 05:01 Anion Gap 16 mmol/L 10/19/16 05:01 BUN 5 mg/dL (9-20) L 10/19/16 05:01 Creatinine 2.1 mg/dL (0.8-1.5) H 10/19/16 05:01 Estimated GFR 38 ml/min 10/19/16 05:01 BUN/Creatinine Ratio 2.38 % 10/19/16 05:01 Glucose 98 mg/dL (75-100) 10/19/16 05:01 Osmolality 293 Mosm/kg 10/03/16 14:03 Lactic Acid 1.1 mmol/L (0.7-2.0) 10/17/16 17:45 Uric Acid 5.4 mg/dL (3.5-7.6) 10/03/16 09:16 Calcium 7.7 mg/dL (8.4-10.2) L 10/19/16 05:01 Iron 31 ug/dL (49-181) L 10/06/16 17:16 TIBC 168.00 mcg/dL (250-450) L 10/06/16 17:16 Transferrin 120 mg/dl (180-329) L 10/06/16 17:16 Ferritin 488.6 ng/mL (13.0-400.0) H 10/06/16 17:16 Total Bilirubin 0.3 mg/dL (0.1-1.2) 10/19/16 11:52 Direct Bilirubin < 0.2 mg/dL (0-0.2) 10/19/16 11:52 AST 46 units/L (5-40) H 10/19/16 11:52 ALT 9 units/L (7-56) 10/19/16 11:52 Alkaline Phosphatase 66 units/L (35-129) 10/19/16 11:52 Total Creatine Kinase 186 units/L (55-170) H 10/08/16 09:27 Total Protein 5.7 g/dL (6.3-8.2) L 10/19/16 11:52 Albumin 2.1 g/dL (3.9-5) L 10/19/16 11:52 Albumin/Globulin Ratio 0.6 % 10/19/16 11:52 Vitamin B12 1268 pg/mL (211-911) H 10/06/16 17:16 Folate 11.86 ng/mL (7.3-26.0) 10/06/16 17:16 Urine Color Yellow (Yellow) 10/03/16 17:00 Urine Turbidity Clear (Clear) 10/03/16 17:00 Urine pH 5.0 (5.0-7.0) 10/03/16 17:00 Ur Specific [place] 1.011 (1.003-1.030) 10/03/16 17:00 Urine Protein <15 mg/dl mg/dL (Negative) 10/03/16 17:00 Urine Glucose (UA) Neg mg/dL (Negative) 10/03/16 17:00 Urine Ketones Neg mg/dL (Negative) 10/03/16 17:00 Urine Blood Neg (Negative) 10/03/16 17:00 Urine Nitrite Neg (Negative) 10/03/16 17:00 Urine Bilirubin Neg (Negative) 10/03/16 17:00 Urine Urobilinogen < 2.0 mg/dL (<2.0) 10/03/16 17:00 Ur Leukocyte Esterase Neg (Negative) 10/03/16 17:00 Urine WBC (Auto) 1.0 /HPF (0.0-6.0) 10/03/16 17:00 Urine RBC (Auto) 1.0 /HPF (0.0-6.0) 10/03/16 17:00 U Epithel Cells (Auto) 5.0 /HPF (0-13.0) 10/03/16 17:00 Urine Bacteria (Auto) 1+ /HPF (Negative) 09/26/16 00:03 Urine Mucus Few /HPF 10/03/16 17:00 Urine Total Volume 800 10/15/16 12:30 Urine Creatinine 61.1 mg/dL (0.1-20.0) H 10/15/16 12:30 Ur Creatinine 24 Hour 0.5 (0.8-2.8) L 10/15/16 12:30 Height (in) 67.0 inches 10/14/16 13:49 Weight (lb) 230.0 lbs 10/14/16 13:49 Creatinine Clearance 7 10/14/16 13:49 Urine Sodium 33 mEq/L 10/03/16 17:00 Urine Total Protein 23 mg/dL (5-11.8) H 10/03/16 17:00 Vancomycin Trough 39.5 ug/mL (5.0-20.0) H 10/01/16 09:07 Random Vancomycin 10.1 ug/mL (0-40.0) 10/13/16 05:12 Blood Type O NEGATIVE 10/06/16 17:16 Antibody Screen Negative 10/06/16 17:16 Crossmatch See Detail 10/06/16 17:16
[2016-10-20] MEDS: CLEOCIN 900 MG/50 mL 50 ML IV SCH ×3 (06:00→21:44)
[2016-10-20] MEDS: CARAFATE PO SCH ×5 (06:00→23:55)
--- NOTE | 2016-10-20 07:34 | Progress Note ---
Assessment and Plan Impression: * MARIA C/ATN * Recent vanco toxicity * S/p amputation * HTN * Anemia Plan: * HD q tthsat until recovers * reduce eliquis dose to 2.5 in the setting at maria c with cr cl 8ml/min * maria c may be due to ATN from vancotoxicity * renal diet * follow up crcl * strict i/os * dialysis tthsat * hopefully will recover * avoid nephrotoxins * ok for rehab Subjective Date of service: 10/20/16 Principal diagnosis: maria c Interval history: resting in bed today Objective - Exam Narrative Exam: General appearance: appears stated age EENT: mucous membranes moist (uremic odor noted) Neck: no JVD Respiratory: Present: Rales (few crackles posteriorly) Cardiology: regular (S1-S2 heard no S3-S4) Gastrointestinal: normal (soft nontender) Neurologic: other (mild asterixis) - Vital Signs Vital signs: Vital Signs - 12hr 10/19/16 10/20/16 10/20/16 20:00 00:00 04:00 Temperature 98.8 F 98.4 F 98.8 F Pulse Rate [ 90 96 H 93 H Left Brachial] Respiratory 20 20 20 Rate Blood Pressure 120/66 150/75 147/73 [Left Arm] O2 Sat by Pulse 100 100 100 Oximetry - Lab 10/20/16 04:07 10/19/16 05:01 Most recent lab results Calcium 7.7 mg/dL (8.4-10.2) L 10/19/16 05:01 Urine Creatinine 61.1 mg/dL (0.1-20.0) H 10/15/16 12:30 Urine Sodium 33 mEq/L 10/03/16 17:00 Urine Total Protein 23 mg/dL (5-11.8) H 10/03/16 17:00
[2016-10-20] MEDS: ELIQUIS PO SCH ×2 (09:40→21:43)
[2016-10-20] MEDS: PROTONIX PO SCH ×2 (09:40→21:43)
--- NOTE | 2016-10-20 11:31 | Progress Note ---
Assessment and Plan Assessment and plan: 1. Acute renal failure - most likely due to ATN from vancomycin toxicity- continue on dialysis for now follow-up with nephrology for further recommendations and monitor lytes; for 24 hr Cr CL as per renal. Mild improvement in renal function noted with creatinine coming down to 2.9 yesterday but increased back today -perm cath placed. He remained stable. Being dialyzed today.. 2. Cellulitis of the RT hand and forearm-continue clindamycin IV; elevate limb ; Orthopedic input noted and no need for surgery at this point. We'll continue with elevation of her arm. 3. 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 Cont eliquis; monitor H&H. Follow-up with wound care as per vascular 4.-Benign hypertension-currently not on any medications, continue to monitor. Stable 5. HTN (hypertension) 6. LE DVT-cont eliquis; 7. Acute blood loss anemia from amputation -status post transfusion, H/H stable today; monitor 8. Antral ulcer- s/p EGD and biopsy; cont PPI and carafate; f/u GI as outpatient for biopsy report 9. DVT prophylaxiss- on eliquis 10. Disposition awaiting dialysis chair, and also SNF placement was declined inpatient rehabilitation by insurance . History Interval history: f/u acute renal failure; gangrene of RT lower extremity post amputation Patient seen and examined this morning in no acute distress, significant improvement of the right wrist again no pain noted today. Continues on dialysis. Awaiting placement.. Denies any chest pain, nausea, vomiting, diarrhea No fever noted blood pressure controlled No adverse events reported to me by nursing staff Hospitalist Physical - Physical exam Narrative exam: VITAL SIGNS: Reviewed. GENERAL: The patient appeared well nourished and normally developed. Vital signs as documented. HEAD: No signs of head trauma. EYES: Pupils are equal. Extraocular motions intact. EARS: Hearing grossly intact. MOUTH: Oropharynx is normal. NECK: No adenopathy, no JVD. CHEST: Chest with diminshed breath sounds bilaterally. No wheezes, rales, or rhonchi. CARDIAC: Regular rate and rhythm. S1 and S2, without murmurs, gallops, or rubs. VASCULAR: No Edema. Peripheral pulses normal and equal in all extremities. ABDOMEN: Soft, without detectable tenderness. No sign of distention. No rebound or guarding, and no masses palpated. Bowel Sounds normal. MUSCULOSKELETAL: Right hand with diffuse dorsal swelling, limited range of motion secondary to swelling. No neurovascular deficit, no redness, induration. Swelling extends to the wrist. No evidence of compartment syndrome , able to form a near full fist. Right AKA, dressing in place not optimal drainage noted.. Extremities without clubbing, cyanosis or edema. NEUROLOGIC EXAM: Alert and oriented x 3. No focal sensory or strength deficits. Speech normal. Follows commands. PSYCHIATRIC: Mood normal. SKIN: Warm to the touch of right wrist area.. - Constitutional Vitals: Temp Pulse Resp BP Pulse Ox 98.6 F 94 H 18 149/74 97 10/20/16 07:46 10/20/16 07:46 10/20/16 07:46 10/20/16 07:46 10/20/16 07:46 General appearance: Present: no acute distress, well-nourished Results - Labs CBC & Chem 7: 10/20/16 04:07 10/19/16 05:01 Labs: Laboratory Last Values WBC 6.9 K/mm3 (4.5-11.0) 10/18/16 04:51 RBC 2.99 M/mm3 (3.65-5.03) L 10/18/16 04:51 Hgb 8.5 gm/dl (11.8-15.2) L 10/19/16 05:01 Hct 25.6 % (35.5-45.6) L 10/19/16 05:01 MCV 84 fl (84-94) 10/18/16 04:51 MCH 28 pg (28-32) 10/18/16 04:51 MCHC 34 % (32-34) 10/18/16 04:51 RDW 17.0 % (13.2-15.2) H 10/18/16 04:51 Plt Count 223 K/mm3 (140-440) 10/20/16 04:07 Lymph % (Auto) 11.6 % (13.4-35.0) L 10/15/16 05:06 [place] % (Auto) 10.7 % (0.0-7.3) H 10/15/16 05:06 Eos % (Auto) 7.2 % (0.0-4.3) H 10/15/16 05:06 Baso % (Auto) 0.3 % (0.0-1.8) 10/15/16 05:06 Lymph # 1.2 K/mm3 (1.2-5.4) 10/15/16 05:06 [place] # 1.1 K/mm3 (0.0-0.8) H 10/15/16 05:06 Eos # 0.7 K/mm3 (0.0-0.4) H 10/15/16 05:06 Baso # 0.0 K/mm3 (0.0-0.1) 10/15/16 05:06 Add Manual Diff Complete 09/27/16 04:25 Total Counted 100 09/27/16 04:25 Seg Neutrophils % 70.2 % (40.0-70.0) H 10/15/16 05:06 Seg Neuts % (Manual) 82.0 % (40.0-70.0) H 09/27/16 04:25 Band Neutrophils % 6.0 % 09/27/16 04:25 Lymphocytes % (Manual) 8.0 % (13.4-35.0) L 09/27/16 04:25 Reactive Lymphs % (Man) 0 % 09/27/16 04:25 Monocytes % (Manual) 3.0 % (0.0-7.3) 09/27/16 04:25 Eosinophils % (Manual) 0 % (0.0-4.3) 09/27/16 04:25 Basophils % (Manual) 0 % (0.0-1.8) 09/27/16 04:25 Metamyelocytes % 1.0 % 09/27/16 04:25 Myelocytes % 0 % 09/27/16 04:25 Promyelocytes % 0 % 09/27/16 04:25 Blast Cells % 0 % 09/27/16 04:25 Nucleated RBC % Not Reportable 09/27/16 04:25 Seg Neutrophils # 7.3 K/mm3 (1.8-7.7) 10/15/16 05:06 Seg Neutrophils # Man 15.3 K/mm3 (1.8-7.7) H 09/27/16 04:25 Band Neutrophils # 1.1 K/mm3 09/27/16 04:25 Lymphocytes # (Manual) 1.5 K/mm3 (1.2-5.4) 09/27/16 04:25 Abs React Lymphs (Man) 0.0 K/mm3 09/27/16 04:25 Monocytes # (Manual) 0.6 K/mm3 (0.0-0.8) 09/27/16 04:25 Eosinophils # (Manual) 0.0 K/mm3 (0.0-0.4) 09/27/16 04:25 Basophils # (Manual) 0.0 K/mm3 (0.0-0.1) 09/27/16 04:25 Metamyelocytes # 0.2 K/mm3 09/27/16 04:25 Myelocytes # 0.0 K/mm3 09/27/16 04:25 Promyelocytes # 0.0 K/mm3 09/27/16 04:25 Blast Cells # 0.0 K/mm3 09/27/16 04:25 WBC Morphology Not Reportable 09/27/16 04:25 Hypersegmented Neuts Not Reportable 09/27/16 04:25 Hyposegmented Neuts Not Reportable 09/27/16 04:25 Hypogranular Neuts Not Reportable 09/27/16 04:25 Smudge Cells Not Reportable 09/27/16 04:25 Toxic Granulation Not Reportable 09/27/16 04:25 Toxic Vacuolation Not Reportable 09/27/16 04:25 Dohle Bodies Not Reportable 09/27/16 04:25 Pelger-Huet Anomaly Not Reportable 09/27/16 04:25 Renita Rods Not Reportable 09/27/16 04:25 Platelet Estimate Not Reportable 09/27/16 04:25 Clumped Platelets Not Reportable 09/27/16 04:25 Plt Clumps, EDTA Not Reportable 09/27/16 04:25 Large Platelets Not Reportable 09/27/16 04:25 Giant Platelets Few 09/27/16 04:25 Platelet Satelliting Not Reportable 09/27/16 04:25 Plt Morphology Comment Not Reportable 09/27/16 04:25 RBC Morphology Not Reportable 09/27/16 04:25 Dimorphic RBCs Not Reportable 09/27/16 04:25 Polychromasia Not Reportable 09/27/16 04:25 Hypochromasia Not Reportable 09/27/16 04:25 Poikilocytosis Not Reportable 09/27/16 04:25 Anisocytosis 1+ 09/27/16 04:25 Microcytosis Not Reportable 09/27/16 04:25 Macrocytosis Not Reportable 09/27/16 04:25 Spherocytes Not Reportable 09/27/16 04:25 Pappenheimer Bodies Not Reportable 09/27/16 04:25 Sickle Cells Not Reportable 09/27/16 04:25 Target Cells Not Reportable 09/27/16 04:25 Tear Drop Cells Not Reportable 09/27/16 04:25 Ovalocytes Not Reportable 09/27/16 04:25 Helmet Cells Not Reportable 09/27/16 04:25 Iraheta-[place] Bodies Not Reportable 09/27/16 04:25 [place] Rings Not Reportable 09/27/16 04:25 Abhilash Cells Not Reportable 09/27/16 04:25 Bite Cells Not Reportable 09/27/16 04:25 Crenated Cell Not Reportable 09/27/16 04:25 Elliptocytes Not Reportable 09/27/16 04:25 Acanthocytes (Spur) Not Reportable 09/27/16 04:25 Rouleaux Not Reportable 09/27/16 04:25 Hemoglobin C Crystals Not Reportable 09/27/16 04:25 Schistocytes Not Reportable 09/27/16 04:25 Malaria parasites Not Reportable 09/27/16 04:25 Azael Bodies Not Reportable 09/27/16 04:25 Hem Pathologist Commnt No 09/27/16 04:25 PT 18.9 Sec. (12.2-14.9) H 10/16/16 21:47 INR 1.59 (0.87-1.13) H 10/16/16 21:47 APTT 55.3 Sec. (24.2-36.6) H 10/16/16 21:47 Heparin Anti-Xa Level 1.80 U.I./ml (0.3-0.7) H 10/19/16 16:19 Sodium 137 mmol/L (137-145) 10/19/16 05:01 Potassium 3.5 mmol/L (3.6-5.0) L 10/19/16 05:01 Chloride 97.4 mmol/L (98-107) L 10/19/16 05:01 Carbon Dioxide 27 mmol/L (22-30) 10/19/16 05:01 Anion Gap 16 mmol/L 10/19/16 05:01 BUN 5 mg/dL (9-20) L 10/19/16 05:01 Creatinine 2.1 mg/dL (0.8-1.5) H 10/19/16 05:01 Estimated GFR 38 ml/min 10/19/16 05:01 BUN/Creatinine Ratio 2.38 % 10/19/16 05:01 Glucose 98 mg/dL (75-100) 10/19/16 05:01 Osmolality 293 Mosm/kg 10/03/16 14:03 Lactic Acid 1.1 mmol/L (0.7-2.0) 10/17/16 17:45 Uric Acid 5.4 mg/dL (3.5-7.6) 10/03/16 09:16 Calcium 7.7 mg/dL (8.4-10.2) L 10/19/16 05:01 Iron 31 ug/dL (49-181) L 10/06/16 17:16 TIBC 168.00 mcg/dL (250-450) L 10/06/16 17:16 Transferrin 120 mg/dl (180-329) L 10/06/16 17:16 Ferritin 488.6 ng/mL (13.0-400.0) H 10/06/16 17:16 Total Bilirubin 0.3 mg/dL (0.1-1.2) 10/19/16 11:52 Direct Bilirubin < 0.2 mg/dL (0-0.2) 10/19/16 11:52 AST 46 units/L (5-40) H 10/19/16 11:52 ALT 9 units/L (7-56) 10/19/16 11:52 Alkaline Phosphatase 66 units/L (35-129) 10/19/16 11:52 Total Creatine Kinase 186 units/L (55-170) H 10/08/16 09:27 Total Protein 5.7 g/dL (6.3-8.2) L 10/19/16 11:52 Albumin 2.1 g/dL (3.9-5) L 10/19/16 11:52 Albumin/Globulin Ratio 0.6 % 10/19/16 11:52 Vitamin B12 1268 pg/mL (211-911) H 10/06/16 17:16 Folate 11.86 ng/mL (7.3-26.0) 10/06/16 17:16 Urine Color Yellow (Yellow) 10/03/16 17:00 Urine Turbidity Clear (Clear) 10/03/16 17:00 Urine pH 5.0 (5.0-7.0) 10/03/16 17:00 Ur Specific [place] 1.011 (1.003-1.030) 10/03/16 17:00 Urine Protein <15 mg/dl mg/dL (Negative) 10/03/16 17:00 Urine Glucose (UA) Neg mg/dL (Negative) 10/03/16 17:00 Urine Ketones Neg mg/dL (Negative) 10/03/16 17:00 Urine Blood Neg (Negative) 10/03/16 17:00 Urine Nitrite Neg (Negative) 10/03/16 17:00 Urine Bilirubin Neg (Negative) 10/03/16 17:00 Urine Urobilinogen < 2.0 mg/dL (<2.0) 10/03/16 17:00 Ur Leukocyte Esterase Neg (Negative) 10/03/16 17:00 Urine WBC (Auto) 1.0 /HPF (0.0-6.0) 10/03/16 17:00 Urine RBC (Auto) 1.0 /HPF (0.0-6.0) 10/03/16 17:00 U Epithel Cells (Auto) 5.0 /HPF (0-13.0) 10/03/16 17:00 Urine Bacteria (Auto) 1+ /HPF (Negative) 09/26/16 00:03 Urine Mucus Few /HPF 10/03/16 17:00 Urine Total Volume 800 10/15/16 12:30 Urine Creatinine 61.1 mg/dL (0.1-20.0) H 10/15/16 12:30 Ur Creatinine 24 Hour 0.5 (0.8-2.8) L 10/15/16 12:30 Height (in) 67.0 inches 10/14/16 13:49 Weight (lb) 230.0 lbs 10/14/16 13:49 Creatinine Clearance 7 10/14/16 13:49 Urine Sodium 33 mEq/L 10/03/16 17:00 Urine Total Protein 23 mg/dL (5-11.8) H 10/03/16 17:00 Vancomycin Trough 39.5 ug/mL (5.0-20.0) H 10/01/16 09:07 Random Vancomycin 10.1 ug/mL (0-40.0) 10/13/16 05:12 Blood Type O NEGATIVE 10/06/16 17:16 Antibody Screen Negative 10/06/16 17:16 Crossmatch See Detail 10/06/16 17:16
[2016-10-20] MEDS ORDERED: NACL 0.9 (PRIMING MACHINE ONLY DIALYSIS) MC ONE (13:20)
[2016-10-20] MEDS: HEPARIN IV PRN (13:26)
[2016-10-20] MEDS: PROCRIT IV PRN (13:26)
[2016-10-20] MEDS: NYSTOP TP SCH ×2 (15:12→21:44)
[2016-10-20] MEDS: PERCOCET 5/325 PO PRN (18:17)
[2016-10-21] MEDS: CARAFATE PO SCH ×3 (06:03→18:00)
[2016-10-21] MEDS: CLEOCIN 900 MG/50 mL 50 ML IV SCH ×3 (06:03→23:04)
--- NOTE | 2016-10-21 08:12 | Progress Note ---
Assessment and Plan Assessment and plan: 1. Acute renal failure - most likely due to ATN from vancomycin toxicity- continue on dialysis for now follow-up with nephrology for further recommendations and monitor lytes; for 24 hr Cr CL as per renal. Mild improvement in renal function with dialysis -perm cath placed. He remained stable. Dialyzed 10/20/16 2. Cellulitis of the RT hand and forearm-continue clindamycin IV; elevate limb ; Orthopedic input noted and no need for surgery at this point. We'll continue with elevation of her arm. 3. 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 Cont eliquis; monitor H&H. Follow-up with wound care as per vascular- on Eliquis. Dose reduced to 2.5 due to MARIA C 4.-Benign hypertension-currently not on any medications, continue to monitor. Stable 5. HTN (hypertension) 6. LE DVT-cont eliquis; 7. Acute blood loss anemia from amputation -status post transfusion, H/H stable ; monitor 8. Antral ulcer- s/p EGD and biopsy; cont PPI and carafate; f/u GI as outpatient for biopsy report 9. DVT prophylaxiss- on eliquis 10. Disposition awaiting dialysis chair, and also SNF placement was declined inpatient rehabilitation by insurance Check AM labs History Interval history: f/u acute renal failure; gangrene of RT lower extremity post amputation Patient seen and examined this morning in no acute distress, significant improvement of the right wrist again no pain noted today. Dialysis planned for today. Awaiting placement.. Denies any chest pain, nausea, vomiting, diarrhea No fever noted blood pressure controlled No adverse events reported to me by nursing staff Hospitalist Physical - Physical exam Narrative exam: VITAL SIGNS: Reviewed. GENERAL: The patient appeared well nourished and normally developed. Vital signs as documented. HEAD: No signs of head trauma. EYES: Pupils are equal. Extraocular motions intact. EARS: Hearing grossly intact. MOUTH: Oropharynx is normal. NECK: No adenopathy, no JVD. CHEST: Chest with diminshed breath sounds bilaterally. No wheezes, rales, or rhonchi. CARDIAC: Regular rate and rhythm. S1 and S2, without murmurs, gallops, or rubs. VASCULAR: No Edema. Peripheral pulses normal and equal in all extremities. ABDOMEN: Soft, without detectable tenderness. No sign of distention. No rebound or guarding, and no masses palpated. Bowel Sounds normal. MUSCULOSKELETAL: Right hand with diffuse dorsal swelling, limited range of motion secondary to swelling. No neurovascular deficit, no redness, induration. Swelling extends to the wrist. No evidence of compartment syndrome , able to form a near full fist. Right BKA, dressing in place not optimal drainage noted.. Extremities without clubbing, cyanosis or edema. NEUROLOGIC EXAM: Alert and oriented x 3. No focal sensory or strength deficits. Speech normal. Follows commands. PSYCHIATRIC: Mood normal. SKIN: Warm to the touch of right wrist area.. - Constitutional Vitals: Temp Pulse Resp BP Pulse Ox 98.9 F 87 22 143/73 96 10/21/16 07:39 10/21/16 07:39 10/21/16 07:39 10/21/16 07:39 10/21/16 07:39 General appearance: Present: no acute distress, well-nourished Results - Labs CBC & Chem 7: 10/20/16 04:07 10/19/16 05:01 Labs: Laboratory Last Values WBC 6.9 K/mm3 (4.5-11.0) 10/18/16 04:51 RBC 2.99 M/mm3 (3.65-5.03) L 10/18/16 04:51 Hgb 8.5 gm/dl (11.8-15.2) L 10/19/16 05:01 Hct 25.6 % (35.5-45.6) L 10/19/16 05:01 MCV 84 fl (84-94) 10/18/16 04:51 MCH 28 pg (28-32) 10/18/16 04:51 MCHC 34 % (32-34) 10/18/16 04:51 RDW 17.0 % (13.2-15.2) H 10/18/16 04:51 Plt Count 223 K/mm3 (140-440) 10/20/16 04:07 Lymph % (Auto) 11.6 % (13.4-35.0) L 10/15/16 05:06 [place] % (Auto) 10.7 % (0.0-7.3) H 10/15/16 05:06 Eos % (Auto) 7.2 % (0.0-4.3) H 10/15/16 05:06 Baso % (Auto) 0.3 % (0.0-1.8) 10/15/16 05:06 Lymph # 1.2 K/mm3 (1.2-5.4) 10/15/16 05:06 [place] # 1.1 K/mm3 (0.0-0.8) H 10/15/16 05:06 Eos # 0.7 K/mm3 (0.0-0.4) H 10/15/16 05:06 Baso # 0.0 K/mm3 (0.0-0.1) 10/15/16 05:06 Add Manual Diff Complete 09/27/16 04:25 Total Counted 100 09/27/16 04:25 Seg Neutrophils % 70.2 % (40.0-70.0) H 10/15/16 05:06 Seg Neuts % (Manual) 82.0 % (40.0-70.0) H 09/27/16 04:25 Band Neutrophils % 6.0 % 09/27/16 04:25 Lymphocytes % (Manual) 8.0 % (13.4-35.0) L 09/27/16 04:25 Reactive Lymphs % (Man) 0 % 09/27/16 04:25 Monocytes % (Manual) 3.0 % (0.0-7.3) 09/27/16 04:25 Eosinophils % (Manual) 0 % (0.0-4.3) 09/27/16 04:25 Basophils % (Manual) 0 % (0.0-1.8) 09/27/16 04:25 Metamyelocytes % 1.0 % 09/27/16 04:25 Myelocytes % 0 % 09/27/16 04:25 Promyelocytes % 0 % 09/27/16 04:25 Blast Cells % 0 % 09/27/16 04:25 Nucleated RBC % Not Reportable 09/27/16 04:25 Seg Neutrophils # 7.3 K/mm3 (1.8-7.7) 10/15/16 05:06 Seg Neutrophils # Man 15.3 K/mm3 (1.8-7.7) H 09/27/16 04:25 Band Neutrophils # 1.1 K/mm3 09/27/16 04:25 Lymphocytes # (Manual) 1.5 K/mm3 (1.2-5.4) 09/27/16 04:25 Abs React Lymphs (Man) 0.0 K/mm3 09/27/16 04:25 Monocytes # (Manual) 0.6 K/mm3 (0.0-0.8) 09/27/16 04:25 Eosinophils # (Manual) 0.0 K/mm3 (0.0-0.4) 09/27/16 04:25 Basophils # (Manual) 0.0 K/mm3 (0.0-0.1) 09/27/16 04:25 Metamyelocytes # 0.2 K/mm3 09/27/16 04:25 Myelocytes # 0.0 K/mm3 09/27/16 04:25 Promyelocytes # 0.0 K/mm3 09/27/16 04:25 Blast Cells # 0.0 K/mm3 09/27/16 04:25 WBC Morphology Not Reportable 09/27/16 04:25 Hypersegmented Neuts Not Reportable 09/27/16 04:25 Hyposegmented Neuts Not Reportable 09/27/16 04:25 Hypogranular Neuts Not Reportable 09/27/16 04:25 Smudge Cells Not Reportable 09/27/16 04:25 Toxic Granulation Not Reportable 09/27/16 04:25 Toxic Vacuolation Not Reportable 09/27/16 04:25 Dohle Bodies Not Reportable 09/27/16 04:25 Pelger-Huet Anomaly Not Reportable 09/27/16 04:25 Renita Rods Not Reportable 09/27/16 04:25 Platelet Estimate Not Reportable 09/27/16 04:25 Clumped Platelets Not Reportable 09/27/16 04:25 Plt Clumps, EDTA Not Reportable 09/27/16 04:25 Large Platelets Not Reportable 09/27/16 04:25 Giant Platelets Few 09/27/16 04:25 Platelet Satelliting Not Reportable 09/27/16 04:25 Plt Morphology Comment Not Reportable 09/27/16 04:25 RBC Morphology Not Reportable 09/27/16 04:25 Dimorphic RBCs Not Reportable 09/27/16 04:25 Polychromasia Not Reportable 09/27/16 04:25 Hypochromasia Not Reportable 09/27/16 04:25 Poikilocytosis Not Reportable 09/27/16 04:25 Anisocytosis 1+ 09/27/16 04:25 Microcytosis Not Reportable 09/27/16 04:25 Macrocytosis Not Reportable 09/27/16 04:25 Spherocytes Not Reportable 09/27/16 04:25 Pappenheimer Bodies Not Reportable 09/27/16 04:25 Sickle Cells Not Reportable 09/27/16 04:25 Target Cells Not Reportable 09/27/16 04:25 Tear Drop Cells Not Reportable 09/27/16 04:25 Ovalocytes Not Reportable 09/27/16 04:25 Helmet Cells Not Reportable 09/27/16 04:25 Iraheta-[place] Bodies Not Reportable 09/27/16 04:25 [place] Rings Not Reportable 09/27/16 04:25 Abhilash Cells Not Reportable 09/27/16 04:25 Bite Cells Not Reportable 09/27/16 04:25 Crenated Cell Not Reportable 09/27/16 04:25 Elliptocytes Not Reportable 09/27/16 04:25 Acanthocytes (Spur) Not Reportable 09/27/16 04:25 Rouleaux Not Reportable 09/27/16 04:25 Hemoglobin C Crystals Not Reportable 09/27/16 04:25 Schistocytes Not Reportable 09/27/16 04:25 Malaria parasites Not Reportable 09/27/16 04:25 Azael Bodies Not Reportable 09/27/16 04:25 Hem Pathologist Commnt No 09/27/16 04:25 PT 18.9 Sec. (12.2-14.9) H 10/16/16 21:47 INR 1.59 (0.87-1.13) H 10/16/16 21:47 APTT 55.3 Sec. (24.2-36.6) H 10/16/16 21:47 Heparin Anti-Xa Level 1.80 U.I./ml (0.3-0.7) H 10/19/16 16:19 Sodium 137 mmol/L (137-145) 10/19/16 05:01 Potassium 3.5 mmol/L (3.6-5.0) L 10/19/16 05:01 Chloride 97.4 mmol/L (98-107) L 10/19/16 05:01 Carbon Dioxide 27 mmol/L (22-30) 10/19/16 05:01 Anion Gap 16 mmol/L 10/19/16 05:01 BUN 5 mg/dL (9-20) L 10/19/16 05:01 Creatinine 2.1 mg/dL (0.8-1.5) H 10/19/16 05:01 Estimated GFR 38 ml/min 10/19/16 05:01 BUN/Creatinine Ratio 2.38 % 10/19/16 05:01 Glucose 98 mg/dL (75-100) 10/19/16 05:01 Osmolality 293 Mosm/kg 10/03/16 14:03 Lactic Acid 1.1 mmol/L (0.7-2.0) 10/17/16 17:45 Uric Acid 5.4 mg/dL (3.5-7.6) 10/03/16 09:16 Calcium 7.7 mg/dL (8.4-10.2) L 10/19/16 05:01 Iron 31 ug/dL (49-181) L 10/06/16 17:16 TIBC 168.00 mcg/dL (250-450) L 10/06/16 17:16 Transferrin 120 mg/dl (180-329) L 10/06/16 17:16 Ferritin 488.6 ng/mL (13.0-400.0) H 10/06/16 17:16 Total Bilirubin 0.3 mg/dL (0.1-1.2) 10/19/16 11:52 Direct Bilirubin < 0.2 mg/dL (0-0.2) 10/19/16 11:52 AST 46 units/L (5-40) H 10/19/16 11:52 ALT 9 units/L (7-56) 10/19/16 11:52 Alkaline Phosphatase 66 units/L (35-129) 10/19/16 11:52 Total Creatine Kinase 186 units/L (55-170) H 10/08/16 09:27 Total Protein 5.7 g/dL (6.3-8.2) L 10/19/16 11:52 Albumin 2.1 g/dL (3.9-5) L 10/19/16 11:52 Albumin/Globulin Ratio 0.6 % 10/19/16 11:52 Vitamin B12 1268 pg/mL (211-911) H 10/06/16 17:16 Folate 11.86 ng/mL (7.3-26.0) 10/06/16 17:16 Urine Color Yellow (Yellow) 10/03/16 17:00 Urine Turbidity Clear (Clear) 10/03/16 17:00 Urine pH 5.0 (5.0-7.0) 10/03/16 17:00 Ur Specific [place] 1.011 (1.003-1.030) 10/03/16 17:00 Urine Protein <15 mg/dl mg/dL (Negative) 10/03/16 17:00 Urine Glucose (UA) Neg mg/dL (Negative) 10/03/16 17:00 Urine Ketones Neg mg/dL (Negative) 10/03/16 17:00 Urine Blood Neg (Negative) 10/03/16 17:00 Urine Nitrite Neg (Negative) 10/03/16 17:00 Urine Bilirubin Neg (Negative) 10/03/16 17:00 Urine Urobilinogen < 2.0 mg/dL (<2.0) 10/03/16 17:00 Ur Leukocyte Esterase Neg (Negative) 10/03/16 17:00 Urine WBC (Auto) 1.0 /HPF (0.0-6.0) 10/03/16 17:00 Urine RBC (Auto) 1.0 /HPF (0.0-6.0) 10/03/16 17:00 U Epithel Cells (Auto) 5.0 /HPF (0-13.0) 10/03/16 17:00 Urine Bacteria (Auto) 1+ /HPF (Negative) 09/26/16 00:03 Urine Mucus Few /HPF 10/03/16 17:00 Urine Total Volume 800 10/15/16 12:30 Urine Creatinine 61.1 mg/dL (0.1-20.0) H 10/15/16 12:30 Ur Creatinine 24 Hour 0.5 (0.8-2.8) L 10/15/16 12:30 Height (in) 67.0 inches 10/14/16 13:49 Weight (lb) 230.0 lbs 10/14/16 13:49 Creatinine Clearance 7 10/14/16 13:49 Urine Sodium 33 mEq/L 10/03/16 17:00 Urine Total Protein 23 mg/dL (5-11.8) H 10/03/16 17:00 Vancomycin Trough 39.5 ug/mL (5.0-20.0) H 10/01/16 09:07 Random Vancomycin 10.1 ug/mL (0-40.0) 10/13/16 05:12 Blood Type O NEGATIVE 10/06/16 17:16 Antibody Screen Negative 10/06/16 17:16 Crossmatch See Detail 10/06/16 17:16
[2016-10-21] MEDS: ELIQUIS PO SCH ×2 (10:00→23:00)
[2016-10-21] MEDS: PROTONIX PO SCH ×2 (10:00→23:00)
[2016-10-21] MEDS: NYSTOP TP SCH ×2 (10:00→23:05)
[2016-10-21] MEDS: PERCOCET 5/325 PO PRN (11:10)
--- NOTE | 2016-10-21 13:18 | Progress Note ---
Assessment and Plan Impression: * MARIA C/ATN * Recent vanco toxicity * S/p amputation * HTN * Anemia Plan: * HD q tthsat until recovers * reduce eliquis dose to 2.5 in the setting at maria c with cr cl 8ml/min * maria c may be due to ATN from vancotoxicity * renal diet * follow up crcl * strict i/os * dialysis tthsat * hopefully will recover * avoid nephrotoxins * ok for rehab Subjective Date of service: 10/21/16 Principal diagnosis: maria c Interval history: resting in bed today Objective - Exam Narrative Exam: General appearance: appears stated age EENT: mucous membranes moist (uremic odor noted) Neck: no JVD Respiratory: Present: Rales (few crackles posteriorly) Cardiology: regular (S1-S2 heard no S3-S4) Gastrointestinal: normal (soft nontender) Neurologic: other (mild asterixis) - Vital Signs Vital signs: Vital Signs - 12hr 10/21/16 10/21/16 10/21/16 04:00 07:39 13:06 Temperature 98.5 F 98.9 F 97.9 F Pulse Rate [ 85 87 93 H Left Brachial] Respiratory 20 22 16 Rate Blood Pressure 129/69 143/73 146/65 [Left Arm] O2 Sat by Pulse 100 96 Oximetry - Lab 10/20/16 04:07 10/19/16 05:01 Most recent lab results Calcium 7.7 mg/dL (8.4-10.2) L 10/19/16 05:01 Urine Creatinine 61.1 mg/dL (0.1-20.0) H 10/15/16 12:30 Urine Sodium 33 mEq/L 10/03/16 17:00 Urine Total Protein 23 mg/dL (5-11.8) H 10/03/16 17:00
[2016-10-22 05:08] LABS: Hematocrit 25.1 % (35.5-45.6); Hemoglobin 8.4 gm/dl (11.8-15.2); Mean Corpuscular HGB Conc 34 % (32-34); Mean Corpuscular Hemoglobin 28 pg (28-32); Mean Corpuscular Volume 83 fl (84-94); Platelet Count 216 K/mm3 (140-440); Red Blood Count 3.03 M/mm3 (3.65-5.03); Red Cell Distribution Width 17.8 % (13.2-15.2); White Blood Count 8.4 K/mm3 (4.5-11.0)
[2016-10-22 05:27] LABS: Calcium 8.1 mg/dL (8.4-10.2); Chloride 97.2 mmol/L (98-107); Potassium 3.3 mmol/L (3.6-5.0)
[2016-10-22] MEDS: CARAFATE PO SCH ×4 (05:39→17:01)
[2016-10-22] MEDS: CLEOCIN 900 MG/50 mL 50 ML IV SCH (05:40)
--- NOTE | 2016-10-22 08:15 | Progress Note ---
Assessment and Plan Assessment and plan: 1. Acute renal failure - most likely due to ATN from vancomycin toxicity- continue on dialysis for now follow-up with nephrology for further recommendations and monitor lytes; for 24 hr Cr CL as per renal. Mild improvement in renal function with dialysis -perm cath placed. He remained stable. Dialyzed 10/20/16. Creatinine is stable today. 2. Cellulitis of the RT hand and forearm-continue clindamycin IV; elevate limb ; Orthopedic input noted and no need for surgery at this point. We'll continue with elevation of her arm. 3. 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 Cont eliquis; monitor H&H. Follow-up with wound care as per vascular- on Eliquis. Dose reduced to 2.5 due to MARIA C 4.-Benign hypertension-currently not on any medications, continue to monitor. Stable 5. HTN (hypertension) 6. LE DVT-cont eliquis; 7. Acute blood loss anemia from amputation -status post transfusion, H/H stable ; monitor 8. Antral ulcer- s/p EGD and biopsy; cont PPI and carafate; f/u GI as outpatient for biopsy report 9. DVT prophylaxiss- on eliquis 10. Disposition awaiting dialysis chair, and also SNF placement was declined inpatient rehabilitation by insurance Check AM labs History Interval history: f/u acute renal failure; gangrene of RT lower extremity post amputation Patient seen and examined this morning in no acute distress, significant improvement of the right wrist again no pain noted today. Awaiting placement.. Denies any chest pain, nausea, vomiting, diarrhea No fever noted blood pressure controlled No adverse events reported to me by nursing staff Hospitalist Physical - Physical exam Narrative exam: VITAL SIGNS: Reviewed. GENERAL: The patient appeared well nourished and normally developed. Vital signs as documented. HEAD: No signs of head trauma. EYES: Pupils are equal. Extraocular motions intact. EARS: Hearing grossly intact. MOUTH: Oropharynx is normal. NECK: No adenopathy, no JVD. CHEST: Chest with diminshed breath sounds bilaterally. No wheezes, rales, or rhonchi. CARDIAC: Regular rate and rhythm. S1 and S2, without murmurs, gallops, or rubs. VASCULAR: No Edema. Peripheral pulses normal and equal in all extremities. ABDOMEN: Soft, without detectable tenderness. No sign of distention. No rebound or guarding, and no masses palpated. Bowel Sounds normal. MUSCULOSKELETAL: Right hand with diffuse dorsal swelling, limited range of motion secondary to swelling. No neurovascular deficit, no redness, induration. Swelling extends to the wrist. No evidence of compartment syndrome , able to form a near full fist. Right BKA, dressing in place not optimal drainage noted.. Extremities without clubbing, cyanosis or edema. NEUROLOGIC EXAM: Alert and oriented x 3. No focal sensory or strength deficits. Speech normal. Follows commands. PSYCHIATRIC: Mood normal. SKIN: Warm to the touch of right wrist area.. - Constitutional Vitals: Temp Pulse Resp BP Pulse Ox 99.2 F 94 H 18 167/70 99 10/22/16 08:00 10/22/16 08:00 10/22/16 08:00 10/22/16 08:00 10/22/16 08:00 General appearance: Present: no acute distress, well-nourished Results - Labs CBC & Chem 7: 10/22/16 05:01 10/22/16 05:01 Labs: Laboratory Last Values WBC 8.4 K/mm3 (4.5-11.0) 10/22/16 05:01 RBC 3.03 M/mm3 (3.65-5.03) L 10/22/16 05:01 Hgb 8.4 gm/dl (11.8-15.2) L 10/22/16 05:01 Hct 25.1 % (35.5-45.6) L 10/22/16 05:01 MCV 83 fl (84-94) L 10/22/16 05:01 MCH 28 pg (28-32) 10/22/16 05:01 MCHC 34 % (32-34) 10/22/16 05:01 RDW 17.8 % (13.2-15.2) H 10/22/16 05:01 Plt Count 216 K/mm3 (140-440) 10/22/16 05:01 Lymph % (Auto) 11.6 % (13.4-35.0) L 10/15/16 05:06 [place] % (Auto) 10.7 % (0.0-7.3) H 10/15/16 05:06 Eos % (Auto) 7.2 % (0.0-4.3) H 10/15/16 05:06 Baso % (Auto) 0.3 % (0.0-1.8) 10/15/16 05:06 Lymph # 1.2 K/mm3 (1.2-5.4) 10/15/16 05:06 [place] # 1.1 K/mm3 (0.0-0.8) H 10/15/16 05:06 Eos # 0.7 K/mm3 (0.0-0.4) H 10/15/16 05:06 Baso # 0.0 K/mm3 (0.0-0.1) 10/15/16 05:06 Add Manual Diff Complete 09/27/16 04:25 Total Counted 100 09/27/16 04:25 Seg Neutrophils % 70.2 % (40.0-70.0) H 10/15/16 05:06 Seg Neuts % (Manual) 82.0 % (40.0-70.0) H 09/27/16 04:25 Band Neutrophils % 6.0 % 09/27/16 04:25 Lymphocytes % (Manual) 8.0 % (13.4-35.0) L 09/27/16 04:25 Reactive Lymphs % (Man) 0 % 09/27/16 04:25 Monocytes % (Manual) 3.0 % (0.0-7.3) 09/27/16 04:25 Eosinophils % (Manual) 0 % (0.0-4.3) 09/27/16 04:25 Basophils % (Manual) 0 % (0.0-1.8) 09/27/16 04:25 Metamyelocytes % 1.0 % 09/27/16 04:25 Myelocytes % 0 % 09/27/16 04:25 Promyelocytes % 0 % 09/27/16 04:25 Blast Cells % 0 % 09/27/16 04:25 Nucleated RBC % Not Reportable 09/27/16 04:25 Seg Neutrophils # 7.3 K/mm3 (1.8-7.7) 10/15/16 05:06 Seg Neutrophils # Man 15.3 K/mm3 (1.8-7.7) H 09/27/16 04:25 Band Neutrophils # 1.1 K/mm3 09/27/16 04:25 Lymphocytes # (Manual) 1.5 K/mm3 (1.2-5.4) 09/27/16 04:25 Abs React Lymphs (Man) 0.0 K/mm3 09/27/16 04:25 Monocytes # (Manual) 0.6 K/mm3 (0.0-0.8) 09/27/16 04:25 Eosinophils # (Manual) 0.0 K/mm3 (0.0-0.4) 09/27/16 04:25 Basophils # (Manual) 0.0 K/mm3 (0.0-0.1) 09/27/16 04:25 Metamyelocytes # 0.2 K/mm3 09/27/16 04:25 Myelocytes # 0.0 K/mm3 09/27/16 04:25 Promyelocytes # 0.0 K/mm3 09/27/16 04:25 Blast Cells # 0.0 K/mm3 09/27/16 04:25 WBC Morphology Not Reportable 09/27/16 04:25 Hypersegmented Neuts Not Reportable 09/27/16 04:25 Hyposegmented Neuts Not Reportable 09/27/16 04:25 Hypogranular Neuts Not Reportable 09/27/16 04:25 Smudge Cells Not Reportable 09/27/16 04:25 Toxic Granulation Not Reportable 09/27/16 04:25 Toxic Vacuolation Not Reportable 09/27/16 04:25 Dohle Bodies Not Reportable 09/27/16 04:25 Pelger-Huet Anomaly Not Reportable 09/27/16 04:25 Renita Rods Not Reportable 09/27/16 04:25 Platelet Estimate Not Reportable 09/27/16 04:25 Clumped Platelets Not Reportable 09/27/16 04:25 Plt Clumps, EDTA Not Reportable 09/27/16 04:25 Large Platelets Not Reportable 09/27/16 04:25 Giant Platelets Few 09/27/16 04:25 Platelet Satelliting Not Reportable 09/27/16 04:25 Plt Morphology Comment Not Reportable 09/27/16 04:25 RBC Morphology Not Reportable 09/27/16 04:25 Dimorphic RBCs Not Reportable 09/27/16 04:25 Polychromasia Not Reportable 09/27/16 04:25 Hypochromasia Not Reportable 09/27/16 04:25 Poikilocytosis Not Reportable 09/27/16 04:25 Anisocytosis 1+ 09/27/16 04:25 Microcytosis Not Reportable 09/27/16 04:25 Macrocytosis Not Reportable 09/27/16 04:25 Spherocytes Not Reportable 09/27/16 04:25 Pappenheimer Bodies Not Reportable 09/27/16 04:25 Sickle Cells Not Reportable 09/27/16 04:25 Target Cells Not Reportable 09/27/16 04:25 Tear Drop Cells Not Reportable 09/27/16 04:25 Ovalocytes Not Reportable 09/27/16 04:25 Helmet Cells Not Reportable 09/27/16 04:25 Iraheta-[place] Bodies Not Reportable 09/27/16 04:25 [place] Rings Not Reportable 09/27/16 04:25 [place] Cells Not Reportable 09/27/16 04:25 Bite Cells Not Reportable 09/27/16 04:25 Crenated Cell Not Reportable 09/27/16 04:25 Elliptocytes Not Reportable 09/27/16 04:25 Acanthocytes (Spur) Not Reportable 09/27/16 04:25 Rouleaux Not Reportable 09/27/16 04:25 Hemoglobin C Crystals Not Reportable 09/27/16 04:25 Schistocytes Not Reportable 09/27/16 04:25 Malaria parasites Not Reportable 09/27/16 04:25 Azael Bodies Not Reportable 09/27/16 04:25 Hem Pathologist Commnt No 09/27/16 04:25 PT 18.9 Sec. (12.2-14.9) H 10/16/16 21:47 INR 1.59 (0.87-1.13) H 10/16/16 21:47 APTT 55.3 Sec. (24.2-36.6) H 10/16/16 21:47 Heparin Anti-Xa Level 1.80 U.I./ml (0.3-0.7) H 10/19/16 16:19 Sodium 137 mmol/L (137-145) 10/22/16 05:01 Potassium 3.3 mmol/L (3.6-5.0) L 10/22/16 05:01 Chloride 97.2 mmol/L (98-107) L 10/22/16 05:01 Carbon Dioxide 28 mmol/L (22-30) 10/22/16 05:01 Anion Gap 15 mmol/L 10/22/16 05:01 BUN 4 mg/dL (9-20) L 10/22/16 05:01 Creatinine 2.0 mg/dL (0.8-1.5) H 10/22/16 05:01 Estimated GFR 40 ml/min 10/22/16 05:01 BUN/Creatinine Ratio 2.00 % 10/22/16 05:01 Glucose 88 mg/dL (75-100) 10/22/16 05:01 Osmolality 293 Mosm/kg 10/03/16 14:03 Lactic Acid 1.1 mmol/L (0.7-2.0) 10/17/16 17:45 Uric Acid 5.4 mg/dL (3.5-7.6) 10/03/16 09:16 Calcium 8.1 mg/dL (8.4-10.2) L 10/22/16 05:01 Iron 31 ug/dL (49-181) L 10/06/16 17:16 TIBC 168.00 mcg/dL (250-450) L 10/06/16 17:16 Transferrin 120 mg/dl (180-329) L 10/06/16 17:16 Ferritin 488.6 ng/mL (13.0-400.0) H 10/06/16 17:16 Total Bilirubin 0.3 mg/dL (0.1-1.2) 10/19/16 11:52 Direct Bilirubin < 0.2 mg/dL (0-0.2) 10/19/16 11:52 AST 46 units/L (5-40) H 10/19/16 11:52 ALT 9 units/L (7-56) 10/19/16 11:52 Alkaline Phosphatase 66 units/L (35-129) 10/19/16 11:52 Total Creatine Kinase 186 units/L (55-170) H 10/08/16 09:27 Total Protein 5.7 g/dL (6.3-8.2) L 10/19/16 11:52 Albumin 2.1 g/dL (3.9-5) L 10/19/16 11:52 Albumin/Globulin Ratio 0.6 % 10/19/16 11:52 Vitamin B12 1268 pg/mL (211-911) H 10/06/16 17:16 Folate 11.86 ng/mL (7.3-26.0) 10/06/16 17:16 Urine Color Yellow (Yellow) 10/03/16 17:00 Urine Turbidity Clear (Clear) 10/03/16 17:00 Urine pH 5.0 (5.0-7.0) 10/03/16 17:00 Ur Specific [place] 1.011 (1.003-1.030) 10/03/16 17:00 Urine Protein <15 mg/dl mg/dL (Negative) 10/03/16 17:00 Urine Glucose (UA) Neg mg/dL (Negative) 10/03/16 17:00 Urine Ketones Neg mg/dL (Negative) 10/03/16 17:00 Urine Blood Neg (Negative) 10/03/16 17:00 Urine Nitrite Neg (Negative) 10/03/16 17:00 Urine Bilirubin Neg (Negative) 10/03/16 17:00 Urine Urobilinogen < 2.0 mg/dL (<2.0) 10/03/16 17:00 Ur Leukocyte Esterase Neg (Negative) 10/03/16 17:00 Urine WBC (Auto) 1.0 /HPF (0.0-6.0) 10/03/16 17:00 Urine RBC (Auto) 1.0 /HPF (0.0-6.0) 10/03/16 17:00 U Epithel Cells (Auto) 5.0 /HPF (0-13.0) 10/03/16 17:00 Urine Bacteria (Auto) 1+ /HPF (Negative) 09/26/16 00:03 Urine Mucus Few /HPF 10/03/16 17:00 Urine Total Volume 1000 10/22/16 04:50 Urine Creatinine 66.6 mg/dL (0.1-20.0) H 10/22/16 04:50 Ur Creatinine 24 Hour 0.5 (0.8-2.8) L 10/15/16 12:30 Height (in) 67.0 inches 10/22/16 04:50 Weight (lb) 225.0 lbs 10/22/16 04:50 Creatinine Clearance 18 10/22/16 04:50 Urine Sodium 33 mEq/L 10/03/16 17:00 Urine Total Protein 23 mg/dL (5-11.8) H 10/03/16 17:00 Vancomycin Trough 39.5 ug/mL (5.0-20.0) H 10/01/16 09:07 Random Vancomycin 10.1 ug/mL (0-40.0) 10/13/16 05:12 Blood Type O NEGATIVE 10/06/16 17:16 Antibody Screen Negative 10/06/16 17:16 Crossmatch See Detail 10/06/16 17:16
--- NOTE | 2016-10-22 08:51 | Progress Note ---
Assessment and Plan Impression: * MARIA C/ATN * Recent vanco toxicity * S/p amputation * HTN * Anemia Plan: * hold dialysis at this time * reduce eliquis dose to 2.5 in the setting at maria c with crcl 18ml/min * maria c may be due to ATN from vancotoxicity * renal diet * follow up crcl 18ml/min * strict i/os * hopefully will recover * avoid nephrotoxins * ok for rehab Subjective Date of service: 10/22/16 Principal diagnosis: maria c Interval history: resting in bed today Objective - Exam Narrative Exam: General appearance: appears stated age EENT: mucous membranes moist (uremic odor noted) Neck: no JVD Respiratory: Present: Rales (few crackles posteriorly) Cardiology: regular (S1-S2 heard no S3-S4) Gastrointestinal: normal (soft nontender) Neurologic: other (mild asterixis) - Vital Signs Vital signs: Vital Signs - 12hr 10/21/16 10/22/16 10/22/16 22:00 00:00 04:00 Temperature 98.7 F 99.0 F Pulse Rate [ Apical] Pulse Rate [ 91 H 94 H Left Brachial] Respiratory 20 20 20 Rate Respiratory 20 Rate [Right Leg ] Blood Pressure 148/74 168/84 [Left Arm] O2 Sat by Pulse 100 100 Oximetry 10/22/16 08:00 Temperature 99.2 F Pulse Rate [ 94 H Apical] Pulse Rate [ Left Brachial] Respiratory 18 Rate Respiratory Rate [Right Leg ] Blood Pressure 167/70 [Left Arm] O2 Sat by Pulse 99 Oximetry - Lab 10/22/16 05:01 10/22/16 05:01 Most recent lab results Calcium 8.1 mg/dL (8.4-10.2) L 10/22/16 05:01 Urine Creatinine 66.6 mg/dL (0.1-20.0) H 10/22/16 04:50 Urine Sodium 33 mEq/L 10/03/16 17:00 Urine Total Protein 23 mg/dL (5-11.8) H 10/03/16 17:00
[2016-10-22] MEDS: PERCOCET 5/325 PO PRN (10:24)
[2016-10-22] MEDS: ELIQUIS PO SCH ×2 (10:25→21:38)
[2016-10-22] MEDS: PROTONIX PO SCH ×2 (10:25→21:38)
[2016-10-22] MEDS: NYSTOP TP SCH ×2 (10:27→21:38)
[2016-10-22] MEDS: CLEOCIN PO SCH ×2 (14:01→21:38)
[2016-10-23] MEDS: CARAFATE PO SCH ×5 (05:44→23:00)
--- NOTE | 2016-10-23 08:09 | Progress Note ---
Assessment and Plan Assessment and plan: 1. Acute renal failure - most likely due to ATN from vancomycin toxicity- continue on dialysis for now follow-up with nephrology for further recommendations and monitor lytes; for 24 hr Cr CL as per renal. Mild improvement in renal function with dialysis -perm cath placed. He remained stable. Dialyzed 10/20/16. Creatinine is stable today. 2. Cellulitis of the RT hand and forearm-continue clindamycin IV; elevate limb ; Orthopedic input noted and no need for surgery at this point. We'll continue with elevation of her arm. 3. 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 Cont eliquis; monitor H&H. Follow-up with wound care as per vascular- on Eliquis. Dose reduced to 2.5 due to MARIA C 4.-Benign hypertension-currently not on any medications, continue to monitor. Stable 5. HTN (hypertension) 6. LE DVT-cont eliquis; 7. Acute blood loss anemia from amputation -status post transfusion, H/H stable ; monitor 8. Antral ulcer- s/p EGD and biopsy; cont PPI and carafate; f/u GI as outpatient for biopsy report 9. Right wrist drop: Will reimage the right wrist area. We'll obtain occupational therapy for assessment. We'll also ask for neurology evaluation 9. DVT prophylaxiss- on eliquis 10. Disposition awaiting dialysis chair, and also SNF placement was declined inpatient rehabilitation by insurance Check AM labs History Interval history: f/u acute renal failure; gangrene of RT lower extremity post amputation Patient seen and examined this morning in no acute distress, significant improvement of the right wrist again no pain noted today, on closer examination patient appears to have a wrist drop Denies any chest pain, nausea, vomiting, diarrhea No fever noted blood pressure controlled No adverse events reported to me by nursing staff Hospitalist Physical - Physical exam Narrative exam: VITAL SIGNS: Reviewed. GENERAL: The patient appeared well nourished and normally developed. Vital signs as documented. HEAD: No signs of head trauma. EYES: Pupils are equal. Extraocular motions intact. EARS: Hearing grossly intact. MOUTH: Oropharynx is normal. NECK: No adenopathy, no JVD. CHEST: Chest with diminshed breath sounds bilaterally. No wheezes, rales, or rhonchi. CARDIAC: Regular rate and rhythm. S1 and S2, without murmurs, gallops, or rubs. VASCULAR: No Edema. Peripheral pulses normal and equal in all extremities. ABDOMEN: Soft, without detectable tenderness. No sign of distention. No rebound or guarding, and no masses palpated. Bowel Sounds normal. MUSCULOSKELETAL: Swelling around the wrist area has improved but still with significance and trying to get that wrist to dorsiflex.. No neurovascular deficit, no redness, induration. Swelling extends to the wrist. No evidence of compartment syndrome, able to form a near full fist. Right BKA, dressing in place not optimal drainage noted.. Extremities without clubbing, cyanosis or edema. NEUROLOGIC EXAM: Alert and oriented x 3. No focal sensory or strength deficits. Speech normal. Follows commands. PSYCHIATRIC: Mood normal. SKIN: Warm to the touch of right wrist area.. - Constitutional Vitals: Temp Pulse Resp BP Pulse Ox 100.3 F H 97 H 20 159/81 100 10/23/16 04:00 10/23/16 04:00 10/23/16 04:00 10/23/16 04:00 10/23/16 04:00 General appearance: Present: no acute distress, well-nourished Results - Labs CBC & Chem 7: 10/22/16 05:01 10/22/16 05:01 Labs: Laboratory Last Values WBC 8.4 K/mm3 (4.5-11.0) 10/22/16 05:01 RBC 3.03 M/mm3 (3.65-5.03) L 10/22/16 05:01 Hgb 8.4 gm/dl (11.8-15.2) L 10/22/16 05:01 Hct 25.1 % (35.5-45.6) L 10/22/16 05:01 MCV 83 fl (84-94) L 10/22/16 05:01 MCH 28 pg (28-32) 10/22/16 05:01 MCHC 34 % (32-34) 10/22/16 05:01 RDW 17.8 % (13.2-15.2) H 10/22/16 05:01 Plt Count 216 K/mm3 (140-440) 10/22/16 05:01 Lymph % (Auto) 11.6 % (13.4-35.0) L 10/15/16 05:06 [place] % (Auto) 10.7 % (0.0-7.3) H 10/15/16 05:06 Eos % (Auto) 7.2 % (0.0-4.3) H 10/15/16 05:06 Baso % (Auto) 0.3 % (0.0-1.8) 10/15/16 05:06 Lymph # 1.2 K/mm3 (1.2-5.4) 10/15/16 05:06 [place] # 1.1 K/mm3 (0.0-0.8) H 10/15/16 05:06 Eos # 0.7 K/mm3 (0.0-0.4) H 10/15/16 05:06 Baso # 0.0 K/mm3 (0.0-0.1) 10/15/16 05:06 Add Manual Diff Complete 09/27/16 04:25 Total Counted 100 09/27/16 04:25 Seg Neutrophils % 70.2 % (40.0-70.0) H 10/15/16 05:06 Seg Neuts % (Manual) 82.0 % (40.0-70.0) H 09/27/16 04:25 Band Neutrophils % 6.0 % 09/27/16 04:25 Lymphocytes % (Manual) 8.0 % (13.4-35.0) L 09/27/16 04:25 Reactive Lymphs % (Man) 0 % 09/27/16 04:25 Monocytes % (Manual) 3.0 % (0.0-7.3) 09/27/16 04:25 Eosinophils % (Manual) 0 % (0.0-4.3) 09/27/16 04:25 Basophils % (Manual) 0 % (0.0-1.8) 09/27/16 04:25 Metamyelocytes % 1.0 % 09/27/16 04:25 Myelocytes % 0 % 09/27/16 04:25 Promyelocytes % 0 % 09/27/16 04:25 Blast Cells % 0 % 09/27/16 04:25 Nucleated RBC % Not Reportable 09/27/16 04:25 Seg Neutrophils # 7.3 K/mm3 (1.8-7.7) 10/15/16 05:06 Seg Neutrophils # Man 15.3 K/mm3 (1.8-7.7) H 09/27/16 04:25 Band Neutrophils # 1.1 K/mm3 09/27/16 04:25 Lymphocytes # (Manual) 1.5 K/mm3 (1.2-5.4) 09/27/16 04:25 Abs React Lymphs (Man) 0.0 K/mm3 09/27/16 04:25 Monocytes # (Manual) 0.6 K/mm3 (0.0-0.8) 09/27/16 04:25 Eosinophils # (Manual) 0.0 K/mm3 (0.0-0.4) 09/27/16 04:25 Basophils # (Manual) 0.0 K/mm3 (0.0-0.1) 09/27/16 04:25 Metamyelocytes # 0.2 K/mm3 09/27/16 04:25 Myelocytes # 0.0 K/mm3 09/27/16 04:25 Promyelocytes # 0.0 K/mm3 09/27/16 04:25 Blast Cells # 0.0 K/mm3 09/27/16 04:25 WBC Morphology Not Reportable 09/27/16 04:25 Hypersegmented Neuts Not Reportable 09/27/16 04:25 Hyposegmented Neuts Not Reportable 09/27/16 04:25 Hypogranular Neuts Not Reportable 09/27/16 04:25 Smudge Cells Not Reportable 09/27/16 04:25 Toxic Granulation Not Reportable 09/27/16 04:25 Toxic Vacuolation Not Reportable 09/27/16 04:25 Dohle Bodies Not Reportable 09/27/16 04:25 Pelger-Huet Anomaly Not Reportable 09/27/16 04:25 Renita Rods Not Reportable 09/27/16 04:25 Platelet Estimate Not Reportable 09/27/16 04:25 Clumped Platelets Not Reportable 09/27/16 04:25 Plt Clumps, EDTA Not Reportable 09/27/16 04:25 Large Platelets Not Reportable 09/27/16 04:25 Giant Platelets Few 09/27/16 04:25 Platelet Satelliting Not Reportable 09/27/16 04:25 Plt Morphology Comment Not Reportable 09/27/16 04:25 RBC Morphology Not Reportable 09/27/16 04:25 Dimorphic RBCs Not Reportable 09/27/16 04:25 Polychromasia Not Reportable 09/27/16 04:25 Hypochromasia Not Reportable 09/27/16 04:25 Poikilocytosis Not Reportable 09/27/16 04:25 Anisocytosis 1+ 09/27/16 04:25 Microcytosis Not Reportable 09/27/16 04:25 Macrocytosis Not Reportable 09/27/16 04:25 Spherocytes Not Reportable 09/27/16 04:25 Pappenheimer Bodies Not Reportable 09/27/16 04:25 Sickle Cells Not Reportable 09/27/16 04:25 Target Cells Not Reportable 09/27/16 04:25 Tear Drop Cells Not Reportable 09/27/16 04:25 Ovalocytes Not Reportable 09/27/16 04:25 Helmet Cells Not Reportable 09/27/16 04:25 [place] Bodies Not Reportable 09/27/16 04:25 [place] Rings Not Reportable 09/27/16 04:25 [place] Cells Not Reportable 09/27/16 04:25 Bite Cells Not Reportable 09/27/16 04:25 Crenated Cell Not Reportable 09/27/16 04:25 Elliptocytes Not Reportable 09/27/16 04:25 Acanthocytes (Spur) Not Reportable 09/27/16 04:25 Rouleaux Not Reportable 09/27/16 04:25 Hemoglobin C Crystals Not Reportable 09/27/16 04:25 Schistocytes Not Reportable 09/27/16 04:25 Malaria parasites Not Reportable 09/27/16 04:25 Azael Bodies Not Reportable 09/27/16 04:25 Hem Pathologist Commnt No 09/27/16 04:25 PT 18.9 Sec. (12.2-14.9) H 10/16/16 21:47 INR 1.59 (0.87-1.13) H 10/16/16 21:47 APTT 55.3 Sec. (24.2-36.6) H 10/16/16 21:47 Heparin Anti-Xa Level 1.80 U.I./ml (0.3-0.7) H 10/19/16 16:19 Sodium 137 mmol/L (137-145) 10/22/16 05:01 Potassium 3.3 mmol/L (3.6-5.0) L 10/22/16 05:01 Chloride 97.2 mmol/L (98-107) L 10/22/16 05:01 Carbon Dioxide 28 mmol/L (22-30) 10/22/16 05:01 Anion Gap 15 mmol/L 10/22/16 05:01 BUN 4 mg/dL (9-20) L 10/22/16 05:01 Creatinine 2.0 mg/dL (0.8-1.5) H 10/22/16 05:01 Estimated GFR 40 ml/min 10/22/16 05:01 BUN/Creatinine Ratio 2.00 % 10/22/16 05:01 Glucose 88 mg/dL (75-100) 10/22/16 05:01 Osmolality 293 Mosm/kg 10/03/16 14:03 Lactic Acid 1.1 mmol/L (0.7-2.0) 10/17/16 17:45 Uric Acid 5.4 mg/dL (3.5-7.6) 10/03/16 09:16 Calcium 8.1 mg/dL (8.4-10.2) L 10/22/16 05:01 Iron 31 ug/dL (49-181) L 10/06/16 17:16 TIBC 168.00 mcg/dL (250-450) L 10/06/16 17:16 Transferrin 120 mg/dl (180-329) L 10/06/16 17:16 Ferritin 488.6 ng/mL (13.0-400.0) H 10/06/16 17:16 Total Bilirubin 0.3 mg/dL (0.1-1.2) 10/19/16 11:52 Direct Bilirubin < 0.2 mg/dL (0-0.2) 10/19/16 11:52 AST 46 units/L (5-40) H 10/19/16 11:52 ALT 9 units/L (7-56) 10/19/16 11:52 Alkaline Phosphatase 66 units/L (35-129) 10/19/16 11:52 Total Creatine Kinase 186 units/L (55-170) H 10/08/16 09:27 Total Protein 5.7 g/dL (6.3-8.2) L 10/19/16 11:52 Albumin 2.1 g/dL (3.9-5) L 10/19/16 11:52 Albumin/Globulin Ratio 0.6 % 10/19/16 11:52 Vitamin B12 1268 pg/mL (211-911) H 10/06/16 17:16 Folate 11.86 ng/mL (7.3-26.0) 10/06/16 17:16 Urine Color Yellow (Yellow) 10/03/16 17:00 Urine Turbidity Clear (Clear) 10/03/16 17:00 Urine pH 5.0 (5.0-7.0) 10/03/16 17:00 Ur Specific [place] 1.011 (1.003-1.030) 10/03/16 17:00 Urine Protein <15 mg/dl mg/dL (Negative) 10/03/16 17:00 Urine Glucose (UA) Neg mg/dL (Negative) 10/03/16 17:00 Urine Ketones Neg mg/dL (Negative) 10/03/16 17:00 Urine Blood Neg (Negative) 10/03/16 17:00 Urine Nitrite Neg (Negative) 10/03/16 17:00 Urine Bilirubin Neg (Negative) 10/03/16 17:00 Urine Urobilinogen < 2.0 mg/dL (<2.0) 10/03/16 17:00 Ur Leukocyte Esterase Neg (Negative) 10/03/16 17:00 Urine WBC (Auto) 1.0 /HPF (0.0-6.0) 10/03/16 17:00 Urine RBC (Auto) 1.0 /HPF (0.0-6.0) 10/03/16 17:00 U Epithel Cells (Auto) 5.0 /HPF (0-13.0) 10/03/16 17:00 Urine Bacteria (Auto) 1+ /HPF (Negative) 09/26/16 00:03 Urine Mucus Few /HPF 10/03/16 17:00 Urine Total Volume 1000 10/22/16 04:50 Urine Creatinine 66.6 mg/dL (0.1-20.0) H 10/22/16 04:50 Ur Creatinine 24 Hour 0.5 (0.8-2.8) L 10/15/16 12:30 Height (in) 67.0 inches 10/22/16 04:50 Weight (lb) 225.0 lbs 10/22/16 04:50 Creatinine Clearance 18 10/22/16 04:50 Urine Sodium 33 mEq/L 10/03/16 17:00 Urine Total Protein 23 mg/dL (5-11.8) H 10/03/16 17:00 Vancomycin Trough 39.5 ug/mL (5.0-20.0) H 10/01/16 09:07 Random Vancomycin 10.1 ug/mL (0-40.0) 10/13/16 05:12 Hepatitis A IgM Ab Nonreactive (NonReactive) 10/22/16 13:07 Hep Bs Antigen Non-reactive (Negative) 10/22/16 13:07 Hep B Core IgM Ab Non-reactive (NonReactive) 10/22/16 13:07 Hepatitis C Antibody Non-reactive (NonReactive) 10/22/16 13:07 Blood Type O NEGATIVE 10/06/16 17:16 Antibody Screen Negative 10/06/16 17:16 Crossmatch See Detail 10/06/16 17:16
--- NOTE | 2016-10-23 08:12 | Discharge Summary ---
Providers - Providers Date of Admission: 09/26/16 07:54 Date of discharge: 10/24/16 Attending physician: EARL HARPER MD 09/26/16 10:42 Consult to Wound/ET Nurse [CONS] Stat Reason For Exam: wound eval 09/27/16 15:22 Physical Therapy Evaluation and Treat [CONS] Stat Comment: Reason For Exam: ACUTE REHAB EVAL 09/28/16 12:23 Consult Acute Rehabilitation [CONS] Routine Consulting Provider: SERJIO CHRISTENSEN Reason For Exam: Deconditioned 10/01/16 Consult to Case Management [CONS] Routine Services Needed at Discharge: Other Notified:: cm notified Comment:: rehab eval Occupational Therapy Evaluate and Treat [CONS] Routine Comment: Reason For Exam: s/p amputation Physical Therapy Evaluation and Treat [CONS] Routine Comment: Reason For Exam: s/p amputation 10/01/16 12:02 Consult Acute Rehabilitation [CONS] Routine Consulting Provider: SERJIO CHRISTENSEN Reason For Exam: eval for acute rehab 10/03/16 08:48 Consult to Physician [CONS] Routine Consulting Provider: TU CHURCH Reason For Exam: MARIA C Place consult to:: salesperson [employer] nephrology Notified:: ANSWRING SERVICE Phone number called:: [phone] Was contact made?: Yes If yes, spoke with:: ANTOINE Time called:: 09:03 Comment:: CONSULT - LYRIC 10/08/16 15:06 Consult to Physician [CONS] Routine Consulting Provider: TRIXIE KERR Reason For Exam: GI bleed Place consult to:: [employer] GI Notified:: yes Phone number called:: [phone] Was contact made?: Yes If yes, spoke with:: Ryan(answering service) Time called:: 18:42 10/08/16 15:27 Consult to Utility Bill Collector [CONS] Routine Reason For Exam: Hangar Prosthetic for [place] 10/15/16 09:45 Consult to Physician [CONS] Routine Consulting Provider: CLAIRE RODRIGUEZ V Reason For Exam: Rt hand cellulitis; ? deep space infection Place consult to:: Dr. Rodriguez Notified:: yes Phone number called:: [phone] Was contact made?: Yes If yes, spoke with:: [place] Time called:: 11:23 Comment:: 10/15/16 10/19/16 07:48 Consult to Case Management [CONS] Routine Services Needed at Discharge: Other Notified:: NURSE SPECIAL Comment:: inpatient rehab placement Additional Physician Instructions: ?continuation of dialysis[facility] Primary care physician: LAW WRITER Hospitalization Reason for admission: right foot gangerene Condition: Stable Hospital course: 71 YO Male with HTN, gout, NIcotine Dependence presents to ED for evaluation. Pt states that he began having foot pain 4 days ago. Pain has worsened in past 8 hours. Pt foot is now malodorous, ischemic, cold, blistered, and foul smelling. Pt skin is sloughing off his foot. PT denies fever, chills, CP, Palpitations, Syncope, Trauma, Prolonged travel/immobility, malignancy, individual/family history of DVT/PE, or PAD. Pt states that pain in currently 10 /10 and localized to his foot. Patient on admission was vancomycin, surgery was consulted, and unfortunately developed acute renal failure with ATN likely secondary to vancomycin toxicity for which nephrology was consulted he did have a few episodes of dialysis and subsequently regained his renal function movement in his creatinine of 2.0 for about 4 days without dialysis. A permacath was placed subsequently discontinued. Surgery this to the patient patient had a right BKA. He tolerated the procedure well and was also noted to have cellulitis on the right, which was treated with clindamycin he did have significant impediment in the area with restriction of movement he states that it was not like this before. But he did regain most of the function while in the hospital. Initial thought of right wrist drop but improved. patient had 3 units of PRBC given and hgb remained stable. He is to follow with field worker and also with ortho outpatient. Discharge Diagnosis 1. Acute renal failure - most likely due to ATN from vancomycin toxicity 2. Cellulitis of the RT hand and forearm 3. 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 HTN (hypertension) 6. LE DVT 7. Acute blood loss anemia from amputation 8. Antral ulcer Disposition: DC/TX SNF W [facility] CERT Time spent for discharge: 35 mins Core Measure Documentation - Palliative Care Palliative Care/ Comfort Measures: Not Applicable - Core Measures Any of the following diagnoses?: none - VTE Discharge Requirements Deep Vein Thrombosis/Pulmonary Embolism Present on Admission: No Exam - Physical Exam Narrative exam: VITAL SIGNS: Reviewed. GENERAL: The patient appeared well nourished and normally developed. Vital signs as documented. HEAD: No signs of head trauma. EYES: Pupils are equal. Extraocular motions intact. EARS: Hearing grossly intact. MOUTH: Oropharynx is normal. NECK: No adenopathy, no JVD. CHEST: Chest with diminshed breath sounds bilaterally. No wheezes, rales, or rhonchi. CARDIAC: Regular rate and rhythm. S1 and S2, without murmurs, gallops, or rubs. VASCULAR: No Edema. Peripheral pulses normal and equal in all extremities. ABDOMEN: Soft, without detectable tenderness. No sign of distention. No rebound or guarding, and no masses palpated. Bowel Sounds normal. MUSCULOSKELETAL: Swelling around the wrist area has improved but still with significance and trying to get that wrist to dorsiflex.. No neurovascular deficit, no redness, induration. Swelling extends to the wrist. No evidence of compartment syndrome, able to form a near full fist. Right BKA, dressing in place not optimal drainage noted.. Extremities without clubbing, cyanosis or edema. NEUROLOGIC EXAM: Alert and oriented x 3. No focal sensory or strength deficits. Speech normal. Follows commands. PSYCHIATRIC: Mood normal. SKIN: Warm to the touch of right wrist area.. - Constitutional Vitals: Temp Pulse Resp BP Pulse Ox 100.3 F H 97 H 20 159/81 100 10/23/16 04:00 10/23/16 04:00 10/23/16 04:00 10/23/16 04:00 10/23/16 04:00 Plan Activity: advance as tolerated, fall precautions Diet: renal Special Instructions: physical therapy, occupational therapy Follow up with: GLORIA RODRIGUEZ MD [Staff Physician] - 7 Days PRIMARY CARE, [Primary Care Provider] - 3-5 Days CLAIRE RODRIGUEZ MD [Staff Physician] - 7 Days Prescriptions: Sucralfate [Carafate] 1 gm PO Q6HR 10 Days Clindamycin [Clindamycin CAP] 600 mg PO BID #10 capsule Apixaban [Eliquis] 2.5 mg PO Q12HR #60 tablet Nystatin [Nystop Powder] 1 applic TP BID 5 Days oxyCODONE /ACETAMINOPHEN [Percocet 5/325 mg] 2 tab PO Q6H PRN 10 Days PRN Reason: Pain, Moderate (4-6) Pantoprazole [Protonix TAB] 40 mg PO QDAY #30 tablet
[2016-10-23] MEDS: CLEOCIN PO SCH ×3 (08:20→22:57)
[2016-10-23] MEDS: ELIQUIS PO SCH ×3 (08:20→22:57)
[2016-10-23] MEDS: PROTONIX PO SCH ×3 (08:21→22:57)
--- NOTE | 2016-10-23 09:50 | Progress Note ---
Assessment and Plan Impression: * MARIA C/ATN * Recent vanco toxicity * S/p amputation * HTN * Anemia Plan: * Patient is currently nonoliguric. No labs were drawn today. He'll recheck his chemistries and plan to hold his dialysis again today * His crcl was 18ml/min * maria c may be due to ATN from vancotoxicity * renal diet * strict i/os * hopefully will recover * avoid nephrotoxins * ok for rehab Subjective Date of service: 10/23/16 Principal diagnosis: maria c Interval history: Patient is comfortable this morning. Denies any chest pain or shortness of breath. Objective - Vital Signs Vital signs: Vital Signs - 12hr 10/23/16 10/23/16 10/23/16 00:00 04:00 08:03 Temperature 99.2 F 100.3 F H 99.2 F Pulse Rate [ 100 H Apical] Pulse Rate [ 93 H 97 H Left Brachial] Respiratory 20 20 16 Rate Blood Pressure 145/77 159/81 167/77 [Left Arm] O2 Sat by Pulse 100 100 98 Oximetry - General Appearance General appearance: well-developed, well-nourished, appears stated age EENT: PERRL, mucous membranes moist Neck: no JVD, no thyromegaly, no carotid bruit, supple, other (right IJ PermCath in place) Respiratory: Present: Clear to Ascultation Cardiology: regular, normal heart rate Gastrointestinal: normal, normoactive bowel sounds Integumentary: no rash, warm and dry, other (right BKA. Stump covered with a dressing) - Lab 10/22/16 05:01 10/22/16 05:01 Most recent lab results Calcium 8.1 mg/dL (8.4-10.2) L 10/22/16 05:01 Urine Creatinine 66.6 mg/dL (0.1-20.0) H 10/22/16 04:50 Urine Sodium 33 mEq/L 10/03/16 17:00 Urine Total Protein 23 mg/dL (5-11.8) H 10/03/16 17:00
[2016-10-23 10:41] LABS: BUN/Creatinine Ratio 3.33; Calcium 7.7 mg/dL (8.4-10.2); Chloride 95.7 mmol/L (98-107); Potassium 3.1 mmol/L (3.6-5.0)
[2016-10-23] MEDS: NYSTOP TP SCH (13:02)
[2016-10-23] MEDS: PERCOCET 5/325 PO PRN (13:04)
[2016-10-23] MEDS ORDERED: K-DUR PO ONE (14:57)
[2016-10-24] MEDS: NYSTOP TP SCH ×2 (05:15→12:08)
[2016-10-24] MEDS: PERCOCET 5/325 PO PRN (05:16)
[2016-10-24] MEDS: CARAFATE PO SCH ×2 (05:16→12:08)
[2016-10-24 05:37] LABS: BUN/Creatinine Ratio 5.5; Calcium 7.7 mg/dL (8.4-10.2); Chloride 93.8 mmol/L (98-107); Potassium 3.5 mmol/L (3.6-5.0)
[2016-10-24] MEDS: ELIQUIS PO SCH ×2 (08:31→10:00)
[2016-10-24] MEDS: PROTONIX PO SCH ×2 (08:31→10:00)
--- NOTE | 2016-10-24 08:59 | Progress Note ---
Assessment and Plan Impression: * MARIA C/ATN * Recent vanco toxicity * S/p amputation * HTN * Anemia Plan: * Patient is currently nonoliguric. * His renal function seems to have stabilized. Last dialysis treatment was on October 19 * His crcl was 18ml/min * maria c may be due to ATN from vancotoxicity * No indication for further dialysis at this time * ok for rehab * If patient to be discharged, would recommend removing his PermCath Subjective Date of service: 10/24/16 Principal diagnosis: maria c Interval history: Patient feels well this morning. Denies any shortness of breath. No nausea or vomiting. Objective - Vital Signs Vital signs: Vital Signs - 12hr 10/23/16 10/24/16 10/24/16 22:00 00:58 05:16 Temperature 99.3 F Pulse Rate [ Apical] Pulse Rate [ 89 From Monitor] Respiratory 20 20 Rate Respiratory 20 Rate [Right Leg ] Blood Pressure 157/71 [Left Arm] O2 Sat by Pulse 100 Oximetry 10/24/16 10/24/16 10/24/16 05:49 06:16 08:00 Temperature 100.3 F H 99.2 F Pulse Rate [ 102 H Apical] Pulse Rate [ 106 H From Monitor] Respiratory 20 20 20 Rate Respiratory Rate [Right Leg ] Blood Pressure 170/79 158/80 [Left Arm] O2 Sat by Pulse 100 99 Oximetry - General Appearance General appearance: well-developed, well-nourished, appears stated age EENT: PERRL, mucous membranes moist Neck: no JVD, no thyromegaly, no carotid bruit, supple, other (right IJ PermCath in place) Respiratory: Present: Clear to Ascultation Cardiology: regular, normal heart rate, S1S2, no murmurs Gastrointestinal: normal, normoactive bowel sounds Integumentary: no rash, other (right BKA. Stump covered with a dressing) - Lab 10/24/16 05:07 10/24/16 05:07 Most recent lab results Calcium 7.7 mg/dL (8.4-10.2) L 10/24/16 05:07 Urine Creatinine 66.6 mg/dL (0.1-20.0) H 10/22/16 04:50 Urine Sodium 33 mEq/L 10/03/16 17:00 Urine Total Protein 23 mg/dL (5-11.8) H 10/03/16 17:00
--- NOTE | 2016-10-24 10:42 | XRay Report ---
Right wrist: The bones are generally demineralized and there is diffuse swelling predominantly over the dorsum of the wrist and hand. There is cartilaginous calcification dorsal to the lunate bone. The radiocarpal articulation is narrowed. No other obvious findings. Impression: The demineralization and cartilaginous calcification could be related to the patient's renal disease. Degenerative cartilaginous changes especially with decreased radiocarpal joint space is another consideration. There swelling is nonspecific.
[2016-10-24 15:50] VITALS: BP 164/72
--- NOTE | 2016-10-24 16:33 | Operative Report ---
Operative Report Operative Report: EXAM: Tunneled catheter removal DATE: 10/24/16 INDICATION: No further need of dialysis. MEDICATIONS: Please see nursing report for full details. BOARD CATCHER: ANGEL HWANG MD CONTRAST: None PROCEDURE: The risks, benefits, and alternatives were discussed; written informed consent was obtained. The patient was positioned with the head towards the contralateral side. The tunneled catheter was prepped and draped in a sterile fashion. Lidocaine was infiltrated at the dermatotomy site. Heparin was withdrawn from both lumens. Using a hemostat, blunt dissection was performed and the cuff was extracted. The catheter was extracted and pressure was held at the venotomy and dermatotomy site until hemostasis was achieved. Sterile bandage was then applied. The patient tolerated the procedure without issue. FINDINGS: Successful removal of the tunneled catheter. IMPRESSION: Successful removal of the right internal jugular tunneled catheter.
--- NOTE | 2016-10-29 16:42 | Consultation ---
PERSON ASKING FOR CONSULTATION: Miki Servin MD REASON FOR CONSULTATION: Management of acute renal failure in a patient who is currently established with Dr. Baker with no prior history of chronic kidney disease. SOURCE OF INFORMATION: From the patient himself who appears to be a reliable historian. HISTORY OF PRESENT ILLNESS: The patient is a pleasant 71-year-old male who presented to the hospital complaining of right foot pain with blisters and foul smelling. The patient has malodorous foul smelling wound of his right foot and has been undergoing vascular evaluation as well. The patient's creatinine upon arrival was noted to be around 0.9, which has gradually worsened. The patient underwent a right above knee open amputation on 09/27/2016, and subsequently had angiography of the left lower extremity with selective abdominal aorta angiogram that was done on 09/28/2016. The patient has also been noted to have thrombosis of popliteal vein during this admission. On the day of consultation, his creatinine was noted to be around 2. PAST MEDICAL HISTORY: Significant for hypertension. CURRENT ALLERGIES: None. HOME MEDICATIONS: Clindamycin, Nystatin, pantoprazole, sucralfate, oxycodone, and aplexiban. CURRENT MEDICATIONS: Reviewed. SOCIAL HISTORY: The patient lives with his family. FAMILY HISTORY: Essentially positive for hypertension. REVIEW OF SYSTEMS: Positive for some malodorous discharge foot infection, status post amputation, otherwise essentially negative for all other systems. PHYSICAL EXAMINATION: GENERAL: The patient is a 71-year-old -[place] gentleman who was lying in bed, comfortable, in no acute distress. VITAL SIGNS: Reviewed from today. HEENT: Normocephalic and atraumatic skull. Extraocular movements are intact. Oral mucosa appears to be moist. NECK: Supple without thyromegaly or JVD. CHEST: Essentially clear to auscultation anteriorly and posteriorly. HEART: Regular rate. S1, S2 heard. No S3 or S4. ABDOMEN: Soft, nontender. No voluntary guarding, rebound, organomegaly, or masses. ENDOCRINE: Thyroid not enlarged. PSYCHIATRIC: The patient on presentation aggression noted at this time. EXTREMITIES: One leg amputee. LABORATORY DATA: Labs and x-rays reviewed from this admission. ASSESSMENT AND PLAN: 1. Acute kidney injury. The patient was admitted appears to be normal. Creatinine currently status post amputation. Creatinine has been trending up. The etiology of renal failure is unclear to me. The patient will need further labs and imaging to establish the exact etiology of renal failure. Maintain IV hydration. No acute emergent indication for renal replacement therapy. Avoid nephrotoxic medications, TOSHA inhibitors, angiotensin receptor lissette or nonsteroidal drugs. 2. Metabolic acidosis. The patient would benefit from bicarbonate containing drip. 3. Worsening anemia in the setting of postop, currently declining from 11.5 to 8.6. No obvious blood loss, other than what noted during this surgery. 4. Hypertension. 5. Edema, currently well controlled. Plan of care was discussed with the patient. All questions were answered. He does not have any prior history of chronic kidney disease, but has multiple risk factors for renal failure. We need to watch his renal function closely. May require renal replacement therapy if his renal function continues to have a declining trend. He is at high risk for progression to ESRD over time due to multiple health-related issues as well. The patient is very poorly involved in his health care. At this time, I certainly would recommend to avoid any form of nonsteroidal drugs, monitor renal function closely judiciously, use drugs in the appropriate doses, close followup with electrolytes. We will continue to follow and make recommendations from renal standpoint. JOB# [id number] JONN/DARCI ZABALA
== END 2016-10-24 17:00 | DRG 853 ==
LOC: ED 18:08 → 2B-SURG 09-26 07:54
PROVIDERS: ADMIT Internal Medicine; ATTEND Internal Medicine
PROC: 0Y6H0Z3 Detachment at Right Lower Leg, Low, Open Approach (ICD-10-PCS; principal; 2016-09-27)
PROC: 04CK3ZZ Extirpation of Matter from Right Femoral Artery, Percutaneous Approach (ICD-10-PCS; 2016-09-28)
PROC: 04CM3ZZ Extirpation of Matter from Right Popliteal Artery, Percutaneous Approach (ICD-10-PCS; 2016-09-28)
PROC: 04CR3ZZ Extirpation of Matter from Right Posterior Tibial Artery, Percutaneous Approach (ICD-10-PCS; 2016-09-28)
PROC: 04CT3ZZ Extirpation of Matter from Right Peroneal Artery, Percutaneous Approach (ICD-10-PCS; 2016-09-28)
PROC: 047R3ZZ Dilation of Right Posterior Tibial Artery, Percutaneous Approach (ICD-10-PCS; 2016-09-28)
PROC: 047M3ZZ Dilation of Right Popliteal Artery, Percutaneous Approach (ICD-10-PCS; 2016-09-28)
PROC: 047T3ZZ Dilation of Right Peroneal Artery, Percutaneous Approach (ICD-10-PCS; 2016-09-28)
PROC: 047K3ZZ Dilation of Right Femoral Artery, Percutaneous Approach (ICD-10-PCS; 2016-09-28)
PROC: 04L Lower Arteries, Occlusion (ICD-10-PCS; 2016-09-28)
PROC: B44GZZZ Ultrasonography of Left Lower Extremity Arteries (ICD-10-PCS; 2016-09-28)
PROC: 3E05317 Introduction of Other Thrombolytic into Peripheral Artery, Percutaneous Approach (ICD-10-PCS; 2016-09-28)
PROC: 0Y6H0Z1 Detachment at Right Lower Leg, High, Open Approach (ICD-10-PCS; 2016-10-01)
PROC: 30233N1 Transfusion of Nonautologous Red Blood Cells into Peripheral Vein, Percutaneous Approach (ICD-10-PCS; 2016-10-06)
PROC: 02H633Z Insertion of Infusion Device into Right Atrium, Percutaneous Approach (ICD-10-PCS; 2016-10-07)
PROC: B2141ZZ Fluoroscopy of Right Heart using Low Osmolar Contrast (ICD-10-PCS; 2016-10-07)
PROC: B543ZZA Ultrasonography of Right Jugular Veins, Guidance (ICD-10-PCS; 2016-10-07)
PROC: 0DB68ZX Excision of Stomach, Via Natural or Artificial Opening Endoscopic, Diagnostic (ICD-10-PCS; 2016-10-10)
PROC: 5A1D60Z (ICD-10-PCS; 2016-10-18)
PROC: 02H633Z Insertion of Infusion Device into Right Atrium, Percutaneous Approach (ICD-10-PCS; 2016-10-18)
PROC: B2141ZZ Fluoroscopy of Right Heart using Low Osmolar Contrast (ICD-10-PCS; 2016-10-18)
PROC: 02PAX3Z Removal of Infusion Device from Heart, External Approach (ICD-10-PCS; 2016-10-18)
PROC: 05PYX3Z Removal of Infusion Device from Upper Vein, External Approach (ICD-10-PCS; 2016-10-24)
DX: A41.9 Sepsis, unspecified organism (principal); N17.0 Acute kidney failure with tubular necrosis; I74.9 Embolism and thrombosis of unspecified artery; L03.115 Cellulitis of right lower limb; L02.611 Cutaneous abscess of right foot; I70.261 Atherosclerosis of native arteries of extremities with gangrene, right leg; E87.2 Acidosis; I82.402 Acute embolism and thrombosis of unspecified deep veins of left lower extremity; D62 Acute posthemorrhagic anemia; L03.113 Cellulitis of right upper limb; T79.A0XA Compartment syndrome, unspecified, initial encounter; M10.9 Gout, unspecified; F17.210 Nicotine dependence, cigarettes, uncomplicated; Z60.2 Problems related to living alone; R53.81 Other malaise; E87.6 Hypokalemia; T36.8X5A Adverse effect of other systemic antibiotics, initial encounter; K44.9 Diaphragmatic hernia without obstruction or gangrene; K25.9 Gastric ulcer, unspecified as acute or chronic, without hemorrhage or perforation; K29.70 Gastritis, unspecified, without bleeding; I10 Essential (primary) hypertension; Z98.890 Other specified postprocedural states; Z82.49 Family history of ischemic heart disease and other diseases of the circulatory system
CPT/HCPCS: 36415; 36430; 36556; 36558; 37184; 37185; 37224; 37228; 71010; 75635; 75710; 76770; 76937; 77001; 80048; 80074; 80202; 81001; 82140; 82270; 82550; 82565; 82570; 82575; 82607; 82728; 82747; 83550; 83930; 84156; 84300; 84466; 84550; 85007; 85014; 85018; 85025; 85027; 85049; 85520; 85610; 85730; 86850; 86900; 86901; 86920; 87040; 88305; 88307; 88311; 88342; 93005; 93010; 96365; 96366; 96375; C1725; C1750; C1752; C1757; C1760; C1769; C1887; C9113; J0690; J0885; J1100; J1170; J1200; J1644; J1815; J1885; J1956; J2250; J2270; J2370; J2405; J2543; J2704; J2997; J3010; J3370; J7030; J7040; J7050; P9016; Q9967

== ENCOUNTER 2018-04-22 15:14 | Inpatient (IN) | payer MEDICARE ==
[2018-04-22 16:32] LABS: Basophils # (Auto) 0.1 K/mm3 (0.0-0.1); Basophils % (Auto) 0.8 % (0.0-1.8); Eosinophils # (Auto) 0.4 K/mm3 (0.0-0.4); Eosinophils % (Auto) 4.5 % (0.0-4.3); Hematocrit 38.2 % (35.5-45.6); Hemoglobin 12.7 gm/dl (11.8-15.2); Lymphocytes # (Auto) 1.6 K/mm3 (1.2-5.4); Lymphocytes % (Auto) 18.6 % (13.4-35.0); Mean Corpuscular HGB Conc 33 % (32-34); Mean Corpuscular Hemoglobin 27 pg (28-32); Mean Corpuscular Volume 81 fl (84-94); Monocytes # (Auto) 0.7 K/mm3 (0.0-0.8); Monocytes % (Auto) 8.1 % (0.0-7.3); Platelet Count 353 K/mm3 (140-440); Red Blood Count 4.72 M/mm3 (3.65-5.03); Red Cell Distribution Width 19.4 % (13.2-15.2)
[2018-04-22] MEDS ORDERED: NORCO 5/325 PO ONE (16:47)
--- NOTE | 2018-04-22 16:50 | Emergency Department Report ---
HPI - General Chief Complaint: Extremity Problem,Nontraumatic Time Seen by Provider: 04/22/18 16:17 - HPI HPI: 72-year-old male presents to the emergency department with complaint of a progressive infection and/or darkening of the left great toe that has been going on over the past week. He says prior to that it looked just like the rest of the toes on the left foot but currently is blackened, peeling, dried out with some areas of bleeding. He has pain and tenderness palpation along the toe and radiating to the foot. He denies any fever, nausea , vomiting. He has a history of gout, hypertension. 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 His primary care physician is Dr. Joel Baker. He does not have an orthopedist or product accountant. No recent travel or sick contacts at home. He has not taken anything for his symptoms prior to presentation. ED Past Medical Hx - Past Medical History Hx Hypertension: Yes Additional medical history: gout - Surgical History Additional Surgical History: GI blockage, R.B.K.A - Social History Smoking Status: Current Every Day Smoker Substance Use Type: Alcohol - Medications Home Medications: Home Medications Medication Instructions Recorded Confirmed Last Taken Type Clindamycin [Clindamycin CAP] 600 mg PO BID #10 capsule 10/19/16 Unknown Rx Nystatin [Nystop Powder] 1 applic TP BID 5 Days powder 10/19/16 Unknown Rx Pantoprazole [Protonix TAB] 40 mg PO QDAY #30 tablet 10/19/16 Unknown Rx Sucralfate [Carafate] 1 gm PO Q6HR 10 Days oral.liqd 10/19/16 Unknown Rx oxyCODONE /ACETAMINOPHEN [Percocet 2 tab PO Q6H PRN 10 Days tablet 10/19/16 Unknown Rx 5/325 mg] Apixaban [Eliquis] 2.5 mg PO Q12HR #60 tablet 10/23/16 Unknown Rx ED Review of Systems ROS: Stated complaint: INJURY TO TOE Other details as noted in HPI Comment: All other systems reviewed and negative Constitutional: denies: chills, fever Eyes: denies: eye pain, eye discharge, vision change ENT: denies: ear pain, throat pain Respiratory: denies: cough, shortness of breath, wheezing Cardiovascular: denies: chest pain, palpitations Gastrointestinal: denies: abdominal pain, nausea, diarrhea Genitourinary: denies: urgency, dysuria Musculoskeletal: arthralgia, myalgia Skin: lesions, change in color Neurological: denies: headache, weakness, paresthesias Physical Exam - Physical Exam Vital Signs: Vital Signs 04/22/18 04/22/18 15:56 16:15 Temperature 98.3 F Pulse Rate 106 H Respiratory 18 16 Rate Blood Pressure 131/79 O2 Sat by Pulse 100 Oximetry Physical Exam: GENERAL: The patient is well-developed well-nourished. HENT: Normocephalic. Atraumatic. Patient has moist mucous membranes. EYES: Extraocular motions are intact. Pupils equal reactive to light bilaterally. NECK: Supple. Trachea is midline. CHEST/LUNGS: Clear to auscultation. There is no respiratory distress noted. HEART/CARDIOVASCULAR: Regular. There is no tachycardia. There is no murmur. ABDOMEN: Abdomen is soft, nontender. Patient has normal bowel sounds. There is no abdominal distention. SKIN: Skin is warm and dry. There is blackened gangrenous tissue seen to the left great toe, worst on the medial side that goes all the way down to the MTP joint. There is a little bit of blood seen but no purulent discharge. NEURO: The patient is awake, alert, and oriented. The patient is cooperative. The patient has no focal neurologic deficits. The patient has normal speech. MUSCULOSKELETAL: There is some tenderness palpation along the left great toe and medial distal foot. There is no limitation range of motion. There is no palpable dorsalis pedis pulse to the affected left foot. ED Course Vital Signs 04/22/18 04/22/18 15:56 16:15 Temperature 98.3 F Pulse Rate 106 H Respiratory 18 16 Rate Blood Pressure 131/79 O2 Sat by Pulse 100 Oximetry - Consultations Consultation #1: 04/22/18 17:[address] Mccall of vascular surgery who listened to the patient's presentation and his history of previous right lower extremity gangrene requiring below-knee amputation and his current left toe/foot gangrene. He says that the patient should be placed on a heparin drip, received a CT angiography of the abdomen with lower extremity runoff, be admitted to the hospitalist service, and they will see the patient has a consult tomorrow. ED Medical Decision Making - Lab Data Result diagrams: 04/22/18 16:02 04/22/18 16:02 - Radiology Data Radiology results: report reviewed, image reviewed interpreted by me: X-ray of the left great toe does not show any fracture, dislocation or any obvious signs of osteomyelitis. There are some degenerative changes seen. PROCEDURE: CT ANGIO ABD/FEMORAL ABD AORTA TECHNIQUE: Computerized axial tomographic angiography of the aortoiliac system with bilateral lower extremity runoff was performed after the IV injection of nonionic iodinated contrast including image processing. The image data was postprocessed using 2- dimensional multiplanar reformatted (MPR) and 3-dimensional (MIP and/or volume rendered) techniques. HISTORY: left foot gangrene infection, arterial insufficiency COMPARISON: No prior studies are available for comparison. FINDINGS: Abdominal aorta: Normal. Celiac artery: Normal. Superior mesenteric artery: Normal. LEFT renal artery: Normal. RIGHT renal artery: Normal. Inferior mesenteric artery: Normal. Common iliac arteries: Mild atherosclerotic calcification External iliac arteries: Mild atherosclerotic calcification RIGHT lower extremity: Femoral arteries: Right common femoral artery is patent. Deep femoral artery is patent. The superficial femoral artery is occluded throughout its course Popliteal artery: Occluded Trifurcation vessels: There has been below the knee amputation LEFT lower extremity: Femoral arteries: Common femoral artery is patent. Deep femoral artery is patent. The superficial femoral artery is occluded throughout its course Popliteal arteries: Occluded Trifurcation vessels: The proximal and mid runoff arteries are occluded. There is reconstitution of blood flow of the peroneal artery in the distal calf, with small patent lumen identified 19 centimeters proximal to the tibiotalar joint. The anterior tibial and dorsalis pedis arteries are occluded throughout their course. Posterior tibial artery is also mostly occluded. There is a small caliber posterior tibial artery visualized, approximately 4 centimeters superior to tibiotalar joint, extending into the foot Abdominal and pelvic viscera: No acute abnormality Other: None. IMPRESSION: Bilateral significant arterial insufficiency as described above Transcribed By: [facility] Dictated By: BRITTNI KENYON M.D. Electronically Authenticated By: BRITTNI KENYON M.D. Signed Date/Time: 04/22/18 193 - Medical Decision Making Patient presents with a week history of progressive worsening wound and/or infection to the left great toe. Patient appears to have some gangrenous changes. He has a history of this to the right side that caused a below-knee amputation. Patient's labs are mostly unremarkable except for a mild leukocytosis. He is afebrile and his vital signs and stable throughout his ED course. Patient was started on some antibiotics. I spoke to vascular surgery since I was unable to palpate or auscultate a dorsalis pedis pulse to the affected left foot. They will see the patient has a consult and asked for a CT angiography of the abdomen and pelvis with runoff down to the foot. This was done and shows multiple areas of arterial insufficiency. The patient is on a heparin drip for this reason and will be admitted to the hospitalist service and was accepted for admission by Dr. Vázquez. - Differential Diagnosis arterial insufficiency, gangrene, osteomyelitis, cellulitis Critical Care Time: No Critical care attestation.: If time is entered above; I have spent that time in minutes in the direct care of this critically ill patient, excluding procedure time. ED Disposition Clinical Impression: Gangrene of toe of left foot, Arterial insufficiency of lower extremity Disposition: 09 OP ADMIT IP TO THIS HOSP Is pt being admited?: Yes Condition: Fair Referrals: PRIMARY CARE, [Primary Care Provider] - 3-5 Days Time of Disposition: 18:59
[2018-04-22 16:53] LABS: BUN/Creatinine Ratio 11; Blood Urea Nitrogen 9 mg/dL (9-20); Hemolysis Index 46; Uric Acid 7.5 mg/dL (3.5-7.6)
[2018-04-22] MEDS ORDERED: VANCOMYCIN/NS 1 GM/250 ML 1 GM/250 ML BAG IV SCH (17:00)
[2018-04-22] MEDS ORDERED: HEPARIN 10,000 UNITS/10 ML IV ONE (17:36)
--- NOTE | 2018-04-22 17:48 | XRay Report ---
FINAL REPORT EXAM: XR TOE(S) 2+V LT HISTORY: left great toe infection, osteomyelitis? TECHNIQUE: 3 views of the left toes PRIORS: None. FINDINGS: Multifocal degenerative change. Bunion deformity hallux MTP joint with degenerative change. Skeletal superimposition limits hallux evaluation on oblique and lateral views. Small erosion may be degenerative at the base of the hallux proximal phalanx. No definite radiographic evidence of fracture, dislocation, or osteomyelitis. IMPRESSION: Small erosion may be degenerative at the base of the hallux proximal phalanx Multifocal degenerative change Hallux MTP joint bunion deformity with degenerative change No radiographic evidence of definite fracture, dislocation, or osteomyelitis
[2018-04-22 18:15] LABS: INR 0.96 (0.87-1.13)
[2018-04-22 18:16] LABS: Partial Thromboplastin Time 35.4 Sec. (24.2-36.6)
--- NOTE | 2018-04-22 19:35 | Cat Scan Report ---
FINAL REPORT PROCEDURE: CT ANGIO ABD/FEMORAL ABD AORTA TECHNIQUE: Computerized axial tomographic angiography of the aortoiliac system with bilateral lower extremity runoff was performed after the IV injection of nonionic iodinated contrast including image processing. The image data was postprocessed using 2-dimensional multiplanar reformatted (MPR) and 3-dimensional (MIP and/or volume rendered) techniques. HISTORY: left foot gangrene infection, arterial insufficiency COMPARISON: No prior studies are available for comparison. FINDINGS: Abdominal aorta: Normal. Celiac artery: Normal. Superior mesenteric artery: Normal. LEFT renal artery: Normal. RIGHT renal artery: Normal. Inferior mesenteric artery: Normal. Common iliac arteries: Mild atherosclerotic calcification External iliac arteries: Mild atherosclerotic calcification RIGHT lower extremity: Femoral arteries: Right common femoral artery is patent. Deep femoral artery is patent. The superficial femoral artery is occluded throughout its course Popliteal artery: Occluded Trifurcation vessels: There has been below the knee amputation LEFT lower extremity: Femoral arteries: Common femoral artery is patent. Deep femoral artery is patent. The superficial femoral artery is occluded throughout its course Popliteal arteries: Occluded Trifurcation vessels: The proximal and mid runoff arteries are occluded. There is reconstitution of blood flow of the peroneal artery in the distal calf, with small patent lumen identified 19 centimeters proximal to the tibiotalar joint. The anterior tibial and dorsalis pedis arteries are occluded throughout their course. Posterior tibial artery is also mostly occluded. There is a small caliber posterior tibial artery visualized, approximately 4 centimeters superior to tibiotalar joint, extending into the foot Abdominal and pelvic viscera: No acute abnormality Other: None. IMPRESSION: Bilateral significant arterial insufficiency as described above
--- NOTE | 2018-04-22 19:48 | History and Physical Report ---
History of Present Illness Date of examination: 04/22/18 Date of admission: 04/22/2018 Chief complaint: CC L foot infection and Blackened Great toe --one week History of present illness: PRESTON: 72-year-old male presents to the emergency department with complaint of a progressive darkening of the left great toe that has been going on over the past week. He says prior to that it looked just like the rest of the toes on the left foot but currently is blackened, peeling, dried out with some areas of bleeding. He has pain and tenderness palpation along the toe and radiating to the foot. He denies any fever, nausea, vomiting. He has a history of gout, hypertension. 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 His primary care physician is Dr. Joel Baker. 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 No recent travel or sick contacts at home. He has not taken anything for his symptoms prior to presentation.Also Patient has R BKA Past Medical History Hypertension: Yes Additional medical history: gout PAD Surgical History Additional Surgical History: GI blockage, R. -- B.K.A Social History Smoking Status: Current Every Day Smoker Substance Use Type: Alcohol Family History Htn - Medications Home Medications: Home Medications Medication Instructions Recorded Confirmed Last Taken Type Clindamycin [Clindamycin CAP] 600 mg PO BID #10 capsule 10/19/16 Unknown Rx Nystatin [Nystop Powder] 1 applic TP BID 5 Days powder 10/19/16 Unknown Rx Pantoprazole [Protonix TAB] 40 mg PO QDAY #30 tablet 10/19/16 Unknown Rx Sucralfate [Carafate] 1 gm PO Q6HR 10 Days oral.liqd 10/19/16 Unknown Rx oxyCODONE /ACETAMINOPHEN [Percocet 2 tab PO Q6H PRN 10 Days tablet 10/19/16 Unknown Rx 5/325 mg] Apixaban [Eliquis] 2.5 mg PO Q12HR #60 tablet 10/23/16 Unknown Rx Review of Systems ROS: Stated complaint: INJURY TO TOE Other details as noted in HPI Comment: All other systems reviewed and negative Constitutional: denies: chills, fever Eyes: denies: eye pain, eye discharge, vision change ENT: denies: ear pain, throat pain Respiratory: denies: cough, shortness of breath, wheezing Cardiovascular: denies: chest pain, palpitations Gastrointestinal: denies: abdominal pain, nausea, diarrhea Genitourinary: denies: urgency, dysuria Musculoskeletal: arthralgia, myalgia, Lt Great toe Ulceration and gangrenous changes Skin: lesions, change in color Neurological: denies: headache, weakness, paresthesias Medications and Allergies Allergies Allergy/AdvReac Type Severity Reaction Status Date / Time No Known Allergies Allergy Unverified 09/25/16 20:45 Home Medications Medication Instructions Recorded Confirmed Last Taken Type Clindamycin [Clindamycin CAP] 600 mg PO BID #10 capsule 10/19/16 Unknown Rx Nystatin [Nystop Powder] 1 applic TP BID 5 Days powder 10/19/16 Unknown Rx Pantoprazole [Protonix TAB] 40 mg PO QDAY #30 tablet 10/19/16 Unknown Rx Sucralfate [Carafate] 1 gm PO Q6HR 10 Days oral.liqd 10/19/16 Unknown Rx oxyCODONE /ACETAMINOPHEN [Percocet 2 tab PO Q6H PRN 10 Days tablet 10/19/16 Unknown Rx 5/325 mg] Apixaban [Eliquis] 2.5 mg PO Q12HR #60 tablet 10/23/16 Unknown Rx Active Meds: Active Medications Vancomycin HCl (Vancomycin/Ns 1 Gm/250 Ml) 1 gm in 250 mls @ 167.007 mls/hr IV ONCE SUPRIYA; Protocol Last Admin: 04/22/18 19:23 Dose: 167.007 mls/hr Heparin Sodium/Sodium Chloride (Heparin/ 0.45% Nacl-25,000 Unit/500 Ml) 25,000 unit in 500 mls @ 21 mls/hr IV TITR SUPRIYA; Protocol Exam - Constitutional Vitals: Temp Pulse Resp BP Pulse Ox 98.3 F 70 18 106/52 100 04/22/18 15:56 04/22/18 17:14 04/22/18 17:14 04/22/18 17:14 04/22/18 17:14 General appearance: Present: no acute distress, well-nourished - EENT Eyes: Present: PERRL ENT: hearing intact, clear oral mucosa - Neck Neck: Present: supple, normal ROM - Respiratory Respiratory effort: normal Respiratory: bilateral: CTA - Cardiovascular Heart rate: 78 Rhythm: regular Heart Sounds: Present: S1 & S2. Absent: rub, click - Extremities Extremities: no ischemia, pulses symmetrical, No edema, abnormal (Pulses weak L foot great toe dark in color with some breakdown) Peripheral Pulses: within normal limits - Abdominal General gastrointestinal: Present: soft, non-tender, non-distended, normal bowel sounds Male genitourinary: Present: normal - Integumentary Integumentary: Present: clear, warm, dry - Musculoskeletal Musculoskeletal: gait normal, strength equal bilaterally - Psychiatric Psychiatric: appropriate mood/affect, intact judgment & insight - Neurologic Neurologic: CNII-XII intact, moves all extremities Results - Labs CBC & Chem 7: 04/22/18 16:02 04/22/18 16:02 Labs: Laboratory Last Values WBC 8.6 K/mm3 (4.5-11.0) 04/22/18 16:02 RBC 4.72 M/mm3 (3.65-5.03) 04/22/18 16:02 Hgb 12.7 gm/dl (11.8-15.2) 04/22/18 16:02 Hct 38.2 % (35.5-45.6) 04/22/18 16:02 MCV 81 fl (84-94) L 04/22/18 16:02 MCH 27 pg (28-32) L 04/22/18 16:02 MCHC 33 % (32-34) 04/22/18 16:02 RDW 19.4 % (13.2-15.2) H 04/22/18 16:02 Plt Count 353 K/mm3 (140-440) 04/22/18 16:02 Lymph % (Auto) 18.6 % (13.4-35.0) 04/22/18 16:02 Craig % (Auto) 8.1 % (0.0-7.3) H 04/22/18 16:02 Eos % (Auto) 4.5 % (0.0-4.3) H 04/22/18 16:02 Baso % (Auto) 0.8 % (0.0-1.8) 04/22/18 16:02 Lymph # 1.6 K/mm3 (1.2-5.4) 04/22/18 16:02 Craig # 0.7 K/mm3 (0.0-0.8) 04/22/18 16:02 Eos # 0.4 K/mm3 (0.0-0.4) 04/22/18 16:02 Baso # 0.1 K/mm3 (0.0-0.1) 04/22/18 16:02 Seg Neutrophils % 68.0 % (40.0-70.0) 04/22/18 16:02 Seg Neutrophils # 5.9 K/mm3 (1.8-7.7) 04/22/18 16:02 PT 13.3 Sec. (12.2-14.9) 04/22/18 17:50 INR 0.96 (0.87-1.13) 04/22/18 17:50 APTT 35.4 Sec. (24.2-36.6) 04/22/18 17:50 Sodium 138 mmol/L (137-145) 04/22/18 16:02 Potassium 3.9 mmol/L (3.6-5.0) 04/22/18 16:02 Chloride 102.6 mmol/L (98-107) 04/22/18 16:02 Carbon Dioxide 22 mmol/L (22-30) 04/22/18 16:02 Anion Gap 17 mmol/L 04/22/18 16:02 BUN 9 mg/dL (9-20) 04/22/18 16:02 Creatinine 0.8 mg/dL (0.8-1.5) 04/22/18 16:02 Estimated GFR > 60 ml/min 04/22/18 16:02 BUN/Creatinine Ratio 11 % 04/22/18 16:02 Glucose 92 mg/dL (75-100) 04/22/18 16:02 Lactic Acid 1.60 mmol/L (0.7-2.0) 04/22/18 16:47 Uric Acid 7.5 mg/dL (3.5-7.6) 04/22/18 16:02 Calcium 9.0 mg/dL (8.4-10.2) 04/22/18 16:02 Short CBC 04/22/18 Range/Units 16:02 WBC 8.6 (4.5-11.0) K/mm3 Hgb 12.7 (11.8-15.2) gm/dl Hct 38.2 (35.5-45.6) % Plt Count 353 (140-440) K/mm3 [facility] 04/22/18 16:02 Sodium 138 Potassium 3.9 Chloride 102.6 Carbon Dioxide 22 BUN 9 Creatinine 0.8 Glucose 92 Calcium 9.0 - Imaging and Cardiology Imaging and Cardiology: Abd CTA FINDINGS: Abdominal aorta: Normal. Celiac artery: Normal. Superior mesenteric artery: Normal. LEFT renal artery: Normal. RIGHT renal artery: Normal. Inferior mesenteric artery: Normal. Common iliac arteries: Mild atherosclerotic calcification External iliac arteries: Mild atherosclerotic calcification RIGHT lower extremity: Femoral arteries: Right common femoral artery is patent. Deep femoral artery is patent. The superficial femoral artery is occluded throughout its course Popliteal artery: Occluded Trifurcation vessels: There has been below the knee amputation LEFT lower extremity: Femoral arteries: Common femoral artery is patent. Deep femoral artery is patent. The superficial femoral artery is occluded throughout its course Popliteal arteries: Occluded Trifurcation vessels: The proximal and mid runoff arteries are occluded. There is reconstitution of blood flow of the peroneal artery in the distal calf, with small patent lumen identified 19 centimeters proximal to the tibiotalar joint. The anterior tibial and dorsalis pedis arteries are occluded throughout their course. Posterior tibial artery is also mostly occluded. There is a small caliber posterior tibial artery visualized, approximately 4 centimeters superior to tibiotalar joint, extending into the foot Abdominal and pelvic viscera: No acute abnormality Other: None. IMPRESSION: Bilateral significant arterial insufficiency as described above Assessment and Plan Advance Directives: Yes (Full code) VTE prophylaxis?: Chemical Plan of care discussed with patient/family: Yes - Patient Problems (1) Gangrene of toe of left foot Current Visit: Yes Status: Acute Plan to address problem: Patient started on IV Vancomycin and Unasyn IR consult requested IV Heparin drip started (2) HTN (hypertension) Current Visit: No Status: Chronic Qualifiers: Hypertension type: essential hypertension Qualified Code(s): I10 - Essential (primary) hypertension Plan to address problem: On Losartan 50 mg po qd (3) DVT prophylaxis Current Visit: No Status: Acute Plan to address problem: On IV Heparin
[2018-04-22] MEDS ORDERED: TYLENOL PO PRN (20:13)
[2018-04-22] MEDS: PEPCID PO SCH (23:00)
[2018-04-22] MEDS: NACL 0.9% 1000 ML 1,000 ML IV SCH (23:00)
[2018-04-22] MEDS: COZAAR PO SCH (23:00)
[2018-04-22] MEDS: SODIUM CHLORIDE FLUSH SYRINGE 10 ML IV SCH (23:01)
[2018-04-23] MEDS: MORPHINE IV PRN ×4 (00:11→21:02)
[2018-04-23] MEDS: HEPARIN/ 0.45% NACL-25,000 UNIT/500 ML 25,000 UNIT/500 ML BAG IV SCH (00:12)
[2018-04-23 06:26] LABS: Alanine Aminotransferase 6 units/L (7-56); Albumin 3.8 g/dL (3.9-5); BUN/Creatinine Ratio 13; Blood Urea Nitrogen 9 mg/dL (9-20); Hemolysis Index 37
[2018-04-23] MEDS: SODIUM CHLORIDE FLUSH SYRINGE 10 ML IV PRN ×2 (08:24→15:19)
[2018-04-23] MEDS: PEPCID PO SCH ×2 (09:21→21:02)
[2018-04-23] MEDS: COZAAR PO SCH (09:21)
[2018-04-23] MEDS: SODIUM CHLORIDE FLUSH SYRINGE 10 ML IV SCH ×2 (09:22→21:04)
--- NOTE | 2018-04-23 15:31 | Progress Note ---
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 Heparin drip. Discussed with Dr. Medina, Vascular Surgeon. For angiography and possible thrombolytic catheter placement tomorrow. Peripheral arterial disease. s.p right BKA Hypertension Full code status History Interval history: Pain and dark discoloration 1st toe left foot Hospitalist Physical - Physical exam Narrative exam: Gen : Not in acute distress, HEENT:Normocephalic, atraumatic Neck: supple, No JVD Lungs: Clear to auscultation, bilaterally, no rhonchi, no wheeze Heart :S1 and S2 reg, no murmurs, rubs or gallop Abd:soft, non tender, non distended, normal bowel sounds Ext: right BKA, Black discoloration 1st toe left footis still left foot dry gangrene 1 st toe, no clubbing, no cyanosis, Neuro: Awake,alert,oriented x 3, no focal signs Psych:normal mood - Constitutional Vitals: Temp Pulse Resp BP Pulse Ox 97.8 F 75 18 136/69 99 04/23/18 08:00 04/23/18 09:21 04/23/18 15:18 04/23/18 09:21 04/23/18 07:31 General appearance: Present: no acute distress Results - Labs CBC & Chem 7: 04/22/18 16:02 04/23/18 04:57 Labs: Laboratory Last Values WBC 8.6 K/mm3 (4.5-11.0) 04/22/18 16:02 RBC 4.72 M/mm3 (3.65-5.03) 04/22/18 16:02 Hgb 12.7 gm/dl (11.8-15.2) 04/22/18 16:02 Hct 38.2 % (35.5-45.6) 04/22/18 16:02 MCV 81 fl (84-94) L 04/22/18 16:02 MCH 27 pg (28-32) L 04/22/18 16:02 MCHC 33 % (32-34) 04/22/18 16:02 RDW 19.4 % (13.2-15.2) H 04/22/18 16:02 Plt Count 353 K/mm3 (140-440) 04/22/18 16:02 Lymph % (Auto) 18.6 % (13.4-35.0) 04/22/18 16:02 [place] % (Auto) 8.1 % (0.0-7.3) H 04/22/18 16:02 Eos % (Auto) 4.5 % (0.0-4.3) H 04/22/18 16:02 Baso % (Auto) 0.8 % (0.0-1.8) 04/22/18 16:02 Lymph # 1.6 K/mm3 (1.2-5.4) 04/22/18 16:02 [place] # 0.7 K/mm3 (0.0-0.8) 04/22/18 16:02 Eos # 0.4 K/mm3 (0.0-0.4) 04/22/18 16:02 Baso # 0.1 K/mm3 (0.0-0.1) 04/22/18 16:02 Seg Neutrophils % 68.0 % (40.0-70.0) 04/22/18 16:02 Seg Neutrophils # 5.9 K/mm3 (1.8-7.7) 04/22/18 16:02 PT 13.3 Sec. (12.2-14.9) 04/22/18 17:50 INR 0.96 (0.87-1.13) 04/22/18 17:50 APTT 35.4 Sec. (24.2-36.6) 04/22/18 17:50 Heparin Anti-Xa Level 0.37 U.I./ml (0.3-0.7) 04/23/18 10:10 Sodium 138 mmol/L (137-145) 04/23/18 04:57 Potassium 4.2 mmol/L (3.6-5.0) 04/23/18 04:57 Chloride 101.6 mmol/L (98-107) 04/23/18 04:57 Carbon Dioxide 22 mmol/L (22-30) 04/23/18 04:57 Anion Gap 19 mmol/L 04/23/18 04:57 BUN 9 mg/dL (9-20) 04/23/18 04:57 Creatinine 0.7 mg/dL (0.8-1.5) L 04/23/18 04:57 Estimated GFR > 60 ml/min 04/23/18 04:57 BUN/Creatinine Ratio 13 % 04/23/18 04:57 Glucose 75 mg/dL (75-100) 04/23/18 04:57 Hemoglobin A1c 5.7 % (4-6) 04/22/18 20:57 Lactic Acid 1.60 mmol/L (0.7-2.0) 04/22/18 16:47 Uric Acid 7.5 mg/dL (3.5-7.6) 04/22/18 16:02 Calcium 9.0 mg/dL (8.4-10.2) 04/23/18 04:57 Total Bilirubin 0.40 mg/dL (0.1-1.2) 04/23/18 04:57 AST 17 units/L (5-40) 04/23/18 04:57 ALT 6 units/L (7-56) L 04/23/18 04:57 Alkaline Phosphatase 105 units/L (35-129) 04/23/18 04:57 Total Protein 7.2 g/dL (6.3-8.2) 04/23/18 04:57 Albumin 3.8 g/dL (3.9-5) L 04/23/18 04:57 Albumin/Globulin Ratio 1.1 % 04/23/18 04:57
--- NOTE | 2018-04-23 16:10 | Consultation ---
History of Present Illness - Reason for Consult Consult date: 04/23/18 Left leg gangrene - History of Present Illness 72-year-old male with left first digit dry gangrene who has a past medical history of arterial occlusion of the right lower extremity with wet gangrene requiring open right BKA, subsequent revascularization, and then closed right BKA. Right BKA has healed. The patient now presents with left first digit gangrene which has been present for one to 2 weeks per patient. 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 He has pain at the area of first digit gangrene. CT angiogram performed in 2016 demonstrates severe left infrapopliteal arterial disease, but a patent left popliteal artery and SFA. CT angiogram performed in 2018 demonstrates occlusion of the left SFA and popliteal artery and worsening infrapopliteal arterial disease. Past History Past Medical History: hypertension, PVD, other (gout) Past Surgical History: Other (r bka) Social history: smoking Family history: hypertension Medications and Allergies Allergies Allergy/AdvReac Type Severity Reaction Status Date / Time No Known Allergies Allergy Unverified 09/25/16 20:45 Home Medications Medication Instructions Recorded Confirmed Last Taken Type Clindamycin [Clindamycin CAP] 600 mg PO BID #10 capsule 10/19/16 04/22/18 Unknown Rx Nystatin [Nystop Powder] 1 applic TP BID 5 Days powder 10/19/16 04/22/18 Unknown Rx Pantoprazole [Protonix TAB] 40 mg PO QDAY #30 tablet 10/19/16 04/22/18 Unknown Rx Sucralfate [Carafate] 1 gm PO Q6HR 10 Days oral.liqd 10/19/16 04/22/18 Unknown Rx oxyCODONE /ACETAMINOPHEN [Percocet 2 tab PO Q6H PRN 10 Days tablet 10/19/1601/05 Unknown Rx 5/325 mg] Active Meds: Active Medications Acetaminophen (Tylenol) 650 mg PO Q4H PRN PRN Reason: Pain MILD(1-3)/Fever >100.5/CAZARES Famotidine (Pepcid) 20 mg PO BID SUPRIYA Last Admin: 04/23/18 09:21 Dose: 20 mg Vancomycin HCl (Vancomycin/Ns 1 Gm/250 Ml) 1 gm in 250 mls @ 167.007 mls/hr IV ONCE SUPRIYA; Protocol Last Admin: 04/22/18 19:23 Dose: 167.007 mls/hr Heparin Sodium/Sodium Chloride (Heparin/ 0.45% Nacl-25,000 Unit/500 Ml) 25,000 unit in 500 mls @ 21 mls/hr IV TITR SUPRIYA; Protocol Last Admin: 04/23/18 00:12 Dose: 1,050 units/hr, 21 mls/hr Sodium Chloride (Nacl 0.9% 1000 Ml) 1,000 mls @ 75 mls/hr IV DIRECT SUPRIYA Last Admin: 04/22/18 23:00 Dose: 75 mls/hr Losartan Potassium (Cozaar) 50 mg PO QDAY SUPRIYA Last Admin: 04/23/18 09:21 Dose: 50 mg Morphine Sulfate (Morphine) 2 mg IV Q4H PRN PRN Reason: Pain, Moderate (4-6) Last Admin: 04/23/18 15:18 Dose: 2 mg Ondansetron HCl (Zofran) 4 mg IV Q8H PRN PRN Reason: Nausea And Vomiting Sodium Chloride (Sodium Chloride Flush Syringe 10 Ml) 10 ml IV BID SUPRIYA Last Admin: 04/23/18 09:22 Dose: 10 ml Sodium Chloride (Sodium Chloride Flush Syringe 10 Ml) 10 ml IV PRN PRN PRN Reason: LINE FLUSH Last Admin: 04/23/18 15:19 Dose: 10 ml Review of Systems All systems: negative (see HPI) Exam - Constitutional Vitals: Temp Pulse Resp BP Pulse Ox 97.8 F 75 18 140/75 100 04/23/18 13:26 04/23/18 13:26 04/23/18 15:18 04/23/18 13:26 04/23/18 13:26 General appearance: Present: no acute distress - EENT Eyes: Present: EOM intact ENT: hearing intact - Respiratory Respiratory effort: normal - Extremities Extremities: abnormal (right below-knee amputation, left first digit gangrene, nonpalpable pedal pulses) Extremity abnormal: black (left first digit) - Psychiatric Psychiatric: appropriate mood/affect, cooperative Results - Labs CBC & Chem 7: 04/22/18 16:02 04/23/18 04:57 Labs: Abnormal lab results 04/22/18 04/23/18 Range/Units 16:02 04:57 MCV 81 L (84-94) fl MCH 27 L (28-32) pg RDW 19.4 H (13.2-15.2) % [place] % (Auto) 8.1 H (0.0-7.3) % Eos % (Auto) 4.5 H (0.0-4.3) % Creatinine 0.7 L (0.8-1.5) mg/dL ALT 6 L (7-56) units/L Albumin 3.8 L (3.9-5) g/dL - Imaging and Cardiology CT scan - pelvis: report reviewed, image reviewed Assessment and Plan 72-year-old male who presents with left first digit gangrene with occlusion of the left popliteal artery and superficial femoral artery. Differential is in situ thrombosis versus cardioembolic event. The patient has minimal symptoms despite the severity of his occlusion. He has no motor dysfunction, and no increase in sensory dysfunctions over baseline. He has pain at his left first digit gangrene which has been present for the last 1-2 weeks. Due to lack of neurologic symptoms, the patient's treatment can be performed tomorrow morning. Continue heparin drip. Plan for angiography tomorrow with possible thrombolytic catheter placement. Nothing by mouth after midnight.
[2018-04-23] MEDS: NACL 0.9% 1000 ML 1,000 ML IV SCH (17:18)
[2018-04-23] MEDS: ZOFRAN IV PRN (21:02)
[2018-04-23] MEDS ORDERED: PERCOCET 5/325 PO PRN (22:23)
[2018-04-24] MEDS: CARAFATE PO SCH ×4 (00:43→18:19)
[2018-04-24] MEDS: HEPARIN/ 0.45% NACL-25,000 UNIT/500 ML 25,000 UNIT/500 ML BAG IV SCH (01:09)
[2018-04-24 07:43] LABS: Hematocrit 40.3 % (35.5-45.6); Hemoglobin 13.6 gm/dl (11.8-15.2)
[2018-04-24] MEDS: NYSTOP TP SCH ×2 (10:09→22:00)
[2018-04-24] MEDS: PROTONIX PO SCH (10:10)
[2018-04-24] MEDS: PEPCID PO SCH ×2 (10:10→22:00)
[2018-04-24] MEDS: COZAAR PO SCH (10:11)
[2018-04-24] MEDS: SODIUM CHLORIDE FLUSH SYRINGE 10 ML IV SCH ×2 (10:12→22:00)
[2018-04-24] MEDS: NACL 0.9% 1000 ML 1,000 ML IV SCH (10:31)
--- NOTE | 2018-04-24 11:15 | Progress Note ---
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 Heparin drip. Discussed with Dr. Medina, Vascular Surgeon. For angiography and possible thrombolytic catheter placement today. Peripheral arterial disease. s/p right BKA Hypertension Full code status History Interval history: Pain and dark discoloration 1st toe left foot Hospitalist Physical - Physical exam Narrative exam: Gen : Not in acute distress, HEENT:Normocephalic, atraumatic Neck: supple, No JVD Lungs: Clear to auscultation, bilaterally, no rhonchi, no wheeze Heart :S1 and S2 reg, no murmurs, rubs or gallop Abd:soft, non tender, non distended, normal bowel sounds Ext: right BKA, Black discoloration 1st toe left footis still left foot dry gangrene 1 st toe, no clubbing, no cyanosis, Neuro: Awake,alert,oriented x 3, no focal signs Psych:normal mood - Constitutional Vitals: Temp Pulse Resp BP Pulse Ox 98.5 F 61 18 133/66 100 04/24/18 07:04 04/24/18 10:11 04/24/18 07:04 04/24/18 10:11 04/24/18 09:41 General appearance: Present: no acute distress Results - Labs CBC & Chem 7: 04/24/18 06:24 04/23/18 04:57 Labs: Laboratory Last Values WBC 8.6 K/mm3 (4.5-11.0) 04/22/18 16:02 RBC 4.72 M/mm3 (3.65-5.03) 04/22/18 16:02 Hgb 13.6 gm/dl (11.8-15.2) 04/24/18 06:24 Hct 40.3 % (35.5-45.6) 04/24/18 06:24 MCV 81 fl (84-94) L 04/22/18 16:02 MCH 27 pg (28-32) L 04/22/18 16:02 MCHC 33 % (32-34) 04/22/18 16:02 RDW 19.4 % (13.2-15.2) H 04/22/18 16:02 Plt Count 378 K/mm3 (140-440) 04/24/18 06:24 Lymph % (Auto) 18.6 % (13.4-35.0) 04/22/18 16:02 [place] % (Auto) 8.1 % (0.0-7.3) H 04/22/18 16:02 Eos % (Auto) 4.5 % (0.0-4.3) H 04/22/18 16:02 Baso % (Auto) 0.8 % (0.0-1.8) 04/22/18 16:02 Lymph # 1.6 K/mm3 (1.2-5.4) 04/22/18 16:02 [place] # 0.7 K/mm3 (0.0-0.8) 04/22/18 16:02 Eos # 0.4 K/mm3 (0.0-0.4) 04/22/18 16:02 Baso # 0.1 K/mm3 (0.0-0.1) 04/22/18 16:02 Seg Neutrophils % 68.0 % (40.0-70.0) 04/22/18 16:02 Seg Neutrophils # 5.9 K/mm3 (1.8-7.7) 04/22/18 16:02 PT 13.3 Sec. (12.2-14.9) 04/22/18 17:50 INR 0.96 (0.87-1.13) 04/22/18 17:50 APTT 35.4 Sec. (24.2-36.6) 04/22/18 17:50 Heparin Anti-Xa Level 0.59 U.I./ml (0.3-0.7) 04/23/18 17:09 Sodium 138 mmol/L (137-145) 04/23/18 04:57 Potassium 4.2 mmol/L (3.6-5.0) 04/23/18 04:57 Chloride 101.6 mmol/L (98-107) 04/23/18 04:57 Carbon Dioxide 22 mmol/L (22-30) 04/23/18 04:57 Anion Gap 19 mmol/L 04/23/18 04:57 BUN 9 mg/dL (9-20) 04/23/18 04:57 Creatinine 0.7 mg/dL (0.8-1.5) L 04/23/18 04:57 Estimated GFR > 60 ml/min 04/23/18 04:57 BUN/Creatinine Ratio 13 % 04/23/18 04:57 Glucose 75 mg/dL (75-100) 04/23/18 04:57 Hemoglobin A1c 5.7 % (4-6) 04/22/18 20:57 Lactic Acid 1.60 mmol/L (0.7-2.0) 04/22/18 16:47 Uric Acid 7.5 mg/dL (3.5-7.6) 04/22/18 16:02 Calcium 9.0 mg/dL (8.4-10.2) 04/23/18 04:57 Total Bilirubin 0.40 mg/dL (0.1-1.2) 04/23/18 04:57 AST 17 units/L (5-40) 04/23/18 04:57 ALT 6 units/L (7-56) L 04/23/18 04:57 Alkaline Phosphatase 105 units/L (35-129) 04/23/18 04:57 Total Protein 7.2 g/dL (6.3-8.2) 04/23/18 04:57 Albumin 3.8 g/dL (3.9-5) L 04/23/18 04:57 Albumin/Globulin Ratio 1.1 % 04/23/18 04:57
[2018-04-24] MEDS ORDERED: XYLOCAINE 1%/ EPI 1:100,000 INFILTRATI ONE (12:42)
[2018-04-24] MEDS ORDERED: HEPARIN/NS 5000 UNIT/500ML(CATH LAB) 1,000 ML IR ONE (12:42)
[2018-04-24] MEDS ORDERED: HEPARIN 10,000 UNITS/10 ML ONE (12:42)
[2018-04-24] MEDS ORDERED: NACL 0.9% 500 ML 0 ML ONE (12:43)
[2018-04-24] MEDS ORDERED: ANCEF/STERILE WATER 2 GM/20 ML 2 GM/20 ML SYRINGE IV ONE (12:43)
[2018-04-24] MEDS: VERSED ONE ×5 (13:29→14:24)
[2018-04-24] MEDS: SUBLIMAZE ONE ×5 (13:29→14:25)
[2018-04-24] MEDS ORDERED: BENADRYL ONE (14:06)
[2018-04-24] MEDS ORDERED: CATHFLO ONE (14:17)
[2018-04-24] MEDS ORDERED: WATER FOR INJ (PF) ONE (14:18)
[2018-04-24] MEDS ORDERED: SUBLIMAZE ONE (14:30)
[2018-04-24] MEDS ORDERED: VERSED ONE (14:30)
[2018-04-24] MEDS ORDERED: NACL 0.9% 1000 ML 1,000 ML ONE (14:31)
[2018-04-24] MEDS: HEPARIN 10,000 UNITS/10 ML ONE ×2 (14:59→15:11)
[2018-04-24] MEDS ORDERED: CATHFLO 20 MG in NACL 0.9% 500 ML 500 ML EKOSDLUMEN SCH (15:00)
[2018-04-24] MEDS ORDERED: HEPARIN/ 0.45% NACL-25,000 UNIT/500 ML 25,000 UNIT/500 ML BAG SHEATH SCH (15:00)
[2018-04-24] MEDS: CATHFLO ONE ×2 (15:00→15:05)
[2018-04-24] MEDS ORDERED: NACL 0.9% 1000 ML 1,000 ML SHEATH SCH (15:00)
[2018-04-24] MEDS ORDERED: NACL 0.9% 1000 ML 1,000 ML EKOSCLUMEN SCH (15:00)
[2018-04-24] MEDS ORDERED: NACL 0.9% 1000 ML 1,000 ML IV SCH (15:00)
--- NOTE | 2018-04-24 15:27 | Operative Report ---
Operative Report Operative Report: EXAM: 1. Ultrasound-guided axis of the right common femoral artery. 2. Angiography of the right lower extremity. 3. Selection of the abdominal aorta with angiography. 4. Selection of the left external iliac artery with angiography. 5. Selection of the left superficial femoral artery and popliteal artery. 6. Selection of the left posterior tibial artery and common plantar artery with angiography. 7. Infusion of 2 mg of tPA in the left common plantar artery and 2 mg in the left posterior tibial artery. 8. Atherectomy of the left superficial femoral artery and popliteal artery with a 2/3.1 jet stream device 9. Fluoroscopic guided placement of a 50 cm x 136 cm EKOS thrombolysis catheter in the left superficial femoral artery, popliteal artery, tibioperoneal trunk and into the left posterior tibial artery. DATE: 04/24/18 THERMOGRAPH OPERATOR: ANGEL HWANG MD INDICATION: Acute limb ischemia of the left lower extremity MEDICATIONS: Please see nursing report for full details. DEVICES: 2/3.1 jetstream device 50 cm x 135 cm EKOS catheter CONTRAST: Please see cath report for full details. PROCEDURE: The risks, benefits, and alternatives were discussed with the patient; written informed consent was obtained. The right common femoral artery was evaluated with ultrasound was patent. After fluoroscopically identifying the femoral head, the right common femoral artery was identified under ultrasound and under real-time ultrasound, was accessed with a 21-gauge micropuncture needle. 0.018 inch wire was passed through the needle. Stiff transitional dilator was then advanced over the wire. Wire was exchanged for 0.035 inch Persaud wire, but the 5 [place] sheath could not pass over the Persaud wire. The Persaud wire was then exchanged with a transitional dilator for a Glidewire advantage. 5 [place] sheath was then advanced over the Glidewire advantage without issue. Digital subtraction angiography was performed demonstrating patency of the right external iliac artery, right common femoral artery, right profundofemoral artery, and occlusion of the right proximal superficial femoral artery. The puncture was appropriate, above the bifurcation and below the inferior epigastric artery. The abdominal aorta was selected and digital subtraction angiography was performed. Digital subtraction angiography demonstrating patency of the abdominal aorta, bilateral common iliac arteries, bilateral external iliac arteries, and the internal iliac arteries. The left external iliac artery was selected and digital subtraction angiography was performed demonstra patency of the left common femoral artery and mild atherosclerotic disease of the profunda femoral artery. The left superficial femoral artery, popliteal artery, anterior tibial artery, posterior tibial artery, and peroneal artery were all occluded. The tibioperoneal trunk was occluded. On late films, the mid peroneal artery was noted to opacify, and provided flow into the posterior tibial artery through the posterior communicating artery at the ankle. The patient was heparinized. Sheath was exchanged for 6 [place] 45 cm [place] destination positioned in the left common femoral artery. Angled catheter and 0.035 inch wires were used across the left superficial femoral artery, popliteal artery, and ultimately a wire was passed into the posterior tibial artery and into the common plantar artery. This required multiple wire exchanges and catheter exchanges. Digital subtraction angiography was performed in the common plantar artery demonstrating flow into the foot. 2 mg of TPA was infused into the foot. 2 mg of tPA was used to lace the posterior tibial artery. Wire was then exchanged for a [place] wire, and the sheath was exchanged for a 7 [place] 45 cm pedicle destination. Since there were elements of thrombus and atherosclerotic disease in the superficial femoral artery and popliteal artery, I performed atherectomy of the popliteal artery and superficial femoral artery with a 2/3.1 jetstream device. This was done at very low speed. The device was removed and digital subtraction angiography demonstrated a small channel in this vessel. The 6 [place] thrombolytic catheter was then advanced over the wire and positioned from the superficial femoral artery ostium into the posterior tibial artery. This was primed with 3 mg of tPA. The sheath was primed with 2000 units of heparin. The sheath was then secured with multiple 2-0 Ethilon sutures, and Steri-Strips. FINDINGS: Please see procedure note above. IMPRESSION: 1. Successful ultrasound-guided axis of the right common femoral artery. 2. Successful angiography of the bilateral lower extremities and abdominal aorta. 3. Successful atherectomy of the left superficial femoral artery and popliteal artery. 4. Successful placement of a thrombolytic catheter in the left superficial femoral artery, popliteal artery, tibioperoneal trunk and posterior tibial artery. 5. Successful infusion of TPA through the left posterior tibial artery, and common plantar artery.
[2018-04-24 15:31] LABS: Hemoglobin 12.7 gm/dl (11.8-15.2); Mean Corpuscular HGB Conc 34 % (32-34); Mean Corpuscular Hemoglobin 27 pg (28-32); Mean Corpuscular Volume 81 fl (84-94); Platelet Count 343 K/mm3 (140-440); Red Blood Count 4.67 M/mm3 (3.65-5.03)
[2018-04-24 15:40] LABS: INR 0.99 (0.87-1.13)
[2018-04-24 15:41] LABS: Fibrinogen 550 mg/dl (211-480)
[2018-04-24 15:50] LABS: BUN/Creatinine Ratio 9; Blood Urea Nitrogen 6 mg/dL (9-20); Calcium 8.5 mg/dL (8.4-10.2); Hemolysis Index 4
[2018-04-24] MEDS ORDERED: MORPHINE ONE (15:57)
[2018-04-24] MEDS: MORPHINE IV PRN (16:01)
[2018-04-24 16:07] LABS: Partial Thromboplastin Time > 240.0 Sec. (24.2-36.6)
[2018-04-24 16:41] LABS: Total Cells Counted 100
[2018-04-24 16:42] LABS: Anisocytosis 1+; Basophils % (Manual) 0 % (0.0-1.8)
[2018-04-24 16:43] LABS: Target Cells 1+
[2018-04-24 16:45] LABS: Platelet Estimate Consistent w Auto; Schistocytes Few
[2018-04-24] MEDS ORDERED: NORCO 5/325 PO PRN (21:34)
[2018-04-24] MEDS: DILAUDID IV PRN (22:00)
[2018-04-25 03:21] LABS: Basophils # (Auto) 0.1 K/mm3 (0.0-0.1); Basophils % (Auto) 0.8 % (0.0-1.8); Eosinophils # (Auto) 0.3 K/mm3 (0.0-0.4); Eosinophils % (Auto) 2.1 % (0.0-4.3); Hematocrit 38.9 % (35.5-45.6); Lymphocytes # (Auto) 1.2 K/mm3 (1.2-5.4); Lymphocytes % (Auto) 9.7 % (13.4-35.0); Mean Corpuscular HGB Conc 33 % (32-34); Mean Corpuscular Hemoglobin 27 pg (28-32); Mean Corpuscular Volume 81 fl (84-94); Monocytes # (Auto) 1.1 K/mm3 (0.0-0.8); Monocytes % (Auto) 9.2 % (0.0-7.3); Platelet Count 236 K/mm3 (140-440); Red Blood Count 4.81 M/mm3 (3.65-5.03); Red Cell Distribution Width 19.4 % (13.2-15.2)
[2018-04-25 03:38] LABS: BUN/Creatinine Ratio 9; Blood Urea Nitrogen 7 mg/dL (9-20); Calcium 8.3 mg/dL (8.4-10.2); Hemolysis Index 12
[2018-04-25 03:39] LABS: Fibrinogen 122 mg/dl (211-480)
[2018-04-25 03:45] LABS: Heparin anti-factor XA < 0.10 U.I./ml (0.3-0.7)
[2018-04-25] MEDS: NACL 0.9% 1000 ML 1,000 ML IV SCH ×3 (04:19→19:28)
[2018-04-25] MEDS: CARAFATE PO SCH ×5 (06:19→23:44)
[2018-04-25] MEDS ORDERED: DILAUDID ONE (07:45)
[2018-04-25] MEDS: DILAUDID IV PRN ×3 (07:47→23:43)
[2018-04-25] MEDS ORDERED: HEPARIN/NS 5000 UNIT/500ML(CATH LAB) 1,000 ML IR ONE (08:42)
[2018-04-25] MEDS ORDERED: VERSED IV ONE (08:42)
[2018-04-25] MEDS ORDERED: XYLOCAINE 2% INFILTRATI ONE (08:42)
[2018-04-25] MEDS ORDERED: ANCEF/STERILE WATER 2 GM/20 ML 2 GM/20 ML SYRINGE IV ONE (08:43)
[2018-04-25] MEDS: SUBLIMAZE ONE ×3 (08:53→10:04)
[2018-04-25] MEDS ORDERED: HEPARIN/NS 5000 UNIT/500ML(CATH LAB) 500 ML IR ONE ×2 (09:04→09:21)
[2018-04-25] MEDS: HEPARIN 10,000 UNITS/10 ML ONE ×2 (09:05→09:55)
[2018-04-25] MEDS ORDERED: WATER FOR INJ (PF) ONE (09:58)
[2018-04-25] MEDS ORDERED: CATHFLO ONE (09:58)
[2018-04-25] MEDS: NYSTOP TP SCH ×2 (10:00→22:00)
[2018-04-25] MEDS: SODIUM CHLORIDE FLUSH SYRINGE 10 ML IV SCH ×2 (10:00→22:00)
[2018-04-25] MEDS: COZAAR PO SCH (10:00)
[2018-04-25] MEDS: PROTONIX PO SCH (10:00)
[2018-04-25] MEDS ORDERED: NITRO-BID 2% TP ONE (11:06)
[2018-04-25] MEDS ORDERED: PLAVIX PO ONE (11:17)
--- NOTE | 2018-04-25 11:17 | Event Note ---
Date: 04/25/18 Contacted overnight about patient moving and grabbing at his groin loosening bandages. Patient came down with a small to moderate groin hematoma. Fibrinogen less than 150. 10 units cryo ordered and transfused. Underwent revascularization of the left lower extremity. Towards the end of the procedure, the groin site started bleeding significantly, requiring termination of the procedure. The groin was the closed with a 6 Fr proglide achieving immediate hemostasis. Pressure dressing applied and heparin drip started. Nitropaste applied to left foot. Loaded with plavix. Will watch leg to assess demarcation. Given the length of time waiting from thrombosis until presentation, and the outflow vessel changes, the leg may ultimately not be salvagable.
[2018-04-25] MEDS ORDERED: PLAVIX ONE (11:31)
[2018-04-25] MEDS: ZOFRAN IV PRN (11:35)
[2018-04-25] MEDS ORDERED: ZOFRAN ONE (11:38)
[2018-04-25] MEDS ORDERED: HEPARIN/ 0.45% NACL-25,000 UNIT/500 ML 25,000 UNIT/500 ML BAG IV SCH ×2 (12:00→20:00)
--- NOTE | 2018-04-25 12:07 | Operative Report ---
Operative Report Operative Report: EXAM: 1. Fluoroscopic guided removal of the left lower extremity arterial thrombolysis catheter. 2. 6 [place] AngioJet thrombectomy of the left superficial femoral artery and popliteal artery and tibial peroneal trunk 3. 4 [place] AngioJet thrombectomy of the left tibial peroneal trunk and posterior tibial artery 4. Angioplasty of the left lateral plantar artery, common plantar artery, and distal posterior tibial artery with a 2-2.5 mm angioplasty balloon 5. Angioplasty of the left posterior tibial artery with a 2.5 mm angioplasty balloon 6. Angioplasty of the tibioperoneal trunk, popliteal artery, and superficial femoral artery with a 4 mm angioplasty balloon 7. Infusion of 4 mg of TPA in the left common plantar artery, left posterior tibial artery, and popliteal artery 8. Attempted catheterization of the left anterior tibial artery 9. Catheterization of the proximal left peroneal artery, but inability to cross the midportion of the vessel 10. Angioplasty of the left posterior tibial artery and tibioperoneal trunk with a 3 mm angioplasty balloon 11. Closure of the right common femoral artery arteriotomy with a 6 [place] Pro- glide DATE: 04/25/18 PHYSICAL AERODYNAMICIST: ANGEL HWANG MD INDICATION: Acute limb ischemia of the left lower extremity. MEDICATIONS: Please see nursing report for full details. DEVICES: 6 [place] AngioJet 4 [place] AngioJet 2-2.5 mm angioplasty balloon 3 mm angioplasty balloon 4 mm angioplasty balloon 4 milligrams of TPA CONTRAST: Please see research laboratory manager report for full details. PROCEDURE: The risks, benefits, and alternatives were discussed with the patient; written informed consent was obtained. Right groin was prepped and draped in a sterile fashion. Small hematoma was noted at the access site. Pressure was held and the hematoma was expressed. Fibrinogen was less than 150, and 2 pooled units of cryoprecipitate was ordered. Angiography was performed to the indwelling catheter after it was fluoroscopically evaluated. The catheter was unchanged in position. Digital subtraction angiography demonstrated some flow passing into the posterior tibial artery into the common plantar artery into the foot. The posterior tibial artery was irregular in appearance. Angiography was performed demonstrating residual thrombus in the tibioperoneal trunk, popliteal artery, and superficial femoral artery. 6 [place] AngioJet was advanced over the wire and used to perform mechanical thrombectomy of the superficial femoral artery, popliteal artery, and tibioperoneal trunk. 4 [place] AngioJet was then used to perform mechanical thrombectomy of the posterior tibial artery. Digital subtraction angiography demonstrated less than 50% areas of thrombus scattered in the superficial femoral artery, and popliteal artery, and tibioperoneal trunk. Since the residual thrombus was less than 50%, but spanned for a long distance, I decide against stenting the residual thrombus as this would result in a full metal jacket from tibioperoneal trunk to the SFA origin. 22.5 mm angioplasty balloon issues inform angioplasty of the plantar artery to the posterior tibial artery. 2.5 mm angioplasty balloon was used to perform a duraplasty of the posterior tibial artery and tibioperoneal trunk. 4 mm angioplasty balloon she is performing angioplasty from the tibial peroneal artery to the SFA ostium. I undersided of the balloon in the SFA because I did not want to knock off the residual thrombus on the antony of the superficial femoral artery. Digital subtraction angiography was performed demonstrating less than 50% residual thrombus in the SFA, popliteal, and tibioperoneal trunk. There was stagnant flow due to limited outflow into the foot. 4 mg of TPA was then slowly infused in the plantar arteries, posterior tibial artery, and into the tibioperoneal trunk and distal popliteal artery. Wire and catheter were then used to attempt to select the anterior tibial artery which is ultimately unsuccessful. I then selected the proximal peroneal artery, but wire and catheter would not pass beyond the first 7 cm of the vessel compatible with a chronic occlusion. 3 mm angioplasty balloon was then used to perform angioplasty of the posterior tibial artery, and tibioperoneal trunk. Repeat angiography was performed demonstrating some less than 50% thrombus in the superficial femoral artery, popliteal artery, and tibioperoneal trunk. Posterior tibial artery was patent, but there was limited outflow into the foot. This was the reason for the stagnant flow. 2 mg of TPA was injected into the posterior tibial artery in the foot. At this time, the right common femoral artery sheath was then beginning to bleed around the sheath. This was contained with manual pressure, but as soon as the pressure was released, the bleeding resumed. This is likely secondary to patient movement during the procedure, and the original procedure, as well as throughout the night. I was considering stenting the superficial femoral artery throughout its extent , but due to the bleeding, decided to abort the rest of the case. All wires, catheters, and she saw retracted the right external iliac artery. 6 [place] Pro-glide was then used to close the arteriotomy achieving immediate hemostasis. Sterile dressing and Biopatch were applied. Nitroglycerin applied to the left foot. Heparin reinitiated. Plavix initiated. Patient tolerated the procedure well. No immediate postprocedural complication. FINDINGS: Please see procedure note above. IMPRESSION: Successful primary thrombectomy of the left superficial femoral artery, popliteal artery, tibioperoneal trunk, and posterior tibial artery. Successful angioplasty of the left superficial femoral artery, popliteal artery , tibioperoneal trunk, and posterior tibial artery. Successful fluoroscopic guided removal of the indwelling thrombolytic catheter. Successful closure of the right common femoral artery arteriotomy.
[2018-04-25 12:31] LABS: Basophils # (Auto) 0.1 K/mm3 (0.0-0.1); Basophils % (Auto) 0.6 % (0.0-1.8); Eosinophils % (Auto) 0.3 % (0.0-4.3); Hematocrit 33.9 % (35.5-45.6); Hematocrit 34.4 % (35.5-45.6); Hemoglobin 11.1 gm/dl (11.8-15.2); Lymphocytes # (Auto) 0.9 K/mm3 (1.2-5.4); Lymphocytes % (Auto) 6.4 % (13.4-35.0); Mean Corpuscular HGB Conc 32 % (32-34); Mean Corpuscular Hemoglobin 27 pg (28-32); Mean Corpuscular Volume 82 fl (84-94); Monocytes % (Auto) 7.6 % (0.0-7.3); Platelet Count 209 K/mm3 (140-440); Red Cell Distribution Width 19.3 % (13.2-15.2)
[2018-04-25 12:41] LABS: INR 1.26 (0.87-1.13)
[2018-04-25 12:42] LABS: Partial Thromboplastin Time 57.5 Sec. (24.2-36.6)
[2018-04-25 12:43] LABS: Fibrinogen 233 mg/dl (211-480)
[2018-04-25 12:47] LABS: Heparin anti-factor XA < 0.10 U.I./ml (0.3-0.7)
[2018-04-25] MEDS ORDERED: PLAVIX PO NR (13:00)
--- NOTE | 2018-04-25 14:33 | Progress Note ---
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 Cont Heparin drip, Plavix Discussed with Dr. Medina, Vascular Surgeon. had angiography and possible thrombolytic catheter placement yesterday. Today had thrombectomy, angioplaty, multiple procedures to multiple vessels. See [facility] op note for details. Peripheral arterial disease. s/p right BKA Hypertension Full code status History Interval history: Pain and dark discoloration 1st toe left foot, s/p angioplasty Hospitalist Physical - Physical exam Narrative exam: Gen : Not in acute distress, HEENT:Normocephalic, atraumatic Neck: supple, No JVD Lungs: Clear to auscultation, bilaterally, no rhonchi, no wheeze Heart :S1 and S2 reg, no murmurs, rubs or gallop Abd:soft, non tender, non distended, normal bowel sounds Ext: right BKA, Black discoloration 1st toe left footis still left foot dry gangrene 1 st toe, no clubbing, no cyanosis, Neuro: Awake,alert,oriented x 3, no focal signs Psych:normal mood - Constitutional Vitals: Temp Pulse Resp BP Pulse Ox 100.1 F H 102 H 21 124/69 98 04/25/18 03:23 04/25/18 13:00 04/25/18 13:00 04/25/18 13:00 04/25/18 13:00 General appearance: Present: no acute distress Results - Labs CBC & Chem 7: 04/25/18 12:13 04/25/18 02:48 Labs: Laboratory Last Values WBC 13.7 K/mm3 (4.5-11.0) H 04/25/18 12:13 RBC 4.20 M/mm3 (3.65-5.03) 04/25/18 12:13 Hgb 11.1 gm/dl (11.8-15.2) L 04/25/18 12:13 Hct 33.9 % (35.5-45.6) L 04/25/18 12:13 MCV 82 fl (84-94) L 04/25/18 12:13 MCH 27 pg (28-32) L 04/25/18 12:13 MCHC 32 % (32-34) 04/25/18 12:13 RDW 19.3 % (13.2-15.2) H 04/25/18 12:13 Plt Count 201 K/mm3 (140-440) 04/25/18 12:13 Lymph % (Auto) 6.4 % (13.4-35.0) L 04/25/18 12:13 [place] % (Auto) 7.6 % (0.0-7.3) H 04/25/18 12:13 Eos % (Auto) 0.3 % (0.0-4.3) 04/25/18 12:13 Baso % (Auto) 0.6 % (0.0-1.8) 04/25/18 12:13 Lymph # 0.9 K/mm3 (1.2-5.4) L 04/25/18 12:13 [place] # 1.0 K/mm3 (0.0-0.8) H 04/25/18 12:13 Eos # 0.0 K/mm3 (0.0-0.4) 04/25/18 12:13 Baso # 0.1 K/mm3 (0.0-0.1) 04/25/18 12:13 Add Manual Diff Complete 04/24/18 15:00 Total Counted 100 04/24/18 15:00 Seg Neutrophils % 85.1 % (40.0-70.0) H 04/25/18 12:13 Seg Neuts % (Manual) 76.0 % (40.0-70.0) H 04/24/18 15:00 Band Neutrophils % 0 % 04/24/18 15:00 Lymphocytes % (Manual) 14.0 % (13.4-35.0) 04/24/18 15:00 Reactive Lymphs % (Man) 0 % 04/24/18 15:00 Monocytes % (Manual) 6.0 % (0.0-7.3) 04/24/18 15:00 Eosinophils % (Manual) 4.0 % (0.0-4.3) 04/24/18 15:00 Basophils % (Manual) 0 % (0.0-1.8) 04/24/18 15:00 Metamyelocytes % 0 % 04/24/18 15:00 Myelocytes % 0 % 04/24/18 15:00 Promyelocytes % 0 % 04/24/18 15:00 Blast Cells % 0 % 04/24/18 15:00 Nucleated RBC % Not Reportable 04/24/18 15:00 Seg Neutrophils # 11.7 K/mm3 (1.8-7.7) H 04/25/18 12:13 Seg Neutrophils # Man 6.1 K/mm3 (1.8-7.7) 04/24/18 15:00 Band Neutrophils # 0.0 K/mm3 04/24/18 15:00 Lymphocytes # (Manual) 1.1 K/mm3 (1.2-5.4) L 04/24/18 15:00 Abs React Lymphs (Man) 0.0 K/mm3 04/24/18 15:00 Monocytes # (Manual) 0.5 K/mm3 (0.0-0.8) 04/24/18 15:00 Eosinophils # (Manual) 0.3 K/mm3 (0.0-0.4) 04/24/18 15:00 Basophils # (Manual) 0.0 K/mm3 (0.0-0.1) 04/24/18 15:00 Metamyelocytes # 0.0 K/mm3 04/24/18 15:00 Myelocytes # 0.0 K/mm3 04/24/18 15:00 Promyelocytes # 0.0 K/mm3 04/24/18 15:00 Blast Cells # 0.0 K/mm3 04/24/18 15:00 WBC Morphology Not Reportable 04/24/18 15:00 Hypersegmented Neuts Not Reportable 04/24/18 15:00 Hyposegmented Neuts Not Reportable 04/24/18 15:00 Hypogranular Neuts Not Reportable 04/24/18 15:00 Smudge Cells Not Reportable 04/24/18 15:00 Toxic Granulation Not Reportable 04/24/18 15:00 Toxic Vacuolation Not Reportable 04/24/18 15:00 Dohle Bodies Not Reportable 04/24/18 15:00 Pelger-Huet Anomaly Not Reportable 04/24/18 15:00 Renita Rods Not Reportable 04/24/18 15:00 Platelet Estimate Consistent w auto 04/24/18 15:00 Clumped Platelets Not Reportable 04/24/18 15:00 Plt Clumps, EDTA Not Reportable 04/24/18 15:00 Large Platelets Not Reportable 04/24/18 15:00 Giant Platelets Not Reportable 04/24/18 15:00 Platelet Satelliting Not Reportable 04/24/18 15:00 Plt Morphology Comment Not Reportable 04/24/18 15:00 RBC Morphology Not Reportable 04/24/18 15:00 Dimorphic RBCs Not Reportable 04/24/18 15:00 Polychromasia Not Reportable 04/24/18 15:00 Hypochromasia Not Reportable 04/24/18 15:00 Poikilocytosis Not Reportable 04/24/18 15:00 Anisocytosis 1+ 04/24/18 15:00 Microcytosis Not Reportable 04/24/18 15:00 Macrocytosis Not Reportable 04/24/18 15:00 Spherocytes Not Reportable 04/24/18 15:00 Pappenheimer Bodies Not Reportable 04/24/18 15:00 Sickle Cells Not Reportable 04/24/18 15:00 Target Cells 1+ 04/24/18 15:00 Tear Drop Cells Not Reportable 04/24/18 15:00 Ovalocytes Not Reportable 04/24/18 15:00 Helmet Cells Not Reportable 04/24/18 15:00 [place] Bodies Not Reportable 04/24/18 15:00 [place] Rings Not Reportable 04/24/18 15:00 Abhilash Cells Not Reportable 04/24/18 15:00 Bite Cells Not Reportable 04/24/18 15:00 Crenated Cell Not Reportable 04/24/18 15:00 Elliptocytes Not Reportable 04/24/18 15:00 Acanthocytes (Spur) Not Reportable 04/24/18 15:00 Rouleaux Not Reportable 04/24/18 15:00 Hemoglobin C Crystals Not Reportable 04/24/18 15:00 Schistocytes Few 04/24/18 15:00 Malaria parasites Not Reportable 04/24/18 15:00 Azael Bodies Not Reportable 04/24/18 15:00 Hem Pathologist Commnt No 04/24/18 15:00 PT 16.5 Sec. (12.2-14.9) H 04/25/18 12:13 INR 1.26 (0.87-1.13) H 04/25/18 12:13 APTT 57.5 Sec. (24.2-36.6) H 04/25/18 12:13 Fibrinogen 233 mg/dl (211-480) 04/25/18 12:13 Heparin Anti-Xa Level < 0.10 U.I./ml (0.3-0.7) L 04/25/18 12:13 Sodium 140 mmol/L (137-145) 04/25/18 02:48 Potassium 3.7 mmol/L (3.6-5.0) 04/25/18 02:48 Chloride 104.8 mmol/L (98-107) 04/25/18 02:48 Carbon Dioxide 23 mmol/L (22-30) 04/25/18 02:48 Anion Gap 16 mmol/L 04/25/18 02:48 BUN 7 mg/dL (9-20) L 04/25/18 02:48 Creatinine 0.8 mg/dL (0.8-1.5) 04/25/18 02:48 Estimated GFR > 60 ml/min 04/25/18 02:48 BUN/Creatinine Ratio 9 % 04/25/18 02:48 Glucose 109 mg/dL (75-100) H 04/25/18 02:48 Hemoglobin A1c 5.7 % (4-6) 04/22/18 20:57 Lactic Acid 1.60 mmol/L (0.7-2.0) 04/22/18 16:47 Uric Acid 7.5 mg/dL (3.5-7.6) 04/22/18 16:02 Calcium 8.3 mg/dL (8.4-10.2) L 04/25/18 02:48 Total Bilirubin 0.40 mg/dL (0.1-1.2) 04/23/18 04:57 AST 17 units/L (5-40) 04/23/18 04:57 ALT 6 units/L (7-56) L 04/23/18 04:57 Alkaline Phosphatase 105 units/L (35-129) 04/23/18 04:57 Total Protein 7.2 g/dL (6.3-8.2) 04/23/18 04:57 Albumin 3.8 g/dL (3.9-5) L 04/23/18 04:57 Albumin/Globulin Ratio 1.1 % 04/23/18 04:57 Blood Type O NEGATIVE 04/24/18 18:00 Antibody Screen Negative 04/24/18 18:00
[2018-04-25 15:54] LABS: Basophils % (Auto) 0.3 % (0.0-1.8); Eosinophils % (Auto) 0.1 % (0.0-4.3); Hematocrit 30.7 % (35.5-45.6); Hemoglobin 10.3 gm/dl (11.8-15.2); Lymphocytes # (Auto) 1.4 K/mm3 (1.2-5.4); Lymphocytes % (Auto) 9.7 % (13.4-35.0); Mean Corpuscular HGB Conc 34 % (32-34); Mean Corpuscular Hemoglobin 27 pg (28-32); Mean Corpuscular Volume 81 fl (84-94); Monocytes # (Auto) 1.4 K/mm3 (0.0-0.8); Monocytes % (Auto) 9.7 % (0.0-7.3); Platelet Count 208 K/mm3 (140-440); Red Blood Count 3.79 M/mm3 (3.65-5.03); Red Cell Distribution Width 18.9 % (13.2-15.2)
[2018-04-25 16:05] LABS: Heparin anti-factor XA 0.28 U.I./ml (0.3-0.7)
[2018-04-26] MEDS: DILAUDID IV PRN ×3 (03:30→20:31)
[2018-04-26 05:03] LABS: Hematocrit 25.4 % (35.5-45.6); Hemoglobin 8.7 gm/dl (11.8-15.2); Mean Corpuscular HGB Conc 34 % (32-34); Mean Corpuscular Hemoglobin 27 pg (28-32); Mean Corpuscular Volume 80 fl (84-94); Platelet Count 188 K/mm3 (140-440); Red Blood Count 3.17 M/mm3 (3.65-5.03); Red Cell Distribution Width 18.9 % (13.2-15.2)
[2018-04-26 05:46] LABS: BUN/Creatinine Ratio TNR; Blood Urea Nitrogen TNR mg/dL (9-20)
[2018-04-26 05:50] LABS: Calcium TNR mg/dL (8.4-10.2); Hemolysis Index TNR
[2018-04-26] MEDS: NACL 0.9% 1000 ML 1,000 ML IV SCH ×2 (07:54→14:35)
[2018-04-26] MEDS: CARAFATE PO SCH ×3 (08:35→18:28)
--- NOTE | 2018-04-26 08:48 | Progress Note ---
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 Cont Heparin drip, Plavix Discussed with Dr. Medina, Vascular Surgeon. Hehad angiography and possible thrombolytic catheter placement 04/24/18 yesterday. Had thrombectomy, angioplaty, multiple procedures to multiple vessels on . See [facility] op note for details. Peripheral arterial disease. s/p right BKA Hypertension Full code status May transfer to medical/surgical floor if okay with vascular surgery History Interval history: Pain and dark discoloration 1st toe left foot, s/p multiple vascular procedures Hospitalist Physical - Physical exam Narrative exam: Gen : Not in acute distress, HEENT:Normocephalic, atraumatic Neck: supple, No JVD Lungs: Clear to auscultation, bilaterally, no rhonchi, no wheeze Heart :S1 and S2 reg, no murmurs, rubs or gallop Abd:soft, non tender, non distended, normal bowel sounds Ext: right BKA, Black discoloration 1st toe left footis still left foot dry gangrene 1 st toe, no clubbing, no cyanosis, Neuro: Awake,alert,oriented x 3, no focal signs Psych:normal mood - Constitutional Vitals: Temp Pulse Resp BP Pulse Ox 99.0 F 98 H 15 128/80 98 04/26/18 04:00 04/26/18 08:01 04/26/18 08:01 04/26/18 08:01 04/26/18 08:01 General appearance: Present: no acute distress Results - Labs CBC & Chem 7: 04/26/18 04:27 04/26/18 04:27 Labs: Laboratory Last Values WBC 14.1 K/mm3 (4.5-11.0) H 04/26/18 04:27 RBC 3.17 M/mm3 (3.65-5.03) L 04/26/18 04:27 Hgb 8.7 gm/dl (11.8-15.2) L 04/26/18 04:27 Hct 25.4 % (35.5-45.6) L 04/26/18 04:27 MCV 80 fl (84-94) L 04/26/18 04:27 MCH 27 pg (28-32) L 04/26/18 04:27 MCHC 34 % (32-34) 04/26/18 04:27 RDW 18.9 % (13.2-15.2) H 04/26/18 04:27 Plt Count 188 K/mm3 (140-440) 04/26/18 04:27 Lymph % (Auto) 9.7 % (13.4-35.0) L 04/25/18 15:35 [place] % (Auto) 9.7 % (0.0-7.3) H 04/25/18 15:35 Eos % (Auto) 0.1 % (0.0-4.3) 04/25/18 15:35 Baso % (Auto) 0.3 % (0.0-1.8) 04/25/18 15:35 Lymph # 1.4 K/mm3 (1.2-5.4) 04/25/18 15:35 [place] # 1.4 K/mm3 (0.0-0.8) H 04/25/18 15:35 Eos # 0.0 K/mm3 (0.0-0.4) 04/25/18 15:35 Baso # 0.0 K/mm3 (0.0-0.1) 04/25/18 15:35 Add Manual Diff Complete 04/24/18 15:00 Total Counted 100 04/24/18 15:00 Seg Neutrophils % 80.2 % (40.0-70.0) H 04/25/18 15:35 Seg Neuts % (Manual) 76.0 % (40.0-70.0) H 04/24/18 15:00 Band Neutrophils % 0 % 04/24/18 15:00 Lymphocytes % (Manual) 14.0 % (13.4-35.0) 04/24/18 15:00 Reactive Lymphs % (Man) 0 % 04/24/18 15:00 Monocytes % (Manual) 6.0 % (0.0-7.3) 04/24/18 15:00 Eosinophils % (Manual) 4.0 % (0.0-4.3) 04/24/18 15:00 Basophils % (Manual) 0 % (0.0-1.8) 04/24/18 15:00 Metamyelocytes % 0 % 04/24/18 15:00 Myelocytes % 0 % 04/24/18 15:00 Promyelocytes % 0 % 04/24/18 15:00 Blast Cells % 0 % 04/24/18 15:00 Nucleated RBC % Not Reportable 04/24/18 15:00 Seg Neutrophils # 11.8 K/mm3 (1.8-7.7) H 04/25/18 15:35 Seg Neutrophils # Man 6.1 K/mm3 (1.8-7.7) 04/24/18 15:00 Band Neutrophils # 0.0 K/mm3 04/24/18 15:00 Lymphocytes # (Manual) 1.1 K/mm3 (1.2-5.4) L 04/24/18 15:00 Abs React Lymphs (Man) 0.0 K/mm3 04/24/18 15:00 Monocytes # (Manual) 0.5 K/mm3 (0.0-0.8) 04/24/18 15:00 Eosinophils # (Manual) 0.3 K/mm3 (0.0-0.4) 04/24/18 15:00 Basophils # (Manual) 0.0 K/mm3 (0.0-0.1) 04/24/18 15:00 Metamyelocytes # 0.0 K/mm3 04/24/18 15:00 Myelocytes # 0.0 K/mm3 04/24/18 15:00 Promyelocytes # 0.0 K/mm3 04/24/18 15:00 Blast Cells # 0.0 K/mm3 04/24/18 15:00 WBC Morphology Not Reportable 04/24/18 15:00 Hypersegmented Neuts Not Reportable 04/24/18 15:00 Hyposegmented Neuts Not Reportable 04/24/18 15:00 Hypogranular Neuts Not Reportable 04/24/18 15:00 Smudge Cells Not Reportable 04/24/18 15:00 Toxic Granulation Not Reportable 04/24/18 15:00 Toxic Vacuolation Not Reportable 04/24/18 15:00 Dohle Bodies Not Reportable 04/24/18 15:00 Pelger-Huet Anomaly Not Reportable 04/24/18 15:00 Renita Rods Not Reportable 04/24/18 15:00 Platelet Estimate Consistent w auto 04/24/18 15:00 Clumped Platelets Not Reportable 04/24/18 15:00 Plt Clumps, EDTA Not Reportable 04/24/18 15:00 Large Platelets Not Reportable 04/24/18 15:00 Giant Platelets Not Reportable 04/24/18 15:00 Platelet Satelliting Not Reportable 04/24/18 15:00 Plt Morphology Comment Not Reportable 04/24/18 15:00 RBC Morphology Not Reportable 04/24/18 15:00 Dimorphic RBCs Not Reportable 04/24/18 15:00 Polychromasia Not Reportable 04/24/18 15:00 Hypochromasia Not Reportable 04/24/18 15:00 Poikilocytosis Not Reportable 04/24/18 15:00 Anisocytosis 1+ 04/24/18 15:00 Microcytosis Not Reportable 04/24/18 15:00 Macrocytosis Not Reportable 04/24/18 15:00 Spherocytes Not Reportable 04/24/18 15:00 Pappenheimer Bodies Not Reportable 04/24/18 15:00 Sickle Cells Not Reportable 04/24/18 15:00 Target Cells 1+ 04/24/18 15:00 Tear Drop Cells Not Reportable 04/24/18 15:00 Ovalocytes Not Reportable 04/24/18 15:00 Helmet Cells Not Reportable 04/24/18 15:00 [place] Bodies Not Reportable 04/24/18 15:00 [place] Rings Not Reportable 04/24/18 15:00 Abhilash Cells Not Reportable 04/24/18 15:00 Bite Cells Not Reportable 04/24/18 15:00 Crenated Cell Not Reportable 04/24/18 15:00 Elliptocytes Not Reportable 04/24/18 15:00 Acanthocytes (Spur) Not Reportable 04/24/18 15:00 Rouleaux Not Reportable 04/24/18 15:00 Hemoglobin C Crystals Not Reportable 04/24/18 15:00 Schistocytes Few 04/24/18 15:00 Malaria parasites Not Reportable 04/24/18 15:00 Azael Bodies Not Reportable 04/24/18 15:00 Hem Pathologist Commnt No 04/24/18 15:00 PT 16.5 Sec. (12.2-14.9) H 04/25/18 12:13 INR 1.26 (0.87-1.13) H 04/25/18 12:13 APTT 57.5 Sec. (24.2-36.6) H 04/25/18 12:13 Fibrinogen 273 mg/dl (211-480) 04/25/18 15:35 Heparin Anti-Xa Level 0.14 U.I./ml (0.3-0.7) L 04/26/18 04:27 Sodium TNR 04/26/18 04:27 Potassium TNR 04/26/18 04:27 Chloride TNR 04/26/18 04:27 Carbon Dioxide TNR 04/26/18 04:27 Anion Gap TNR 04/26/18 04:27 BUN TNR 04/26/18 04:27 Creatinine TNR 04/26/18 04:27 Estimated GFR TNR 04/26/18 04:27 BUN/Creatinine Ratio TNR 04/26/18 04:27 Glucose TNR 04/26/18 04:27 Hemoglobin A1c 5.7 % (4-6) 04/22/18 20:57 Lactic Acid 1.60 mmol/L (0.7-2.0) 04/22/18 16:47 Uric Acid 7.5 mg/dL (3.5-7.6) 04/22/18 16:02 Calcium TNR 04/26/18 04:27 Total Bilirubin 0.40 mg/dL (0.1-1.2) 04/23/18 04:57 AST 17 units/L (5-40) 04/23/18 04:57 ALT 6 units/L (7-56) L 04/23/18 04:57 Alkaline Phosphatase 105 units/L (35-129) 04/23/18 04:57 Total Protein 7.2 g/dL (6.3-8.2) 04/23/18 04:57 Albumin 3.8 g/dL (3.9-5) L 04/23/18 04:57 Albumin/Globulin Ratio 1.1 % 04/23/18 04:57 Blood Type O NEGATIVE 04/24/18 18:00 Antibody Screen Negative 04/24/18 18:00
[2018-04-26] MEDS ORDERED: PLAVIX PO SCH (10:00)
[2018-04-26] MEDS: COZAAR PO SCH (10:35)
[2018-04-26] MEDS: NYSTOP TP SCH ×2 (10:35→21:15)
[2018-04-26] MEDS: PROTONIX PO SCH (10:35)
[2018-04-26] MEDS: SODIUM CHLORIDE FLUSH SYRINGE 10 ML IV SCH ×2 (10:36→21:16)
[2018-04-26 11:04] LABS: BUN/Creatinine Ratio 9; Blood Urea Nitrogen 7 mg/dL (9-20); Hemolysis Index 6
--- NOTE | 2018-04-26 11:09 | Progress Note ---
Assessment and Plan Patient doing well following this procedure. He may be moved from the ICU to [facility] with telemetry from a vascular standpoint. Subjective Date of service: 04/26/18 Principal diagnosis: PVD with gangrene of the left great toe Interval history: Patient doing well following his revascularization procedure. His foot is warm with a dopplerable posterior tibial pulse. He has no complaint of pain in his left leg. The patient does complain of pain at the right groin. He has a small subcutaneous hematoma. Objective - Constitutional Vitals: Vital Signs - 12hr 04/25/18 04/26/18 04/26/18 23:17 00:00 00:01 Temperature Pulse Rate 107 H 111 H Pulse Rate [ 111 H Apical] Pulse Rate [ 111 H Left Radial] Respiratory 17 14 14 Rate Respiratory Rate [Left Toe] Blood Pressure 125/65 133/75 O2 Sat by Pulse 100 100 100 Oximetry 04/26/18 04/26/18 04/26/18 01:01 02:00 03:01 Temperature Pulse Rate 106 H 100 H 101 H Pulse Rate [ 100 H Apical] Pulse Rate [ 100 H Left Radial] Respiratory 20 20 18 Rate Respiratory Rate [Left Toe] Blood Pressure 113/62 113/62 118/60 O2 Sat by Pulse 98 100 99 Oximetry 04/26/18 04/26/18 04/26/18 04:00 04:01 04:11 Temperature 99.0 F Pulse Rate 99 H 98 H Pulse Rate [ 99 H Apical] Pulse Rate [ 99 H Left Radial] Respiratory 17 17 17 Rate Respiratory Rate [Left Toe] Blood Pressure 118/60 118/60 128/68 O2 Sat by Pulse 99 100 100 Oximetry 04/26/18 04/26/18 04/26/18 04:21 04:31 04:41 Temperature Pulse Rate 97 H 93 H 99 H Pulse Rate [ Apical] Pulse Rate [ Left Radial] Respiratory 17 12 16 Rate Respiratory Rate [Left Toe] Blood Pressure 128/68 128/68 128/68 O2 Sat by Pulse 99 100 100 Oximetry 04/26/18 04/26/18 04/26/18 04:51 05:01 05:11 Temperature Pulse Rate 98 H 98 H 97 H Pulse Rate [ Apical] Pulse Rate [ Left Radial] Respiratory 17 19 22 Rate Respiratory Rate [Left Toe] Blood Pressure 128/68 133/73 133/73 O2 Sat by Pulse 99 99 100 Oximetry 04/26/18 04/26/18 04/26/18 05:21 05:31 05:41 Temperature Pulse Rate 92 H 95 H 98 H Pulse Rate [ Apical] Pulse Rate [ Left Radial] Respiratory 18 16 20 Rate Respiratory Rate [Left Toe] Blood Pressure 133/73 133/73 133/73 O2 Sat by Pulse 99 99 99 Oximetry 04/26/18 04/26/18 04/26/18 05:51 06:01 06:11 Temperature Pulse Rate 95 H 94 H 94 H Pulse Rate [ Apical] Pulse Rate [ Left Radial] Respiratory 16 18 15 Rate Respiratory Rate [Left Toe] Blood Pressure 133/73 128/74 128/74 O2 Sat by Pulse 98 99 99 Oximetry 04/26/18 04/26/18 04/26/18 06:21 06:31 06:41 Temperature Pulse Rate 90 96 H 92 H Pulse Rate [ Apical] Pulse Rate [ Left Radial] Respiratory 15 19 15 Rate Respiratory Rate [Left Toe] Blood Pressure 128/74 128/74 128/74 O2 Sat by Pulse 100 100 99 Oximetry 04/26/18 04/26/18 04/26/18 06:51 07:01 07:11 Temperature Pulse Rate 90 96 H 92 H Pulse Rate [ Apical] Pulse Rate [ Left Radial] Respiratory 15 15 14 Rate Respiratory Rate [Left Toe] Blood Pressure 128/74 129/81 129/81 O2 Sat by Pulse 100 100 100 Oximetry 04/26/18 04/26/18 04/26/18 08:00 08:01 08:35 Temperature 97.7 F Pulse Rate 98 H Pulse Rate [ Apical] Pulse Rate [ Left Radial] Respiratory 15 16 Rate Respiratory 15 Rate [Left Toe] Blood Pressure 128/80 O2 Sat by Pulse 98 Oximetry 04/26/18 04/26/18 10:35 10:47 Temperature Pulse Rate 98 H Pulse Rate [ Apical] Pulse Rate [ Left Radial] Respiratory 18 Rate Respiratory Rate [Left Toe] Blood Pressure 126/72 O2 Sat by Pulse Oximetry General appearance: Present: no acute distress - EENT Eyes: PERRL ENT: hearing intact - Neck Neck: supple, normal ROM - Respiratory Respiratory effort: normal - Breasts Breasts: deferred - Cardiovascular Rhythm: regular Extremities: abnormal - Gastrointestinal General gastrointestinal: Present: deferred - Genitourinary Male genitourinary: deferred - Psychiatric Psychiatric: appropriate mood/affect, cooperative - Labs CBC & Chem 7: 07/07/18 04:27 04/26/18 10:25 Labs: Abnormal lab results 04/25/18 04/25/18 04/25/18 Range/Units 12:13 12:13 12:13 WBC 13.7 H (4.5-11.0) K/mm3 RBC (3.65-5.03) M/mm3 Hgb 11.1 L 11.1 L (11.8-15.2) gm/dl Hct 34.4 L 33.9 L (35.5-45.6) % MCV 82 L (84-94) fl MCH 27 L (28-32) pg RDW 19.3 H (13.2-15.2) % Lymph % (Auto) 6.4 L (13.4-35.0) % [place] % (Auto) 7.6 H (0.0-7.3) % Lymph # 0.9 L (1.2-5.4) K/mm3 [place] # 1.0 H (0.0-0.8) K/mm3 Seg Neutrophils % 85.1 H (40.0-70.0) % Seg Neutrophils # 11.7 H (1.8-7.7) K/mm3 PT (12.2-14.9) Sec. INR (0.87-1.13) APTT (24.2-36.6) Sec. Heparin Anti-Xa Level < 0.10 L (0.3-0.7) U.I./ml Potassium (3.6-5.0) mmol/L Carbon Dioxide (22-30) mmol/L BUN (9-20) mg/dL Glucose (75-100) mg/dL Calcium (8.4-10.2) mg/dL 04/25/18 04/25/18 04/25/18 Range/Units 12:13 15:35 15:35 WBC 14.7 H (4.5-11.0) K/mm3 RBC (3.65-5.03) M/mm3 Hgb 10.3 L (11.8-15.2) gm/dl Hct 30.7 L (35.5-45.6) % MCV 81 L (84-94) fl MCH 27 L (28-32) pg RDW 18.9 H (13.2-15.2) % Lymph % (Auto) 9.7 L (13.4-35.0) % [place] % (Auto) 9.7 H (0.0-7.3) % Lymph # (1.2-5.4) K/mm3 [place] # 1.4 H (0.0-0.8) K/mm3 Seg Neutrophils % 80.2 H (40.0-70.0) % Seg Neutrophils # 11.8 H (1.8-7.7) K/mm3 PT 16.5 H (12.2-14.9) Sec. INR 1.26 H (0.87-1.13) APTT 57.5 H (24.2-36.6) Sec. Heparin Anti-Xa Level 0.28 L (0.3-0.7) U.I./ml Potassium (3.6-5.0) mmol/L Carbon Dioxide (22-30) mmol/L BUN (9-20) mg/dL Glucose (75-100) mg/dL Calcium (8.4-10.2) mg/dL 04/26/18 04/26/18 04/26/18 Range/Units 04:27 04:27 10:25 WBC 14.1 H (4.5-11.0) K/mm3 RBC 3.17 L (3.65-5.03) M/mm3 Hgb 8.7 L (11.8-15.2) gm/dl Hct 25.4 L (35.5-45.6) % MCV 80 L (84-94) fl MCH 27 L (28-32) pg RDW 18.9 H (13.2-15.2) % Lymph % (Auto) (13.4-35.0) % [place] % (Auto) (0.0-7.3) % Lymph # (1.2-5.4) K/mm3 [place] # (0.0-0.8) K/mm3 Seg Neutrophils % (40.0-70.0) % Seg Neutrophils # (1.8-7.7) K/mm3 PT (12.2-14.9) Sec. INR (0.87-1.13) APTT (24.2-36.6) Sec. Heparin Anti-Xa Level 0.14 L (0.3-0.7) U.I./ml Potassium 3.3 L (3.6-5.0) mmol/L Carbon Dioxide 20 L (22-30) mmol/L BUN 7 L (9-20) mg/dL Glucose 140 H (75-100) mg/dL Calcium 8.0 L (8.4-10.2) mg/dL
[2018-04-26] MEDS ORDERED: K-DUR PO ONE (16:00)
--- NOTE | 2018-04-26 17:00 | Event Note ---
Date: 04/26/18 Called to see for altered mental status. Nurse says Patient staring. Patient says he is fine, denies focal weakness, denies loss of consciousness. On exam, moves all extremities, Awake,alert,oriented x 3. Bld glucose 166. Will check CT Head since he is on Heparin drip.
--- NOTE | 2018-04-26 17:56 | Cat Scan Report ---
FINAL REPORT PROCEDURE: CT HEAD/BRAIN WO CON TECHNIQUE: Computerized tomography of the head was performed without contrast material. HISTORY: altered mental status COMPARISON: No prior studies are available for comparison. FINDINGS: There is acute subdural hemorrhage tracking along the posterior interhemispheric fissure and bilaterally along the tentorium. Acute subdural hemorrhage is also seen in the left parietal and temporal regions, measuring up to 3 millimeters in thickness, with no underlying mass effect. There is right subdural hemorrhage in the parieto-occipital regions, with acute on chronic component present, measuring up to 6 millimeters in thickness, with no underlying mass effect. There is also extra-axial hemorrhage noted in the floor of the anterior cranial fossa with possible contusion or parenchymal hemorrhage in the inferior right frontal lobe. No evidence of hydrocephalus, acute territorial infarction, or mass. No fracture is seen. Paranasal sinuses and mastoids are aerated. IMPRESSION: Bilateral acute subdural hemorrhage. There is acute on chronic right-sided subdural hemorrhage. There is extra-axial hemorrhage along the floor of the right anterior cranial fossa with possible small area of parenchymal contusion or parenchymal hemorrhage in the inferior right frontal lobe. Findings were discussed by telephone with DANIELLE Nolasco at 4:50 p.m. central standard time on 04/26/2018.
--- NOTE | 2018-04-26 18:47 | Event Note ---
Date: 04/26/18 Patient is 72 [address] head shows acute subdural hemorrhage,bilateral. I called [facility] transfer line, discussed case with Dr. Reyes, Neurointensivist. He states will accept patient. I discussed with Dr. Mccall, [facility] surgeon.
--- NOTE | 2018-04-26 19:08 | Discharge Summary ---
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 Dr. Medina, vasc Surg 04/25/18 Thrombectomy,angioplasty of multiple vessels. See vasc surg report for details. Dr. Medina, vasc surg Hospital course: Patient is 72 yo with history of hypertension, peripheral vascular disease. He has history of right below-knee amputation. He presents to the hospital with pain and black discoloration of right toe. He was admitted for acute ischemia. He was started on heparin drip, was admitted for further management. Patient was evaluated by vascular surgeon. He had placement of vascular catheter and TPA was administered. On 04/25/18 had thrombectomy, angioplasty of multiple vessels. Was doing fine postoperatively and was about to be transferred to the medical floor. Today, Nurse report altered mental status with patient staring for seconds. I evaluated him. Patient denies loss of consciousness. He denies any localized weakness, he follows commands. Blood glucose was 166. I discontinued Heparin drip, ordered CT head. CT head was ordered which shows acute bilateral subdural hemorrhage. I went to re-evaluate and by this time he tells me he has blurred vision and cannot see well with both eyes. I called [facility] transfer line. I spoke with Dr. Reyes, Neurointensivist. After discussing he agreed to accept patients to be transferred to [facility]. Also discussed with Dr. Mccall, vascular surgery and he states it is okay to discontinue anticoagulation and focus on management of subdural hematom. Thanks to [facility] for accepting patient. He will be transferred by ambulance Total time spent on discharge,35 mins Disposition: [id number] ANOTHER TYPE [facility]THCARE - Discharge Diagnoses (1) Non-traumatic acute subdural hematoma Status: Acute (2) PAD (peripheral artery disease) Status: Chronic (3) Gangrene of foot Status: Chronic (4) HTN (hypertension) Status: Chronic Qualifiers: Hypertension type: essential hypertension Qualified Code(s): I10 - Essential (primary) hypertension Core Measure Documentation - Palliative Care Palliative Care/ Comfort Measures: Not Applicable - Core Measures Any of the following diagnoses?: none Exam - Constitutional Vitals: Temp Pulse Resp BP Pulse Ox 97.6 F 105 H 24 111/60 100 04/26/18 16:00 04/26/18 17:00 04/26/18 17:00 04/26/18 17:00 04/26/18 17:00 Plan Follow up with: PRIMARY MD MEAGAN [Primary Care Provider] - 3-5 Days
[2018-04-26] MEDS ORDERED: D5/0.45NS 1,000 ML IV SCH (20:00)
[2018-04-26 21:52] VITALS: BP 108/61
== END 2018-04-26 21:50 | disposition home health service (06) | DRG 270 ==
LOC: ED 15:14 → 2B-ACE 19:00 → CC1 04-24 17:33
PROVIDERS: ADMIT Internal Medicine; ATTEND Internal Medicine
PROC: 04CL3ZZ Extirpation of Matter from Left Femoral Artery, Percutaneous Approach (ICD-10-PCS; principal; 2018-04-24)
PROC: 04CY3ZZ Extirpation of Matter from Lower Artery, Percutaneous Approach (ICD-10-PCS; 2018-04-24)
PROC: 04CN3ZZ Extirpation of Matter from Left Popliteal Artery, Percutaneous Approach (ICD-10-PCS; 2018-04-24)
PROC: 3E05317 Introduction of Other Thrombolytic into Peripheral Artery, Percutaneous Approach (ICD-10-PCS; 2018-04-24)
PROC: B4101ZZ Fluoroscopy of Abdominal Aorta using Low Osmolar Contrast (ICD-10-PCS; 2018-04-24)
PROC: B41J1ZZ Fluoroscopy of Other Lower Arteries using Low Osmolar Contrast (ICD-10-PCS; 2018-04-24)
PROC: B41F1ZZ Fluoroscopy of Right Lower Extremity Arteries using Low Osmolar Contrast (ICD-10-PCS; 2018-04-24)
PROC: B41G1ZZ Fluoroscopy of Left Lower Extremity Arteries using Low Osmolar Contrast (ICD-10-PCS; 2018-04-24)
PROC: 04CL3ZZ Extirpation of Matter from Left Femoral Artery, Percutaneous Approach (ICD-10-PCS; 2018-04-25)
PROC: 04CN3ZZ Extirpation of Matter from Left Popliteal Artery, Percutaneous Approach (ICD-10-PCS; 2018-04-25)
PROC: 04CU3ZZ Extirpation of Matter from Left Peroneal Artery, Percutaneous Approach (ICD-10-PCS; 2018-04-25)
PROC: 04CQ3ZZ Extirpation of Matter from Left Anterior Tibial Artery, Percutaneous Approach (ICD-10-PCS; 2018-04-25)
PROC: 047S3ZZ Dilation of Left Posterior Tibial Artery, Percutaneous Approach (ICD-10-PCS; 2018-04-25)
PROC: 047N3ZZ Dilation of Left Popliteal Artery, Percutaneous Approach (ICD-10-PCS; 2018-04-25)
PROC: 047L3ZZ Dilation of Left Femoral Artery, Percutaneous Approach (ICD-10-PCS; 2018-04-25)
PROC: 04PY33Z Removal of Infusion Device from Lower Artery, Percutaneous Approach (ICD-10-PCS; 2018-04-25)
PROC: 3E05317 Introduction of Other Thrombolytic into Peripheral Artery, Percutaneous Approach (ICD-10-PCS; 2018-04-25)
PROC: 30233M1 Transfusion of Nonautologous Plasma Cryoprecipitate into Peripheral Vein, Percutaneous Approach (ICD-10-PCS; 2018-04-25)
PROC: 04HL33Z Insertion of Infusion Device into Left Femoral Artery, Percutaneous Approach (ICD-10-PCS; 2018-04-25)
DX: I70.262 Atherosclerosis of native arteries of extremities with gangrene, left leg (principal); I62.01 Nontraumatic acute subdural hemorrhage; I99.8 Other disorder of circulatory system; I10 Essential (primary) hypertension; M10.9 Gout, unspecified; F17.200 Nicotine dependence, unspecified, uncomplicated; Z89.511 Acquired absence of right leg below knee; Z82.49 Family history of ischemic heart disease and other diseases of the circulatory system; Z79.899 Other long term (current) drug therapy; Z72.89 Other problems related to lifestyle
CPT/HCPCS: 36415; 37184; 37185; 37211; 37214; 37224; 37225; 37228; 70450; 75635; 75710; 76937; 80048; 80053; 82140; 82962; 83036; 84550; 85007; 85014; 85018; 85025; 85027; 85049; 85384; 85520; 85610; 85730; 86850; 86900; 86901; 86965; 93005; 93010; 96365; 96366; 96374; 96375; C1724; C1725; C1757; C1760; C1769; C1887; C1894; J0690; J1170; J1200; J1644; J2250; J2270; J2405; J2997; J3010; J3370; J7030; J7040; P9012; Q9967